=== PATIENT | female | born 1950 | race Caucasian/White ===

== ENCOUNTER 2016-08-14 10:40 | Inpatient (IN) ==
[2016-08-14] MEDS ORDERED: Ondansetron 4 MG/2 ML VIAL IVP ONE (16:09)
[2016-08-14] MEDS ORDERED: 0.9 % Sodium Chloride 1,000 ML IVC ONE (16:09)
[2016-08-14 16:16] LABS: Basophils % 0.3 %; Eosinophils # 0.2 K/mcL (0.0-0.6); Eosinophils % 1.9 %; Hematocrit 31.5 % (35.3-44.9); Immature Granulocytes % 0.4 % (0-4); Lymphocytes # 1.6 K/mcL (0.6-4.6); Lymphocytes % 17.2 %; Mean Corpuscular HGB Conc 31.7 g/dL (31.6-35.5); Mean Corpuscular Hemoglobin 27.3 pg (28.0-33.3); Mean Corpuscular Volume 86.1 fL (83.0-100.0); Mean Platelet Volume 9.1 fL (9.4-12.4); Monocytes # 0.7 K/mcL (0.0-1.3); Monocytes % 7.7 %; Neutrophils # 6.7 K/mcL (1.6-8.9); Platelet Count 284 K/mcL (140-400); Red Blood Count 3.66 M/mcL (3.82-4.97); Red Cell Distribution Width 14.5 % (11.5-14.5); Segmented Neutrophils % 72.5 %
[2016-08-14 16:30] LABS: Calcium 10.3 mg/dL (8.6-10.8); Potassium 4.7 mEq/L (3.5-4.5)
[2016-08-14 16:32] LABS: Albumin 3.3 g/dL (3.5-5.0); Albumin/Globulin Ratio 0.7 (1.1-2.2); Bilirubin,Direct 0.2 mg/dL (0.0-0.5); Bilirubin,Total 0.2 mg/dL (0.2-1.2); Total Protein 8.3 g/dL (6.0-8.3)
--- NOTE | 2016-08-14 16:39 | Emergency Department Note ---
Disposition Clinical Impression: Abnormal CT of the abdomen Nausea & vomiting Qualifiers: Vomiting type: unspecified Vomiting Intractability: non-intractable Qualified Code(s): R11.2 - Nausea with vomiting, unspecified Disposition: Admitted As Inpatient Condition: Good Nausea/Vomiting/Diarrhea HPI - General Chief complaint: ED Nausea/Vomiting/Diarrhea Stated complaint: vomiting, nausea Time Seen by Provider: 08/14/16 15:47 Source: patient Limitations: no limitations Nursing Notes Reviewed: Yes Vital Signs Reviewed: Yes - History of Present Illness HPI Narrative: Patient here for evaluation of nausea and vomiting. Patient has had nausea and vomiting symptoms for proximally 5 months with negative workup. Patient's symptoms recently gotten worse where she received a barium swallow test concerning for severe esophagitis versus possible malignancy. Patient has endoscopy scheduled for . Patient has been unable to tolerate by mouth fluids since yesterday. Patient with coffee-ground emesis and vomited bag. Patient complains of burning in her esophagus with vomiting but denies chest pain at this time. Patient has cramping abdominal pain but is able to localize on the left side. Patient states she has had a negative workup for abdominal pain however I only see right upper quadrant ultrasound on chart review. Patient denies constipation or diarrhea this point. - Related Data Home Medications Medication Instructions Recorded Confirmed Albuterol Sulfate [Proair 1 - 2 puff IH Q6H PRN 08/26/15 08/23/16 Respiclick] Losartan Potassium [Cozaar] 100 mg PO DAILY 08/26/15 08/23/16 Furosemide [Lasix] 20 mg PO QMWF 04/02/16 08/23/16 Atorvastatin [Lipitor] 10 mg PO DAILY 08/14/16 08/23/16 CloNIDine Patch [Catapres-Tts] 0.3 mg TP QWEEK 08/14/16 08/23/16 Ergocalciferol (VITAMIN D2) 50,000 unit PO QWEEK 08/14/16 08/23/16 [Vitamin D2] Promethazine HCl [Phenadoz] 25 mg RC DAILY PRN 08/14/16 08/23/16 Previous Rx's Medication Instructions Recorded Cyanocobalamin (Vitamin B-12) 1,000 mcg PO DAILY #30 tablet 08/17/16 [Vitamin B12] Ferrous Sulfate Oral Soln 300 mg PO BID #250 mls 08/17/16 Folic Acid 1 mg PO DAILY #30 tablet 08/17/16 Metoprolol XL (24 HR) Succ [Toprol 100 mg PO DAILY #60 tab.er.24h 08/17/16 Xl] Ondansetron [Zofran ODT] 8 mg SL ONCE #90 tab.rapdis 08/23/16 OxyCODONE Immed Rel [Roxicodone 5 5 mg PO Q6HR PRN #20 tablet 08/23/16 MG] Polyethylene Glycol 3350 [MiraLAX] 17 gm PO DAILY PRN #10 powd.pack 08/23/16 Allergies Allergy/AdvReac Type Severity Reaction Status Date / Time aspirin AdvReac Nausea Verified 08/26/15 18:15 naproxen AdvReac Nausea Verified 08/26/15 18:15 NSAIDS (Non-Steroidal AdvReac Nausea Verified 08/14/16 19:16 Anti-Inflamma All systems ED: reviewed and negative except as stated. Constitutional: Reports: weakness. Denies: fever, chills Eyes: Denies: eye pain ENT ED: Denies: ear pain Cardiovascular: Denies: chest pain Respiratory: Denies: cough, dyspnea Gastrointestinal: Reports: abdominal pain, nausea, vomiting. 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 Absent: respiratory distress, wheezes - Cardiovascular Cardiovascular exam: Present: regular rate, normal rhythm - Abdominal Exam Abdominal exam: Present: soft, tenderness Abdominal tenderness: Present: LUQ, LLQ, mild - Extremities Exam Extremities exam: Present: normal inspection, full ROM - Back Exam Back exam: Present: normal inspection - Neurological Exam Neurological exam: Present: alert, oriented X3 - Psychiatric Psychiatric exam: Present: normal affect - Skin Skin exam: Present: warm, dry Course - Reevaluation(s) Reevaluation #1: Pt symptoms mildly improved with medications. Pt informed about abnormal CT scan and need for continued workup with concern of possible underlying cancer. - Consultations Consultation #1: discussed with hospitalist Dr. Momin. Pt accepted. Vital Signs Temperature 98.7 F 08/14/16 10:41 Pulse Rate 100 08/14/16 10:41 Respiratory Rate 18 08/14/16 10:41 Blood Pressure 163/88 08/14/16 10:41 O2 Sat by Pulse Oximetry 95 08/14/16 10:41 Temperature 98.6 F 08/17/16 06:38 Pulse Rate 88 08/17/16 06:38 Respiratory Rate 16 08/17/16 06:38 Blood Pressure 105/71 08/17/16 06:38 O2 Sat by Pulse Oximetry 94 L 08/17/16 06:38 Oxygen Delivery Oxygen Delivery Room Air Nausea/Vomiting/Diarrhea - Lab Data Result diagrams: 08/17/16 04:29 08/17/16 04:29 Lab Results 08/14/16 08/14/16 08/14/16 Range/Units 15:45 15:45 15:45 WBC 9.3 (4.3-11.1) K/mcL RBC 3.66 L (3.82-4.97) M/mcL Hgb 10.0 L (11.5-15.4) g/dL Hct 31.5 L (35.3-44.9) % MCV 86.1 (83.0-100.0) fL MCH 27.3 L (28.0-33.3) pg MCHC 31.7 (31.6-35.5) g/dL RDW 14.5 (11.5-14.5) % Plt Count 284 (140-400) K/mcL MPV 9.1 L (9.4-12.4) fL Immature Gran % 0.4 (0-4) % Seg Neutrophils % 72.5 % Lymphocytes % 17.2 % Monocytes % 7.7 % Eosinophils % 1.9 % Basophils % 0.3 % Neutrophils # 6.7 (1.6-8.9) K/mcL Lymphocytes # 1.6 (0.6-4.6) K/mcL Monocytes # 0.7 (0.0-1.3) K/mcL Eosinophils # 0.2 (0.0-0.6) K/mcL Basophils # 0.0 (0.0-0.2) K/mcL Sodium 138 (136-145) mEq/L Potassium 4.7 H (3.5-4.5) mEq/L Chloride 101 (98-109) mEq/L Carbon Dioxide 25 (19-29) mEq/L BUN 31 H (7-20) mg/dL Creatinine 2.05 H (0.57-1.11) mg/dL Est GFR ( Amer) 30 L (> 60) Est GFR (Non-Af Amer) 24 L (> 60) BUN/Creatinine Ratio 15 (6-26) Glucose 109 H (70-99) mg/dL POC Glucose (58-89) Calculated Osmolality 293 (280-300) Calcium 10.3 (8.6-10.8) mg/dL Total Bilirubin 0.2 (0.2-1.2) mg/dL Direct Bilirubin 0.2 (0.0-0.5) mg/dL Indirect Bilirubin 0.0 (0.0-1.2) mg/dL AST 28 (5-34) Units/L ALT 18 (0-55) Units/L Alkaline Phosphatase 89 (38-126) Units/L Serum Total Protein 8.3 (6.0-8.3) g/dL Albumin 3.3 L (3.5-5.0) g/dL Globulin 5.0 H (2.4-3.5) g/dL Albumin/Globulin Ratio 0.7 L (1.1-2.2) Lipase 22 (8-78) Units/L Urine Color (Yellow) Urine Clarity (Clear) Urine pH (5.0-8.0) pH Units Ur Specific Chapman (1.010-1.025) Urine Protein (Neg-Trace) mg/dL Urine Glucose (UA) (Normal) mg/dL Urine Ketones (Negative) mg/dL Urine Blood (Negative) Urine Nitrite (Negative) Urine Bilirubin (Negative) Urine Urobilinogen (Normal) mg/dL Ur Leukocyte Esterase (Negative) Urine Microscopic RBC (0-3) per hpf Urine Microscopic WBC (0-3) per hpf Ur Squamous Epith Cells (None-Few) per lpf Urine Bacteria (None-Few) per hpf Ur Culture Indicated? (NO) Blood Type Antibody Screen 08/14/16 08/14/16 08/14/16 Range/Units 16:28 17:51 23:53 WBC (4.3-11.1) K/mcL RBC (3.82-4.97) M/mcL Hgb (11.5-15.4) g/dL Hct (35.3-44.9) % MCV (83.0-100.0) fL MCH (28.0-33.3) pg MCHC (31.6-35.5) g/dL RDW (11.5-14.5) % Plt Count (140-400) K/mcL MPV (9.4-12.4) fL Immature Gran % (0-4) % Seg Neutrophils % % Lymphocytes % % Monocytes % % Eosinophils % % Basophils % % Neutrophils # (1.6-8.9) K/mcL Lymphocytes # (0.6-4.6) K/mcL Monocytes # (0.0-1.3) K/mcL Eosinophils # (0.0-0.6) K/mcL Basophils # (0.0-0.2) K/mcL Sodium (136-145) mEq/L Potassium (3.5-4.5) mEq/L Chloride (98-109) mEq/L Carbon Dioxide (19-29) mEq/L BUN (7-20) mg/dL Creatinine (0.57-1.11) mg/dL Est GFR ( Amer) (> 60) Est GFR (Non-Af Amer) (> 60) BUN/Creatinine Ratio (6-26) Glucose (70-99) mg/dL POC Glucose 124 H (58-89) Calculated Osmolality (280-300) Calcium (8.6-10.8) mg/dL Total Bilirubin (0.2-1.2) mg/dL Direct Bilirubin (0.0-0.5) mg/dL Indirect Bilirubin (0.0-1.2) mg/dL AST (5-34) Units/L ALT (0-55) Units/L Alkaline Phosphatase (38-126) Units/L Serum Total Protein (6.0-8.3) g/dL Albumin (3.5-5.0) g/dL Globulin (2.4-3.5) g/dL Albumin/Globulin Ratio (1.1-2.2) Lipase (8-78) Units/L Urine Color Dark Yellow (Yellow) Urine Clarity Cloudy A (Clear) Urine pH 5.5 (5.0-8.0) pH Units Ur Specific Chapman 1.025 (1.010-1.025) Urine Protein 30 H (Neg-Trace) mg/dL Urine Glucose (UA) Normal (Normal) mg/dL Urine Ketones Trace H (Negative) mg/dL Urine Blood Negative (Negative) Urine Nitrite Negative (Negative) Urine Bilirubin Small H (Negative) Urine Urobilinogen Normal (Normal) mg/dL Ur Leukocyte Esterase Small H (Negative) Urine Microscopic RBC 0-3 (0-3) per hpf Urine Microscopic WBC 0-3 (0-3) per hpf Ur Squamous Epith Cells Many H (None-Few) per lpf Urine Bacteria Few (None-Few) per hpf Ur Culture Indicated? YES A (NO) Blood Type O POSITIVE Antibody Screen NEGATIVE 08/15/16 08/15/16 08/15/16 Range/Units 05:36 05:36 05:56 WBC 5.8 (4.3-11.1) K/mcL RBC 2.84 L (3.82-4.97) M/mcL Hgb 7.7 L D (11.5-15.4) g/dL Hct 24.6 L (35.3-44.9) % MCV 86.6 (83.0-100.0) fL MCH 27.1 L (28.0-33.3) pg MCHC 31.3 L (31.6-35.5) g/dL RDW 14.4 (11.5-14.5) % Plt Count 193 (140-400) K/mcL MPV 9.0 L (9.4-12.4) fL Immature Gran % (0-4) % Seg Neutrophils % % Lymphocytes % % Monocytes % % Eosinophils % % Basophils % % Neutrophils # (1.6-8.9) K/mcL Lymphocytes # (0.6-4.6) K/mcL Monocytes # (0.0-1.3) K/mcL Eosinophils # (0.0-0.6) K/mcL Basophils # (0.0-0.2) K/mcL Sodium 137 (136-145) mEq/L Potassium 4.1 (3.5-4.5) mEq/L Chloride 104 (98-109) mEq/L Carbon Dioxide 26 (19-29) mEq/L BUN 23 H (7-20) mg/dL Creatinine 1.27 H (0.57-1.11) mg/dL Est GFR ( Amer) 52 L (> 60) Est GFR (Non-Af Amer) 43 L (> 60) BUN/Creatinine Ratio 18 (6-26) Glucose 124 H (70-99) mg/dL POC Glucose 127 H (58-89) Calculated Osmolality 289 (280-300) Calcium 8.8 (8.6-10.8) mg/dL Total Bilirubin (0.2-1.2) mg/dL Direct Bilirubin (0.0-0.5) mg/dL Indirect Bilirubin (0.0-1.2) mg/dL AST (5-34) Units/L ALT (0-55) Units/L Alkaline Phosphatase (38-126) Units/L Serum Total Protein (6.0-8.3) g/dL Albumin (3.5-5.0) g/dL Globulin (2.4-3.5) g/dL Albumin/Globulin Ratio (1.1-2.2) Lipase (8-78) Units/L Urine Color (Yellow) Urine Clarity (Clear) Urine pH (5.0-8.0) pH Units Ur Specific Chapman (1.010-1.025) Urine Protein (Neg-Trace) mg/dL Urine Glucose (UA) (Normal) mg/dL Urine Ketones (Negative) mg/dL Urine Blood (Negative) Urine Nitrite (Negative) Urine Bilirubin (Negative) Urine Urobilinogen (Normal) mg/dL Ur Leukocyte Esterase (Negative) Urine Microscopic RBC (0-3) per hpf Urine Microscopic WBC (0-3) per hpf Ur Squamous Epith Cells (None-Few) per lpf Urine Bacteria (None-Few) per hpf Ur Culture Indicated? (NO) Blood Type Antibody Screen Attestation Statement - Attestation Attestation: Dr. Le note: Patient seen in conjunction with resident Dr. Chance; please see his chart for complete documentation. I spent [id number] time with the patient and I agree with the patient's treatment and disposition. Lab work and CT scan results reviewed; pt admitted in stable condition, w/ acute on chronic worsening of her abdominal symptoms and increasing difficulty tolerating oral fluids
[2016-08-14] MEDS ORDERED: *HR* HYDROmorphone (PF) 1 MG/ML SYRINGE IV ONE (17:30)
[2016-08-14 18:11] LABS: Bilirubin,Urine Small (Negative); Blood,Urine Negative (Negative); Clarity,Urine Cloudy (Clear); Color,Urine Dark Yellow (Yellow); Glucose,Urine (UA) Normal (Normal); Ketones,Urine Trace mg/dL (Negative); Leukocyte Esterase,Urine Small (Negative); Nitrite,Urine Negative (Negative); PH,Urine 5.5 pH Units (5.0-8.0); Protein,Urine 30 mg/dL (Neg-Trace); Specific Gravity,Urine 1.025 (1.010-1.025); Urobilinogen,Urine Normal (Normal)
[2016-08-14 18:19] LABS: RBC,Urine 0-3 per hpf (0-3); Squamous Epithelial Cell,Urine Many per lpf (None-Few); WBC,Urine 0-3 per hpf (0-3)
[2016-08-14 18:20] LABS: Bacteria,Urine Few per hpf (None-Few)
[2016-08-14] MEDS ORDERED: Acetaminophen 325 MG TABLET PO PRN (19:41)
[2016-08-14] MEDS ORDERED: Ondansetron 4 MG/2 ML VIAL IVP PRN (19:41)
[2016-08-14] MEDS ORDERED: Naloxone 0.4 MG/ML INJ IVP PRN (19:41)
[2016-08-14] MEDS ORDERED: Ipratropium/Albuterol Neb 3 ML IH PRN (19:46)
[2016-08-14] MEDS ORDERED: *HR* OxyCODONE/APAP 5/325 TABLET PO PRN (19:47)
--- NOTE | 2016-08-14 19:56 | Internal Med History&Physical ---
Date of Encounter: 08/14/16 Time of Encounter: 19:51 Assessment and Plan (1) Esophageal thickening Current visit: Yes Status: Acute dehydration 2ry to dysphagia, hematemesis (small amount), possible esophageal malignancy with mets called Dr Gray as he is covering for Dr Moura ( patient was going to have an EGD on originally) NPO after mindnight december schedule EGD with biopsy for the morning IVF Dailaudid, Zofran PRN COnsider Oncology consult Protonix IV no heparin, follow CBC (2) Lung nodule Current visit: Yes Status: Acute with liver lesions, will need more imaging (3) Tobacco abuse Current visit: Yes Status: Acute nicotine patch (4) Accelerated hypertension Current visit: Yes Status: Acute continue toprol , nicotine, Hydralazine IV prn (5) COPD (chronic obstructive pulmonary disease) Current visit: Yes Status: Acute inhalers Qualifiers: COPD type: unspecified COPD Qualified Code(s): J44.9 - Chronic obstructive pulmonary disease, unspecified (6) CKD (chronic kidney disease) stage 4, GFR 15-29 ml/min Current visit: Yes Status: Acute acute on chronic renal failure IVF (7) Malnutrition Current visit: Yes Status: Acute protein calorie malnutrition SCD for DVT prophylaxis and Protonix of GI prophylaxis. Admitted for observation, Full code. Time spent : 40 min High risk of dehydration Internal Medicine - H&P: HPI Chief complaint: nausea and vomiting Admitted From: Emergency Dept History of present illness: Ms. Lara is a 65 year old female with a past medical history of COPD not O2 dep , tobacco, HTN, WHO COMES TO THE EMERGENCY ROOM complaining of hematemesis, constant vomiting. She has vomited 5 times today with a small amount of blood and has not been able to keep any. The patient is dehydrated and says she has been vomiting for 2 months on and off. She was scheduled to see Dr. Moura on to have an endoscopy done. her hemoglobin is 10, CT scan of the abdomen showed severe esophageal thickening, with a right lower lobe nodule and hepatic lesions and a AAA. She has dysphagia but is still able to swallow her saliva. Her creatinine is 2.05 ans was 1.85 in the past. K is 4.7, HR 104, received dilaudid , Zofran and IVF in the ED.Has lost 21 lbs in the past 5 months. Denies diarrhea, on CP at the moment . Very anxious after receiving the bad news and not being able to smoke in the hospital. Past Med Surg Social Fam HX - Past Medical History Medical history: COPD (not O2 dep), hyperlipidemia, hypertension, renal disease (CKD4), other (chronic back pain, tobacco, asthma) Psychiatric history: no psych history - Past Surgical History Surgical History: other (tubal ligation) - Social History Smoking Status: Current every day smoker (1 PPD) Smokeless Tobacco Status: No Alcohol use: none Drug use: none - Additional Family History Additional family history: Paternal uncle and grand father with throat cancer Internal Medicine - H&P: Meds Albuterol Sulfate [Proair Respiclick] 1 - 2 puff IH Q6H PRN 08/26/15 [History] Losartan Potassium [Cozaar] 100 mg PO DAILY 08/26/15 [History] Furosemide [Lasix] 20 mg PO QMWF 04/02/16 [History] Atorvastatin [Lipitor] 10 mg PO DAILY 08/14/16 [History] CloNIDine Patch [Catapres-Tts] 0.3 mg TP QWEEK 08/14/16 [History] Ergocalciferol (VITAMIN D2) [Vitamin D2] 50,000 unit PO QWEEK 08/14/16 [History] Metoprolol XL (24 HR) Succ [Toprol XL] 200 mg PO DAILY 08/14/16 [History] NIFEdipine [Procardia] 10 mg PO BID 08/14/16 [History] Omeprazole [PriLOSEC] 40 mg PO BID 08/14/16 [History] OxyCODONE/APAP 5/325 [Percocet 5/325 MG] 1 tab PO Q6HR PRN 08/14/16 [History] Promethazine HCl [Phenadoz] 25 mg RC DAILY PRN 08/14/16 [History] Allergies aspirin Adverse Reaction (Verified 08/26/15 18:15) Nausea naproxen Adverse Reaction (Verified 08/26/15 18:15) Nausea NSAIDS (Non-Steroidal Anti-Inflamma Adverse Reaction (Verified 08/14/16 19:16) Nausea All Systems PM: A 10-system review of systems was performed and is negative for pertinent findings except as documented above in the HPI. Review of systems: NO CP or SOB, no dysuria, other systems out of the 10 reviewed are negative. - Constitutional Vitals: Temp Pulse Resp BP Pulse Ox 98.7 F 105 20 155/82 96 08/14/16 10:41 08/14/16 18:42 08/14/16 19:03 08/14/16 19:03 08/14/16 18:42 General appearance: Present: A&O X 3 - Head Head exam: Present: atraumatic, normocephalic - Eye Eye exam: Present: PERRL, conjuntiva pink, sclera anicteric Pupils: Present: PERRL - Neck Neck exam general surgery: Present: supple, trachea midline. Absent: lymphadenopathy - Respiratory Respiratory exam: Present: CTAB. Absent: accessory muscle use, rales, rhonchi, wheezes - Cardiovascular Cardiovascular exam: Present: RRR, +S1, +S2. Absent: diastolic murmur, gallop, rubs, systolic murmur - GI/Abdominal GI/Abdominal exam: Present: normal bowel sounds, soft, no peritoneal signs. Absent: distended, tenderness - Extremities Exam Extremities exam: Present: warm, radial pulses palpable and symetrical. Absent : calf tenderness, cyanotic, pedal edema - Neurological Exam Neurological exam: Present: CN II-XII intact, oriented X3, no focal deficits. Absent: pronater drift, facial droop, speech deficit - Skin Skin exam: Present: dry, intact Internal Med - H&P Results - Labs CBC & Chem 7: 08/14/16 15:45 08/14/16 15:45
[2016-08-14] MEDS ORDERED: CloNIDine Patch 0.3 MG PATCH (WEEKLY) TP SCH (20:00)
[2016-08-14] MEDS: D5% in 0.45% NACL 1,000 ML IVC SCH (20:24)
[2016-08-14] MEDS: Pantoprazole 40 MG VIAL IVP SCH (20:25)
[2016-08-14] MEDS: Nicotine 21 MG PATCH.TD24 TD SCH (20:28)
[2016-08-14] MEDS: *HR* HYDROmorphone (PF) 1 MG/ML SYRINGE IVP PRN (20:28)
[2016-08-14] MEDS: NIFEdipine 10 MG CAPSULE PO SCH (20:32)
[2016-08-14] MEDS: *HR* LORazepam 2 MG/ML VIAL IVP PRN (20:38)
[2016-08-14] MEDS: Ipratropium/Albuterol Neb 3 ML IH SCH (21:51)
[2016-08-15] MEDS: Ipratropium/Albuterol Neb 3 ML IH SCH ×4 (03:32→20:16)
[2016-08-15 06:03] LABS: Hematocrit 24.6 % (35.3-44.9); Mean Corpuscular HGB Conc 31.3 g/dL (31.6-35.5); Mean Corpuscular Hemoglobin 27.1 pg (28.0-33.3); Mean Corpuscular Volume 86.6 fL (83.0-100.0); Platelet Count 193 K/mcL (140-400); Red Blood Count 2.84 M/mcL (3.82-4.97); Red Cell Distribution Width 14.4 % (11.5-14.5)
[2016-08-15 06:09] LABS: Hemoglobin 7.7 g/dL (11.5-15.4)
[2016-08-15 06:18] LABS: Calcium 8.8 mg/dL (8.6-10.8); Potassium 4.1 mEq/L (3.5-4.5)
[2016-08-15] MEDS: D5% in 0.45% NACL 1,000 ML IVC SCH ×3 (06:40→16:12)
[2016-08-15] MEDS ORDERED: NON-FORMULARY MEDICATION 1 EACH EACH (Losartan Potassium [Cozaar] 100 MG) PO SCH (09:00)
[2016-08-15] MEDS: NIFEdipine 10 MG CAPSULE PO SCH ×2 (09:16→20:56)
[2016-08-15] MEDS: Nicotine 21 MG PATCH.TD24 TD SCH (09:16)
[2016-08-15] MEDS: *HR* HYDROmorphone (PF) 1 MG/ML SYRINGE IVP PRN ×3 (09:17→18:14)
[2016-08-15] MEDS: Pantoprazole 40 MG VIAL IVP SCH ×2 (09:17→20:56)
[2016-08-15] MEDS: Metoprolol XL (24 HR) Succ 50 MG TAB.ER.24H PO SCH ×2 (11:22→16:13)
[2016-08-15 14:05] LABS: Hematocrit 24.6 % (35.3-44.9); Hemoglobin 7.6 g/dL (11.5-15.4)
--- NOTE | 2016-08-15 14:52 | Internal Med Progress Note ---
Date of Encounter: 08/15/16 Time of Encounter: 10:30 - Assessment and plan (1) Esophageal thickening Current Visit: Yes Status: Acute Assessment and plan: With lung nodule and possible metastases to the liver. Plan for upper GI endoscopy later today. Surgery has been consulted for this. (2) Dysphagia Current Visit: Yes Status: Acute Assessment and plan: Patient continues to have dysphagia. Speech therapy consulted. We will keep nothing by mouth for now Qualifiers: Dysphagia type: pharyngoesophageal phase Qualified Code(s): R13.14 - Dysphagia, pharyngoesophageal phase (3) Hematemesis Current Visit: Yes Status: Acute Assessment and plan: Hemoglobin levels are 7.7 today. Will monitor hemoglobin. Patient is also on Protonix IV Qualifiers: Nausea presence: with nausea Qualified Code(s): K92.0 - Hematemesis; R11.0 - Nausea (4) Anemia Current Visit: Yes Status: Acute Assessment and plan: Hemoglobin 7.7. Monitor H&H. Transfuse if hemoglobin less than 7. Qualifiers: Anemia type: other cause Other causes of anemia: acute posthemorrhagic Qualified Code(s): D62 - Acute posthemorrhagic anemia (5) Accelerated hypertension Current Visit: Yes Status: Acute Assessment and plan: Blood pressure much better today. We will use intravenous medications to control her blood pressure she is nothing by mouth and unable to take oral medications. (6) CKD (chronic kidney disease) stage 4, GFR 15-29 ml/min Current Visit: Yes Status: Acute Assessment and plan: Renal function improved today. GFR 43, creatinine 1.27. Monitor renal function. (7) COPD (chronic obstructive pulmonary disease) Current Visit: Yes Status: Acute Assessment and plan: Not in acute exacerbation. On DuoNeb inhalers. Qualifiers: COPD type: unspecified COPD Qualified Code(s): J44.9 - Chronic obstructive pulmonary disease, unspecified (8) Lung nodule Current Visit: Yes Status: Acute Assessment and plan: 2 cm lung nodule present in CT scan. Consulted oncology. (9) Malnutrition Current Visit: Yes Status: Acute Assessment and plan: Due to dysphagia. Consult nutrition to help manage dietary regimen. (10) Nausea & vomiting Current Visit: Yes Status: Acute Assessment and plan: Supportive care. Due to dysphagia. On when necessary antiemetics. Qualifiers: Vomiting type: unspecified Vomiting Intractability: non-intractable Qualified Code(s): R11.2 - Nausea with vomiting, unspecified (11) Tobacco abuse Current Visit: Yes Status: Acute - Subjective Interval history: Patient continues to have difficulty swallowing. Unable to take her pills. She also complains of hematemesis. Denies any chest pain. Does have epigastric abdominal pain. No melena reported. Patient has not had a bowel movement as she has not eaten much over the past 3 weeks. - Constitutional Vitals: Temp Pulse Resp BP Pulse Ox 98.5 F 101 14 143/91 93 L 08/15/16 12:28 08/15/16 12:28 08/15/16 12:28 08/15/16 12:28 08/15/16 12:28 General appearance: Present: cooperative, mild distress, A&O X 3, answers questions appropriately - Respiratory Respiratory exam: Present: CTAB. Absent: accessory muscle use, rales, rhonchi, wheezes - Cardiovascular Cardiovascular exam: Present: RRR, +S1, +S2. Absent: diastolic murmur, gallop, rubs, systolic murmur - GI/Abdominal GI/Abdominal exam: Present: normal bowel sounds, soft, tenderness (Epigastric), no peritoneal signs. Absent: distended - Extremities Exam Extremities exam: Present: warm, radial pulses palpable and symetrical. Absent : calf tenderness, cyanotic, pedal edema - Neurological Exam Neurological exam: Present: CN II-XII intact, oriented X3, no focal deficits. Absent: facial droop, speech deficit - Skin Skin exam: Present: pallor Internal Medicine: Result - Labs CBC & Chem 7: 08/15/16 13:33 08/15/16 05:36 Labs: Short CBC 08/15/16 Range/Units 13:33 Hgb 7.6 L (11.5-15.4) g/dL Hct 24.6 L (35.3-44.9) % - VTE Documentation of Mechanical Device: Intermittent pneumatic compression device Consult Discharge Plan - Plan Referrals: Susan Burris, MANUFACTURING PRODUCTION MANAGER [Primary Care Provider] - - Attending Attestation This document has been at least partially created by [employer] recognition technology by Dr. Lua. Errors in grammar, wording or other phrases may exist. If errors are found after the documentation is signed, they will be addressed individually in the addendum section of this document when appropriate. Medical Decision Making - MDM Narrative Medical decision making narrative: High risk for complications due to severe anemia, GI bleed. Patient's hemoglobin has dropped from 10-7.6. Concern for GI bleed. As such, will change status to admit inpatient. Keep nothing by mouth. Follow up on EGD results. Please refer to the H&P dated 08/14/16 for complete review of systems, past medical surgical, social and family histories as these are unchanged except as above. - Lab Data Result diagrams: 08/15/16 13:33 08/15/16 05:36 Lab Results 08/15/16 Range/Units 13:33 Hgb 7.6 L (11.5-15.4) g/dL Hct 24.6 L (35.3-44.9) %
--- NOTE | 2016-08-15 15:14 | General Surgery Consult Note ---
<Krys Sinha - Last Filed: 08/15/16 15:09> Date of Encounter: 08/15/16 Time of Encounter: 15:09 Assessment and Plan (1) Hematemesis Current Visit: Yes Status: Acute Risks, benefits, alternatives and expected outcomes reviewed with the patient and she is in agreement to proceed with EGD 08/16/[address] Gray PPI twice daily Carafate QID Monitor H&H levels supportive care IV fluids Transfuse as necessary per medicine service Qualifiers: Nausea presence: with nausea Qualified Code(s): K92.0 - Hematemesis; R11.0 - Nausea (2) Dysphagia Current Visit: Yes Status: Acute Risks, benefits, alternatives and expected outcomes reviewed with the patient and she is in agreement to proceed with EGD 08/16/[address] Gray PPI twice daily Carafate QID Monitor H&H levels supportive care IV fluids Clear liquids today NPO after midnight Qualifiers: Dysphagia type: pharyngoesophageal phase Qualified Code(s): R13.14 - Dysphagia, pharyngoesophageal phase (3) Anemia Current Visit: Yes Status: Acute Monitor H&H Transfuse as necessary per medicine service Qualifiers: Anemia type: other cause Other causes of anemia: acute posthemorrhagic Qualified Code(s): D62 - Acute posthemorrhagic anemia (4) COPD (chronic obstructive pulmonary disease) Current Visit: Yes Status: Acute Stable Management per medicine service Qualifiers: COPD type: unspecified COPD Qualified Code(s): J44.9 - Chronic obstructive pulmonary disease, unspecified (5) Tobacco abuse Current Visit: Yes Status: Acute Smoking cessation education History of Present Illness Consult date: 08/15/16 Reason for consult: other (hematemesis) Requesting physician: Richi Palacios History of present illness: Mrs. Lara is a 65 year old female with a past medical history significant for CKD, hypertension, hyperlipidemia, COPD, lumbar stenosis and tobacco abuse. She presented to the ED last evening with a history of progressive dysphagia and hematemesis. She reports difficulty with swallowing liquids and solids which has progressively worsened. She states that she has been unable to eat or drink for the past 6 days. She has had an UGI and has been seen by Dr. Moura as an outpatient. Her UGI is suggestive of erosive esophagitis and concerning for a mass in her distal esophagus. She states that she has had multiple episodes of hematemesis over the past 24 hours. Her vomit is dark in color. She admits to diffuse abdominal discomfort/cramping. Denies any melena or hematochezia. Denies any unexplained weight loss. Denies any shortness of breath or chest pains. Denies any dizziness or syncope. She was scheduled to have an EGD with Dr. Moura in [place] on 08/16/16 and we have been asked to see and evaluate the patient for inpatient endoscopy. Past Med Surg Social Fam HX - Past Medical History Source: patient, old records reviewed Medical history: COPD (not O2 dep), hyperlipidemia, hypertension, renal disease (CKD4), other (chronic back pain, tobacco, asthma) Psychiatric history: no psych history - Past Surgical History Surgical History: other (tubal ligation) - Social History Smoking Status: Current every day smoker (1 PPD) Packs per day: 1PPD Smokeless Tobacco Status: No Alcohol use: none Drug use: none Current living situation: Home - Independent Activity Level: Independent ambulation - Family History Father Living Status: Age at : 76 Hx Family Cardiac Disorders: Yes Mother Living Status: Still Living Hx Family Cardiac Disorders: Yes (Hypertension) Hx Family Endocrine Disorder: Yes (Diabetes Mellitus) Hx Family Neurologic Disorders: Yes (CVA) Sister Living Status: Still Living Hx Family Cancer: Yes Medications and Allergies Albuterol Sulfate [Proair Respiclick] 1 - 2 puff IH Q6H PRN 08/26/15 [History] Losartan Potassium [Cozaar] 100 mg PO DAILY 08/26/15 [History] Furosemide [Lasix] 20 mg PO QMWF 04/02/16 [History] Atorvastatin [Lipitor] 10 mg PO DAILY 08/14/16 [History] CloNIDine Patch [Catapres-Tts] 0.3 mg TP QWEEK 08/14/16 [History] Ergocalciferol (VITAMIN D2) [Vitamin D2] 50,000 unit PO QWEEK 08/14/16 [History] Metoprolol XL (24 HR) Succ [Toprol XL] 200 mg PO DAILY 08/14/16 [History] NIFEdipine [Procardia] 10 mg PO BID 08/14/16 [History] Omeprazole [PriLOSEC] 40 mg PO BID 08/14/16 [History] OxyCODONE/APAP 5/325 [Percocet 5/325 MG] 1 tab PO Q6HR PRN 08/14/16 [History] Promethazine HCl [Phenadoz] 25 mg RC DAILY PRN 08/14/16 [History] Allergies aspirin Adverse Reaction (Verified 08/26/15 18:15) Nausea naproxen Adverse Reaction (Verified 08/26/15 18:15) Nausea NSAIDS (Non-Steroidal Anti-Inflamma Adverse Reaction (Verified 08/14/16 19:16) Nausea Review of Systems All systems PM: reviewed and no additional remarkable complaints except as stated (in the HPI) All systems PM: A 10-system review of systems was performed and is negative for pertinent findings except as documented above in the HPI. General Surgery Exam Initial Vital Signs Temp Pulse Resp BP Pulse Ox 98.7 F 100 18 163/88 95 08/14/16 10:41 08/14/16 10:41 08/14/16 10:41 08/14/16 10:41 08/14/16 10:41 - General physical appearance well developed, well nourished, no distress, no pain - Eyes normal ocular movement - ENT normal mucosa, atraumatic, normocephalic - Neck trachea midline - Respiratory normal respiratory effort, clear to auscultation - Cardiovascular Cardiovascular exam: Present: RRR, 15, 16 - Abdomen Abdomen general surgery: Present: bowel sounds present, soft, non tender - Integumentary Integumentary general surgery: Present: warm and dry, no abnormal pigmentation - Neurologic Present: CN 2-12 grossly intact - Musculoskeletal Present: normal gait, normal posture - Psychiatric Psychiatric general surgery: Present: appropriate, oriented to person, oriented to place, oriented to time, speech is normal, memory intact Exam Initial Vital Signs Temp Pulse Resp BP Pulse Ox 98.7 F 100 18 163/88 95 08/14/16 10:41 08/14/16 10:41 08/14/16 10:41 08/14/16 10:41 08/14/16 10:41 Results - Labs 08/15/16 13:33 08/15/16 05:36 Abnormal lab results RBC 2.84 M/mcL (3.82-4.97) L 08/15/16 05:36 Hgb 7.6 g/dL (11.5-15.4) L 08/15/16 13:33 Hct 24.6 % (35.3-44.9) L 08/15/16 13:33 MCH 27.1 pg (28.0-33.3) L 08/15/16 05:36 MCHC 31.3 g/dL (31.6-35.5) L 08/15/16 05:36 MPV 9.0 fL (9.4-12.4) L 08/15/16 05:36 BUN 23 mg/dL (7-20) H 08/15/16 05:36 Creatinine 1.27 mg/dL (0.57-1.11) H 08/15/16 05:36 Est GFR ( Amer) 52 (> 60) L 08/15/16 05:36 Est GFR (Non-Af Amer) 43 (> 60) L 08/15/16 05:36 Glucose 124 mg/dL (70-99) H 08/15/16 05:36 POC Glucose 127 (58-89) H 08/15/16 05:56 Albumin 3.3 g/dL (3.5-5.0) L 08/14/16 15:45 Globulin 5.0 g/dL (2.4-3.5) H 08/14/16 15:45 Albumin/Globulin Ratio 0.7 (1.1-2.2) L 08/14/16 15:45 Urine Clarity Cloudy (Clear) A 08/14/16 17:51 Urine Protein 30 mg/dL (Neg-Trace) H 08/14/16 17:51 Urine Ketones Trace mg/dL (Negative) H 08/14/16 17:51 Urine Bilirubin Small (Negative) H 08/14/16 17:51 Ur Leukocyte Esterase Small (Negative) H 08/14/16 17:51 Ur Squamous Epith Cells Many per lpf (None-Few) H 08/14/16 17:51 Ur Culture Indicated? YES (NO) A 08/14/16 17:51 All other labs normal. Consult Discharge Plan - Plan Referrals: Susan Burris, GENERATING STATION MECHANIC [Primary Care Provider] - 08/23/16 8:40 am - Attending Attestation I examined this patient and my medical decision-making was reviewed with the VOCATIONAL REHABILITATION TECHNICIAN/PA/Advanced Practice Nurse/Resident Physician. I agree with the documented findings, disposition and treatment plan as described except to the extent set forth below. <Toby Gray - Last Filed: 08/16/16 07:48> Date of Encounter: 08/15/16 Review of Systems All systems PM: A 10-system review of systems was performed and is negative for pertinent findings except as documented above in the HPI. General Surgery Exam Initial Vital Signs Temp Pulse Resp BP Pulse Ox 98.7 F 100 18 163/88 95 08/14/16 10:41 08/14/16 10:41 08/14/16 10:41 08/14/16 10:41 08/14/16 10:41 Exam Initial Vital Signs Temp Pulse Resp BP Pulse Ox 98.7 F 100 18 163/88 95 08/14/16 10:41 08/14/16 10:41 08/14/16 10:41 08/14/16 10:41 08/14/16 10:41 Results - Labs 08/16/16 04:07 08/16/16 04:07 Abnormal lab results RBC 2.86 M/mcL (3.82-4.97) L 08/16/16 04:07 Hgb 7.6 g/dL (11.5-15.4) L 08/16/16 04:07 Hct 24.8 % (35.3-44.9) L 08/16/16 04:07 MCH 26.6 pg (28.0-33.3) L 08/16/16 04:07 MCHC 30.6 g/dL (31.6-35.5) L 08/16/16 04:07 MPV 9.0 fL (9.4-12.4) L 08/16/16 04:07 Est GFR (Non-Af Amer) 50 (> 60) L 08/16/16 04:07 Glucose 118 mg/dL (70-99) H 08/16/16 04:07 POC Glucose 127 (58-89) H 08/15/16 05:56 Albumin 3.3 g/dL (3.5-5.0) L 08/14/16 15:45 Globulin 5.0 g/dL (2.4-3.5) H 08/14/16 15:45 Albumin/Globulin Ratio 0.7 (1.1-2.2) L 08/14/16 15:45 Urine Clarity Cloudy (Clear) A 08/14/16 17:51 Urine Protein 30 mg/dL (Neg-Trace) H 08/14/16 17:51 Urine Ketones Trace mg/dL (Negative) H 08/14/16 17:51 Urine Bilirubin Small (Negative) H 08/14/16 17:51 Ur Leukocyte Esterase Small (Negative) H 08/14/16 17:51 Ur Squamous Epith Cells Many per lpf (None-Few) H 08/14/16 17:51 Ur Culture Indicated? YES (NO) A 08/14/16 17:51 Diabetes panel 08/16/16 Range/Units 04:07 Sodium 136 (136-145) mEq/L Potassium 4.2 (3.5-4.5) mEq/L Chloride 106 (98-109) mEq/L Carbon Dioxide 22 (19-29) mEq/L BUN 11 D (7-20) mg/dL Creatinine 1.11 (0.57-1.11) mg/dL Glucose 118 H (70-99) mg/dL Calcium 9.1 (8.6-10.8) mg/dL Calcium panel 08/16/16 Range/Units 04:07 Calcium 9.1 (8.6-10.8) mg/dL Pituitary panel 08/16/16 Range/Units 04:07 Sodium 136 (136-145) mEq/L Potassium 4.2 (3.5-4.5) mEq/L Chloride 106 (98-109) mEq/L Carbon Dioxide 22 (19-29) mEq/L BUN 11 D (7-20) mg/dL Creatinine 1.11 (0.57-1.11) mg/dL Glucose 118 H (70-99) mg/dL Calcium 9.1 (8.6-10.8) mg/dL Adrenal panel 08/16/16 Range/Units 04:07 Sodium 136 (136-145) mEq/L Potassium 4.2 (3.5-4.5) mEq/L Chloride 106 (98-109) mEq/L Carbon Dioxide 22 (19-29) mEq/L BUN 11 D (7-20) mg/dL Creatinine 1.11 (0.57-1.11) mg/dL Glucose 118 H (70-99) mg/dL Calcium 9.1 (8.6-10.8) mg/dL All other labs normal. - Attending Attestation Toby Gray MD FACS
[2016-08-15] MEDS: Sucralfate 1 GM TABLET PO SCH ×2 (16:12→20:56)
[2016-08-15 19:11] LABS: Hematocrit 26.9 % (35.3-44.9); Hemoglobin 8.3 g/dL (11.5-15.4)
[2016-08-15] MEDS: *HR* LORazepam 2 MG/ML VIAL IVP PRN (20:56)
[2016-08-16] MEDS: D5% in 0.45% NACL 1,000 ML IVC SCH ×3 (02:28→21:23)
[2016-08-16] MEDS: *HR* HYDROmorphone (PF) 1 MG/ML SYRINGE IVP PRN ×4 (03:57→16:37)
[2016-08-16] MEDS: Ipratropium/Albuterol Neb 3 ML IH SCH ×3 (04:15→15:47)
[2016-08-16 05:12] LABS: Hematocrit 24.8 % (35.3-44.9); Hemoglobin 7.6 g/dL (11.5-15.4); Mean Corpuscular HGB Conc 30.6 g/dL (31.6-35.5); Mean Corpuscular Hemoglobin 26.6 pg (28.0-33.3); Mean Corpuscular Volume 86.7 fL (83.0-100.0); Platelet Count 224 K/mcL (140-400); Red Blood Count 2.86 M/mcL (3.82-4.97); Red Cell Distribution Width 14.2 % (11.5-14.5)
[2016-08-16 05:13] LABS: Basophils % 0.5 %; Eosinophils # 0.3 K/mcL (0.0-0.6); Eosinophils % 3.9 %; Immature Granulocytes % 0.5 % (0-4); Lymphocytes # 1.4 K/mcL (0.6-4.6); Lymphocytes % 22.6 %; Monocytes # 0.5 K/mcL (0.0-1.3); Monocytes % 8.5 %; Neutrophils # 4.1 K/mcL (1.6-8.9)
[2016-08-16 05:23] LABS: BUN/Creatinine Ratio 10 (6-26); Calcium 9.1 mg/dL (8.6-10.8); Carbon Dioxide 22 mEq/L (19-29); Chloride 106 mEq/L (98-109); Glucose 118 mg/dL (70-99); Osmolality,Calculated 282 (280-300); Potassium 4.2 mEq/L (3.5-4.5); Sodium 136 mEq/L (136-145); eGFR For African Americans > 60 (> 60); eGFR For Non-African Americans 50 (> 60)
[2016-08-16 05:42] LABS: Blood Urea Nitrogen 11 mg/dL (7-20)
[2016-08-16] MEDS: Sucralfate 1 GM TABLET PO SCH ×4 (07:55→21:27)
[2016-08-16] MEDS: Nicotine 21 MG PATCH.TD24 TD SCH (07:55)
[2016-08-16] MEDS: Pantoprazole 40 MG VIAL IVP SCH ×2 (07:56→21:23)
[2016-08-16] MEDS: NIFEdipine 10 MG CAPSULE PO SCH ×2 (07:56→21:23)
[2016-08-16] MEDS: Metoprolol XL (24 HR) Succ 50 MG TAB.ER.24H PO SCH (07:56)
[2016-08-16] MEDS ORDERED: *HR* Midazolam HCl 5 MG/5 ML VIAL IVP ONE (09:18)
[2016-08-16] MEDS ORDERED: *HR* FentaNYL (PF) 100 MCG/2 ML VIAL ONE (09:18)
[2016-08-16] MEDS ORDERED: Tetracaine/Benzocaine/Butamben 200MG/SPRAY (100SPY/BOT) MM ONE (09:32)
[2016-08-16] MEDS ORDERED: *HR* FentaNYL (PF) 100 MCG/2 ML VIAL IVP PRN (09:32)
[2016-08-16] MEDS ORDERED: Simethicone 40 MG/0.6 ML MLS IR ONE (09:32)
--- NOTE | 2016-08-16 09:34 | Pre-Sedation Evaluation ---
Pre-sedation evaluation - Pre-sedation checklist Date of procedure: 08/16/16 Procedure: egd Recent Vitals: Last Vital Signs Temp 98.9 F 08/16/16 06:50 Pulse 94 08/16/16 06:50 Resp 16 08/16/16 06:50 BP 125/83 08/16/16 06:50 Pulse Ox 96 08/16/16 06:50 H&P (including ROS) documented in medical record: Yes Previous reaction to sedatives/anesthetics: No Dietary Status: NPO after Midnight Airway Assessment: Patient can open mouth completely, TMJ function normal Dentition: dentures removed ASA Classification *see protocol: CLASS III-Severe systemic disease Plan of Care: Pt appropriate candidate for procedure/moderate/conscious sedation , Risks/benefits of procedure/sedation discussed w/ patient/family
[2016-08-16] MEDS: *HR* Midazolam HCl 5 MG/5 ML VIAL IVP PRN ×2 (09:37→09:39)
[2016-08-16] MEDS ORDERED: 0.9 % Sodium Chloride 1,000 ML IVC SCH (09:45)
--- NOTE | 2016-08-16 16:05 | Internal Med Progress Note ---
Date of Encounter: 08/16/16 Time of Encounter: 10:35 - Assessment and plan (1) Esophageal thickening Current Visit: Yes Status: Acute Assessment and plan: Underwent upper GI endoscopy. Patient has an esophageal mass. Biopsy sent for pathology. Consulted oncology for further recommendations and follow-up. (2) Dysphagia Current Visit: Yes Status: Acute Assessment and plan: Esophageal dysphagia. Due to esophageal mass. Speech therapy and swallow evaluation completed. I: Stat as tolerated to soft diet. Qualifiers: Dysphagia type: other dysphagia Qualified Code(s): R13.19 - Other dysphagia (3) Hematemesis Current Visit: Yes Status: Acute Assessment and plan: Improving. Hemoglobin levels remain stable. We will continue to monitor. Patient will be discharged tomorrow if her hemoglobin levels are stable and she is tolerating soft diet. On Protonix and Carafate Qualifiers: Nausea presence: with nausea Qualified Code(s): K92.0 - Hematemesis; R11.0 - Nausea (4) Anemia Current Visit: Yes Status: Acute Assessment and plan: Stable hemoglobin levels. We will continue to monitor. Qualifiers: Anemia type: other cause Other causes of anemia: acute posthemorrhagic Qualified Code(s): D62 - Acute posthemorrhagic anemia (5) Accelerated hypertension Current Visit: Yes Status: Acute Assessment and plan: Improved blood pressure. Continue nifedipine, clonidine and metoprolol. (6) CKD (chronic kidney disease) stage 4, GFR 15-29 ml/min Current Visit: Yes Status: Acute Assessment and plan: Renal function at baseline. (7) COPD (chronic obstructive pulmonary disease) Current Visit: Yes Status: Acute Assessment and plan: Continue when necessary bronchodilator treatments. Patient is currently not in acute exacerbation Qualifiers: COPD type: unspecified COPD Qualified Code(s): J44.9 - Chronic obstructive pulmonary disease, unspecified (8) Lung nodule Current Visit: Yes Status: Acute Assessment and plan: Follow-up with oncology. (9) Malnutrition Current Visit: Yes Status: Acute Assessment and plan: Due to dysphagia. Would advance diet as tolerated (10) Nausea & vomiting Current Visit: Yes Status: Acute Assessment and plan: Improved. Qualifiers: Vomiting type: unspecified Vomiting Intractability: non-intractable Qualified Code(s): R11.2 - Nausea with vomiting, unspecified (11) Tobacco abuse Current Visit: Yes Status: Acute - Subjective Interval history: Patient underwent upper GI endoscopy this morning. Doing well postprocedure. Speech and swallow evaluation in progress. She has not had any further episodes of hematemesis. No melena reported. Tolerating clear liquids well. No abdominal pain. - Constitutional Vitals: Temp Pulse Resp BP Pulse Ox 98.4 F 78 17 141/75 95 08/16/16 11:30 08/16/16 11:30 08/16/16 11:30 08/16/16 11:30 08/16/16 11:30 General appearance: Present: cooperative, mild distress, A&O X 3, answers questions appropriately - Respiratory Respiratory exam: Present: CTAB. Absent: accessory muscle use, rales, rhonchi, wheezes - Cardiovascular Cardiovascular exam: Present: RRR, +S1, +S2. Absent: diastolic murmur, gallop, rubs, systolic murmur - GI/Abdominal GI/Abdominal exam: Present: normal bowel sounds, soft, no peritoneal signs. Absent: distended, tenderness - Extremities Exam Extremities exam: Present: warm, radial pulses palpable and symetrical. Absent : calf tenderness, cyanotic, pedal edema - Neurological Exam Neurological exam: Present: CN II-XII intact, oriented X3, no focal deficits. Absent: pronater drift, facial droop, speech deficit - Skin Skin exam: Present: pallor Internal Medicine: Result - Labs CBC & Chem 7: 08/16/16 04:07 08/16/16 04:07 Labs: Short CBC 08/15/16 08/16/16 Range/Units 18:47 04:07 WBC 6.3 (4.3-11.1) K/mcL Hgb 8.3 L 7.6 L (11.5-15.4) g/dL Hct 26.9 L 24.8 L (35.3-44.9) % Plt Count 224 (140-400) K/mcL Neutrophils # 4.1 (1.6-8.9) K/mcL BMP 08/16/16 04:07 Sodium 136 Potassium 4.2 Chloride 106 Carbon Dioxide 22 BUN 11 D Creatinine 1.11 Glucose 118 H Calcium 9.1 - VTE Documentation of Mechanical Device: Intermittent pneumatic compression device Consult Discharge Plan - Plan Referrals: Susan Burris, RETAIL PHARMACY TECHNICIAN [Primary Care Provider] - 08/23/16 8:40 am - Attending Attestation This document has been at least partially created by [employer] recognition technology by Dr. Lua. Errors in grammar, wording or other phrases may exist. If errors are found after the documentation is signed, they will be addressed individually in the addendum section of this document when appropriate. Medical Decision Making - MDM Narrative Medical decision making narrative: Moderate risk for complications. - Lab Data Lab results reviewed: Yes I reviewed the patient's lab results. Result diagrams: 08/16/16 04:07 08/16/16 04:07 Lab Results 08/15/16 08/15/16 08/16/16 Range/Units 13:33 18:47 04:07 WBC 6.3 (4.3-11.1) K/mcL RBC 2.86 L (3.82-4.97) M/mcL Hgb 7.6 L 8.3 L 7.6 L (11.5-15.4) g/dL Hct 24.6 L 26.9 L 24.8 L (35.3-44.9) % MCV 86.7 (83.0-100.0) fL MCH 26.6 L (28.0-33.3) pg MCHC 30.6 L (31.6-35.5) g/dL RDW 14.2 (11.5-14.5) % Plt Count 224 (140-400) K/mcL MPV 9.0 L (9.4-12.4) fL Immature Gran % 0.5 (0-4) % Seg Neutrophils % 64.0 % Lymphocytes % 22.6 % Monocytes % 8.5 % Eosinophils % 3.9 % Basophils % 0.5 % Neutrophils # 4.1 (1.6-8.9) K/mcL Lymphocytes # 1.4 (0.6-4.6) K/mcL Monocytes # 0.5 (0.0-1.3) K/mcL Eosinophils # 0.3 (0.0-0.6) K/mcL Basophils # 0.0 (0.0-0.2) K/mcL Sodium (136-145) mEq/L Potassium (3.5-4.5) mEq/L Chloride (98-109) mEq/L Carbon Dioxide (19-29) mEq/L BUN (7-20) mg/dL Creatinine (0.57-1.11) mg/dL Est GFR ( Amer) (> 60) Est GFR (Non-Af Amer) (> 60) BUN/Creatinine Ratio (6-26) Glucose (70-99) mg/dL Calculated Osmolality (280-300) Calcium (8.6-10.8) mg/dL 08/16/16 Range/Units 04:07 WBC (4.3-11.1) K/mcL RBC (3.82-4.97) M/mcL Hgb (11.5-15.4) g/dL Hct (35.3-44.9) % MCV (83.0-100.0) fL MCH (28.0-33.3) pg MCHC (31.6-35.5) g/dL RDW (11.5-14.5) % Plt Count (140-400) K/mcL MPV (9.4-12.4) fL Immature Gran % (0-4) % Seg Neutrophils % % Lymphocytes % % Monocytes % % Eosinophils % % Basophils % % Neutrophils # (1.6-8.9) K/mcL Lymphocytes # (0.6-4.6) K/mcL Monocytes # (0.0-1.3) K/mcL Eosinophils # (0.0-0.6) K/mcL Basophils # (0.0-0.2) K/mcL Sodium 136 (136-145) mEq/L Potassium 4.2 (3.5-4.5) mEq/L Chloride 106 (98-109) mEq/L Carbon Dioxide 22 (19-29) mEq/L BUN 11 D (7-20) mg/dL Creatinine 1.11 (0.57-1.11) mg/dL Est GFR ( Amer) > 60 (> 60) Est GFR (Non-Af Amer) 50 L (> 60) BUN/Creatinine Ratio 10 (6-26) Glucose 118 H (70-99) mg/dL Calculated Osmolality 282 (280-300) Calcium 9.1 (8.6-10.8) mg/dL
--- NOTE | 2016-08-16 16:51 | Oncology Inp Consult Note ---
Date of Encounter: 08/16/16 Time of Encounter: 07:00 Assessment and Plan (1) Esophageal thickening Status: Acute Assessment and plan: Esophageal mass thickening noted in imaging status post endoscopy findings removed, we will await pathology. CT scan with contrast to chest abdomen and pelvis to further evaluate liver lesions likely metastatic disease. We will await final pathology to discuss results with patient. She is currently having minimal dysphagia without any significant weight loss, will be a candidate for palliative treatment with chemotherapy/+- radiotherapy , once path confirms malignancy On PPI/carafate-monitor Hgb/Hct. PRBC as needed, will palliate with RT first if bleeding continues. IV iron as out patient Briefly I discussed plan of care wit her. Will review path and MDT conference once results are available - Data of Consult Requesting Physician: Sylvia Lua MD Primary Care Provider: Susan Burris CNP - Consult Narrative History of present illness: Ms. Lara is a 65 year old female was consulted for possible esophageal lesion and liver metastatic disease [id number] female with medical history significant for COPD, tobacco abuse was hospitalized for complaints. Difficulty swallowing and anemia patient had first treatment to her throat and pain with swallowing with some bleeding/ hematemesis. Double contrast esophagogram showed extensive erosive changes in the lower esophagus possible mucosal or submucosal mass. Patient underwent a CT scan of the abdomen 08/14/2016 which showed significant mucosal thickening at the distal esophagus, underlying esophageal carcinoma should be considered and tiny reactive lymph nodes right lower lobe pulmonary nodule multiple hepatic lesions suspicious for metastatic disease. CAT scan was done without contrast. Patient reports no weight loss she denies any melena. Denies any cough with expectoration or shortness of breath. Patient underwent EGD with Dr. Gray, she is on proton pump inhibitors and Carafate. Hemoglobin up to 7.6 and is being monitored. Endoscopy showed a partially obstructing malignant looking mass at the distal esophagus which has been biopsied today. Past Med Surg Social Fam HX - Past Medical History Medical history: COPD (not O2 dep), hyperlipidemia, hypertension, renal disease (CKD4), other (chronic back pain, tobacco, asthma) Psychiatric history: no psych history - Past Surgical History Surgical History: other (tubal ligation) - Social History Smoking Status: Current every day smoker (1 PPD) Packs per day: 1PPD Smokeless Tobacco Status: No Alcohol use: none Drug use: none - Family History Father Living Status: Age at : 76 Hx Family Cardiac Disorders: Yes Mother Living Status: Still Living Hx Family Cardiac Disorders: Yes (Hypertension) Hx Family Endocrine Disorder: Yes (Diabetes Mellitus) Hx Family Neurologic Disorders: Yes (CVA) Sister Living Status: Still Living Hx Family Cancer: Yes Medications and Allergies Albuterol Sulfate [Proair Respiclick] 1 - 2 puff IH Q6H PRN 08/26/15 [History] Losartan Potassium [Cozaar] 100 mg PO DAILY 08/26/15 [History] Furosemide [Lasix] 20 mg PO QMWF 04/02/16 [History] Atorvastatin [Lipitor] 10 mg PO DAILY 08/14/16 [History] CloNIDine Patch [Catapres-Tts] 0.3 mg TP QWEEK 08/14/16 [History] Ergocalciferol (VITAMIN D2) [Vitamin D2] 50,000 unit PO QWEEK 08/14/16 [History] Metoprolol XL (24 HR) Succ [Toprol XL] 200 mg PO DAILY 08/14/16 [History] NIFEdipine [Procardia] 10 mg PO BID 08/14/16 [History] Omeprazole [PriLOSEC] 40 mg PO BID 08/14/16 [History] OxyCODONE/APAP 5/325 [Percocet 5/325 MG] 1 tab PO Q6HR PRN 08/14/16 [History] Promethazine HCl [Phenadoz] 25 mg RC DAILY PRN 08/14/16 [History] Allergies aspirin Adverse Reaction (Verified 08/26/15 18:15) Nausea naproxen Adverse Reaction (Verified 08/26/15 18:15) Nausea NSAIDS (Non-Steroidal Anti-Inflamma Adverse Reaction (Verified 08/14/16 19:16) Nausea Review of systems: as in HPI Oncology - Exam - Constitutional Vitals: Temp Pulse Resp BP Pulse Ox 98.4 F 78 17 141/75 95 08/16/16 11:30 08/16/16 11:30 08/16/16 11:30 08/16/16 11:30 08/16/16 11:30 General appearance: average body habitus - Head Head exam: Present: atraumatic, normal inspection - Eye Eye exam: Present: sclera anicteric - ENT ENT exam: Present: mucous membranes moist, normal external ear exam - Neck Neck exam: Present: full ROM, normal inspection - Respiratory Respiratory exam: Present: CTAB - Cardiovascular Cardiovascular exam: Present: +S1, +S2 - GI/Abdominal GI/Abdominal exam: Present: normal bowel sounds, soft - Extremities Exam Extremities exam: Present: full ROM, normal inspection - Neurological Exam Neurological exam: Present: alert, oriented X3 - Psychiatric Psychiatric exam: Present: normal affect - Skin Skin exam: Present: normal color Oncology - Results - Labs Labs: Short CBC 08/15/16 08/16/16 Range/Units 18:47 04:07 WBC 6.3 (4.3-11.1) K/mcL Hgb 8.3 L 7.6 L (11.5-15.4) g/dL Hct 26.9 L 24.8 L (35.3-44.9) % Plt Count 224 (140-400) K/mcL Neutrophils # 4.1 (1.6-8.9) K/mcL BMP 08/16/16 04:07 Sodium 136 Potassium 4.2 Chloride 106 Carbon Dioxide 22 BUN 11 D Creatinine 1.11 Glucose 118 H Calcium 9.1 Consult Discharge Plan - Plan Referrals: Susan Burris, PERSONNEL COUNSELOR [Primary Care Provider] - 08/23/16 8:40 am
[2016-08-16] MEDS: *HR* Acetylcysteine 20% 600 MG/3 ML ORAL SYRINGE PO SCH (21:22)
[2016-08-16] MEDS: *HR* LORazepam 2 MG/ML VIAL IVP PRN (21:23)
[2016-08-17] MEDS: *HR* HYDROmorphone (PF) 1 MG/ML SYRINGE IVP PRN ×2 (03:59→07:43)
[2016-08-17 05:19] LABS: Basophils % 0.5 %; Eosinophils # 0.2 K/mcL (0.0-0.6); Eosinophils % 3.1 %; Hematocrit 24.4 % (35.3-44.9); Hemoglobin 7.4 g/dL (11.5-15.4); Immature Granulocytes % 0.3 % (0-4); Lymphocytes # 1.5 K/mcL (0.6-4.6); Lymphocytes % 22.8 %; Mean Corpuscular HGB Conc 30.3 g/dL (31.6-35.5); Mean Corpuscular Hemoglobin 26.4 pg (28.0-33.3); Mean Corpuscular Volume 87.1 fL (83.0-100.0); Mean Platelet Volume 9.3 fL (9.4-12.4); Monocytes # 0.5 K/mcL (0.0-1.3); Monocytes % 7.7 %; Neutrophils # 4.2 K/mcL (1.6-8.9); Platelet Count 237 K/mcL (140-400); Red Cell Distribution Width 14.3 % (11.5-14.5); Segmented Neutrophils % 65.6 %
[2016-08-17 05:36] LABS: Calcium 8.6 mg/dL (8.6-10.8); Potassium 4.2 mEq/L (3.5-4.5)
[2016-08-17 06:49] VITALS: BP 105/71
[2016-08-17] MEDS: D5% in 0.45% NACL 1,000 ML IVC SCH (07:00)
[2016-08-17] MEDS: Sucralfate 1 GM TABLET PO SCH ×2 (07:45→11:49)
[2016-08-17] MEDS: Nicotine 21 MG PATCH.TD24 TD SCH (07:46)
[2016-08-17] MEDS: *HR* Acetylcysteine 20% 600 MG/3 ML ORAL SYRINGE PO SCH (07:46)
[2016-08-17] MEDS: Metoprolol XL (24 HR) Succ 50 MG TAB.ER.24H PO SCH (07:47)
[2016-08-17] MEDS: Pantoprazole 40 MG VIAL IVP SCH (07:47)
[2016-08-17] MEDS: NIFEdipine 10 MG CAPSULE PO SCH (07:47)
--- NOTE | 2016-08-17 09:42 | Discharge Summary ---
Date of Encounter: 08/17/16 Time of Encounter: 09:15 - Discharge Diagnosis (1) Mass of esophagus determined by endoscopy Priority: Primary Status: Acute (2) Esophageal thickening Priority: Secondary Status: Acute (3) Dysphagia Priority: Secondary Status: Acute Qualifiers: Dysphagia type: other dysphagia Qualified Code(s): R13.19 - Other dysphagia (4) Hematemesis Priority: Secondary Status: Acute Qualifiers: Nausea presence: with nausea Qualified Code(s): K92.0 - Hematemesis; R11.0 - Nausea (5) Anemia Priority: Secondary Status: Acute Qualifiers: Anemia type: other cause Other causes of anemia: acute posthemorrhagic Qualified Code(s): D62 - Acute posthemorrhagic anemia (6) Accelerated hypertension Priority: Secondary Status: Acute (7) CKD (chronic kidney disease) stage 4, GFR 15-29 ml/min Priority: Secondary Status: Acute (8) COPD (chronic obstructive pulmonary disease) Priority: Secondary Status: Acute Qualifiers: COPD type: unspecified COPD Qualified Code(s): J44.9 - Chronic obstructive pulmonary disease, unspecified (9) Lung nodule Priority: Secondary Status: Acute (10) Malnutrition Priority: Secondary Status: Acute (11) Nausea & vomiting Priority: Secondary Status: Acute Qualifiers: Vomiting type: unspecified Vomiting Intractability: non-intractable Qualified Code(s): R11.2 - Nausea with vomiting, unspecified (12) Tobacco abuse Priority: Secondary Status: Acute - Discharge Medications Prescriptions: OxyCODONE Immed Rel [Roxicodone 5 MG] 5 mg PO Q6HR PRN #20 tablet PRN Reason: pain Cyanocobalamin (Vitamin B-12) [Vitamin B12] 1,000 mcg PO DAILY #30 tablet Ferrous Sulfate Oral Soln 300 mg PO BID #250 mls Folic Acid 1 mg PO DAILY #30 tablet Metoprolol XL (24 HR) Succ [Toprol Xl] 100 mg PO DAILY #60 tab.er.24h Sucralfate [Carafate] 1 gm PO QIDAC #250 ml Home Medications: Albuterol Sulfate [Proair Respiclick] 1 - 2 puff IH Q6H PRN 08/26/15 [History] Losartan Potassium [Cozaar] 100 mg PO DAILY 08/26/15 [History] Furosemide [Lasix] 20 mg PO QMWF 04/02/16 [History] Atorvastatin [Lipitor] 10 mg PO DAILY 08/14/16 [History] CloNIDine Patch [Catapres-Tts] 0.3 mg TP QWEEK 08/14/16 [History] Ergocalciferol (VITAMIN D2) [Vitamin D2] 50,000 unit PO QWEEK 08/14/16 [History] NIFEdipine [Procardia] 10 mg PO BID 08/14/16 [History] Omeprazole [PriLOSEC] 40 mg PO BID 08/14/16 [History] Promethazine HCl [Phenadoz] 25 mg RC DAILY PRN 08/14/16 [History] Cyanocobalamin (Vitamin B-12) [Vitamin B12] 1,000 mcg PO DAILY #30 tablet [Rx] Ferrous Sulfate Oral Soln 300 mg PO BID #250 mls 08/17/16 [Rx] Folic Acid 1 mg PO DAILY #30 tablet 08/17/16 [Rx] Metoprolol XL (24 HR) Succ [Toprol Xl] 100 mg PO DAILY #60 tab.er.24h 08/17/16 [ Rx] OxyCODONE Immed Rel [Roxicodone 5 MG] 5 mg PO Q6HR PRN #20 tablet 08/17/16 [Rx] Sucralfate [Carafate] 1 gm PO QIDAC #250 ml 08/17/16 [Rx] Allergies/Adverse Reactions: Allergies aspirin Adverse Reaction (Verified 08/26/15 18:15) Nausea naproxen Adverse Reaction (Verified 08/26/15 18:15) Nausea NSAIDS (Non-Steroidal Anti-Inflamma Adverse Reaction (Verified 08/14/16 19:16) Nausea Procedures/tests Complete & Pending: Procedures Performed prior 72 hours Category Date Time Status CT chest wo con [CT] Stat Cat Scan 08/17/16 07:24 Completed Date of admission: 08/15/16 08:45 Primary care physician: Susan Burris CNP Consults: 08/15/16 08:59 Consult to Speech Therapy [CONS] Routine Comment: Evaluate, develop and implement POC Reason for Consult: Dysphagia Time Notified: 08:59 Call Completed: No - Patient Status Disposition: Home, Self-Care Condition: Good Functional capacity at discharge: independent ambulation Overall status at discharge: patient is progressing back to baseline - Discharge Instructions Instructions: Chronic Dysphagia (DC), Anemia (GEN) Follow Up With: Susan Burris CNP [Primary Care Provider] - 08/23/16 8:40 am Dev Callejas MD [Partnered Physician] - 08/23/16 2:20 pm (in 1 week) - Diet and Activity Activity: increase activity as tolerated Diet: other (soft diet) Hospital course: Ms. Lara is a 65 year old female patient with a history of chronic kidney disease, COPD who was admitted here after presented with symptoms of dysphagia and hematemesis. Initial CT scan done in the ER revealed some esophageal thickening with a lung nodule and abnormal liver lesions. Patient underwent an upper GI endoscopy yesterday which again showed a esophageal mass that has been biopsied and sent for pathology. Patient was initially kept nothing by mouth and has been transitioned to a soft diet which she is tolerating well. She was evaluated by speech therapy and recommended soft diet as patient has esophageal dysphagia. She has had no further episodes of hematemesis. Her hemoglobin levels have stabilized. At this time, she is stable to be discharged home and will follow up with oncology for further management of her esophageal mass. She will also be placed on iron, vitamin B12 and folic acid levels to support her erythropoiesis. She has been strongly advised to quit smoking. - Time Spent with Patient Total time spent providing and/or coordinating discharge services: Greater than 30 minutes (35 min) - Constitutional Vitals: Temp Pulse Resp BP Pulse Ox 98.6 F 88 16 105/71 94 L 08/17/16 06:38 08/17/16 06:38 08/17/16 06:38 08/17/16 06:38 08/17/16 06:38 General appearance: Present: cooperative, mild distress, A&O X 3, answers questions appropriately - Respiratory Respiratory exam: Present: prolonged expiratory phase. Absent: accessory muscle use, rales, rhonchi, wheezes - Cardiovascular Cardiovascular exam: Present: RRR, +S1, +S2. Absent: diastolic murmur, gallop, rubs, systolic murmur - GI/Abdominal GI/Abdominal exam: Present: normal bowel sounds, soft, no peritoneal signs. Absent: distended, tenderness - Extremities Exam Extremities exam: Present: warm, radial pulses palpable and symetrical. Absent : calf tenderness, cyanotic, pedal edema - Skin Skin exam: Present: pallor - VTE Documentation of Mechanical Device: Intermittent pneumatic compression device - Attending Attestation This document has been at least partially created by [employer] recognition technology by Dr. Lua. Errors in grammar, wording or other phrases may exist. If errors are found after the documentation is signed, they will be addressed individually in the addendum section of this document when appropriate.
== END 2016-08-17 11:39 | disposition home or self-care (01) | DRG 243 ==
LOC: 3ANU 10:40 → EMEROO 10:40 → 3ANU 19:16
PROVIDERS: ADMIT Internal Medicine; ATTEND Internal Medicine

== ENCOUNTER 2016-09-20 15:30 | Inpatient (IN) ==
[2016-09-20] MEDS ORDERED: Ondansetron 4 MG/2 ML VIAL IVP PRN (19:04)
[2016-09-20] MEDS ORDERED: Naloxone 0.4 MG/ML INJ IVP PRN (19:04)
[2016-09-20] MEDS ORDERED: *HR* OxyCODONE Immed Rel 5 MG TABLET PO PRN ×2 (19:07→21:07)
[2016-09-20] MEDS ORDERED: CloNIDine Patch 0.3 MG PATCH (WEEKLY) TP SCH (19:15)
[2016-09-20] MEDS ORDERED: Acetaminophen 325 MG TABLET PO ONE (19:52)
--- NOTE | 2016-09-20 20:04 | Internal Med History&Physical ---
Date of Encounter: 09/20/16 Time of Encounter: 19:54 Assessment and Plan (1) Upper gastrointestinal hemorrhage Current visit: No Status: Acute Patient reports only one episode, denies any current nausea or any recent black , bloody or tarry stools. Hgb 6.3 Transfuse 2 units of Packed RBCs GI consulted, Dr. Winter aware of patient and possible EGD tomorrow. NPO except sips for meds Protonix drip Carafate QID (2) Anemia Current visit: No Status: Acute Hgb 6.3, down from her baseline in the 7s. Transfuse 2 units packed RBCs Check H/H after each unit. Qualifiers: Anemia type: other cause Other causes of anemia: acute posthemorrhagic Qualified Code(s): D62 - Acute posthemorrhagic anemia (3) Esophageal adenocarcinoma Current visit: No Status: Suspected Patient was supposed to get liver biopsy and port placement today, but she was unaware she was not supposed to eat. It was rescheduled for tomorrow morning, but may need postponement again if she needs EGD. (4) DVT prophylaxis Current visit: Yes Status: Acute Ambulate with assistance anti-embolic stockings Pharmacologic prophylaxis contraindicated with active GI bleed. Internal Medicine - H&P: HPI Chief complaint: vomiting blood Admitted From: Intrahospital Transfer Plans for Post Hospital Care: Home History of present illness: Ms. Lara is a 65 year old female with htn, hyperlipidemia, CKD, COPD and recent diagnosis of esophageal cancer who presented to [place] ED today after having one episode of vomiting blood. She reports she was eating a cracker and felt like something was stuck in her throat and she belched and a small amount of blood came up, and then it happened once more a few seconds later. She denies any more incidents since that time. She denies any current nausea, abdominal pain, black, tarry or bloody stools. She denies any lightheadedness, dizziness, chest pain, palpitations, SOB, or PANIAGUA. Her hgb was found to be 6.3 in the [facility] ED. Her recent baseline is in the 7s. On exam, patient is pale, alert and oriented, in no acute distress. She is tachycardic with HR 107. Lungs have mild expiratory wheeze in left base, but otherwise clear. She was hospitalized in early August for complaints of difficulty swallowing and anemia. She had pain with swallowing with some bleeding/hematemesis. Double contrast esophagogram showed extensive erosive changes in the lower esophagus possible mucosal or submucosal mass. CT scan of the abdomen 2016 showed significant mucosal thickening at the distal esophagus, underlying esophageal carcinoma should be considered and tiny reactive lymph nodes right lower lobe pulmonary nodule multiple hepatic lesions suspicious for metastatic disease. EGD with Dr. Gray showed partailly obstructing esophageal tumor in the distal third of esophagus. Biopsy from 07/27--suspicious for adenoca-- atypical glandular cells. She has been following with oncology, and was scheduled for a liver biopsy and a chemo port placement this morning, but she was unaware she should have been NPO and those procedures have been rescheduled for tomorrow morning. They may be posponed until later if she needs EGD for her hematemesis. Past Med Surg Social Fam HX - Past Medical History Medical history: COPD, hyperlipidemia, hypertension, renal disease Psychiatric history: no psych history - Past Surgical History Surgical History: other - Social History Smoking Status: Current every day smoker Packs per day: 1/ Smokeless Tobacco Status: No Alcohol use: none Drug use: none - Family History Father Living Status: Hx Family Cardiac Disorders: Yes (HEART RELATED) Mother Living Status: Still Living Hx Family Cardiac Disorders: Yes (Hypertension) Hx Family Endocrine Disorder: Yes (Diabetes Mellitus) Hx Family Neurologic Disorders: Yes (CVA) Sister Living Status: Still Living Hx Family Cancer: Yes Internal Medicine - H&P: Meds Albuterol Sulfate [Proair Respiclick] 1 - 2 puff IH Q6H PRN 08/26/15 [History] Losartan Potassium [Cozaar] 100 mg PO DAILY 08/26/15 [History] Furosemide [Lasix] 20 mg PO QMWF 04/02/16 [History] Atorvastatin [Lipitor] 10 mg PO DAILY 08/14/16 [History] CloNIDine Patch [Catapres-Tts] 0.3 mg TP QWEEK 08/14/16 [History] Ergocalciferol (VITAMIN D2) [Vitamin D2] 50,000 unit PO QWEEK 08/14/16 [History] Promethazine HCl [Phenadoz] 25 mg RC DAILY PRN 08/14/16 [History] Cyanocobalamin (Vitamin B-12) [Vitamin B12] 1,000 mcg PO DAILY #30 tablet [Rx] Ferrous Sulfate Oral Soln 300 mg PO BID #250 mls 08/17/16 [Rx] Folic Acid 1 mg PO DAILY #30 tablet 08/17/16 [Rx] Metoprolol XL (24 HR) Succ [Toprol Xl] 100 mg PO DAILY #60 tab.er.24h 08/17/16 [ Rx] Ondansetron [Zofran ODT] 8 mg SL ONCE #90 tab.rapdis 08/23/16 [Rx] OxyCODONE Immed Rel [Roxicodone 5 MG] 5 mg PO Q6HR PRN #20 tablet 08/23/16 [Rx] Polyethylene Glycol 3350 [MiraLAX] 17 gm PO DAILY PRN #10 powd.pack 08/23/16 [Rx ] Lidocaine/Prilocaine CREAM [Emla] 5 gm TP ONCE #1 tube 09/14/16 [Rx] Magic Mouthwash [Magic Mouthwash BLM] 10 ml PO QID PRN #240 ml 09/14/16 [Rx] Prochlorperazine Maleate [Compazine] 10 mg PO Q8HR #90 tablet 09/14/16 [Rx] Lactose-Reduced Food [Ensure Plus] 1 bottle PO TID #90 can 09/17/16 [Rx] Allergies aspirin Adverse Reaction (Verified 08/26/15 18:15) Nausea naproxen Adverse Reaction (Verified 08/26/15 18:15) Nausea NSAIDS (Non-Steroidal Anti-Inflamma Adverse Reaction (Verified 08/14/16 19:16) Nausea All Systems PM: A 10-system review of systems was performed and is negative for pertinent findings except as documented above in the HPI. - Constitutional Constitutional: no chills, no fever(s), no night sweats - EENT Eyes: no change in vision, no discharge, no pain, no photophobia Ears: no ear discharge, no ear pain, no tinnitus Nose, mouth and throat: dry mouth, dysphagia, no nasal discharge, no neck pain, no sore throat - Cardiovascular Cardiovascular ROS IM: no chest pain, no diaphoresis, no dyspnea, no lightheadedness, no palpitations, no syncope - Respiratory Respiratory: no cough, no dyspnea, no wheezing, no excessive phlegm production - Gastrointestinal Gastrointestinal: hematemesis, no abdominal pain, no diarrhea, no hematochezia, no melena, no nausea, no vomiting - Genitourinary Genitourinary: no change in urinary stream, no dysuria, no flank pain, no hematuria - Musculoskeletal Musculoskeletal ROS IM: no numbness, no tingling - Integumentary Integumentary IM: no rash, no unusual bruising - Neurological Neurological ROS: no confusion, no convulsions, no focal weakness, no numbness, no tingling, no tremor(s) - Hematologic/Lymphatic Hematologic/Lymphatic: no easy bruising - Constitutional Vitals: Temp Pulse Resp BP Pulse Ox 99.1 F 104 15 138/81 97 09/20/16 19:08 09/20/16 19:08 09/20/16 19:08 09/20/16 19:08 09/20/16 19:08 General appearance: Present: A&O X 3, no acute distress - Head Head exam: Present: atraumatic, normocephalic - Eye Eye exam: Present: PERRL, conjuntiva pink, sclera anicteric Pupils: Present: PERRL - Neck Neck exam general surgery: Present: supple, trachea midline. Absent: lymphadenopathy - Respiratory Respiratory exam: Present: CTAB, wheezes (Left lower lobe). Absent: accessory muscle use, rales, rhonchi - Cardiovascular Cardiovascular exam: Present: RRR, +S1, +S2. Absent: diastolic murmur, gallop, rubs, systolic murmur - GI/Abdominal GI/Abdominal exam: Present: normal bowel sounds, soft, no peritoneal signs. Absent: distended, tenderness - Extremities Exam Extremities exam: Present: warm, radial pulses palpable and symetrical. Absent : calf tenderness, cyanotic, pedal edema - Neurological Exam Neurological exam: Present: CN II-XII intact, oriented X3, no focal deficits. Absent: pronater drift, facial droop, speech deficit - Skin Skin exam: Present: dry, intact Internal Med - H&P Results - Labs Labs: Labs from [facility]: Hgb 6.3 HCT 21.0 WBC 6.3 PLT 274 NA 136 K 3.9 CL 103 Co2 26 BUN 13 Cr 1.42 Glu 125
[2016-09-20 22:32] LABS: Hematocrit 20.4 % (35.3-44.9)
[2016-09-20 22:34] LABS: Hemoglobin 5.9 g/dL (11.5-15.4)
[2016-09-20] MEDS ORDERED: 0.9 % Sodium Chloride 250 ML ONE (23:24)
[2016-09-20] MEDS: Pantoprazole 40 MG in 0.9 % Sodium Chloride Mini Bag 100 ML IVC SCH (23:28)
[2016-09-21] MEDS ORDERED: *HR* OxyCODONE Immed Rel 5 MG TABLET PO PRN ×2 (00:14→13:26)
--- NOTE | 2016-09-21 00:43 | Event Note ---
Date of Encounter: 09/21/16 Time of Encounter: 00:41 Patient seen and examined withdejon. 65-year-old female with history of COPD not come home O2, chronic kidney disease, no prior history of coronary artery disease recently diagnosed with esophageal cancer with concerns of metastasis to the liver presents with upper G.I. bleeding patient had 2 episodes of vomiting all fresh blood. Each time about two tablespoons. She is tachycardia Systolic blood pressure 120s. She is pale. Hemoglobin is 5.9. Her hemoglobin up to March 2016 has been normal and started declining since then and has been in the 7 range. Gastroenterology endoscopy in the morning. she is NPO. Platonic strip. She denies any active chest pain. She is being transfused 2 units of blood. Originally patient was here earlier in the day for biopsy of hepatic lesions that were suspicious of malignancy however because she ate this biopsy has been postponed. She is cold. we would admit this inpatient
[2016-09-21] MEDS: *HR* OxyCODONE Immed Rel 5 MG TABLET PO PRN ×2 (02:54→07:44)
[2016-09-21 03:28] LABS: Basophils % 0.3 %; Eosinophils # 0.4 K/mcL (0.0-0.6); Eosinophils % 5.9 %; Hemoglobin 6.7 g/dL (11.5-15.4); Immature Granulocytes % 0.3 % (0-4); Lymphocytes # 1.7 K/mcL (0.6-4.6); Lymphocytes % 26.1 %; Mean Corpuscular HGB Conc 30.5 g/dL (31.6-35.5); Mean Corpuscular Hemoglobin 25.2 pg (28.0-33.3); Mean Corpuscular Volume 82.7 fL (83.0-100.0); Mean Platelet Volume 8.7 fL (9.4-12.4); Monocytes # 0.4 K/mcL (0.0-1.3); Monocytes % 6.8 %; Neutrophils # 3.9 K/mcL (1.6-8.9); Platelet Count 246 K/mcL (140-400); Red Blood Count 2.66 M/mcL (3.82-4.97); Red Cell Distribution Width 15.2 % (11.5-14.5); Segmented Neutrophils % 60.6 %
[2016-09-21] MEDS ORDERED: 0.9 % Sodium Chloride 250 ML ONE (03:35)
[2016-09-21 03:41] LABS: Calcium 8.8 mg/dL (8.6-10.8)
[2016-09-21] MEDS: Pantoprazole 40 MG in 0.9 % Sodium Chloride Mini Bag 100 ML IVC SCH ×4 (04:00→17:43)
[2016-09-21] MEDS ORDERED: Pantoprazole 40 MG VIAL IVP SCH (06:00)
--- NOTE | 2016-09-21 08:41 | Gastroenterology Consult Note ---
<Kesha Cary - Last Filed: 09/21/16 14:20> Date of Encounter: 09/21/16 Time of Encounter: 11:00 - Assessment and plan (1) Esophageal adenocarcinoma Current Visit: No Status: Chronic Assessment and plan: Follows with oncology. Possible metes to liver. (2) Anemia Current Visit: No Status: Chronic Assessment and plan: Gradually falling over 2015, baseline the last several months in the 7s. Check iron profile. Qualifiers: Anemia type: other cause Other causes of anemia: acute posthemorrhagic Qualified Code(s): D62 - Acute posthemorrhagic anemia (3) Hematemesis Current Visit: No Status: Acute Assessment and plan: EGD to evaluate for MW tear, bleeding from tumor, PUD, AVM. Qualifiers: Nausea presence: with nausea Qualified Code(s): K92.0 - Hematemesis; R11.0 - Nausea - Time Spent With Patient Total time spent is greater than 50% in coordination of care (as documented) at patient's floor/unit and/or counseling patient: less than 15 minutes GI History of Present Illness - Data of Consult Patient: new to practice Consult date: 09/21/16 Requesting Physician: Mikal Das MD - Consult Narrative Reason for consult: UGIB History of present illness: Ms. Lara is a 65 year old female with a PMH of htn, hyperlipidemia, CKD, COPD and recent diagnosis of esophageal cancer who presented to [place] ED yesterday after having one episode of vomiting blood. She was hospitalized recently in August for dysphagia and anemia, painful swallowing and hematemesis. EGD with Dr. Gray showed a partially obstructing esophageal tumor in the distal third of the esophagus. She follows with oncology. She was scheduled for a liver biopsy to explore some suspicious lesions and chemo port placement yesterday. Her hgb at admission was 5.9 and daniela to 6.7 after 2 units of PRBC. Colonoscopy: None noted EGD: 08/2016 Isaac - mass Past Med Surg Social Fam HX - Past Medical History Medical history: COPD, hyperlipidemia, hypertension, renal disease Psychiatric history: no psych history - Past Surgical History Surgical History: other - Social History Smoking Status: Current every day smoker Packs per day: 1/ Smokeless Tobacco Status: No Alcohol use: none Drug use: none - Family History Father Living Status: Hx Family Cardiac Disorders: Yes (HEART RELATED) Mother Living Status: Still Living Hx Family Cardiac Disorders: Yes (Hypertension) Hx Family Endocrine Disorder: Yes (Diabetes Mellitus) Hx Family Neurologic Disorders: Yes (CVA) Sister Living Status: Still Living Hx Family Cancer: Yes - Gastrointestinal NSAID use: None noted Anticoagulation Use: None Gastrointestinal: Present: hematemesis - Constitutional Constitutional: as per HPI - EENT Eyes: as per HPI Ears: Present: as per HPI Nose, mouth and throat: Present: as per HPI - Cardiovascular Cardiovascular ROS: Present: as per HPI - Respiratory Respiratory IM: Present: as per HPI - Neurological ROS Neurological GI: Present: as per HPI - Hematologic/Lymphatic Hematologic/Lymphatic pediatric: Present: as per HPI - Musculoskeletal Musculoskeletal ROS GI: Present: as per HPI - Integumentary Integumentary GI: Present: as per HPI - Psychiatric ROS Psychiatric GI: Present: as per HPI - Endocrine Endocrine IM: Present: as per HPI - Constitutional Vitals: Temp Pulse Resp BP Pulse Ox 98.4 F 87 16 132/68 95 09/21/16 06:25 09/21/16 06:25 09/21/16 06:25 09/21/16 06:25 09/21/16 06:25 General appearance: Present: cooperative, A&O X 3, no acute distress, answers questions appropriately - Head Head exam: Present: atraumatic, normocephalic - Eye Eye exam: Present: normal appearance, sclera anicteric - ENT ENT exam: Present: mucous membranes moist - Neck Neck exam general surgery: Present: normal inspection, trachea midline - Respiratory Respiratory exam: Present: wheezes - Cardiovascular Cardiovascular exam: Present: RRR, +S1, +S2 - GI/Abdominal GI/Abdominal exam: Present: normal bowel sounds, soft, no peritoneal signs - Rectal Rectal exam: Present: deferred - Extremities Exam Extremities exam: Present: warm - Neurological Exam Neurological exam: Present: no focal deficits - Psychiatric Psychiatric exam: Present: normal affect, normal mood - Skin Skin exam: Present: dry, intact, normal color, warm Results - Labs CBC & Chem 7: 09/21/16 09:53 09/21/16 03:20 Labs: Last Result Calcium 8.8 mg/dL (8.6-10.8) 09/21/16 03:20 Entire Visit Hgb 6.7 g/dL (11.5-15.4) L 09/21/16 03:20 Hct 22.0 % (35.3-44.9) L 09/21/16 03:20 Consult Discharge Plan - Plan Referrals: Susan Burris, COMMUNITY LEADER [Primary Care Provider] - <[email or web address] - Last Filed: 09/21/16 16:31> Date of Encounter: 09/21/16 - Time Spent With Patient Total time spent is greater than 50% in coordination of care (as documented) at patient's floor/unit and/or counseling patient: GI History of Present Illness - Data of Consult Requesting Physician: Mikal Das MD - Consult Narrative History of present illness: Ms. Lara is a 65 year old female - Constitutional Vitals: Temp Pulse Resp BP Pulse Ox 98 F 85 14 150/96 97 09/21/16 15:43 09/21/16 15:43 09/21/16 15:43 09/21/16 15:43 09/21/16 15:43 Results - Labs CBC & Chem 7: 09/21/16 09:53 09/21/16 03:20 Labs: Last Result Calcium 8.8 mg/dL (8.6-10.8) 09/21/16 03:20 Iron 68 mcg/dL (50-170) 09/21/16 09:53 % Saturation 28 % (15-50) 09/21/16 09:53 Transferrin 174 mg/dL (180-382) L 09/21/16 09:53 Entire Visit Hgb 8.5 g/dL (11.5-15.4) L D 09/21/16 09:53 Hct 27.2 % (35.3-44.9) L 09/21/16 09:53
[2016-09-21] MEDS ORDERED: Metoprolol XL (24 HR) Succ 50 MG TAB.ER.24H PO SCH ×2 (09:00)
[2016-09-21 10:02] LABS: Hematocrit 27.2 % (35.3-44.9)
[2016-09-21 10:05] LABS: Hemoglobin 8.5 g/dL (11.5-15.4)
--- NOTE | 2016-09-21 10:19 | Internal Med Progress Note ---
<Jose Alvarez - Last Filed: 09/21/16 11:00> Date of Encounter: 09/21/16 Time of Encounter: 10:08 - Assessment and plan (1) GI bleed Current Visit: Yes Status: Acute Assessment and plan: Likely upper GI bleed given history of esophageal Cancer and bright red emesis. Currently she is hemodynamically stable. 2 units PRBC transfused. F/U with Hg. Transfuse if symptomatic or Hg < 7.0. Continue PPI and IV fluids. GI consulted and will have EGD later today. Qualifiers: Qualified Code(s): K92.2 - Gastrointestinal hemorrhage, unspecified (2) Esophageal adenocarcinoma Current Visit: No Status: Chronic Assessment and plan: Discussed with oncology. Will plan to have Port placement and liver biopsy on Saturday when patient is more stable. (3) Anemia Current Visit: No Status: Chronic Assessment and plan: secondary to blood loss/ iron deficiency. follow Hg and transfuse if needed. Qualifiers: Anemia type: other cause Other causes of anemia: acute posthemorrhagic Qualified Code(s): D62 - Acute posthemorrhagic anemia (4) CKD (chronic kidney disease) Current Visit: Yes Status: Acute Assessment and plan: CKD 3a stable avoid nephrotoxins and renally adjust medications as needed. Qualifiers: Chronic kidney disease stage: stage 3 (moderate) Qualified Code(s): N18.3 - Chronic kidney disease, stage 3 (moderate) (5) COPD (chronic obstructive pulmonary disease) Current Visit: Yes Status: Acute Assessment and plan: patient with history of COPD. She is not O2 dependent nor has she every had a hospitalization for COPD. She is only on albuterol at home. No signs of exacerbations on exam. Will add PRN duonebs. Advise smoking cessation. Qualifiers: Qualified Code(s): J44.9 - Chronic obstructive pulmonary disease, unspecified (6) Hypertension Current Visit: Yes Status: Acute Assessment and plan: patient had clonidine held and Toprol reduced. She has been hemodynamically stable and has not had any hypotension since admission. I am concerned that we will cause rebound hypotension with holding the clonidine and reducing her beta maria alejandra. Will add back clonidine patch. If stable will plan to increasetoprol back to home dose tomorrow. Qualifiers: Qualified Code(s): I10 - Essential (primary) hypertension (7) DVT prophylaxis Current Visit: Yes Status: Acute Assessment and plan: EPCDs. - Subjective Interval history: Mrs. Lara is a 65 y.o. female who was recently diagnosed with esophageal CA, possibly with Liver metastasis. She denies having any chemo./radiation thereapies. She was scheduled to have port placement and Liver biopsy yesterday however se was not NPO prior to the procedure and so it was canceled. she had some bright red hemoptysis yesterday afternoon. her Hg was tested and found to be 5.9. She has recieved 2 PRBC. Hg was rising appropriately after first unit of blood. repeat Hg is pending. Today Mrs. Lara denies any abdominal pain or discomfort. she denies any bloody or black tarry stools. She denies recent use of NSAIDS. she denies chest pain, dyspnea, syncope, presyncope or dizziness. She has no further complaints or concerns at this time. - Constitutional Vitals: Temp Pulse Resp BP Pulse Ox 98.4 F 87 16 132/68 95 09/21/16 06:25 09/21/16 06:25 09/21/16 06:25 09/21/16 06:25 09/21/16 07:00 General appearance: Present: A&O X 3, no acute distress - Head Head exam: Present: atraumatic, normocephalic - Eye Eye exam: Present: PERRL, conjuntiva pink, sclera anicteric Pupils: Present: PERRL - Neck Neck exam general surgery: Present: supple, trachea midline. Absent: lymphadenopathy - Cardiovascular Cardiovascular exam: Present: RRR, +S1, +S2. Absent: diastolic murmur, gallop, rubs, systolic murmur - GI/Abdominal GI/Abdominal exam: Present: normal bowel sounds, soft, no peritoneal signs. Absent: distended, tenderness - Extremities Exam Extremities exam: Present: warm, radial pulses palpable and symetrical. Absent : calf tenderness, cyanotic, pedal edema - Skin Skin exam: Present: dry, intact, pallor Internal Medicine: Result - Labs CBC & Chem 7: 09/21/16 09:53 09/21/16 03:20 Labs: Short CBC 09/20/16 09/21/16 09/21/16 Range/Units 22:24 03:20 09:53 WBC 6.4 (4.3-11.1) K/mcL Hgb 5.9 L* 6.7 L 8.5 L D (11.5-15.4) g/dL Hct 20.4 L 22.0 L 27.2 L (35.3-44.9) % Plt Count 246 (140-400) K/mcL Neutrophils # 3.9 (1.6-8.9) K/mcL BMP 09/21/16 03:20 Sodium 137 Potassium 4.0 Chloride 105 Carbon Dioxide 25 BUN 11 Creatinine 1.23 H Glucose 96 Calcium 8.8 Consult Discharge Plan - Plan Referrals: Susan Burris, MACHINING MANAGER [Primary Care Provider] - <Mikal Das P - Last Filed: 09/21/16 15:46> Date of Encounter: 09/21/16 - Constitutional Vitals: Temp Pulse Resp BP Pulse Ox 98.8 F 85 14 151/85 95 09/21/16 12:38 09/21/16 12:38 09/21/16 12:38 09/21/16 12:38 09/21/16 12:38 Internal Medicine: Result - Labs CBC & Chem 7: 09/21/16 09:53 09/21/16 03:20 Labs: Short CBC 09/20/16 09/21/16 09/21/16 Range/Units 22:24 03:20 09:53 WBC 6.4 (4.3-11.1) K/mcL Hgb 5.9 L* 6.7 L 8.5 L D (11.5-15.4) g/dL Hct 20.4 L 22.0 L 27.2 L (35.3-44.9) % Plt Count 246 (140-400) K/mcL Neutrophils # 3.9 (1.6-8.9) K/mcL [facility] 09/21/16 03:20 Sodium 137 Potassium 4.0 Chloride 105 Carbon Dioxide 25 BUN 11 Creatinine 1.23 H Glucose 96 Calcium 8.8 - Attending Attestation I examined this patient and my medical decision-making was reviewed with the CHILD DEVELOPMENT ASSISTANT/PA/Advanced Practice Nurse/Resident Physician. I agree with the documented findings, disposition and treatment plan as described except to the extent set forth below. please treat this as event note as attending signed previous note after midnight.
[2016-09-21] MEDS ORDERED: 0.9 % Sodium Chloride 1,000 ML IVC SCH (10:30)
[2016-09-21] MEDS ORDERED: Ipratropium/Albuterol Neb 3 ML IH PRN (10:51)
--- NOTE | 2016-09-21 10:53 | Anesthesia Evaluation PreOp ---
Date of Encounter: 09/21/16 Time of Encounter: 10:50 - Past History Planned Operation: EGD Cardiac History: HTN, Hyperlipidemia, Other (Anemia...transfused 2 units PRBC) Pulmonary History: Smoker, COPD AUTOMOBILE TECHNICIAN History: Denies Any Significant HX Other Medical History: Denies Any Significant HX, Renal (CKD) Anesthesia History: No Prior Anesthetic Complications Alcohol Use: none Drug use: none Medications and Allergies Albuterol Sulfate [Proair Respiclick] 1 - 2 puff IH Q6H PRN 08/26/15 [History] Losartan Potassium [Cozaar] 100 mg PO DAILY 08/26/15 [History] Furosemide [Lasix] 20 mg PO QMWF 04/02/16 [History] Atorvastatin [Lipitor] 10 mg PO DAILY 08/14/16 [History] CloNIDine Patch [Catapres-Tts] 0.3 mg TP QWEEK 08/14/16 [History] Ergocalciferol (VITAMIN D2) [Vitamin D2] 50,000 unit PO QWEEK 08/14/16 [History] Promethazine HCl [Phenadoz] 25 mg RC DAILY PRN 08/14/16 [History] Cyanocobalamin (Vitamin B-12) [Vitamin B12] 1,000 mcg PO DAILY #30 tablet [Rx] Ferrous Sulfate Oral Soln 300 mg PO BID #250 mls 08/17/16 [Rx] Folic Acid 1 mg PO DAILY #30 tablet 08/17/16 [Rx] Metoprolol XL (24 HR) Succ [Toprol Xl] 100 mg PO DAILY #60 tab.er.24h 08/17/16 [ Rx] Ondansetron [Zofran ODT] 8 mg SL ONCE #90 tab.rapdis 08/23/16 [Rx] OxyCODONE Immed Rel [Roxicodone 5 MG] 5 mg PO Q6HR PRN #20 tablet 08/23/16 [Rx] Polyethylene Glycol 3350 [MiraLAX] 17 gm PO DAILY PRN #10 powd.pack 08/23/16 [Rx ] Lidocaine/Prilocaine CREAM [Emla] 5 gm TP ONCE #1 tube 09/14/16 [Rx] Magic Mouthwash [Magic Mouthwash BLM] 10 ml PO QID PRN #240 ml 09/14/16 [Rx] Prochlorperazine Maleate [Compazine] 10 mg PO Q8HR #90 tablet 09/14/16 [Rx] Lactose-Reduced Food [Ensure Plus] 1 bottle PO TID #90 can 09/17/16 [Rx] Allergies aspirin Adverse Reaction (Verified 08/26/15 18:15) Nausea naproxen Adverse Reaction (Verified 08/26/15 18:15) Nausea NSAIDS (Non-Steroidal Anti-Inflamma Adverse Reaction (Verified 08/14/16 19:16) Nausea - Meds/Allergy Pre-op Review Medications Reviewed: Yes Allergies Reviewed: Yes Beta Blockers on Current Med List: Yes (Metoprolol at 0800) Anesthesia Results - Labs 09/21/16 09:53 09/21/16 03:20 Anesthesia Exam O2 Sat Height 1.6 m Height 1.6 m Weight 73.7 kg Weight 73.7 kg O2 Sat by Pulse Oximetry 96 O2 Sat by Pulse Oximetry 95 O2 Sat by Pulse Oximetry 95 O2 Sat by Pulse Oximetry 95 O2 Sat by Pulse Oximetry 97 O2 Sat by Pulse Oximetry 97 O2 Sat by Pulse Oximetry 97 O2 Sat by Pulse Oximetry 96 O2 Sat by Pulse Oximetry 96 O2 Sat by Pulse Oximetry 97 O2 Sat by Pulse Oximetry 97 O2 Sat by Pulse Oximetry 96 Vital Signs Temp Pulse Resp BP Pulse Ox 98.8 F 100 16 132/89 96 09/20/16 17:50 09/20/16 17:50 09/20/16 17:50 09/20/16 17:50 09/20/16 17:50 Height: 5'3 Weight: 162 lbs NPO (# of Hours): MN - HEENT Pupil (Motor): Pupils equal, EOMI Mallampati: III Denture Type: Upper: Complete Oral Opening: Less than or equal to 3 - AUTOMOBILE TECHNICIAN LOC: Oriented AUTOMOBILE TECHNICIAN Motor: Normal RUE, Normal LUE, Normal RLE, Normal LLE, Normal Face AUTOMOBILE TECHNICIAN Sensory: Normal: RUE, LUE, RLE, LLE, Face - Cardiac Rhythm: Regular Murmur: None JVD: No Carotid Bruit: No - Pulmonary Breath Sounds: bilateral Clear Respiratory Effort: Symmetrical Anesthesia Assess/Plan ASA Score: 3 (HTN Anemia COPD) Modified [place] Scale for Level of Consciousness: Cooperative, oriented, and tranquil Anesthetic Plan: MAC Monitoring Plan: Standard Monitors Recovery Plan: Other (Discussed MAC, agrees to proceed)
[2016-09-21] MEDS ORDERED: 0.9 % Sodium Chloride 500 ML IVC SCH (11:00)
--- NOTE | 2016-09-21 11:48 | Anesthesia Evaluation Post Op ---
Date of Encounter: 09/21/16 Time of Encounter: 11:48 - Vital Signs Vital Signs: vss - Lungs Lungs: Clear Ascult./Percussion - Airway Airway: Non-obstructed - Cardiovascular Baseline Rhythm - Mental Status Mental Status: Asleep with brisk response to light stimulation - Pain Pain Scale used: Melissa (Faces) - Nausea Vomiting Nausea Vomiting: Not Present - Discharge PostOp Status: Transfer Patient to floor
[2016-09-21 11:52] LABS: % Iron Saturation 28 % (15-50); Iron 68 mcg/dL (50-170); Transferrin 174 mg/dL (180-382)
[2016-09-21 15:45] VITALS: BP 150/96
[2016-09-21 16:22] LABS: Hematocrit 26.8 % (35.3-44.9); Hemoglobin 8.6 g/dL (11.5-15.4)
[2016-09-21] MEDS ORDERED: *HR* HYDROmorphone (PF) 1 MG/ML SYRINGE IVP ONE (18:17)
--- NOTE | 2016-09-21 18:19 | Discharge Summary ---
Date of Encounter: 09/21/16 Time of Encounter: 18:16 - Discharge Diagnosis (1) GI bleed Priority: Primary Status: Acute Qualifiers: GI bleed type/associated pathology: unspecified gastrointestinal hemorrhage type Qualified Code(s): K92.2 - Gastrointestinal hemorrhage, unspecified (2) Esophageal adenocarcinoma Priority: Primary Status: Chronic (3) Hypertension Priority: Primary Status: Acute Qualifiers: Hypertension type: essential hypertension Qualified Code(s): I10 - Essential (primary) hypertension (4) CKD (chronic kidney disease) Priority: Secondary Status: Acute Qualifiers: Chronic kidney disease stage: stage 3 (moderate) Qualified Code(s): N18.3 - Chronic kidney disease, stage 3 (moderate) (5) COPD (chronic obstructive pulmonary disease) Priority: Secondary Status: Acute Qualifiers: COPD type: unspecified COPD Qualified Code(s): J44.9 - Chronic obstructive pulmonary disease, unspecified - Discharge Medications Home Medications: Albuterol Sulfate [Proair Respiclick] 1 - 2 puff IH Q6H PRN 08/26/15 [History] Losartan Potassium [Cozaar] 100 mg PO DAILY 08/26/15 [History] Furosemide [Lasix] 20 mg PO QMWF 04/02/16 [History] Atorvastatin [Lipitor] 10 mg PO DAILY 08/14/16 [History] CloNIDine Patch [Catapres-Tts] 0.3 mg TP QWEEK 08/14/16 [History] Ergocalciferol (VITAMIN D2) [Vitamin D2] 50,000 unit PO QWEEK 08/14/16 [History] Promethazine HCl [Phenadoz] 25 mg RC DAILY PRN 08/14/16 [History] Cyanocobalamin (Vitamin B-12) [Vitamin B12] 1,000 mcg PO DAILY #30 tablet [Rx] Ferrous Sulfate Oral Soln 300 mg PO BID #250 mls 08/17/16 [Rx] Folic Acid 1 mg PO DAILY #30 tablet 08/17/16 [Rx] Metoprolol XL (24 HR) Succ [Toprol Xl] 100 mg PO DAILY #60 tab.er.24h 08/17/16 [ Rx] Ondansetron [Zofran ODT] 8 mg SL ONCE #90 tab.rapdis 08/23/16 [Rx] OxyCODONE Immed Rel [Roxicodone 5 MG] 5 mg PO Q6HR PRN #20 tablet 08/23/16 [Rx] Polyethylene Glycol 3350 [MiraLAX] 17 gm PO DAILY PRN #10 powd.pack 08/23/16 [Rx ] Lidocaine/Prilocaine CREAM [Emla] 5 gm TP ONCE #1 tube 09/14/16 [Rx] Magic Mouthwash [Magic Mouthwash BLM] 10 ml PO QID PRN #240 ml 09/14/16 [Rx] Prochlorperazine Maleate [Compazine] 10 mg PO Q8HR #90 tablet 09/14/16 [Rx] Lactose-Reduced Food [Ensure Plus] 1 bottle PO TID #90 can 09/17/16 [Rx] Allergies/Adverse Reactions: Allergies aspirin Adverse Reaction (Verified 08/26/15 18:15) Nausea naproxen Adverse Reaction (Verified 08/26/15 18:15) Nausea NSAIDS (Non-Steroidal Anti-Inflamma Adverse Reaction (Verified 08/14/16 19:16) Nausea Date of admission: 09/20/16 22:15 Primary care physician: Susan Burris CNP Consults: 09/20/16 19:04 Consult to Nutrition [CONS] Routine Comment: Consulting Provider: NUTRITION Reason for Dietary Consult: MST Score 09/20/16 19:28 Consult to Gastroenterology [CONS] Routine Consulting Provider: Gastroenterology Nyla Reason for Consult: Hematemesis, esophageal cancer Call Completed: Yes Discharging clinician: Mikal Das - Patient Status Disposition: Home, Self-Care Condition: Serious Functional capacity at discharge: independent ambulation Overall status at discharge: patient is not back to baseline - Discharge Instructions Follow Up With: Susan Burris CNP [Primary Care Provider] - Dev Callejas MD [Partnered Physician] - - Diet and Activity Activity: increase activity as tolerated Diet: low fat, low cholesterol Interval History: Ms. Lara is a 65 year old female with htn, hyperlipidemia, CKD, COPD and recent diagnosis of esophageal cancer who presented to [facility] today after having one episode of vomiting blood. She reports she was eating a cracker and felt like something was stuck in her throat and she belched and a small amount of blood came up, and then it happened once more a few seconds later. She denies any more incidents since that time. She denies any current nausea, abdominal pain, black, tarry or bloody stools. She denies any lightheadedness, dizziness, chest pain, palpitations, SOB, or PANIAGUA. Her hgb was found to be 6.3 in the [facility]. Her recent baseline is in the 7s. Hospital course: patient was hospitalized. Underwent EGD. noted fungating mass in Oesophagus. patient insists on going home post EGD. She needs port placement and Liver biopsy. patient insists on going home and prefer to follow up as outpatient follow up with Dr Soto. Dr Soto came to see patient. had long discussion with patient and family. plan she can go home. patient does need any medications. she will see Dr Soto on Saturday. patient will follow instructions from Dr Soto. Also explained patient and family if worsened then come back to ER. she insists on going home and follow up with Dr Soto as outpatient. - Time Spent with Patient Total time spent providing and/or coordinating discharge services: - Constitutional Vitals: Temp Pulse Resp BP Pulse Ox 98 F 85 14 150/96 97 09/21/16 15:43 09/21/16 15:43 09/21/16 15:43 09/21/16 15:43 09/21/16 15:43 General appearance: Present: A&O X 3, no acute distress - Head Head exam: Present: atraumatic, normocephalic - Eye Eye exam: Present: PERRL, conjuntiva pink, sclera anicteric Pupils: Present: PERRL - Neck Neck exam general surgery: Present: supple, trachea midline. Absent: lymphadenopathy - Respiratory Respiratory exam: Present: CTAB. Absent: accessory muscle use, rales, rhonchi, wheezes - Cardiovascular Cardiovascular exam: Present: RRR, +S1, +S2. Absent: diastolic murmur, gallop, rubs, systolic murmur - GI/Abdominal GI/Abdominal exam: Present: normal bowel sounds, soft, no peritoneal signs. Absent: distended, tenderness - Extremities Exam Extremities exam: Present: warm, radial pulses palpable and symetrical. Absent : calf tenderness, cyanotic, pedal edema - Neurological Exam Neurological exam: Present: CN II-XII intact, oriented X3, no focal deficits. Absent: pronater drift, facial droop, speech deficit - Skin Skin exam: Present: dry, intact
--- NOTE | 2016-09-21 18:20 | Oncology Inp Consult Note ---
Date of Encounter: 09/21/16 Time of Encounter: 16:00 - Data of Consult Requesting Physician: Mikal Das MD Primary Care Provider: Susan Burris CNP - Consult Narrative Reason for consult: esophageal ca History of present illness: Ms. Lara is a 65 year old female with known hx esophageal cancer hospitalized for severe anemia due to bleeding. She was daignosed recently with possible stage IV esophageal ca when CT imaging showed thickening of esophagus with liver lesions. Endsocopy by Dr Gray showed partially obstructing tumor --bx atypical glandular cells suspicious for adenoca. She sherman scheduled for liver bx and port. Pt is hospitalized due to bleeding from tumor--s/p endoscopy and control of acute bleeding. Hgb improved with PRBC to 8.6 today She has some dysphagia, does not hgave a g tube as she did not want one. Denies pain, dizziness or chest discomfort I/P Patient with new diagnosis of esophageal cancer admitted with bleeding Hgb stable after transfusion. She wishes to go home after procedure. Endoscopy showed esophgeal fungating tumor with bleeding. She will need a port and possibly liver bx for HEr 2 staining But she does not want to stay this wkend. Plan to see her in the clinic Saturday for transfusion if needed, labs and chemotherapy infusion. Will hold inf 5FU for now. We will consider palliative RT. She does not want stent put in now due to side effects. D/.W patient and family. Past Med Surg Social Fam HX - Past Medical History Medical history: COPD, hyperlipidemia, hypertension, renal disease Psychiatric history: no psych history - Past Surgical History Surgical History: other - Social History Smoking Status: Current every day smoker Packs per day: 1/ Smokeless Tobacco Status: No Alcohol use: none Drug use: none - Family History Father Living Status: Hx Family Cardiac Disorders: Yes (HEART RELATED) Mother Living Status: Still Living Hx Family Cardiac Disorders: Yes (Hypertension) Hx Family Endocrine Disorder: Yes (Diabetes Mellitus) Hx Family Neurologic Disorders: Yes (CVA) Sister Living Status: Still Living Hx Family Cancer: Yes Medications and Allergies Albuterol Sulfate [Proair Respiclick] 1 - 2 puff IH Q6H PRN 08/26/15 [History] Losartan Potassium [Cozaar] 100 mg PO DAILY 08/26/15 [History] Furosemide [Lasix] 20 mg PO QMWF 08/22/16 [History] Atorvastatin [Lipitor] 10 mg PO DAILY 08/14/16 [History] CloNIDine Patch [Catapres-Tts] 0.3 mg TP QWEEK 08/14/16 [History] Ergocalciferol (VITAMIN D2) [Vitamin D2] 50,000 unit PO QWEEK 08/14/16 [History] Promethazine HCl [Phenadoz] 25 mg RC DAILY PRN 08/14/16 [History] Cyanocobalamin (Vitamin B-12) [Vitamin B12] 1,000 mcg PO DAILY #30 tablet [Rx] Ferrous Sulfate Oral Soln 300 mg PO BID #250 mls 08/17/16 [Rx] Folic Acid 1 mg PO DAILY #30 tablet 08/17/16 [Rx] Metoprolol XL (24 HR) Succ [Toprol Xl] 100 mg PO DAILY #60 tab.er.24h 08/17/16 [ Rx] Ondansetron [Zofran ODT] 8 mg SL ONCE #90 tab.rapdis 08/23/16 [Rx] OxyCODONE Immed Rel [Roxicodone 5 MG] 5 mg PO Q6HR PRN #20 tablet 08/23/16 [Rx] Polyethylene Glycol 3350 [MiraLAX] 17 gm PO DAILY PRN #10 powd.pack 08/23/16 [Rx ] Lidocaine/Prilocaine CREAM [Emla] 5 gm TP ONCE #1 tube 09/14/16 [Rx] Magic Mouthwash [Magic Mouthwash BLM] 10 ml PO QID PRN #240 ml 09/14/16 [Rx] Prochlorperazine Maleate [Compazine] 10 mg PO Q8HR #90 tablet 09/14/16 [Rx] Lactose-Reduced Food [Ensure Plus] 1 bottle PO TID #90 can 09/17/16 [Rx] Allergies aspirin Adverse Reaction (Verified 08/26/15 18:15) Nausea naproxen Adverse Reaction (Verified 08/26/15 18:15) Nausea NSAIDS (Non-Steroidal Anti-Inflamma Adverse Reaction (Verified 08/14/16 19:16) Nausea Review of systems: as in HPI Oncology - Exam - Constitutional Vitals: Temp Pulse Resp BP Pulse Ox 98 F 85 14 150/96 97 09/21/16 15:43 09/21/16 15:43 09/21/16 15:43 09/21/16 15:43 09/21/16 15:43 General appearance: average body habitus - Head Head exam: Present: atraumatic, normal inspection - Eye Eye exam: Present: sclera anicteric - ENT ENT exam: Present: mucous membranes moist - GI/Abdominal GI/Abdominal exam: Present: normal bowel sounds, soft - Neurological Exam Neurological exam: Present: alert, oriented X3 Oncology - Results - Labs Labs: Short CBC 09/20/16 09/21/16 09/21/16 Range/Units 22:24 03:20 09:53 WBC 6.4 (4.3-11.1) K/mcL Hgb 5.9 L* 6.7 L 8.5 L D (11.5-15.4) g/dL Hct 20.4 L 22.0 L 27.2 L (35.3-44.9) % Plt Count 246 (140-400) K/mcL Neutrophils # 3.9 (1.6-8.9) K/mcL 09/21/16 Range/Units 16:08 WBC (4.3-11.1) K/mcL Hgb 8.6 L (11.5-15.4) g/dL Hct 26.8 L (35.3-44.9) % Plt Count (140-400) K/mcL Neutrophils # (1.6-8.9) K/mcL BMP 09/21/16 03:20 Sodium 137 Potassium 4.0 Chloride 105 Carbon Dioxide 25 BUN 11 Creatinine 1.23 H Glucose 96 Calcium 8.8 Consult Discharge Plan - Plan Referrals: Susan Burris, [employer] [Primary Care Provider] -
[2016-09-21] MEDS ORDERED: Lidocaine -MPF 2% 5 ML VIAL INFILT ONE ×2 (18:59)
[2016-09-21] MEDS ORDERED: *HR* Propofol 200 MG/20 ML VIAL IVP ONE ×2 (18:59)
[2016-09-22] MEDS ORDERED: CloNIDine Patch 0.3 MG PATCH (WEEKLY) TD SCH (08:00)
[2016-09-22] MEDS ORDERED: Nicotine 14 MG PATCH.TD24 TD SCH (09:00)
== END 2016-09-21 19:00 | disposition home or self-care (01) | DRG 253 ==
LOC: 2NENU
PROVIDERS: ADMIT Family Medicine; ATTEND Internal Medicine

== ENCOUNTER 2016-10-08 13:00 | Observation (INO) ==
[2016-10-08] MEDS ORDERED: *HR* HYDROmorphone (PF) 1 MG/ML SYRINGE IV ONE (14:48)
--- NOTE | 2016-10-08 14:48 | Emergency Department Note ---
Disposition Clinical Impression: Anemia Qualifiers: Anemia type: unspecified type Qualified Code(s): D64.9 - Anemia, unspecified Disposition: Admitted As Inpatient Condition: Fair Forms: ED Satisfaction Letter Time of Disposition: 14:59 Recheck wound or abnormal lab - General Chief Complaint: ED Recheck/Abnormal Lab/Rx Stated Complaint: "need blood stat" Time Seen by Provider: 10/08/16 14:30 Source: patient, family Mode of arrival: private vehicle Limitations: no limitations Nursing Notes Reviewed: Yes Vital Signs Reviewed: Yes - History of Present Illness HPI Narrative: The patient is a esophageal cancer patient at the cancer center. She has been having trouble with recurrent anemia. She was symptomatic with shortness of breath and weakness so blood work was done today and showed hematomata 5.6. Patient was sent over from the cancer center physician to be admitted for blood transfusion and management of medical conditions. The patient is actually scheduled for a liver biopsy and port placement tomorrow at 7 AM. These obviously cannot be done until the hemoglobin is corrected. Pt Subjective Complaint: abnormal lab(s) (Critically low hemoglobin of 5.4) Context: called for abnormal lab result Associated symptoms: shortness of breath, malaise - Related Data Home Medications Medication Instructions Recorded Confirmed Albuterol Sulfate [Proair 1 - 2 puff IH Q6H PRN 08/26/15 09/28/16 Respiclick] Losartan Potassium [Cozaar] 100 mg PO 1-2XD 08/26/15 09/28/16 Furosemide [Lasix] 20 mg PO QMWF 04/02/16 09/28/16 Atorvastatin [Lipitor] 10 mg PO DAILY 08/14/16 09/28/16 CloNIDine Patch [Catapres-Tts] 0.3 mg TP QWEEK 08/14/16 09/28/16 Ergocalciferol (VITAMIN D2) 50,000 unit PO QWEEK 08/14/16 09/28/16 [Vitamin D2] Promethazine HCl [Phenadoz] 25 mg RC DAILY PRN 08/14/16 09/24/16 Omeprazole/Sodium Bicarbonate 40 mg PO DAILY 09/28/16 09/28/16 [Omeprazole-Bicarb 40-1,100 Cap] OxyCODONE Immed Rel [Roxicodone 5 10 mg PO Q6HR PRN 09/28/16 09/28/16 MG] Previous Rx's Medication Instructions Recorded Cyanocobalamin (Vitamin B-12) 1,000 mcg PO DAILY #30 tablet 08/17/16 [Vitamin B12] Ferrous Sulfate Oral Soln 300 mg PO BID #250 mls 08/17/16 Folic Acid 1 mg PO DAILY #30 tablet 08/17/16 Metoprolol XL (24 HR) Succ [Toprol 100 mg PO DAILY #60 tab.er.24h 08/17/16 Xl] Ondansetron [Zofran ODT] 8 mg SL ONCE #90 tab.rapdis 08/23/16 Polyethylene Glycol 3350 [MiraLAX] 17 gm PO DAILY PRN #10 powd.pack 08/23/16 Lidocaine/Prilocaine CREAM [Emla] 5 gm TP ONCE #1 tube 09/14/16 Magic Mouthwash [Magic Mouthwash 10 ml PO QID PRN #240 ml 09/14/16 BLM] Prochlorperazine Maleate 10 mg PO Q8HR #90 tablet 09/14/16 [Compazine] Lactose-Reduced Food [Ensure Plus] 1 bottle PO TID #90 can 09/17/16 Allergies Allergy/AdvReac Type Severity Reaction Status Date / Time aspirin AdvReac Nausea Verified 09/26/16 23:38 naproxen AdvReac Nausea Verified 09/26/16 23:38 NSAIDS (Non-Steroidal AdvReac Nausea Verified 09/26/16 23:38 Anti-Inflamma All systems ED: reviewed and negative except as stated. Constitutional: Denies: fever, chills ENT ED: Denies: ear pain, throat pain Cardiovascular: Denies: chest pain, palpitations Respiratory: Reports: dyspnea Gastrointestinal: Reports: abdominal pain (Chronic). Denies: hematemesis, melena, hematochezia Integumentary: Denies: rash Past Medical History - Past Medical History Attestation: Yes The following information was validated with the patient. 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 Absent : tenderness - Respiratory Respiratory exam: Present: normal lung sounds bilaterally. Absent: respiratory distress - Cardiovascular Cardiovascular exam: Present: regular rate, normal rhythm, normal heart sounds - Abdominal Exam Abdominal exam: Present: soft, Non-Tender - Extremities Exam Extremities exam: Present: normal inspection, full ROM - Neurological Exam Neurological exam: Present: alert, oriented X3 - Psychiatric Psychiatric exam: Present: normal affect, normal mood - Skin Skin exam: Present: warm, dry. Absent: rash Course Course Narrative: Patient presents with symptomatic, critical anemia. There is no indication of blood loss at this point. Vital signs are good. I went ahead and ordered for 2 units of blood to start transfusion. Patient will need to be admitted while transfusion takes place. She has a liver biopsy and port placement scheduled for tomorrow at 7 AM. We will go ahead and admit her to observation since it is going to take till after midnight to get all of her blood transfused. - Consultations Consultation #1: Dr. Montanez, hospitalist - I discussed the case with the hospitalist and he has accepted the patient for admission to the floor. Time: 14:57 Consultation #2: Dr. Soto, oncology - prior to calling the hospitalist for admission I spoke with the patient's oncologist. We discussed transfusion and the reasons for admission. Time: 14:58 Vital Signs Temperature 97.7 F 10/08/16 13:05 Pulse Rate 95 10/08/16 13:05 Respiratory Rate 18 10/08/16 13:05 Blood Pressure 122/67 10/08/16 13:05 O2 Sat by Pulse Oximetry 100 10/08/16 13:05 Temperature 97.7 F 10/08/16 13:05 Pulse Rate 95 10/08/16 13:05 Respiratory Rate 18 10/08/16 13:05 Blood Pressure 122/67 10/08/16 13:05 O2 Sat by Pulse Oximetry 100 10/08/16 13:05 Oxygen Delivery Oxygen Delivery Room Air Recheck wound or abnormal lab - Medical Records Medical records reviewed: Yes I reviewed the patient's medical records.
[2016-10-08] MEDS ORDERED: 0.9 % Sodium Chloride Mini Bag 100 ML ONE (17:04)
[2016-10-08] MEDS ORDERED: *HR* OxyCODONE Immed Rel 5 MG TABLET PO PRN (18:25)
[2016-10-08] MEDS ORDERED: Acetaminophen 325 MG TABLET PO PRN (18:27)
[2016-10-08] MEDS ORDERED: Ondansetron 4 MG/2 ML VIAL IVP PRN (18:27)
[2016-10-08] MEDS ORDERED: Naloxone 0.4 MG/ML INJ IVP PRN (18:27)
[2016-10-08] MEDS ORDERED: *HR* Morphine 2 MG/ML SYRINGE IVP PRN (18:32)
[2016-10-08 19:12] LABS: Calcium 8.8 mg/dL (8.6-10.8); Potassium 4.9 mEq/L (3.5-4.5)
[2016-10-08] MEDS: Pantoprazole 40 MG VIAL IVP SCH (19:34)
[2016-10-08] MEDS: *HR* Morphine 2 MG/ML SYRINGE IVP PRN ×2 (19:34→21:49)
--- NOTE | 2016-10-08 20:10 | Internal Med History&Physical ---
Date of Encounter: 10/08/16 Time of Encounter: 17:00 Assessment and Plan (1) Anemia Current visit: Yes Status: Acute Will transfuse 2 units PRBC. Check hemoglobin and hematocrit in the morning. Check hemolysis labs. 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 Patient has a port placement and a liver biopsy scheduled for tomorrow. We will plan to proceed with these procedures. We will check coags. (3) CKD (chronic kidney disease) stage 4, GFR 15-29 ml/min Current visit: No Status: Acute Avoid nephrotoxins. (4) COPD (chronic obstructive pulmonary disease) Current visit: No Status: Acute No evidence of exacerbation. Inhaled albuterol as needed. Qualifiers: COPD type: unspecified COPD Qualified Code(s): J44.9 - Chronic obstructive pulmonary disease, unspecified (5) DVT prophylaxis Current visit: No Status: Acute No pharmacological prophylaxis due to recent GI bleed. We will use SCDs. (6) Tobacco abuse Current visit: No Status: Acute She says she quit smoking 3 months ago. I advised her to continue to refrain from smoking. Internal Medicine - H&P: HPI Chief complaint: anemia Admitted From: Emergency Dept Plans for Post Hospital Care: Home History of present illness: Ms. Lara is a 65 year old female with past medical history significant for esophageal cancer who presented to the hospital from her oncologist's office for anemia. She reports feeling generally more weak for the last 5 days. Denies associated chest pain and fever. Denies any cravings or alleviating factors. Denies any blood in the stool hematemesis melena and nosebleed. Reports some mild dyspnea on exertion. Reports bilateral eczema, generalized weakness as above, shortness of breath and dyspnea on exertion. Reports dysphagia related to her esophageal cancer. A 10 point review of systems was otherwise negative Family history pertinent for patient's father suffered of coronary artery disease at age 56. Social history: Former heavy use of tobacco smoker, quit 3 months ago. Denies alcohol and drug use. Past Med Surg Social Fam HX - Past Medical History Medical history: cancer, COPD, hyperlipidemia, hypertension, renal disease, other Psychiatric history: no psych history - Past Surgical History Surgical History: other - Social History Smoking Status: Former smoker Smokeless Tobacco Status: No Alcohol use: none Drug use: none - Family History Father Living Status: Hx Family Cardiac Disorders: Yes (HEART RELATED) Mother Living Status: Still Living Hx Family Cardiac Disorders: Yes (Hypertension) Hx Family Endocrine Disorder: Yes (Diabetes Mellitus) Hx Family Neurologic Disorders: Yes (CVA) Sister Living Status: Still Living Hx Family Cancer: Yes Internal Medicine - H&P: Meds Albuterol Sulfate [Proair Respiclick] 1 - 2 puff IH Q6H PRN 08/26/15 [History] Losartan Potassium [Cozaar] 100 mg PO DAILY 08/26/15 [History] Furosemide [Lasix] 20 mg PO QMWF 04/02/16 [History] Atorvastatin [Lipitor] 10 mg PO DAILY 08/14/16 [History] CloNIDine Patch [Catapres-Tts] 0.3 mg TP QWEEK 08/14/16 [History] Ergocalciferol (VITAMIN D2) [Vitamin D2] 50,000 unit PO QWEEK 08/14/16 [History] Promethazine HCl [Phenadoz] 25 mg RC DAILY PRN 08/14/16 [History] Cyanocobalamin (Vitamin B-12) [Vitamin B12] 1,000 mcg PO DAILY #30 tablet [Rx] Ferrous Sulfate Oral Soln 300 mg PO BID #250 mls 08/17/16 [Rx] Folic Acid 1 mg PO DAILY #30 tablet 08/17/16 [Rx] Metoprolol XL (24 HR) Succ [Toprol Xl] 100 mg PO DAILY #60 tab.er.24h 08/17/16 [ Rx] Ondansetron [Zofran ODT] 8 mg SL ONCE #90 tab.rapdis 08/23/16 [Rx] Polyethylene Glycol 3350 [MiraLAX] 17 gm PO DAILY PRN #10 powd.pack 08/23/16 [Rx ] Lidocaine/Prilocaine CREAM [Emla] 5 gm TP ONCE #1 tube 09/14/16 [Rx] Magic Mouthwash [Magic Mouthwash BLM] 10 ml PO QID PRN #240 ml 09/14/16 [Rx] Prochlorperazine Maleate [Compazine] 10 mg PO Q8HR #90 tablet 09/14/16 [Rx] Lactose-Reduced Food [Ensure Plus] 1 bottle PO TID #90 can 09/17/16 [Rx] Omeprazole/Sodium Bicarbonate [Omeprazole-Bicarb 40-1,100 Cap] 40 mg PO DAILY [History] OxyCODONE Immed Rel [Roxicodone 5 MG] 10 mg PO Q6HR PRN 09/28/16 [History] Allergies aspirin Adverse Reaction (Verified 09/26/16 23:38) Nausea naproxen Adverse Reaction (Verified 09/26/16 23:38) Nausea NSAIDS (Non-Steroidal Anti-Inflamma Adverse Reaction (Verified 09/26/16 23:38) Nausea All Systems PM: A 10-system review of systems was performed and is negative for pertinent findings except as documented above in the HPI. - Constitutional Vitals: Temp Pulse Resp BP Pulse Ox 98.6 F 88 18 100/67 96 10/08/16 17:22 10/08/16 17:22 10/08/16 17:22 10/08/16 17:22 10/08/16 17:22 General appearance: Present: A&O X 3 - Eye Eye exam: Present: PERRL, sclera anicteric Pupils: Present: PERRL Additional comments: pale - Respiratory Respiratory exam: Present: CTAB. Absent: accessory muscle use, rales, rhonchi, wheezes - Cardiovascular Cardiovascular exam: Present: RRR, +S1, +S2. Absent: diastolic murmur, gallop, rubs, systolic murmur - GI/Abdominal GI/Abdominal exam: Present: normal bowel sounds, soft, no peritoneal signs. Absent: distended, tenderness - Extremities Exam Extremities exam: Present: warm, radial pulses palpable and symetrical. Absent : calf tenderness, cyanotic, pedal edema - Skin Skin exam: Present: dry, intact Internal Med - H&P Results - Labs CBC & Chem 7: 10/08/16 18:51 Labs: BMP 10/08/16 18:51 Sodium 131 L Potassium 4.9 H Chloride 100 Carbon Dioxide 23 BUN 35 H Creatinine 1.51 H Glucose 102 H Calcium 8.8
[2016-10-08] MEDS ORDERED: 0.9 % Sodium Chloride 250 ML ONE (21:25)
[2016-10-09] MEDS: *HR* Morphine 2 MG/ML SYRINGE IVP PRN ×3 (01:55→13:12)
[2016-10-09 05:25] LABS: Basophils % 0.6 %; Eosinophils # 0.3 K/mcL (0.0-0.6); Eosinophils % 5.5 %; Hematocrit 23.8 % (35.3-44.9); Hemoglobin 7.6 g/dL (11.5-15.4); Immature Granulocytes % 0.2 % (0-4); Lymphocytes # 1.2 K/mcL (0.6-4.6); Lymphocytes % 22.5 %; Mean Corpuscular HGB Conc 31.9 g/dL (31.6-35.5); Mean Corpuscular Hemoglobin 25.9 pg (28.0-33.3); Mean Platelet Volume 9.3 fL (9.4-12.4); Monocytes # 0.5 K/mcL (0.0-1.3); Monocytes % 9.8 %; Neutrophils # 3.3 K/mcL (1.6-8.9); Platelet Count 208 K/mcL (140-400); Red Blood Count 2.94 M/mcL (3.82-4.97); Segmented Neutrophils % 61.4 %
[2016-10-09 05:37] LABS: Calcium 8.9 mg/dL (8.6-10.8); Potassium 4.7 mEq/L (3.5-4.5)
[2016-10-09] MEDS ORDERED: Metoprolol XL (24 HR) Succ 50 MG TAB.ER.24H PO SCH (09:00)
[2016-10-09] MEDS: Pantoprazole 40 MG VIAL IVP SCH (09:08)
[2016-10-09] MEDS ORDERED: Heparin 1,000 UNITS/500 mL NS 500 ML ONE (09:36)
[2016-10-09] MEDS ORDERED: ceFAZolin 1,000 MG in D5% in Water (Mini-Bag+) 100 ML IVPB ONE (10:06)
--- NOTE | 2016-10-09 10:06 | Pre-Sedation Evaluation ---
Pre-sedation evaluation - Pre-sedation checklist Procedure: egd Recent Vitals: Last Vital Signs Temp 98.8 F 10/09/16 07:20 Pulse 81 10/09/16 07:20 Resp 16 10/09/16 07:20 BP 114/71 10/09/16 07:20 Pulse Ox 96 10/09/16 07:20 H&P (including ROS) documented in medical record: Yes Previous reaction to sedatives/anesthetics: No Dietary Status: NPO after Midnight Airway Assessment: Patient can open mouth completely, TMJ function normal, Micrognathia (under-bite, receding chin) absent, Neck with adequate range of motion Dentition: No loose teeth or bridges, dentures removed Possible difficult airway: No ASA Classification *see protocol: CLASS II-Mild systemic disease Plan of Care: Pt appropriate candidate for procedure/moderate/conscious sedation , Risks/benefits of procedure/sedation discussed w/ patient/family
[2016-10-09] MEDS ORDERED: 0.9 % Sodium Chloride 500 ML ONE (10:19)
[2016-10-09] MEDS: *HR* FentaNYL (PF) 100 MCG/2 ML VIAL IV PRN ×2 (10:27→10:34)
[2016-10-09] MEDS: *HR* Midazolam HCl 2 MG/2 ML VIAL IV PRN ×2 (10:28→10:34)
--- NOTE | 2016-10-09 14:53 | Discharge Summary ---
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 (2) Esophageal adenocarcinoma Priority: Secondary Status: Chronic (3) CKD (chronic kidney disease) Priority: Secondary Status: Acute Qualifiers: Chronic kidney disease stage: stage 3 (moderate) Qualified Code(s): N18.3 - Chronic kidney disease, stage 3 (moderate) (4) COPD (chronic obstructive pulmonary disease) Priority: Secondary Status: Acute Qualifiers: COPD type: unspecified COPD Qualified Code(s): J44.9 - Chronic obstructive pulmonary disease, unspecified - Discharge Medications Home Medications: Albuterol Sulfate [Proair Respiclick] 1 - 2 puff IH Q6H PRN 08/26/15 [History] Losartan Potassium [Cozaar] 100 mg PO DAILY 08/26/15 [History] Furosemide [Lasix] 20 mg PO QMWF 04/02/16 [History] Atorvastatin [Lipitor] 10 mg PO DAILY 08/14/16 [History] CloNIDine Patch [Catapres-Tts] 0.3 mg TP QWEEK 08/14/16 [History] Ergocalciferol (VITAMIN D2) [Vitamin D2] 50,000 unit PO QWEEK 08/14/16 [History] Promethazine HCl [Phenadoz] 25 mg RC DAILY PRN 08/14/16 [History] Cyanocobalamin (Vitamin B-12) [Vitamin B12] 1,000 mcg PO DAILY #30 tablet [Rx] Ferrous Sulfate Oral Soln 300 mg PO BID #250 mls 08/17/16 [Rx] Folic Acid 1 mg PO DAILY #30 tablet 08/17/16 [Rx] Metoprolol XL (24 HR) Succ [Toprol Xl] 100 mg PO DAILY #60 tab.er.24h 08/17/16 [ Rx] Ondansetron [Zofran ODT] 8 mg SL ONCE #90 tab.rapdis 08/23/16 [Rx] Polyethylene Glycol 3350 [MiraLAX] 17 gm PO DAILY PRN #10 powd.pack 08/23/16 [Rx ] Lidocaine/Prilocaine CREAM [Emla] 5 gm TP ONCE #1 tube 09/14/16 [Rx] Magic Mouthwash [Magic Mouthwash BLM] 10 ml PO QID PRN #240 ml 09/14/16 [Rx] Prochlorperazine Maleate [Compazine] 10 mg PO Q8HR #90 tablet 09/14/16 [Rx] Lactose-Reduced Food [Ensure Plus] 1 bottle PO TID #90 can 09/17/16 [Rx] Omeprazole/Sodium Bicarbonate [Omeprazole-Bicarb 40-1,100 Cap] 40 mg PO DAILY [History] OxyCODONE Immed Rel [Roxicodone 5 MG] 10 mg PO Q6HR PRN 09/28/16 [History] Allergies/Adverse Reactions: Allergies aspirin Adverse Reaction (Verified 09/26/16 23:38) Nausea naproxen Adverse Reaction (Verified 09/26/16 23:38) Nausea NSAIDS (Non-Steroidal Anti-Inflamma Adverse Reaction (Verified 09/26/16 23:38) Nausea Procedures/tests Complete & Pending: Procedures Performed prior 72 hours Category Date Time Status CT biopsy liver [CT] Routine Cat Scan 10/09/16 Completed IR cvc insert with port [IR] Routine IR 10/09/16 Completed IR us guide needle place [IR] Routine IR 10/09/16 Completed Date of admission: 10/08/16 15:05 Primary care physician: Susan Burris CNP Consults: 10/08/16 16:10 Consult to Touch Up Edger [CONS] Routine Reason for SW Consult: assistance with POA paperwork 10/08/16 16:21 Consult to Touch Up Edger [CONS] Routine Reason for SW Consult: assistance with POA paperwork 10/08/16 18:30 Consult to Physician [CONS] Routine Consulting Provider: Dev Callejas Reason for Consult: esophageal CA Call Completed: Yes 10/09/16 09:21 Consult to Interventional Radiology [CONS] Routine Consulting Provider: Radiology Interventional Cols Reason for Consult: please evaluate for port placement and liver biopsy. thank you Call Completed: No Discharging clinician: Daija Phelps Anticipated date of discharge: 10/09/16 - Patient Status Disposition: Home, Self-Care Condition: Fair Functional capacity at discharge: independent ambulation Overall status at discharge: patient is back to baseline - Discharge Instructions Follow Up With: Susan Burris, ONLINE MARKETING ANALYST [Primary Care Provider] - - Diet and Activity Activity: resume usual activities as tolerated Diet: advance to your usual diet Interval History: Ms. Lara is a 65 year old female with past medical history significant for esophageal cancer who presented to the hospital from her oncologist's office for anemia. She reports feeling generally more weak for the last 5 days. Denies associated chest pain and fever. Denies any cravings or alleviating factors. Denies any blood in the stool hematemesis melena and nosebleed. Reports some mild dyspnea on exertion. Reports bilateral eczema, generalized weakness as above, shortness of breath and dyspnea on exertion. Reports dysphagia related to her esophageal cancer. CBC done at ED showed hemoglobin 5.6. She was transfused with 2 units of PRBC, repeat hemoglobin was 7.6. She underwent IR guided port placement and liver biopsy today which was initially scheduled for outpatient procedure. She is being discharged in stable condition today and will follow up with oncology as an outpatient tomorrow for the continuation of chemotherapy. Hospital course: Ms. Lara is a 65 year old female Time spent discussing smoking cessation with patient: more than 10 minutes - Time Spent with Patient Total time spent providing and/or coordinating discharge services: Greater than 30 minutes - Constitutional Vitals: Temp Pulse Resp BP Pulse Ox 97.8 F 96 16 116/74 97 10/09/16 12:00 10/09/16 12:00 10/09/16 12:00 10/09/16 12:00 10/09/16 12:00 General appearance: Present: A&O X 3 Exam: neck- supple - Respiratory Respiratory exam: Present: CTAB. Absent: accessory muscle use, rales, rhonchi, wheezes - Cardiovascular Cardiovascular exam: Present: RRR, +S1, +S2. Absent: diastolic murmur, gallop, rubs, systolic murmur - GI/Abdominal GI/Abdominal exam: Present: normal bowel sounds, soft, no peritoneal signs. Absent: distended, tenderness - Extremities Exam Extremities exam: Present: warm, radial pulses palpable and symetrical. Absent : calf tenderness, cyanotic, pedal edema - Skin Skin exam: Present: dry, intact
[2016-10-09 16:38] LABS: Basophils % 0.4 %; Eosinophils # 0.2 K/mcL (0.0-0.6); Eosinophils % 3.2 %; Hematocrit 25.3 % (35.3-44.9); Immature Granulocytes % 0.4 % (0-4); Lymphocytes # 0.8 K/mcL (0.6-4.6); Lymphocytes % 15.6 %; Mean Corpuscular HGB Conc 31.6 g/dL (31.6-35.5); Mean Corpuscular Hemoglobin 25.5 pg (28.0-33.3); Mean Corpuscular Volume 80.6 fL (83.0-100.0); Monocytes # 0.5 K/mcL (0.0-1.3); Monocytes % 9.5 %; Neutrophils # 3.7 K/mcL (1.6-8.9); Platelet Count 234 K/mcL (140-400); Red Blood Count 3.14 M/mcL (3.82-4.97); Red Cell Distribution Width 15.9 % (11.5-14.5); Segmented Neutrophils % 70.9 %
--- NOTE | 2016-10-09 17:16 | Oncology Inp Progress Note ---
Date of Encounter: 10/10/16 Time of Encounter: 16:00 Oncology: Subj Interval history: Patient with esophageal cancer and possible mets to liver hospitalized with severe anemia, s/p PRBC - Constitutional Vitals: Vital Signs Temp Pulse Resp BP Pulse Ox 10/09/16 12:00 97.8 F 96 16 116/74 97 10/09/16 11:29 101 16 97/58 100 10/09/16 11:25 104 16 100/63 100 10/09/16 11:21 106 14 102/65 100 10/09/16 11:17 106 20 100/56 100 10/09/16 10:48 109 16 108/68 100 10/09/16 10:41 98 19 104/66 100 10/09/16 10:37 102 19 107/70 100 10/09/16 10:30 86 15 148/81 100 10/09/16 10:16 16 88 139/81 10/09/16 09:30 98.8 F 101 16 97/58 100 10/09/16 07:20 98.8 F 81 16 114/71 96 10/09/16 04:21 99.2 F 81 16 100/67 94 L 10/09/16 00:50 98.4 F 88 20 120/76 95 10/09/16 00:19 98.9 F 89 14 121/74 95 10/08/16 21:57 98.4 F 91 16 102/68 94 L 10/08/16 21:42 98.9 F 94 16 108/73 96 10/08/16 20:23 98.9 F 101 16 101/66 96 10/08/16 17:22 98.6 F 88 18 100/67 96 Intake and Output 10/09/16 10/09/16 10/09/16 07:59 15:59 23:59 Intake Total 386 / 386 Output Total 450 / 450 350 / 350 Balance -64 / -64 -350 / -350 Intake: Oral 0 / 0 Blood Product 386 / 386 Rbcs Leuko Poor As-1 386 / 386 Unit [id number] Output: Urine 450 / 450 350 / 350 Other: Meal NPO Percent of Meal Consumed 0% Weight 71.724 kg Blood Glucose* 110 Patient Weight 10/09/16 23:59 Weight 71.724 kg Oncology: Obj Data - Labs CBC & Chem 7: 10/09/16 16:15 10/09/16 04:59 Labs: Laboratory Results - last 24 hr 10/08/16 10/08/16 10/09/16 18:51 18:51 04:59 WBC 5.3 RBC 2.94 L Hgb 7.6 L D Hct 23.8 L MCV 81.0 L MCH 25.9 L MCHC 31.9 RDW 16.0 H Plt Count 208 MPV 9.3 L Immature Gran % 0.2 Seg Neutrophils % 61.4 Lymphocytes % 22.5 Monocytes % 9.8 Eosinophils % 5.5 Basophils % 0.6 Neutrophils # 3.3 Lymphocytes # 1.2 Monocytes # 0.5 Eosinophils # 0.3 Basophils # 0.0 Sodium 131 L Potassium 4.9 H Chloride 100 Carbon Dioxide 23 BUN 35 H Creatinine 1.51 H Est GFR ( Amer) 42 L Est GFR (Non-Af Amer) 35 L BUN/Creatinine Ratio 23 Glucose 102 H POC Glucose Calculated Osmolality 280 Calcium 8.8 Magnesium 1.7 10/09/16 10/09/16 10/09/16 04:59 05:04 16:15 WBC 5.3 RBC 3.14 L Hgb 8.0 L Hct 25.3 L MCV 80.6 L MCH 25.5 L MCHC 31.6 RDW 15.9 H Plt Count 234 MPV 9.0 L Immature Gran % 0.4 Seg Neutrophils % 70.9 Lymphocytes % 15.6 Monocytes % 9.5 Eosinophils % 3.2 Basophils % 0.4 Neutrophils # 3.7 Lymphocytes # 0.8 Monocytes # 0.5 Eosinophils # 0.2 Basophils # 0.0 Sodium 134 L Potassium 4.7 H Chloride 103 Carbon Dioxide 22 BUN 26 H Creatinine 1.50 H Est GFR ( Amer) 43 L Est GFR (Non-Af Amer) 35 L BUN/Creatinine Ratio 17 Glucose 103 H POC Glucose 110 H Calculated Osmolality 283 Calcium 8.9 Magnesium - Impressions Impressions Guidance Needle Placement Ultrasound 10/09/16 00:00 IMPRESSION: Successful ultrasound and fluoroscopy guided Port-A-Cath placement D/ / Donell Dyer MD / Donell Dyer MD Interpreting Provider: Donell Dyer MD Insertion Tunneled Catheter 10/09/16 00:00 IMPRESSION: Successful ultrasound and fluoroscopy guided Port-A-Cath placement D/ / Donell Dyer MD / Donell Dyer MD Interpreting Provider: Donell Dyer MD Liver Biopsy CT 10/09/16 00:00 IMPRESSION: Successful CT guided core biopsy liver. D/ / Donell Dyer MD / Donell Dyer MD Interpreting Provider: Donell Dyer MD Consult Discharge Plan - Plan Instructions: Anemia (GEN) Referrals: Susan Burris CNP [Primary Care Provider] - 10/15/16 1:40 pm
[2016-10-10] MEDS ORDERED: CloNIDine Patch 0.3 MG PATCH (WEEKLY) TP SCH (09:00)
[2016-10-10 10:51] VITALS: BP 113/84
== END 2016-10-09 17:19 | disposition home or self-care (01) ==
LOC: EMEROO 13:00 → 3ANU 13:00
PROVIDERS: ADMIT Internal Medicine; ATTEND Internal Medicine Endocrinology, Diabetes & Metabolism
PROC: IRLIVER (2016-10-09 11:15)

== ENCOUNTER 2016-10-22 15:06 | Inpatient (IN) ==
[2016-10-22] MEDS ORDERED: Naloxone 0.4 MG/ML INJ IVP PRN (21:14)
[2016-10-22] MEDS ORDERED: Ondansetron 4 MG/2 ML VIAL IVP PRN (21:14)
[2016-10-22] MEDS ORDERED: 0.9 % Sodium Chloride 1,000 ML IVC SCH (21:15)
[2016-10-22] MEDS ORDERED: CloNIDine Patch 0.3 MG PATCH (WEEKLY) TP SCH (21:15)
[2016-10-22] MEDS ORDERED: *HR* HYDROmorphone 2 MG/ML SYRINGE IVP ONE (21:21)
[2016-10-22] MEDS ORDERED: Sennosides/Docusate Sodium TABLET PO PRN (21:21)
[2016-10-22 21:50] LABS: Hematocrit 24.2 % (35.3-44.9)
[2016-10-22 21:51] LABS: Hemoglobin 7.8 g/dL (11.5-15.4)
[2016-10-22 21:53] LABS: INR 1.2; Prothrombin Time 13.4 Seconds (9.4-12.1)
--- NOTE | 2016-10-22 23:14 | Internal Med History&Physical ---
Date of Encounter: 10/22/16 Time of Encounter: 20:15 Assessment and Plan (1) Anemia Current visit: No Status: Acute Patient anemia likely multifactorial. Known bleeding from esophageal cancer, previously catheterized by Dr. Winter in September. With history of esophageal cancer on chemotherapy, recently diagnosed liver metastases, anemia of chronic disease as well as bone marrow suppression could be contributory. Patient hemoglobin went from 8.0->7.8 after 1 unit PRBC transfusion. We will give additional unit PRBCs due to continuation of patient's symptoms Patient was scheduled for PEG tube placement with Dr. Gray on 10/23/16. We will speak with Dr. Gray. 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 Reports only being able to drink to ensure shakes a day. Scheduled for G-tube placement on 10/23/[address] Gray. We will consult Dr. Gray Consult nutrition Nothing by mouth after midnight Qualifiers: Dysphagia type: other dysphagia Qualified Code(s): R13.19 - Other dysphagia (4) Esophageal cancer Current visit: No Status: Acute Esophageal cancer currently undergoing chemotherapy, recently diagnosis liver metastases. Causing difficulty with swallowing as above, scheduled for G-tube placement on 10/23/[address] Gray. Patient oncologist is Dr. Callejas. Consider oncology consultation Plan as above Qualifiers: Malignant neoplasm of esophagus location: unspecified location Qualified Code(s): C15.9 - Malignant neoplasm of esophagus, unspecified (5) CKD (chronic kidney disease) Current visit: No Status: Chronic Patient with history of chronic kidney disease stage III with normal GFR around 40. Currently at 46. Her kidney doctor is Dr. Arroyo. Qualifiers: Chronic kidney disease stage: stage 3 (moderate) Qualified Code(s): N18.3 - Chronic kidney disease, stage 3 (moderate) (6) DVT prophylaxis Current visit: No Status: Acute We will hold chemical prophylaxis due to concern of patient's GI bleed and anemia. We will start pneumatic compression devices (7) COPD (chronic obstructive pulmonary disease) Current visit: No Status: Acute History of COPD, on albuterol when necessary at home Continue albuterol when necessary Qualifiers: COPD type: unspecified COPD Qualified Code(s): J44.9 - Chronic obstructive pulmonary disease, unspecified Internal Medicine - H&P: HPI Chief complaint: Anemia, weakness Admitted From: Emergency Dept Plans for Post Hospital Care: Home History of present illness: Ms. Lara is a 65 year old female with prior medical history of COPD, hyperlipidemia, hypertension, CK stage III, esophageal cancer currently on chemotherapy, and newly diagnosed liver metastases presented to the emergency room earlier today due to onset of dizziness, lightheadedness, orthostatic lightheadedness, and hemoptysis. She reports that she has had several these episodes in the past stemming from anemia brought about from esophageal cancer, chemotherapy, and GI bleed (from her esophageal cancer). She states that she is required multiple transfusions of PRBCs in the recent past, every couple weeks, due to her ongoing bleeding. She states that the bleeding from her esophagus has been cauterized previously, in September, by Dr. Winter, but she has continued to have ongoing bleeding. She states that part of her ongoing weakness is due to her inability to eat or drink much without pain. She currently states that she consumes to ensure shakes a day, but this is all that she is able to get down. She is scheduled for a G-tube placement with Dr. Gray tomorrow. She denies having any falls, reports pain with swallowing, reports pain in her back is been going on for 2-3 months, denies constipation, denies nausea, denies fever/chills. She does report having dark/black stools as well as sweating at night. Dr. Callejas is her oncologist Dr. Adrienne Clifton is jannet punch box tender Past Med Surg Social Fam HX - Past Medical History Medical history: cancer, COPD, hyperlipidemia, hypertension, renal disease, other Psychiatric history: no psych history - Past Surgical History Surgical History: other - Social History Smoking Status: Former smoker Smokeless Tobacco Status: No Alcohol use: none Drug use: none - Family History Father Living Status: Hx Family Cardiac Disorders: Yes (HEART RELATED) Mother Living Status: Still Living Hx Family Cardiac Disorders: Yes (Hypertension) Hx Family Endocrine Disorder: Yes (Diabetes Mellitus) Hx Family Neurologic Disorders: Yes (CVA) Sister Living Status: Still Living Hx Family Cardiac Disorders: No Hx Family Cancer: Yes Hx Family GI Disorders: No Hx Family Genitourinary Disorders: No Hx Family Endocrine Disorder: No Hx Family Musculoskeletal Disorders: No Hx Family Neuromuscular Disorders: No Hx Family Neurologic Disorders: No Hx Family HEENT Disorders: No Hx Family Autoimmune Disorders: No Hx Family Reproductive Disorders: No Hx Family Psychosocial Disorders: No Hx Family Medical Disorders: No Internal Medicine - H&P: Meds Albuterol Sulfate [Proair Respiclick] 1 - 2 puff IH Q6H PRN 08/26/15 [History] Losartan Potassium [Cozaar] 100 mg PO DAILY 08/26/15 [History] CloNIDine Patch [Catapres-Tts] 0.3 mg TP QWEEK 08/14/16 [History] Metoprolol XL (24 HR) Succ [Toprol Xl] 100 mg PO DAILY #60 tab.er.24h 08/17/16 [ Rx] OxyCODONE Immed Rel [Roxicodone 5 MG] 10 mg PO Q4H PRN 09/28/16 [History] Allergies aspirin Adverse Reaction (Verified 10/22/16 06:14) Nausea naproxen Adverse Reaction (Verified 10/22/16 06:14) Nausea NSAIDS (Non-Steroidal Anti-Inflamma Adverse Reaction (Verified 10/22/16 06:14) Nausea - Constitutional Constitutional: as per HPI, anorexia, night sweats, weakness, no chills, no fever(s), no lethargy - EENT Eyes: no change in vision, no loss of vision, no pain, no photophobia Nose, mouth and throat: as per HPI, dysphagia, sore throat, other (Hemoptysis ( esophageal cancer origin)), no mouth pain, no neck pain, no sinus pain - Cardiovascular Cardiovascular ROS IM: no chest pain, no dyspnea, no edema, no orthopnea, no palpitations - Respiratory Respiratory: hemoptysis, no cough, no pain on inspiration - Gastrointestinal Gastrointestinal: as per HPI, dysphagia, hematemesis, melena, no abdominal pain , no constipation, no diarrhea, no hematochezia, no vomiting - Musculoskeletal Musculoskeletal ROS IM: back pain - Neurological Neurological ROS: as per HPI, dizziness, weakness, no disequilibrium, no frequent falls, no numbness, no vertigo - Constitutional Vitals: Temp Pulse Resp BP Pulse Ox 98.3 F 102 17 149/82 97 10/22/16 22:39 10/22/16 22:39 10/22/16 22:39 10/22/16 22:39 10/22/16 22:39 General: Cooperative, pleasant, no acute distress, alert and oriented 3, answers questions appropriately Head: Normocephalic, atraumatic Eye: Conjunctiva pale, sclera anicteric, EOMI, PERRL Neck: Supple, trachea midline, mucosa moist, no erythema or exudates identified and oropharynx Respiratory: No accessory muscle usage, clear to auscultation bilaterally, no wheezes/rhonchi/rales appreciated Cardiovascular: Tachycardia, regular rhythm, S1 and S2 present, no murmurs/rubs/ gallops/clicks appreciated GI/abdominal: Nondistended, nontender, soft, normal bowel sounds, no peritoneal signs Extremities: No calf tenderness, noncyanotic, no pedal edema appreciated, warm, lower extremity pulses palpable and symmetrical Neurological: Alert and oriented 3, no facial droop, no focal deficits Skin: Dry, intact, normal color Internal Med - H&P Results - Labs CBC & Chem 7: 10/22/16 21:43 Labs: Short CBC 10/22/16 Range/Units 21:43 Hgb 7.8 L (11.5-15.4) g/dL Hct 24.2 L (35.3-44.9) %
[2016-10-22] MEDS ORDERED: Calcium Gluconate 1,000 MG in D5% in Water 100 ML IVPB ONE (23:58)
[2016-10-23] MEDS: 0.9 % Sodium Chloride 1,000 ML IVC SCH ×3 (00:26→22:34)
--- NOTE | 2016-10-23 00:30 | Event Note ---
Date of Encounter: 10/23/16 Time of Encounter: 00:27 Patient seen and examined with medical receptionist assistant. Patient with unfortunate history of stage for esophageal cancer. Patient unable to tolerate food. Patient continues to lose weight. Patient is vomiting dark brown blood. She will be started on Platonic strip. She wants transfused one unit of pack RBCs at [place] [facility] repeat hemoglobin 7.8. Will give one more unit of blood transfusion. Patient tachycardic on arrival heart rate 130s. Will give 1 L bolus of normal saline as well as pain control and blood transfusion. If her heart rate does not improve will consider ruling out pulmonary embolism however if your heart rate improves will not pursue further workup. Because the patient is vomiting coffee ground I will keep the patient for now on Platonic strip. Patient was supposed to have a feeding tube placed by Dr. Gray in the morning. We will keep NPO after midnight for that. Patient is full code
[2016-10-23] MEDS: Pantoprazole 40 MG in 0.9 % Sodium Chloride Mini Bag 100 ML IVC SCH ×5 (01:11→22:17)
[2016-10-23] MEDS ORDERED: 0.9 % Sodium Chloride 250 ML ONE ×2 (02:05→21:34)
[2016-10-23] MEDS: *HR* HYDROmorphone (PF) 1 MG/ML SYRINGE IVP PRN ×6 (02:23→19:38)
[2016-10-23] MEDS ORDERED: Pantoprazole 40 MG VIAL IVP SCH (06:00)
[2016-10-23] MEDS ORDERED: Simethicone 40 MG/0.6 ML MLS IR ONE (07:34)
[2016-10-23] MEDS ORDERED: *HR* Midazolam HCl 5 MG/5 ML VIAL IVP ONE (07:34)
[2016-10-23] MEDS ORDERED: *HR* FentaNYL (PF) 100 MCG/2 ML VIAL IVP PRN (07:34)
[2016-10-23] MEDS ORDERED: Tetracaine/Benzocaine/Butamben 200MG/SPRAY (100SPY/BOT) MM ONE (07:34)
[2016-10-23] MEDS ORDERED: *HR* FentaNYL (PF) 100 MCG/2 ML VIAL ONE (07:34)
--- NOTE | 2016-10-23 07:34 | Pre-Sedation Evaluation ---
Pre-sedation evaluation - Pre-sedation checklist Date of procedure: 10/23/16 Procedure: PEG Recent Vitals: Last Vital Signs Temp 98.1 F 10/23/16 05:18 Pulse 105 10/23/16 05:18 Resp 16 10/23/16 05:18 BP 123/77 10/23/16 05:18 Pulse Ox 96 10/23/16 05:18 H&P (including ROS) documented in medical record: Yes Previous reaction to sedatives/anesthetics: No Dietary Status: NPO after Midnight Dentition: No loose teeth or bridges, dentures removed Possible difficult airway: No ASA Classification *see protocol: CLASS III-Severe systemic disease
[2016-10-23] MEDS: *HR* Midazolam HCl 5 MG/5 ML VIAL IVP PRN ×3 (07:52→07:55)
[2016-10-23] MEDS ORDERED: CeFAZolin Pre 2,000 MG/100 ML 2,000 MG/100 ML BAG IVPB ONE (08:00)
[2016-10-23] MEDS: Metoprolol XL (24 HR) Succ 50 MG TAB.ER.24H PO SCH (10:05)
[2016-10-23 11:51] LABS: Basophils % 0.3 %; Eosinophils # 0.2 K/mcL (0.0-0.6); Eosinophils % 3.4 %; Hematocrit 23.1 % (35.3-44.9); Hemoglobin 7.5 g/dL (11.5-15.4); Immature Granulocytes % 0.4 % (0-4); Lymphocytes # 0.9 K/mcL (0.6-4.6); Lymphocytes % 13.2 %; Mean Corpuscular HGB Conc 32.5 g/dL (31.6-35.5); Mean Corpuscular Hemoglobin 26.3 pg (28.0-33.3); Mean Corpuscular Volume 81.1 fL (83.0-100.0); Mean Platelet Volume 9.5 fL (9.4-12.4); Monocytes # 0.3 K/mcL (0.0-1.3); Monocytes % 4.7 %; Neutrophils # 5.3 K/mcL (1.6-8.9); Platelet Count 177 K/mcL (140-400); Red Blood Count 2.85 M/mcL (3.82-4.97); Red Cell Distribution Width 15.9 % (11.5-14.5)
[2016-10-23] MEDS: *HR* OxyCODONE Immed Rel 5 MG TABLET PO PRN (12:50)
--- NOTE | 2016-10-23 18:25 | Internal Med Progress Note ---
Date of Encounter: 10/23/16 Time of Encounter: 18:15 - Assessment and plan (1) Anemia Current Visit: No Status: Acute Assessment and plan: Pt had PEG placed by Dr. Gray today. Upper GI endoscopy revealed large, fungating mass with bleeding and stigmata of recent bleeding was found to be toally obstructing the esophagus. PEG tube was placed. She has known history of GI bleed and anemia of chronic disease as well as bone marrow suppression. Pt received 1 unit of blood yesterday a.m. Hgb 7.5 this a.m. Ordered 2nd unit of blood to be started now ad recheck H and H 1 hour after. 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 Qualifiers: GI bleed type/associated pathology: unspecified gastrointestinal hemorrhage type Qualified Code(s): K92.2 - Gastrointestinal hemorrhage, unspecified (3) Dysphagia Current Visit: No Status: Acute Assessment and plan: Pt was found to have esophageal cancer, Scope today revealed mass that was obstructing esophaus, PEG tube inserted. Pt has only been able to drink liquids every day. Qualifiers: Dysphagia type: esophageal phase Qualified Code(s): R13.14 - Dysphagia, pharyngoesophageal phase (4) Esophageal cancer Current Visit: No Status: Acute Assessment and plan: Pt is undergoing with chemotherapy, recent diagnosis of liver mets, pt had PEG placed today. Qualifiers: Malignant neoplasm of esophagus location: unspecified location Qualified Code(s): C15.9 - Malignant neoplasm of esophagus, unspecified (5) COPD (chronic obstructive pulmonary disease) Current Visit: No Status: Acute Assessment and plan: History of COPD. Well controlled at this time. Albuterol inhaler was continued from home. Will Monitor pts, labs, and vital signs. Qualifiers: COPD type: unspecified COPD Qualified Code(s): J44.9 - Chronic obstructive pulmonary disease, unspecified (6) CKD (chronic kidney disease) Current Visit: No Status: Chronic Assessment and plan: Creat 1.18 GFR 46. Will continue to monitor labs No nephrotoxins No NSAIDs Qualifiers: Chronic kidney disease stage: stage 3 (moderate) Qualified Code(s): N18.3 - Chronic kidney disease, stage 3 (moderate) (7) DVT prophylaxis Current Visit: No Status: Acute Assessment and plan: No anticoagulation due to bleeding and anemia. Pt will have PCD's. - Subjective Interval history: Pt sitting up in bed , multiple family members in room. Pt requesting help with bowel movement. She states, "its right there, but I can't get it." Pt moving about well and states that her abd is sore. Site without bleeding or drainage. Pt requesting pain medication, nurse aware. - Constitutional Vitals: Temp Pulse Resp BP Pulse Ox 98.4 F 103 15 135/83 97 10/23/16 14:59 10/23/16 14:59 10/23/16 14:59 10/23/16 14:59 10/23/16 14:59 General appearance: Present: cooperative, A&O X 3, pleasant, answers questions appropriately - Head Head exam: Present: atraumatic, normal inspection - Eye Eye exam: Present: normal appearance, conjuntiva pink - ENT ENT exam: Present: mucous membranes moist, normal exam - Neck Neck exam general surgery: Present: normal inspection. Absent: lymphadenopathy , tenderness - Respiratory Respiratory exam: Present: CTAB. Absent: accessory muscle use, chest wall tenderness, decreased breath sounds, rales, respiratory distress, rhonchi, stridor, wheezes, tachypnea - Cardiovascular Cardiovascular exam: Present: RRR, +S1, +S2 - GI/Abdominal GI/Abdominal exam: Present: normal bowel sounds, soft, tenderness - Extremities Exam Extremities exam: Present: normal inspection, warm, radial pulses palpable and symetrical. Absent: pedal edema, tenderness Additional comments: +2 pedal pulses dany - Neurological Exam Neurological exam: Present: alert, oriented X3. Absent: facial droop, speech deficit Internal Medicine: Result - Labs CBC & Chem 7: 10/23/16 11:19 Labs: Short CBC 10/22/16 10/23/16 Range/Units 21:43 11:19 WBC 6.8 (4.3-11.1) K/mcL Hgb 7.8 L 7.5 L (11.5-15.4) g/dL Hct 24.2 L 23.1 L (35.3-44.9) % Plt Count 177 (140-400) K/mcL Neutrophils # 5.3 (1.6-8.9) K/mcL - ABG Interpretation ABG results: PT/INR, D-dimer PT 13.4 Seconds (9.4-12.1) H 10/22/16 21:43 Consult Discharge Plan - Plan Referrals: Susan Burris, NEDA [Primary Care Provider] - 10/25/16 3:00 pm
[2016-10-23 18:49] LABS: Hematocrit 23.6 % (35.3-44.9); Hemoglobin 7.5 g/dL (11.5-15.4)
[2016-10-23] MEDS: Acetaminophen 325 MG TABLET PO PRN (19:40)
[2016-10-24] MEDS: *HR* HYDROmorphone (PF) 1 MG/ML SYRINGE IVP PRN ×6 (00:12→23:26)
[2016-10-24] MEDS: Pantoprazole 40 MG in 0.9 % Sodium Chloride Mini Bag 100 ML IVC SCH ×4 (03:50→20:02)
[2016-10-24 05:18] LABS: Basophils % 0.4 %; Eosinophils # 0.3 K/mcL (0.0-0.6); Eosinophils % 5.7 %; Hematocrit 26.3 % (35.3-44.9); Hemoglobin 8.4 g/dL (11.5-15.4); Immature Granulocytes % 0.4 % (0-4); Lymphocytes # 0.9 K/mcL (0.6-4.6); Mean Corpuscular HGB Conc 31.9 g/dL (31.6-35.5); Mean Corpuscular Hemoglobin 26.9 pg (28.0-33.3); Mean Corpuscular Volume 84.3 fL (83.0-100.0); Mean Platelet Volume 9.2 fL (9.4-12.4); Monocytes # 0.4 K/mcL (0.0-1.3); Monocytes % 6.9 %; Platelet Count 165 K/mcL (140-400); Red Blood Count 3.12 M/mcL (3.82-4.97); Red Cell Distribution Width 15.9 % (11.5-14.5); Segmented Neutrophils % 70.6 %
[2016-10-24 05:26] LABS: BUN/Creatinine Ratio 17 (6-26); Blood Urea Nitrogen 15 mg/dL (7-20); Calcium 7.9 mg/dL (8.6-10.8); Carbon Dioxide 22 mEq/L (19-29); Chloride 106 mEq/L (98-109); Glucose 94 mg/dL (70-99); Osmolality,Calculated 281 (280-300); Sodium 135 mEq/L (136-145); eGFR For African Americans > 60 (> 60); eGFR For Non-African Americans > 60 (> 60)
[2016-10-24] MEDS: *HR* OxyCODONE Immed Rel 5 MG TABLET PO PRN ×3 (10:28→20:09)
[2016-10-24] MEDS: Metoprolol XL (24 HR) Succ 50 MG TAB.ER.24H PO SCH (13:00)
--- NOTE | 2016-10-24 14:45 | General Surgery Progress Note ---
Date of Encounter: 10/24/16 Time of Encounter: 14:43 - Assessment and Plan (1) Esophageal cancer Current Visit: No Status: Acute POD #1 from peg tube placement with Dr. Gray May place abdominal binder to secure tube per patient request May start tube feedings today Facility Coordinator consulted May follow-up with surgery as outpatient as needed with any peg tube problems Surgery will sign off at this time. Please call with any further questions/ concerns. Qualifiers: Malignant neoplasm of esophagus location: unspecified location Qualified Code(s): C15.9 - Malignant neoplasm of esophagus, unspecified Subjective Patient reports: no new complaints, afebrile Objective Vital Signs - Last 8 Hours Temp Pulse Resp BP Pulse Ox 10/24/16 10:49 97.9 F 90 15 102/65 96 10/24/16 07:01 98.1 F 81 16 107/71 95 Intake and Output 10/23/16 10/24/16 10/24/16 23:59 07:59 15:59 Intake Total 1100 / 1100 575 / 575 320 / 320 Output Total 400 / 400 325 / 325 Balance 1100 / 1100 175 / 175 -5 / -5 Intake: IV Fluids 1100 / 1100 100 / 100 200 / 200 0.9 % Sodium Chloride 1, 1000 / 1000 000 ML @ 60 mls/hr IVC . [id number] MICKEY Rx#: [id number] Protonix 40 MG In 0.9 % 100 / 100 100 / 100 200 / 200 Sodium Chloride (Mini-Bag +) 100 ML @ 20 mls/hr IVC .Q5H MICKEY Rx#: [id number] Oral 150 / 150 120 / 120 Blood Product 0 / 0 325 / 325 Rbcs Leuko Poor As-1 0 / 0 325 / 325 Unit [id number] Output: Urine 400 / 400 325 / 325 Other: Stool Size Large Stool Consistency formed Stool Color Brown # Voids 1 # Bowel Movement Diapers 1 Weight 70.76 kg Patient Weight 10/24/16 23:59 Weight 70.76 kg - General physical appearance well developed, no distress - Eyes normal ocular movement - ENT normal mucosa, atraumatic, normocephalic - Neck Neck exam: trachea midline - Respiratory normal respiratory effort - Abdomen Abdomen: Present: bowel sounds present, soft, tender (around peg tube site; expected), wound (Peg tube secure without surrounding erythema or induration) - Neurologic CN 2-12 grossly intact - Psychiatric oriented to time, oriented to person, oriented to place, speech is normal, memory intact - Labs 10/25/16 05:05 10/25/16 05:05 Diabetes panel 10/24/16 Range/Units 04:26 Sodium 135 L (136-145) mEq/L Potassium 4.0 D (3.5-4.5) mEq/L Chloride 106 (98-109) mEq/L Carbon Dioxide 22 (19-29) mEq/L BUN 15 D (7-20) mg/dL Creatinine 0.86 (0.57-1.11) mg/dL Glucose 94 (70-99) mg/dL Calcium 7.9 L D (8.6-10.8) mg/dL Calcium panel 10/24/16 Range/Units 04:26 Calcium 7.9 L D (8.6-10.8) mg/dL Pituitary panel 10/24/16 Range/Units 04:26 Sodium 135 L (136-145) mEq/L Potassium 4.0 D (3.5-4.5) mEq/L Chloride 106 (98-109) mEq/L Carbon Dioxide 22 (19-29) mEq/L BUN 15 D (7-20) mg/dL Creatinine 0.86 (0.57-1.11) mg/dL Glucose 94 (70-99) mg/dL Calcium 7.9 L D (8.6-10.8) mg/dL Adrenal panel 10/24/16 Range/Units 04:26 Sodium 135 L (136-145) mEq/L Potassium 4.0 D (3.5-4.5) mEq/L Chloride 106 (98-109) mEq/L Carbon Dioxide 22 (19-29) mEq/L BUN 15 D (7-20) mg/dL Creatinine 0.86 (0.57-1.11) mg/dL Glucose 94 (70-99) mg/dL Calcium 7.9 L D (8.6-10.8) mg/dL Consult Discharge Plan - Plan Referrals: Susan Burris, HORTICULTURE PROFESSOR [Primary Care Provider] - - Attending Attestation I examined this patient and my medical decision-making was reviewed with the SUB ACUTE CARE NURSE/PA/Advanced Practice Nurse/Resident Physician. I agree with the documented findings, disposition and treatment plan as described except to the extent set forth below. The patient was seen and evaluated, PEG in excellent condition. No pain. OK for feedings and PEG use Toby Gray MD FACS
[2016-10-24] MEDS: 0.9 % Sodium Chloride 1,000 ML IVC SCH (15:19)
--- NOTE | 2016-10-24 18:28 | Internal Med Progress Note ---
Date of Encounter: 10/24/16 Time of Encounter: 10:00 - Assessment and plan (1) Esophageal cancer Current Visit: No Status: Acute Assessment and plan: Pt is going to start Jevity tonight per PEG, riding teacher was consulted and did see pt. Surgery has signed off at this time. Pt was requesting to still drink lear iEnsure. Qualifiers: Malignant neoplasm of esophagus location: unspecified location Qualified Code(s): C15.9 - Malignant neoplasm of esophagus, unspecified (2) Dysphagia Current Visit: No Status: Acute Assessment and plan: Pt will start tube feeding per PEG today. Will assess ability to drink fluids after swallow eval tomorrow. PT has been only able to drink fluids for several weeks anyway, she states that she likes the clear Ensure. Qualifiers: Dysphagia type: esophageal phase Qualified Code(s): R13.14 - Dysphagia, pharyngoesophageal phase (3) GI bleed Current Visit: No Status: Acute Assessment and plan: Plan as above. Qualifiers: GI bleed type/associated pathology: unspecified gastrointestinal hemorrhage type Qualified Code(s): K92.2 - Gastrointestinal hemorrhage, unspecified (4) Anemia Current Visit: No Status: Acute Assessment and plan: PEG tube was placed. She has known history of GI bleed and anemia of chronic disease as well as bone marrow suppression. Pt received 1 unit of blood yesterday a.m. Hgb 7.5 and last p.m. Hgb 8.4 today. Will continue to monitor Monitor labs in a.m. 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 Well controlled at this time. Albuterol inhaler was continued from home. Lungs are clear ant and post Continue to monitor labs Monitor VS Qualifiers: COPD type: unspecified COPD Qualified Code(s): J44.9 - Chronic obstructive pulmonary disease, unspecified (6) CKD (chronic kidney disease) Current Visit: No Status: Chronic Assessment and plan: BUN and creatinine are WNL today. Will continue to monitor labs and pt Avoid neprotoxins Avoid NSAIDs Qualifiers: Chronic kidney disease stage: stage 3 (moderate) Qualified Code(s): N18.3 - Chronic kidney disease, stage 3 (moderate) (7) DVT prophylaxis Current Visit: No Status: Acute Assessment and plan: No anticoagulation due to bleeding and anemia. Pt will have PCD's. - Subjective Interval history: Pt resting quietly. States that she doesn't feel well today. She states that she feels tired and is sore. She denies pain. Pt moves about in bed well and becomes tearful when she relates that today is her anniversary. - Constitutional Vitals: Temp Pulse Resp BP Pulse Ox 97.8 F 84 15 113/70 95 10/24/16 15:04 10/24/16 15:04 10/24/16 15:04 10/24/16 15:04 10/24/16 15:04 General appearance: Present: cooperative, A&O X 3, pleasant, no acute distress, answers questions appropriately - Head Head exam: Present: atraumatic, normal inspection - Eye Eye exam: Present: normal appearance, conjuntiva pink. Absent: nystagmus - ENT ENT exam: Present: mucous membranes moist, normal exam - Neck Neck exam general surgery: Present: normal inspection. Absent: lymphadenopathy , tenderness - Respiratory Respiratory exam: Present: CTAB. Absent: chest wall tenderness, decreased breath sounds, rales, rhonchi, wheezes - Cardiovascular Cardiovascular exam: Present: RRR, +S1, +S2. Absent: diastolic murmur, systolic murmur - GI/Abdominal GI/Abdominal exam: Present: diminished bowel sounds. Absent: hepatomegaly, tenderness Additional comments: Pt has new PEG tube, no drng or bleeding around site. Pt denies pain, but states that area is sore. Surrounding area without redness or edema. - Extremities Exam Extremities exam: Present: full ROM, normal capillary refill, normal inspection , warm, radial pulses palpable and symetrical. Absent: pedal edema, tenderness - Neurological Exam Neurological exam: Present: alert, oriented X3, strengths equal and symetr throughout. Absent: no focal deficits, facial droop, speech deficit Internal Medicine: Result - Labs CBC & Chem 7: 10/24/16 04:26 10/24/16 04:26 Labs: Short CBC 10/23/16 10/24/16 Range/Units 18:32 04:26 WBC 5.6 (4.3-11.1) K/mcL Hgb 7.5 L 8.4 L (11.5-15.4) g/dL Hct 23.6 L 26.3 L (35.3-44.9) % Plt Count 165 (140-400) K/mcL Neutrophils # 4.0 (1.6-8.9) K/mcL BMP 10/24/16 04:26 Sodium 135 L Potassium 4.0 D Chloride 106 Carbon Dioxide 22 BUN 15 D Creatinine 0.86 Glucose 94 Calcium 7.9 L D - ABG Interpretation ABG results: PT/INR, D-dimer PT 13.4 Seconds (9.4-12.1) H 10/22/16 21:43 Consult Discharge Plan - Plan Referrals: Susan Burris, NEDA [Primary Care Provider] - 10/25/16 3:00 pm
[2016-10-25] MEDS: Pantoprazole 40 MG in 0.9 % Sodium Chloride Mini Bag 100 ML IVC SCH ×4 (01:15→22:19)
[2016-10-25] MEDS: *HR* OxyCODONE Immed Rel 5 MG TABLET PO PRN ×4 (01:15→19:56)
[2016-10-25] MEDS: *HR* HYDROmorphone (PF) 1 MG/ML SYRINGE IVP PRN ×5 (03:30→22:04)
[2016-10-25 05:57] LABS: Basophils % 0.2 %; Eosinophils # 0.2 K/mcL (0.0-0.6); Eosinophils % 4.2 %; Hematocrit 27.3 % (35.3-44.9); Hemoglobin 8.4 g/dL (11.5-15.4); Immature Granulocytes % 0.4 % (0-4); Lymphocytes # 0.7 K/mcL (0.6-4.6); Lymphocytes % 14.2 %; Mean Corpuscular HGB Conc 30.8 g/dL (31.6-35.5); Mean Corpuscular Hemoglobin 27.4 pg (28.0-33.3); Mean Corpuscular Volume 88.9 fL (83.0-100.0); Mean Platelet Volume 9.6 fL (9.4-12.4); Monocytes # 0.3 K/mcL (0.0-1.3); Monocytes % 6.7 %; Neutrophils # 3.6 K/mcL (1.6-8.9); Platelet Count 179 K/mcL (140-400); Red Blood Count 3.07 M/mcL (3.82-4.97); Red Cell Distribution Width 16.5 % (11.5-14.5); Segmented Neutrophils % 74.3 %
[2016-10-25 06:02] LABS: BUN/Creatinine Ratio 12 (6-26); Blood Urea Nitrogen 10 mg/dL (7-20); Calcium 7.8 mg/dL (8.6-10.8); Carbon Dioxide 20 mEq/L (19-29); Chloride 106 mEq/L (98-109); Glucose 104 mg/dL (70-99); Magnesium 1.4 mg/dL (1.6-2.6); Osmolality,Calculated 275 (280-300); Phosphorous 3.1 mg/dL (2.3-4.7); Potassium 3.6 mEq/L (3.5-4.5); Sodium 133 mEq/L (136-145); eGFR For African Americans > 60 (> 60); eGFR For Non-African Americans > 60 (> 60)
[2016-10-25] MEDS: 0.9 % Sodium Chloride 1,000 ML IVC SCH (08:56)
--- NOTE | 2016-10-25 15:48 | Internal Med Progress Note ---
Date of Encounter: 10/25/16 Time of Encounter: 15:00 - Assessment and plan (1) Esophageal cancer Current Visit: No Status: Acute Assessment and plan: Pt started Jevity 50 last night, did not tolerate well due to nausea. Pt had swallow eval today and will tolerate nectar thick liquids. Dietary will be attempting to restart Jevity again tonight. Pt reports pain that is well- controlled with current pain medication, states pain is from "this thing". Qualifiers: Malignant neoplasm of esophagus location: unspecified location Qualified Code(s): C15.9 - Malignant neoplasm of esophagus, unspecified (2) Dysphagia Current Visit: No Status: Acute Assessment and plan: Pt had swallow eval today and will tolerate nectar thick liquids. Pt was drinking during exam and magdaleno well without choking. Will continue until need for further assessment. Qualifiers: Dysphagia type: esophageal phase Qualified Code(s): R13.14 - Dysphagia, pharyngoesophageal phase (3) GI bleed Current Visit: No Status: Acute Assessment and plan: H and H have remained WNL today. Will continue to monitor pt and labs. Qualifiers: GI bleed type/associated pathology: unspecified gastrointestinal hemorrhage type Qualified Code(s): K92.2 - Gastrointestinal hemorrhage, unspecified (4) Anemia Current Visit: No Status: Acute Assessment and plan: Plan as above. 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 Will start incentive spirometry today. Monitor labs Monitor VS Continue home medications Duonebs prn wheezing Qualifiers: COPD type: unspecified COPD Qualified Code(s): J44.9 - Chronic obstructive pulmonary disease, unspecified (6) CKD (chronic kidney disease) Current Visit: No Status: Chronic Assessment and plan: Creatinine again WNL today, as are BUN and GFR. Will continue gentle hydration Monitor labs Avoid nephrotoxins Avoid NSAIDs Qualifiers: Chronic kidney disease stage: stage 3 (moderate) Qualified Code(s): N18.3 - Chronic kidney disease, stage 3 (moderate) (7) DVT prophylaxis Current Visit: No Status: Acute Assessment and plan: PCD (8) Severe protein-calorie malnutrition Current Visit: Yes Status: Acute Assessment and plan: Pt has been unable to eat food due to obstruction and bleeding. pt has been drinking fluids well. PEG inserted 2 days ago for tube feeds. Pt is being followed by oncology dietary personnel. She is currently still trying to get to goal rate of 100ml with Jevity, however last night did not tolerate well due to bloating and nausea. Will continue to follow. Pt is able to drink nectar thick liquids. - Subjective Interval history: Pt states that she is not feeling well today. STates that she feels tired and is having pain in her upper chest "from this thing." Pain is well-controlled with pain medications, however, and she denies need for more. Pt states that she did not do well with the tube feeding last night and had nausea. She is requesting creamer for her coffee and states that she wants to start drinking. - Constitutional Vitals: Temp Pulse Resp BP Pulse Ox 98.3 F 88 15 133/77 96 10/25/16 15:38 10/25/16 15:38 10/25/16 15:38 10/25/16 15:38 10/25/16 15:38 General appearance: Present: cooperative, A&O X 3, pleasant, no acute distress, answers questions appropriately - Head Head exam: Present: normal inspection - Eye Eye exam: Present: normal appearance, conjuntiva pink. Absent: nystagmus - ENT ENT exam: Present: mucous membranes moist, normal exam - Neck Neck exam general surgery: Present: normal inspection. Absent: lymphadenopathy , tenderness - Respiratory Respiratory exam: Present: CTAB. Absent: chest wall tenderness, decreased breath sounds, respiratory distress, rhonchi, stridor, wheezes - Cardiovascular Cardiovascular exam: Present: RRR, +S1, +S2 - GI/Abdominal GI/Abdominal exam: Present: normal bowel sounds. Absent: guarding, hepatomegaly , tenderness - Neurological Exam Neurological exam: Present: alert, oriented X3, no focal deficits Internal Medicine: Result - Labs CBC & Chem 7: 10/25/16 05:05 10/25/16 05:05 Labs: Short CBC 10/25/16 Range/Units 05:05 WBC 4.8 (4.3-11.1) K/mcL Hgb 8.4 L (11.5-15.4) g/dL Hct 27.3 L (35.3-44.9) % Plt Count 179 (140-400) K/mcL Neutrophils # 3.6 (1.6-8.9) K/mcL BMP 10/25/16 05:05 Sodium 133 L Potassium 3.6 Chloride 106 Carbon Dioxide 20 BUN 10 Creatinine 0.83 Glucose 104 H Calcium 7.8 L - ABG Interpretation ABG results: PT/INR, D-dimer PT 13.4 Seconds (9.4-12.1) H 10/22/16 21:43 Consult Discharge Plan - Plan Referrals: Susan Burris, [employer] [Primary Care Provider] -
[2016-10-25] MEDS ORDERED: 0.9 % Sodium Chloride 1,000 ML IVC SCH (16:00)
[2016-10-25] MEDS: Ipratropium/Albuterol Neb 3 ML IH SCH ×3 (16:18→23:38)
[2016-10-26] MEDS: *HR* OxyCODONE Immed Rel 5 MG TABLET PO PRN ×4 (00:11→19:45)
[2016-10-26] MEDS: *HR* HYDROmorphone (PF) 1 MG/ML SYRINGE IVP PRN ×4 (02:12→23:18)
[2016-10-26] MEDS: Ipratropium/Albuterol Neb 3 ML IH SCH ×5 (03:43→20:09)
[2016-10-26] MEDS: Pantoprazole 40 MG in 0.9 % Sodium Chloride Mini Bag 100 ML IVC SCH ×4 (04:23→20:40)
[2016-10-26 05:47] LABS: Basophils % 0.5 %; Eosinophils # 0.2 K/mcL (0.0-0.6); Eosinophils % 4.8 %; Hematocrit 26.6 % (35.3-44.9); Hemoglobin 8.4 g/dL (11.5-15.4); Immature Granulocytes % 0.2 % (0-4); Lymphocytes # 0.9 K/mcL (0.6-4.6); Lymphocytes % 20.7 %; Mean Corpuscular HGB Conc 31.6 g/dL (31.6-35.5); Mean Corpuscular Hemoglobin 26.4 pg (28.0-33.3); Mean Corpuscular Volume 83.6 fL (83.0-100.0); Mean Platelet Volume 9.1 fL (9.4-12.4); Monocytes # 0.3 K/mcL (0.0-1.3); Monocytes % 6.9 %; Neutrophils # 2.8 K/mcL (1.6-8.9); Platelet Count 193 K/mcL (140-400); Red Blood Count 3.18 M/mcL (3.82-4.97); Red Cell Distribution Width 16.2 % (11.5-14.5); Segmented Neutrophils % 66.9 %
[2016-10-26 05:59] LABS: BUN/Creatinine Ratio 9 (6-26); Blood Urea Nitrogen 8 mg/dL (7-20); Calcium 7.8 mg/dL (8.6-10.8); Carbon Dioxide 20 mEq/L (19-29); Chloride 106 mEq/L (98-109); Glucose 151 mg/dL (70-99); Osmolality,Calculated 281 (280-300); Potassium 3.8 mEq/L (3.5-4.5); Sodium 135 mEq/L (136-145); eGFR For African Americans > 60 (> 60); eGFR For Non-African Americans > 60 (> 60)
[2016-10-26] MEDS: Magnesium Oxide 400 MG TABLET PO SCH ×2 (09:07→21:59)
--- NOTE | 2016-10-26 14:31 | Palliative - Consult Note ---
Date of Encounter: 10/26/16 Time of Encounter: 14:30 - Assessment and Plan (1) Pain Current Visit: Yes Status: Acute Assessment and plan: Currently mostly r/t soreness of PEG site. Has utilized Hydromorphone x3 last 24 hours as well as Oxycodone 10mg x5. Continue and monitor. (2) Debility Current Visit: Yes Status: Acute Assessment and plan: After discussion, she is willing to try and work with therapy. Her daughter at bedside also encouraged and helped with this discussion. It appears PT signed off r/t pt refusal, but she now is asking me to "call them back". Will order another eval. (3) Dysphagia Current Visit: No Status: Acute Assessment and plan: Patient is still taking nectar thick liquids at present. Did not tolerate tube feeds yesterday and pt states she was "coughing up feeding" PPI has been started and tube feeding will be started continuously at lower rate to see if she tolerates. Monitor Qualifiers: Dysphagia type: esophageal phase Qualified Code(s): R13.14 - Dysphagia, pharyngoesophageal phase (4) Malnutrition Current Visit: No Status: Acute Assessment and plan: Oral feedings as tolerated as well as tube feeds for supplemental nutrition. Monitor (5) Depression Current Visit: Yes Status: Acute Assessment and plan: Patient as well as family describe decrease interest in leaving the home, wanting to do any outside activities, and talking about nothing but cancer since she has received diagnosis. I think she would benefit from antidepressant , however, she wants to discuss with first. I will f/u in am regarding this. Qualifiers: Depression Type: unspecified Qualified Code(s): F32.9 - Major depressive disorder, single episode, unspecified (6) Constipation Current Visit: Yes Status: Acute Assessment and plan: Patient currently on Senokot BID. States Miralax usually works well for her - will begin daily and hold for loose stools. Qualifiers: Constipation type: unspecified constipation type Qualified Code(s): K59.00 - Constipation, unspecified (7) Esophageal cancer Current Visit: Yes Status: Acute Qualifiers: Malignant neoplasm of esophagus location: lower third Qualified Code(s): C15.5 - Malignant neoplasm of lower third of esophagus Palliative-CN HPI - Data of Consult Consult date: 03/17/17 Requesting Physician: Daija Phelps Primary Care Provider: Susan Burris CNP - Consult Narrative History of present illness: Ms. Lara is a 65 year old female with a recent diagnosis of esophageal cancer with liver metastatic disease. She has started chemotherapy already and is awaiting radiation. She was admitted for GI bleed - She has been bleeding from tumor site, and is awaiting radiation to assist with this. She has received transfusions during this admission. PEG was placed per Dr. Gray and speech continues to work with patient. She did not tolerate night cycle tube feedings and this is being changed to lower rate continuous feeding. At my visit, she is resting with eyes closed. Room dark with door shut. States she didn't sleep last night. Daughter and granddaughters present. States PEG with soreness but medication effective. States she was "coughing up" tube feeding yesterday. C/O weakness - we discussed that she has refused therapy and she is now willing to try and work with them. CC: Daija Phelps Past Med Surg Social Fam HX - Past Medical History Medical history: cancer, COPD, hyperlipidemia, hypertension, renal disease, other Psychiatric history: no psych history - Past Surgical History Surgical History: other - Social History Smoking Status: Former smoker Smokeless Tobacco Status: No Alcohol use: none Drug use: none - Family History Father Living Status: Hx Family Cardiac Disorders: Yes (HEART RELATED) Mother Living Status: Still Living Hx Family Cardiac Disorders: Yes (Hypertension) Hx Family Endocrine Disorder: Yes (Diabetes Mellitus) Hx Family Neurologic Disorders: Yes (CVA) Sister Living Status: Still Living Hx Family Cardiac Disorders: No Hx Family Cancer: Yes Hx Family GI Disorders: No Hx Family Genitourinary Disorders: No Hx Family Endocrine Disorder: No Hx Family Musculoskeletal Disorders: No Hx Family Neuromuscular Disorders: No Hx Family Neurologic Disorders: No Hx Family HEENT Disorders: No Hx Family Autoimmune Disorders: No Hx Family Reproductive Disorders: No Hx Family Psychosocial Disorders: No Hx Family Medical Disorders: No Medications and Allergies Albuterol Sulfate [Proair Respiclick] 1 - 2 puff IH Q6H PRN 08/26/15 [History] Losartan Potassium [Cozaar] 100 mg PO DAILY 08/26/15 [History] CloNIDine Patch [Catapres-Tts] 0.3 mg TP QWEEK 08/14/16 [History] Metoprolol XL (24 HR) Succ [Toprol Xl] 100 mg PO DAILY #60 tab.er.24h 08/17/16 [ Rx] OxyCODONE Immed Rel [Roxicodone 5 MG] 10 mg PO Q4H PRN 09/28/16 [History] Allergies aspirin Adverse Reaction (Verified 10/22/16 06:14) Nausea naproxen Adverse Reaction (Verified 10/22/16 06:14) Nausea NSAIDS (Non-Steroidal Anti-Inflamma Adverse Reaction (Verified 10/22/16 06:14) Nausea Review of systems: C/O difficulty swallowing, Abd pain at PEG site, generalized weakness, depression Palliative Care-Exam - Constitutional Vitals: Temp Pulse Resp BP Pulse Ox 98.7 F 85 16 131/81 93 L 10/26/16 10:59 10/26/16 10:59 10/26/16 10:59 10/26/16 10:59 10/26/16 10:59 General appearance: Present: no acute distress - Head Head Exam: Present: normal inspection, normocephalic - Eye Eye exam: Present: normal appearance, PERRL - ENT ENT exam: Present: mucous membranes moist - Respiratory Respiratory exam: Present: decreased breath sounds, CTAB - Cardiovascular Cardiovascular exam: Present: +S1, +S2 - GI/Abdominal Exam GI/Abdominal exam: Present: diminished bowel sounds, soft additional comments: Peg intact and clamped at present - Extremities Exam Extremities exam: Present: normal capillary refill, normal inspection - Neurological Exam Neurological exam: Present: alert, oriented X3, strengths equal and symetr throughout - Psychiatric Psychiatric exam: Present: flat affect - Skin Skin exam: Present: dry, pallor, warm Internal Medicine - CN: Reslt - Labs CBC & Chem 7: 10/26/16 04:52 10/26/16 04:52 Labs: Short CBC 10/26/16 Range/Units 04:52 WBC 4.2 L (4.3-11.1) K/mcL Hgb 8.4 L (11.5-15.4) g/dL Hct 26.6 L (35.3-44.9) % Plt Count 193 (140-400) K/mcL Neutrophils # 2.8 (1.6-8.9) K/mcL BMP 10/26/16 04:52 Sodium 135 L Potassium 3.8 Chloride 106 Carbon Dioxide 20 BUN 8 Creatinine 0.87 Glucose 151 H Calcium 7.8 L - ABG Interpretation ABG results: PT/INR, D-dimer PT 13.4 Seconds (9.4-12.1) H 10/22/16 21:43 Consult Discharge Plan - Plan Referrals: Susan Burris CNP [Primary Care Provider] - Palliative Quality Palliative Quality: Screen for Code Status: NA (Will continue to address), Screen for Goals of Care: NA, Screen for Pain: Yes, If Pain Regimen Started, Initiate Bowel Regimen: Yes, Screen for Nausea/Vomitting: Yes Code Status: 10/22/16 21:14 Resuscitation Status: Active [RES] Routine Comment: Resuscitation Status: Full Code
[2016-10-26] MEDS: 0.9 % Sodium Chloride 1,000 ML IVC SCH (14:34)
--- NOTE | 2016-10-26 19:59 | Internal Med Progress Note ---
Date of Encounter: 10/26/16 Time of Encounter: 13:00 - Assessment and plan (1) Esophageal cancer Current Visit: No Status: Acute Assessment and plan: The tics did speak with Dr. Victoria this morning who said that they would consult with patient today. Patient is also being followed by oncology dietitian. PEG tube site without drainage or redness or pain. Patient is not tolerating tube feeds well. She is requesting liquids as well she is on nectar thickened liquids again today and has advanced to full liquid. Patient had swallowing evaluation yesterday when it was determined that she could tolerate nectar thickened liquids. Continue to monitor patient and PEG tube Continue to monitor nutrition status Qualifiers: Malignant neoplasm of esophagus location: unspecified location Qualified Code(s): C15.9 - Malignant neoplasm of esophagus, unspecified (2) Dysphagia Current Visit: No Status: Acute Assessment and plan: Patient states that she is feeling an acid burning pain, I did contact to her medication regimen to see if it gives her some relief. She is already taking Protonix. She seems to be tolerating nectar thick liquids today very well. Plan as above Qualifiers: Dysphagia type: esophageal phase Qualified Code(s): R13.14 - Dysphagia, pharyngoesophageal phase (3) GI bleed Current Visit: No Status: Resolved Assessment and plan: Resolved. Hemoglobin has remained the same since transfusion on Saturday night. We will continue to monitor patient, vitals, and labs. Qualifiers: GI bleed type/associated pathology: unspecified gastrointestinal hemorrhage type Qualified Code(s): K92.2 - Gastrointestinal hemorrhage, unspecified (4) Anemia Current Visit: No Status: Acute Assessment and plan: Resolved. 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 She denies a cough chest congestion or wheezing area Monitor labs Monitor VS Continue home medications Duonebs prn wheezing Qualifiers: COPD type: unspecified COPD Qualified Code(s): J44.9 - Chronic obstructive pulmonary disease, unspecified (6) CKD (chronic kidney disease) Current Visit: No Status: Chronic Assessment and plan: Creatinine again WNL today. Will continue gentle hydration Monitor labs Avoid nephrotoxins Avoid NSAIDs Qualifiers: Chronic kidney disease stage: stage 3 (moderate) Qualified Code(s): N18.3 - Chronic kidney disease, stage 3 (moderate) (7) DVT prophylaxis Current Visit: No Status: Acute Assessment and plan: PCD. Patient cannot be on anticoagulation due to risk of GI bleed. (8) Severe protein-calorie malnutrition Current Visit: Yes Status: Acute Assessment and plan: Patient has been unable to tolerate tube feedings ,they have attempted multiple different times and rates. Patient is being followed closely dietary nutrition and by oncology nutrition. We will continue to monitor labs. - Subjective Interval history: Again today patient states that she is not feeling well room is darkened , blinds closed ,door closed. Patient states at night she gets a burning feeling in her chest when the tube feeding is going on and states that she is sitting up in the bed. She states that she has not had a bowel movement in 2 days denies abdominal pain. Patient states that she is continuing to have pain but it is well-controlled with current pain medications. - Constitutional Vitals: Temp Pulse Resp BP Pulse Ox 98.4 F 87 16 148/83 94 L 10/26/16 19:23 10/26/16 19:23 10/26/16 19:23 10/26/16 19:23 10/26/16 19:23 General appearance: Present: cooperative, A&O X 3, pleasant, no acute distress, answers questions appropriately - Head Head exam: Present: atraumatic, normal inspection - Eye Eye exam: Present: normal appearance, conjuntiva pink - ENT ENT exam: Present: mucous membranes dry, normal exam - Neck Neck exam general surgery: Present: normal inspection. Absent: lymphadenopathy , tenderness - Respiratory Respiratory exam: Present: decreased breath sounds, CTAB. Absent: respiratory distress, rhonchi, wheezes - Cardiovascular Cardiovascular exam: Present: RRR, +S1, +S2 - GI/Abdominal GI/Abdominal exam: Present: normal bowel sounds, soft. Absent: distended, guarding, tenderness - Extremities Exam Extremities exam: Present: normal capillary refill, normal inspection, warm. Absent: pedal edema, tenderness - Neurological Exam Neurological exam: Present: alert, oriented X3, no focal deficits - Psychiatric Psychiatric exam: Present: depressed, flat affect Internal Medicine: Result - Labs CBC & Chem 7: 10/26/16 04:52 10/26/16 04:52 Labs: Short CBC 10/26/16 Range/Units 04:52 WBC 4.2 L (4.3-11.1) K/mcL Hgb 8.4 L (11.5-15.4) g/dL Hct 26.6 L (35.3-44.9) % Plt Count 193 (140-400) K/mcL Neutrophils # 2.8 (1.6-8.9) K/mcL BMP 10/26/16 04:52 Sodium 135 L Potassium 3.8 Chloride 106 Carbon Dioxide 20 BUN 8 Creatinine 0.87 Glucose 151 H Calcium 7.8 L - ABG Interpretation ABG results: PT/INR, D-dimer PT 13.4 Seconds (9.4-12.1) H 10/22/16 21:43 - VTE Documentation of Mechanical Device: Intermittent pneumatic compression device Consult Discharge Plan - Plan Referrals: Susan Burris, [employer]SULTANT [Primary Care Provider] -
[2016-10-27] MEDS: Ipratropium/Albuterol Neb 3 ML IH SCH ×7 (00:02→23:09)
[2016-10-27] MEDS: *HR* OxyCODONE Immed Rel 5 MG TABLET PO PRN ×7 (02:01→22:01)
[2016-10-27] MEDS: Pantoprazole 40 MG in 0.9 % Sodium Chloride Mini Bag 100 ML IVC SCH ×4 (04:32→20:19)
[2016-10-27] MEDS: 0.9 % Sodium Chloride 1,000 ML IVC SCH ×2 (04:33→17:52)
[2016-10-27 05:04] LABS: Basophils % 0.2 %; Eosinophils # 0.3 K/mcL (0.0-0.6); Eosinophils % 6.5 %; Hematocrit 26.4 % (35.3-44.9); Hemoglobin 8.5 g/dL (11.5-15.4); Immature Granulocytes % 0.2 % (0-4); Lymphocytes # 0.7 K/mcL (0.6-4.6); Lymphocytes % 18.4 %; Mean Corpuscular HGB Conc 32.2 g/dL (31.6-35.5); Mean Corpuscular Hemoglobin 27.1 pg (28.0-33.3); Mean Corpuscular Volume 84.1 fL (83.0-100.0); Mean Platelet Volume 9.4 fL (9.4-12.4); Monocytes # 0.4 K/mcL (0.0-1.3); Monocytes % 9.5 %; Neutrophils # 2.6 K/mcL (1.6-8.9); Platelet Count 196 K/mcL (140-400); Red Blood Count 3.14 M/mcL (3.82-4.97); Red Cell Distribution Width 16.3 % (11.5-14.5); Segmented Neutrophils % 65.2 %
[2016-10-27 05:24] LABS: BUN/Creatinine Ratio 9 (6-26); Blood Urea Nitrogen 7 mg/dL (7-20); Calcium 7.9 mg/dL (8.6-10.8); Carbon Dioxide 24 mEq/L (19-29); Chloride 105 mEq/L (98-109); Glucose 91 mg/dL (70-99); Osmolality,Calculated 278 (280-300); Potassium 3.8 mEq/L (3.5-4.5); Sodium 135 mEq/L (136-145); eGFR For African Americans > 60 (> 60); eGFR For Non-African Americans > 60 (> 60)
[2016-10-27] MEDS: *HR* HYDROmorphone (PF) 1 MG/ML SYRINGE IVP PRN ×3 (06:41→15:52)
[2016-10-27] MEDS: Magnesium Oxide 400 MG TABLET PO SCH ×2 (07:34→20:17)
--- NOTE | 2016-10-27 10:22 | Palliative Progress Note ---
Date of Encounter: 10/27/16 Time of Encounter: 09:00 - Assessment and plan (1) Pain Current Visit: Yes Status: Acute Assessment and plan: Continue with Oxycodone and IV Dilaudid, after testing complete, would recommend D/C IV Dilaudid and utilizing Oxycodone for pain. (2) Debility Current Visit: Yes Status: Acute Assessment and plan: Did participate with PT/OT yesterday and they recommended home health with PT. (3) Dysphagia Current Visit: No Status: Acute Assessment and plan: Continues with tube feedings, although pt states she is still not tolerating well. Qualifiers: Dysphagia type: esophageal phase Qualified Code(s): R13.14 - Dysphagia, pharyngoesophageal phase (4) Malnutrition Current Visit: No Status: Acute (5) Depression Current Visit: Yes Status: Acute Assessment and plan: Discussed with pt this am and she is willing to start antidepressant. Will begin Sertraline daily. Qualifiers: Depression Type: unspecified Qualified Code(s): F32.9 - Major depressive disorder, single episode, unspecified (6) Constipation Current Visit: Yes Status: Acute Assessment and plan: Depending on CT results, she may require enemas. Could also try Lactulose. She may also benefit from adding Reglan for motility. Qualifiers: Constipation type: unspecified constipation type Qualified Code(s): K59.00 - Constipation, unspecified (7) Goals of care, counseling/discussion Current Visit: Yes Status: Acute Assessment and plan: Patient desires to continue aggressive care for cancer, she is very discouraged that she has only been able to have 2 chemo treatments r/t other issues. Discussed she needs to remain as active as possible and continue to work with therapy. She is agreeable to begin treatment for depression. Will continue to follow. (8) Esophageal cancer Current Visit: Yes Status: Acute Qualifiers: Malignant neoplasm of esophagus location: lower third Qualified Code(s): C15.5 - Malignant neoplasm of lower third of esophagus - Time Spent With Patient Total time spent is greater than 50% in coordination of care (as documented) at patient's floor/unit and/or counseling patient: 25 - 35 minutes - Subjective Interval history: Patient sleeping on my arrival. Awakens easily. continue to states she "hasn' t been able to get any sleep.". C/o discomfort at PEG site, also states she continues with reflux and tube feeding bothering her. No BM with Senna and Miralax. CT abd has been scheduled for today. She continues to appear depressed. - Constitutional Vitals: Abnormal lab results WBC 4.0 K/mcL (4.3-11.1) L 10/27/16 04:14 RBC 3.14 M/mcL (3.82-4.97) L 10/27/16 04:14 Hgb 8.5 g/dL (11.5-15.4) L 10/27/16 04:14 Hct 26.4 % (35.3-44.9) L 10/27/16 04:14 MCH 27.1 pg (28.0-33.3) L 10/27/16 04:14 RDW 16.3 % (11.5-14.5) H 10/27/16 04:14 PT 13.4 Seconds (9.4-12.1) H 10/22/16 21:43 Sodium 135 mEq/L (136-145) L 10/27/16 04:14 Calculated Osmolality 278 (280-300) L 10/27/16 04:14 Calcium 7.9 mg/dL (8.6-10.8) L 10/27/16 04:14 Magnesium 1.4 mg/dL (1.6-2.6) L 10/25/16 05:05 General appearance: Present: no acute distress - Respiratory Respiratory exam: Present: decreased breath sounds, CTAB - Cardiovascular Cardiovascular exam: Present: +S1, +S2 - GI/Abdominal GI/Abdominal exam: Present: hypoactive bowel sounds, soft Additional comments: PEG intact with sm dressing D/I - Extremities Exam Extremities exam: Present: normal capillary refill, normal inspection - Neurological Exam Neurological exam: Present: oriented X3, strengths equal and symetr throughout - Psychiatric Psychiatric exam: Present: flat affect - Skin Skin exam: Present: dry, pallor, warm Palliative Quality Palliative Quality: Screen for Code Status: NA (Will continue to address), Screen for Goals of Care: NA, Screen for Pain: Yes, If Pain Regimen Started, Initiate Bowel Regimen: Yes, Screen for Nausea/Vomitting: Yes Code Status: 10/22/16 21:14 Resuscitation Status: Active [RES] Routine Comment: Resuscitation Status: Full Code - Labs CBC & Chem 7: 10/27/16 04:14 10/27/16 04:14 Labs: Laboratory Results - last 24 hr 10/27/16 10/27/16 04:14 04:14 WBC 4.0 L RBC 3.14 L Hgb 8.5 L Hct 26.4 L MCV 84.1 MCH 27.1 L MCHC 32.2 RDW 16.3 H Plt Count 196 MPV 9.4 Immature Gran % 0.2 Seg Neutrophils % 65.2 Lymphocytes % 18.4 Monocytes % 9.5 Eosinophils % 6.5 Basophils % 0.2 Neutrophils # 2.6 Lymphocytes # 0.7 Monocytes # 0.4 Eosinophils # 0.3 Basophils # 0.0 Sodium 135 L Potassium 3.8 Chloride 105 Carbon Dioxide 24 BUN 7 Creatinine 0.78 Est GFR ( Amer) > 60 Est GFR (Non-Af Amer) > 60 BUN/Creatinine Ratio 9 Glucose 91 Calculated Osmolality 278 L Calcium 7.9 L - ABG Interpretation ABG results: PT/INR, D-dimer PT 13.4 Seconds (9.4-12.1) H 10/22/16 21:43 Consult Discharge Plan - Plan Referrals: Susan Burris, [employer] MANAGER [Primary Care Provider] -
--- NOTE | 2016-10-27 15:50 | Internal Med Progress Note ---
Date of Encounter: 10/27/16 Time of Encounter: 12:20 - Assessment and plan (1) Esophageal cancer Current Visit: No Status: Acute Assessment and plan: PEG tube site was without redness or drainage patient states it is tender however. She seems to be tolerating her Jevity feedings today much better. I did include Zantac in her medication regimen. She is still drinking nectar thick by mouth liquids. I do not believe that oncology saw patient yesterday and have called again to see if whomever is on-call will come see patient today. Continue tube feeding Consult oncology Continue advancing Jevity tube feedings as tolerated Maintain current medications Qualifiers: Malignant neoplasm of esophagus location: unspecified location Qualified Code(s): C15.9 - Malignant neoplasm of esophagus, unspecified (2) Dysphagia Current Visit: No Status: Acute Assessment and plan: Plan as above Qualifiers: Dysphagia type: esophageal phase Qualified Code(s): R13.14 - Dysphagia, pharyngoesophageal phase (3) Anemia Current Visit: No Status: Acute Assessment and plan: Hgb is holding steady again today at 8.5. Will continue to monitor pt and labs. 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 Well-controlled with current regimen. Will continue and monitor labs and vitals Qualifiers: COPD type: unspecified COPD Qualified Code(s): J44.9 - Chronic obstructive pulmonary disease, unspecified (5) CKD (chronic kidney disease) Current Visit: No Status: Chronic Assessment and plan: Chronic. Stable. Will continue to monitor labs and pt condition. Qualifiers: Chronic kidney disease stage: stage 3 (moderate) Qualified Code(s): N18.3 - Chronic kidney disease, stage 3 (moderate) (6) DVT prophylaxis Current Visit: No Status: Acute Assessment and plan: PCD. Patient cannot be on anticoagulation due to risk of GI bleed. (7) Severe protein-calorie malnutrition Current Visit: Yes Status: Acute Assessment and plan: Patient has been able to tolerate tube feedings at 50mlh. Patient is being followed closely dietary nutrition and by oncology nutrition. We will continue to monitor labs. Pt has been complaining of coughing and feeling liquid in her throat that awakens her when she is trying to sleep. Pt states that it doesn't always happen when she is getting the tube feeding. Pt agrees that it may be PND and we have decided to try Claritin 10mg po daily and Flonase daily to see if that helps. - Time Spent With Patient less than 15 minutes - Subjective Interval history: Patient appears to be much improved today. Patient had a large bowel movement this morning and says that she feels much better. She states that burning feeling in her throat is actually better and feels that it actually may be postnasal drip. We agreed to try some Claritin and Flonase today to see if that helps. She seems to be doing better with her tube feedings and is tolerating 50 mL today and denies burning and pain in her stomach or esophagus. - Constitutional Vitals: Temp Pulse Resp BP Pulse Ox 98.4 F 80 16 154/82 95 10/27/16 12:08 10/27/16 12:08 10/27/16 12:08 10/27/16 12:08 10/27/16 12:08 General appearance: Present: cooperative, A&O X 3, pleasant, no acute distress, answers questions appropriately - Head Head exam: Present: normal inspection - Eye Eye exam: Present: normal appearance, conjuntiva pink - ENT ENT exam: Present: mucous membranes moist, normal exam - Neck Neck exam general surgery: Present: normal inspection. Absent: lymphadenopathy , tenderness - Respiratory Respiratory exam: Present: CTAB. Absent: chest wall tenderness, rales, rhonchi , stridor, wheezes, tachypnea - Cardiovascular Cardiovascular exam: Present: RRR, +S1, +S2. Absent: diastolic murmur, systolic murmur - GI/Abdominal GI/Abdominal exam: Present: normal bowel sounds. Absent: hepatomegaly, tenderness - Extremities Exam Extremities exam: Present: normal capillary refill, normal inspection, warm, radial pulses palpable and symetrical. Absent: pedal edema, tenderness - Neurological Exam Neurological exam: Present: alert, oriented X3, no focal deficits, strengths equal and symetr throughout Internal Medicine: Result - Labs CBC & Chem 7: 10/27/16 04:14 10/27/16 04:14 Labs: Short CBC 10/27/16 Range/Units 04:14 WBC 4.0 L (4.3-11.1) K/mcL Hgb 8.5 L (11.5-15.4) g/dL Hct 26.4 L (35.3-44.9) % Plt Count 196 (140-400) K/mcL Neutrophils # 2.6 (1.6-8.9) K/mcL BMP 10/27/16 04:14 Sodium 135 L Potassium 3.8 Chloride 105 Carbon Dioxide 24 BUN 7 Creatinine 0.78 Glucose 91 Calcium 7.9 L - ABG Interpretation ABG results: PT/INR, D-dimer PT 13.4 Seconds (9.4-12.1) H 10/22/16 21:43 - VTE Documentation of Mechanical Device: Intermittent pneumatic compression device Consult Discharge Plan - Plan Referrals: Susan Burris, ADJUNCT HISTORY INSTRUCTOR [Primary Care Provider] -
[2016-10-27] MEDS: Fluticasone Propionate Nasal 50 MCG/SPRAY BOTTLE NS SCH (19:02)
[2016-10-27] MEDS: Acetaminophen 325 MG TABLET PO PRN (22:01)
[2016-10-28] MEDS: Pantoprazole 40 MG in 0.9 % Sodium Chloride Mini Bag 100 ML IVC SCH ×5 (02:00→06:37)
[2016-10-28] MEDS: *HR* OxyCODONE Immed Rel 5 MG TABLET PO PRN ×4 (02:06→13:53)
[2016-10-28] MEDS: Ipratropium/Albuterol Neb 3 ML IH SCH ×4 (03:44→16:25)
[2016-10-28 04:25] LABS: Basophils % 0.3 %; Eosinophils # 0.2 K/mcL (0.0-0.6); Eosinophils % 5.4 %; Hematocrit 26.8 % (35.3-44.9); Hemoglobin 8.3 g/dL (11.5-15.4); Immature Granulocytes % 0.3 % (0-4); Lymphocytes # 0.7 K/mcL (0.6-4.6); Lymphocytes % 17.6 %; Mean Corpuscular Hemoglobin 26.3 pg (28.0-33.3); Mean Corpuscular Volume 84.8 fL (83.0-100.0); Mean Platelet Volume 9.1 fL (9.4-12.4); Monocytes # 0.4 K/mcL (0.0-1.3); Neutrophils # 2.5 K/mcL (1.6-8.9); Platelet Count 208 K/mcL (140-400); Red Blood Count 3.16 M/mcL (3.82-4.97); Red Cell Distribution Width 15.9 % (11.5-14.5); Segmented Neutrophils % 66.4 %
[2016-10-28 04:52] LABS: BUN/Creatinine Ratio 9 (6-26); Blood Urea Nitrogen 7 mg/dL (7-20); Calcium 7.6 mg/dL (8.6-10.8); Carbon Dioxide 26 mEq/L (19-29); Chloride 105 mEq/L (98-109); Glucose 126 mg/dL (70-99); Osmolality,Calculated 284 (280-300); Potassium 3.7 mEq/L (3.5-4.5); Sodium 137 mEq/L (136-145); eGFR For African Americans > 60 (> 60); eGFR For Non-African Americans > 60 (> 60)
[2016-10-28] MEDS: 0.9 % Sodium Chloride 1,000 ML IVC SCH (06:37)
[2016-10-28] MEDS ORDERED: Loratadine 10 MG TABLET PO SCH (09:00)
[2016-10-28] MEDS: Magnesium Oxide 400 MG TABLET PO SCH (10:25)
[2016-10-28] MEDS: Fluticasone Propionate Nasal 50 MCG/SPRAY BOTTLE NS SCH (10:28)
--- NOTE | 2016-10-28 10:29 | Palliative Progress Note ---
Date of Encounter: 10/28/16 Time of Encounter: 10:25 - Assessment and plan (1) Pain Current Visit: Yes Status: Acute Assessment and plan: Continues with Oxycodone, IV Dilaudid has been d/c'd. Monitor (2) Debility Current Visit: Yes Status: Acute Assessment and plan: Continue PT/OT. Home health for PT as well (3) Dysphagia Current Visit: No Status: Acute Qualifiers: Dysphagia type: esophageal phase Qualified Code(s): R13.14 - Dysphagia, pharyngoesophageal phase (4) Malnutrition Current Visit: No Status: Acute Assessment and plan: Tolerating tube feeding better. Continues small amount po intake (5) Depression Current Visit: Yes Status: Acute Assessment and plan: Began Sertraline yesterday. Qualifiers: Depression Type: unspecified Qualified Code(s): F32.9 - Major depressive disorder, single episode, unspecified (6) Constipation Current Visit: Yes Status: Acute Assessment and plan: + BM's . Continue Senakot and Miralax Qualifiers: Constipation type: unspecified constipation type Qualified Code(s): K59.00 - Constipation, unspecified (7) Goals of care, counseling/discussion Current Visit: Yes Status: Acute Assessment and plan: Have attempted goals of care discussion with pt and she refuses to discuss. States "There is a good chance I will get better and be cured". I had reviewed Dr. Edmondson discussion with her during radiation oncology visit, and attempted to revisit the fact that she has extensive disease and that chemotherapy and radiation may slow progression, but ultimately not expected to "cure" cancer. I gently discussed code status and asked her to consider her wishes and discuss with her family. I provided scenario of if in ICU and on ventilator, some decision her family may need to make and they stress this will cause them if she never discusses things she would or wouldn't want done. Patient acknowledged information, but does not desire to discuss further. [facility] will need contacted in am to ensure setup for continual feedings. Will d/w palliative social worker school in am. (8) Esophageal cancer Current Visit: Yes Status: Acute Qualifiers: Malignant neoplasm of esophagus location: lower third Qualified Code(s): C15.5 - Malignant neoplasm of lower third of esophagus - Time Spent With Patient Total time spent is greater than 50% in coordination of care (as documented) at patient's floor/unit and/or counseling patient: 25 - 35 minutes - Subjective Interval history: Patient awake and alert, irritated that no one is answering her call light. States she is tolerating tube feedings better. + BMs now and CT was cancelled. She has been up to bedside commode by herself. - Constitutional Vitals: Abnormal lab results WBC 3.7 K/mcL (4.3-11.1) L 10/28/16 03:40 RBC 3.16 M/mcL (3.82-4.97) L 10/28/16 03:40 Hgb 8.3 g/dL (11.5-15.4) L 10/28/16 03:40 Hct 26.8 % (35.3-44.9) L 10/28/16 03:40 MCH 26.3 pg (28.0-33.3) L 10/28/16 03:40 MCHC 31.0 g/dL (31.6-35.5) L 10/28/16 03:40 RDW 15.9 % (11.5-14.5) H 10/28/16 03:40 MPV 9.1 fL (9.4-12.4) L 10/28/16 03:40 PT 13.4 Seconds (9.4-12.1) H 10/22/16 21:43 Glucose 126 mg/dL (70-99) H 10/28/16 03:40 Calcium 7.6 mg/dL (8.6-10.8) L 10/28/16 03:40 Magnesium 1.4 mg/dL (1.6-2.6) L 10/25/16 05:05 General appearance: Present: no acute distress - Respiratory Respiratory exam: Present: decreased breath sounds, CTAB - Cardiovascular Cardiovascular exam: Present: +S1, +S2 - GI/Abdominal GI/Abdominal exam: Present: normal bowel sounds, soft Additional comments: PEG with feedings infusing - Additional comments: Urine clear yellow - Extremities Exam Extremities exam: Present: normal capillary refill, normal inspection - Neurological Exam Neurological exam: Present: alert, oriented X3, strengths equal and symetr throughout Additional comments: generalized weakness - Skin Skin exam: Present: dry, pallor, warm Palliative Quality Palliative Quality: Screen for Code Status: NA (Will continue to address), Screen for Goals of Care: NA, Screen for Pain: Yes, If Pain Regimen Started, Initiate Bowel Regimen: Yes, Screen for Nausea/Vomitting: Yes Code Status: 10/22/16 21:14 Resuscitation Status: Active [RES] Routine Comment: Resuscitation Status: Full Code - Labs CBC & Chem 7: 10/28/16 03:40 10/28/16 03:40 Labs: Laboratory Results - last 24 hr 10/28/16 10/28/16 03:40 03:40 WBC 3.7 L RBC 3.16 L Hgb 8.3 L Hct 26.8 L MCV 84.8 MCH 26.3 L MCHC 31.0 L RDW 15.9 H Plt Count 208 MPV 9.1 L Immature Gran % 0.3 Seg Neutrophils % 66.4 Lymphocytes % 17.6 Monocytes % 10.0 Eosinophils % 5.4 Basophils % 0.3 Neutrophils # 2.5 Lymphocytes # 0.7 Monocytes # 0.4 Eosinophils # 0.2 Basophils # 0.0 Sodium 137 Potassium 3.7 Chloride 105 Carbon Dioxide 26 BUN 7 Creatinine 0.81 Est GFR ( Amer) > 60 Est GFR (Non-Af Amer) > 60 BUN/Creatinine Ratio 9 Glucose 126 H Calculated Osmolality 284 Calcium 7.6 L - ABG Interpretation ABG results: PT/INR, D-dimer PT 13.4 Seconds (9.4-12.1) H 10/22/16 21:43 Consult Discharge Plan - Plan Referrals: Susan Burris, MUD GRINDER [Primary Care Provider] -
--- NOTE | 2016-10-28 10:50 | Oncology Inp Consult Note ---
Date of Encounter: 10/28/16 Time of Encounter: 10:49 - Data of Consult Patient: known to practice within the last 3 years Consult date: 10/28/16 Requesting Physician: De Chaudhari MD Primary Care Provider: Susan Burris CNP - Consult Narrative Reason for consult: Metastatic esophageal cancer History of present illness: Ms. Lara is a 65 year old female patient of the cancer center who has established oncologic care for metastatic esophageal cancer. She is followed by my partner Dr. Callejas and was last seen in the office 10/12/16. I have summarized patient's heme/onc background below based on Dr. Callejas 's most recent office report: Patient had pain with swallowing with some bleeding/hematemesis. Double contrast esophagogram showed extensive erosive changes in the lower esophagus possible mucosal or submucosal mass. Patient underwent a CT scan of the abdomen 08/14/2016 which showed significant mucosal thickening at the distal esophagus, underlying esophageal carcinoma should be considered and tiny reactive lymph nodes right lower lobe pulmonary nodule multiple hepatic lesions suspicious for metastatic disease. CAT scan was done without contrast. Patient reported no weight loss she denied any melena. No cough with expectoration or shortness of breath. Patient underwent EGD with Dr. Gray, that showed partailly obstructing esophageal tumor in the distal third of esophagus. Hemoglobin up to 7.6 and was being monitored. BX 07/27--suspicious for adenoca--atypical glandular cells PET imaging showed multiple metastatic lesions in the liver. Patient was scheduled for a liver biopsy, to check for HER-2/viola staining as well as port placement. She was hospitalized in the meantime with acute anemia. She started chemotherapy with bolus 5-FU without a MediPort, FOLFOX in September 2016. Patient is currently hospitalized for progressive dysphagia and worsening, symptomatic anemia after presenting with weakness. Since her admission, she has had a PEG tube placed by Dr. Gray and is receiving enteral feeding through a PEG tube which is functioning well. She is currently on having any esophageal symptoms and is quite comfortable. She has also received 2 units of packed red cells since admission with demonstrated improvement in her hemoglobin. Oncology is consulted re: her underlying metastatic esophageal cancer with liver involvement. Her last dose of chemotherapy was on 10/12/16 and she had been receiving combination of bolus 5-FU plus carboplatin regimen. Plan is to continue her treatment with continuous infusion 5-FU administered at home and accommodation with oxaliplatin administered every 2 weeks and she had an [id number] placed recently to facilitate treatment. Patient seen and examined at bedside. Chart reviewed for details of ongoing care by hospital team which is much appreciated. She is also being followed by palliative care team for symptom management and has been in discussion regarding advanced care planning. In spite of her extensive disease burden and ongoing issues, patient is not fairly good general performance status. She is completely asymptomatic at time of evaluation but admits some underlying anxiety regarding her cancer diagnosis and treatment direction. She is eager to resume her treatment as currently planned by Dr. Callejas without further delay. Ms. Golden with the hospital team was kind enough to discuss patient's case with me and it appears that there is a plan for discharge in the morning based on progressive improvement in her overall condition. Rest of past medical, surgical, family, social history detailed below and verified with patient today. Review of systems: 12 point review of systems performed with patient and positive findings noted in history of present illness. All other systems are negative: Physical exam: Vital Signs Temp 97.8 F 10/28/16 15:07 Pulse 79 10/28/16 15:07 Resp 16 10/28/16 15:07 BP 165/90 10/28/16 15:07 Pulse Ox 96 10/28/16 15:07 GENERAL: Alert and oriented, comfortable appearing. Mental Status: Affect appropriate for circumstances HEENT: Sclerae anicteric. No mucositis or thrush. No other oral or pharyngeal lesions or erythema. Skin: No rashes or petechiae. No evidence of skin malignancy Lymph nodes: No cervical, supraclavicular, axillary, or inguinal adenopathy. Lungs: Clear to auscultation bilaterally. Clear to percussion bilaterally. Cardiovascular: Regular rate and rhythm. No gallops, murmurs, or rubs. Abdomen: Soft, nontender; No organomegaly or masses palpable. Extremities: No edema. No calf swelling or tenderness. No joint deformity. Neurologic: Alert, normal gait; no focal weakness or sensory abnormalities. Results: Laboratory Last Values WBC 3.7 K/mcL (4.3-11.1) L 10/28/16 03:40 RBC 3.16 M/mcL (3.82-4.97) L 10/28/16 03:40 Hgb 8.3 g/dL (11.5-15.4) L 10/28/16 03:40 Hct 26.8 % (35.3-44.9) L 10/28/16 03:40 MCV 84.8 fL (83.0-100.0) 10/28/16 03:40 MCH 26.3 pg (28.0-33.3) L 10/28/16 03:40 MCHC 31.0 g/dL (31.6-35.5) L 10/28/16 03:40 RDW 15.9 % (11.5-14.5) H 10/28/16 03:40 Plt Count 208 K/mcL (140-400) 10/28/16 03:40 MPV 9.1 fL (9.4-12.4) L 10/28/16 03:40 Immature Gran % 0.3 % (0-4) 10/28/16 03:40 Seg Neutrophils % 66.4 % 10/28/16 03:40 Lymphocytes % 17.6 % 10/28/16 03:40 Monocytes % 10.0 % 10/28/16 03:40 Eosinophils % 5.4 % 10/28/16 03:40 Basophils % 0.3 % 10/28/16 03:40 Neutrophils # 2.5 K/mcL (1.6-8.9) 10/28/16 03:40 Lymphocytes # 0.7 K/mcL (0.6-4.6) 10/28/16 03:40 Monocytes # 0.4 K/mcL (0.0-1.3) 10/28/16 03:40 Eosinophils # 0.2 K/mcL (0.0-0.6) 10/28/16 03:40 Basophils # 0.0 K/mcL (0.0-0.2) 10/28/16 03:40 PT 13.4 Seconds (9.4-12.1) H 10/22/16 21:43 INR 1.2 10/22/16 21:43 Sodium 137 mEq/L (136-145) 10/28/16 03:40 Potassium 3.7 mEq/L (3.5-4.5) 10/28/16 03:40 Chloride 105 mEq/L (98-109) 10/28/16 03:40 Carbon Dioxide 26 mEq/L (19-29) 10/28/16 03:40 BUN 7 mg/dL (7-20) 10/28/16 03:40 Creatinine 0.81 mg/dL (0.57-1.11) 10/28/16 03:40 Est GFR ( Amer) > 60 (> 60) 10/28/16 03:40 Est GFR (Non-Af Amer) > 60 (> 60) 10/28/16 03:40 BUN/Creatinine Ratio 9 (6-26) 10/28/16 03:40 Glucose 126 mg/dL (70-99) H 10/28/16 03:40 Calculated Osmolality 284 (280-300) 10/28/16 03:40 Calcium 7.6 mg/dL (8.6-10.8) L 10/28/16 03:40 Phosphorus 3.1 mg/dL (2.3-4.7) 10/25/16 05:05 Magnesium 1.4 mg/dL (1.6-2.6) L 10/25/16 05:05 Blood Type O POSITIVE 10/23/16 03:15 Antibody Screen NEGATIVE 10/23/16 03:15 Crossmatch See Detail 10/23/16 03:15 Radiographic studies: Impression/recommendations: Metastatic esophageal cancer:With liver involvement. She is currently receiving combination chemotherapy per Dr. Callejas. We reviewed the natural history and management of advanced esophageal cancer today including treatment intent which is palliative. We also discussed alternatives to antineoplastic therapy including supportive only measures suggests palliative care/hospice. She wants to continue palliative systemic therapy as she is doing which I think is reasonable given her relatively well-preserved physical performance status. Upon discharge, she will return to her established oncologic care with Dr. Callejas to continue her treatment as planned. Malignant obstruction of the esophagus: Status post PEG tube placement. She is much more comfortable with tube feeding in place. Appreciate help from hospital team with coordinating home care and is including nutritional supplies. Cancer associated pain: She is completely pain free at time of my evaluation. Appreciate input from palliative care to. Failure to thrive due to above: Due to above. She is doing much better at this time. She has good support system at home including her and 3 daughters who involved in her care and medical decision-making. Anemia: Anemia is likely multifactorial with contribution from underlying malignancy, possible bleeding from obstructing esophageal tumor. We recommend to complete anemia workup on a nonurgent basis to exclude possible contribution from additional hematinic deficiencies such as B12, folate, iron deficiency, thyroid dysfunction, hemolysis etc. This can be completed as an outpatient if patient is medically optimal for discharge otherwise. We'll follow the patient along side you during this hospitalization but please do not hesitate to call regarding interval hematologic questions as they arise. Thank you for your excellent ongoing care for allowing us to see her while in- house. This report was created using voice recognition software and may contain errors. It was signed but not edited to expedite communication. Past Med Surg Social Fam HX - Past Medical History Medical history: cancer, COPD, hyperlipidemia, hypertension, renal disease, other Psychiatric history: no psych history - Past Surgical History Surgical History: other - Social History Smoking Status: Former smoker Smokeless Tobacco Status: No Alcohol use: none Drug use: none - Family History Father Living Status: Hx Family Cardiac Disorders: Yes (HEART RELATED) Mother Living Status: Still Living Hx Family Cardiac Disorders: Yes (Hypertension) Hx Family Endocrine Disorder: Yes (Diabetes Mellitus) Hx Family Neurologic Disorders: Yes (CVA) Sister Living Status: Still Living Hx Family Cardiac Disorders: No Hx Family Cancer: Yes Hx Family GI Disorders: No Hx Family Genitourinary Disorders: No Hx Family Endocrine Disorder: No Hx Family Musculoskeletal Disorders: No Hx Family Neuromuscular Disorders: No Hx Family Neurologic Disorders: No Hx Family HEENT Disorders: No Hx Family Autoimmune Disorders: No Hx Family Reproductive Disorders: No Hx Family Psychosocial Disorders: No Hx Family Medical Disorders: No Medications and Allergies Albuterol Sulfate [Proair Respiclick] 1 - 2 puff IH Q6H PRN 08/26/15 [History] Losartan Potassium [Cozaar] 100 mg PO DAILY 08/26/15 [History] CloNIDine Patch [Catapres-Tts] 0.3 mg TP QWEEK 08/14/16 [History] Metoprolol XL (24 HR) Succ [Toprol Xl] 100 mg PO DAILY #60 tab.er.24h 08/17/16 [ Rx] OxyCODONE Immed Rel [Roxicodone 5 MG] 10 mg PO Q4H PRN 09/28/16 [History] Lactose-Reduced Food [Ensure Plus] 1 bottle PO TID #90 can 10/28/16 [Rx] Lactose-Reduced Food/Fiber [Jevity 1.5 Andrés Liquid] 1 can PO TID #24 can [Rx] Sennosides [Senna] 8.8 mg GTUBE BID #30 udc 10/28/16 [Rx] Sertraline [Zoloft] 25 mg PO DAILY #30 tablet 10/28/16 [Rx] Allergies aspirin Adverse Reaction (Verified 10/22/16 06:14) Nausea naproxen Adverse Reaction (Verified 10/22/16 06:14) Nausea NSAIDS (Non-Steroidal Anti-Inflamma Adverse Reaction (Verified 10/22/16 06:14) Nausea Oncology - Exam - Constitutional Vitals: Temp Pulse Resp BP Pulse Ox 98.5 F 86 22 153/87 94 L 10/28/16 07:18 10/28/16 07:18 10/28/16 07:18 10/28/16 07:18 10/28/16 07:18 Oncology - Results - Labs Labs: Short CBC 10/28/16 Range/Units 03:40 WBC 3.7 L (4.3-11.1) K/mcL Hgb 8.3 L (11.5-15.4) g/dL Hct 26.8 L (35.3-44.9) % Plt Count 208 (140-400) K/mcL Neutrophils # 2.5 (1.6-8.9) K/mcL BMP 10/28/16 03:40 Sodium 137 Potassium 3.7 Chloride 105 Carbon Dioxide 26 BUN 7 Creatinine 0.81 Glucose 126 H Calcium 7.6 L Consult Discharge Plan - Plan Instructions: Depression (DC), Chronic Dysphagia (DC) Referrals: Susan Burris, ANALYSIS TESTER [Primary Care Provider] - Prescriptions: Lactose-Reduced Food [Ensure Plus] 1 bottle PO TID #90 can Lactose-Reduced Food/Fiber [Jevity 1.5 Andrés Liquid] 1 can PO TID #24 can Sennosides [Senna] 8.8 mg GTUBE BID #30 udc Sertraline [Zoloft] 25 mg PO DAILY #30 tablet
--- NOTE | 2016-10-28 13:45 | Physician Discharge Referral ---
Home Health/Hosp Referral Info Transfer to: Home Health Attending Provider: De Chaudhari Provider in Charge Post Discharge: PCP - Diagnosis (1) Esophageal adenocarcinoma Priority: Primary Status: Chronic (2) Lumbar radicular pain Priority: Primary Status: Chronic (3) Tobacco abuse Priority: Secondary Status: Chronic (4) COPD (chronic obstructive pulmonary disease) Priority: Secondary Status: Chronic (5) CKD (chronic kidney disease) stage 4, GFR 15-29 ml/min Priority: Secondary Status: Chronic (6) Hypertension Priority: Secondary Status: Chronic (7) Severe protein-calorie malnutrition Priority: Secondary Status: Chronic (8) G tube feedings Priority: Primary Status: Acute - Respiratory Orders Smoking Cessation: Smoking cessation has been advised. For more information, call the [place] Tobacco Quit Line at 7-891-IMKA-NOW. - Diet/Nutrition Diet/Nutrition: List: Tub feeds, one can per G tube 3-5 times daily as tolerated Free water flushes, 200cc/hour Ensure-plus 1 can tid - Activity Activity Orders: Up ad isabella - Services Needed Following services are medically necessary services: Nursing, Home Health Aide, Physical Therapy, Occupational Therapy, Home Infusion - Transfer Medications Prescriptions: Lactose-Reduced Food [Ensure Plus] 1 bottle PO TID #90 can Lactose-Reduced Food/Fiber [Jevity 1.5 Andrés Liquid] 1 can PO TID #24 can Sennosides [Senna] 8.8 mg GTUBE BID #30 udc Sertraline [Zoloft] 25 mg PO DAILY #30 tablet Home Medications: Albuterol Sulfate [Proair Respiclick] 1 - 2 puff IH Q6H PRN 08/26/15 [History] Losartan Potassium [Cozaar] 100 mg PO DAILY 08/26/15 [History] CloNIDine Patch [Catapres-Tts] 0.3 mg TP QWEEK 08/14/16 [History] Metoprolol XL (24 HR) Succ [Toprol Xl] 100 mg PO DAILY #60 tab.er.24h 08/17/16 [ Rx] OxyCODONE Immed Rel [Roxicodone 5 MG] 10 mg PO Q4H PRN 09/28/16 [History] Lactose-Reduced Food [Ensure Plus] 1 bottle PO TID #90 can 10/28/16 [Rx] Lactose-Reduced Food/Fiber [Jevity 1.5 Andrés Liquid] 1 can PO TID #24 can [Rx] Sennosides [Senna] 8.8 mg GTUBE BID #30 udc 10/28/16 [Rx] Sertraline [Zoloft] 25 mg PO DAILY #30 tablet 10/28/16 [Rx] Allergies/Adverse Reactions: Allergies aspirin Adverse Reaction (Verified 10/22/16 06:14) Nausea naproxen Adverse Reaction (Verified 10/22/16 06:14) Nausea NSAIDS (Non-Steroidal Anti-Inflamma Adverse Reaction (Verified 10/22/16 06:14) Nausea Certification: Further, I certify that my clinical findings support that this patient is homebound (i.e. absences from home require considerable and taxing effort and are for medical reasons or orthodoxy services or infrequently or short duration when for other reasons) because: Homebound Reason: Patient requires assistance of a person or device to safely leave home, Severity of cardiac or pulmonary status limits activity tolerance Attestation: My signature below is to certify that this patient is under my care and that I, or nurse practitioner, or a physician's treasury assistant working with me, has a face-to -face encounter with this patient.
--- NOTE | 2016-10-28 13:50 | Discharge Summary ---
Date of Encounter: 10/28/16 Time of Encounter: 13:00 - Discharge Diagnosis (1) Esophageal adenocarcinoma Priority: Primary Status: Chronic (2) Lumbar radicular pain Priority: Secondary Status: Chronic (3) Tobacco abuse Priority: Secondary Status: Chronic (4) COPD (chronic obstructive pulmonary disease) Priority: Secondary Status: Chronic Qualifiers: COPD type: unspecified COPD Qualified Code(s): J44.9 - Chronic obstructive pulmonary disease, unspecified (5) CKD (chronic kidney disease) stage 4, GFR 15-29 ml/min Priority: Secondary Status: Chronic (6) Hypertension Priority: Secondary Status: Chronic Qualifiers: Hypertension type: essential hypertension Qualified Code(s): I10 - Essential (primary) hypertension (7) Severe protein-calorie malnutrition Priority: Secondary Status: Chronic (8) G tube feedings Priority: Primary Status: Acute - Discharge Medications Prescriptions: Lactose-Reduced Food [Ensure Plus] 1 bottle PO TID #90 can Lactose-Reduced Food/Fiber [Jevity 1.5 Andrés Liquid] 1 can PO TID #24 can Sennosides [Senna] 8.8 mg GTUBE BID #30 udc Sertraline [Zoloft] 25 mg PO DAILY #30 tablet Home Medications: Albuterol Sulfate [Proair Respiclick] 1 - 2 puff IH Q6H PRN 08/26/15 [History] Losartan Potassium [Cozaar] 100 mg PO DAILY 08/26/15 [History] CloNIDine Patch [Catapres-Tts] 0.3 mg TP QWEEK 08/14/16 [History] Metoprolol XL (24 HR) Succ [Toprol Xl] 100 mg PO DAILY #60 tab.er.24h 08/17/16 [ Rx] OxyCODONE Immed Rel [Roxicodone 5 MG] 10 mg PO Q4H PRN 09/28/16 [History] Lactose-Reduced Food [Ensure Plus] 1 bottle PO TID #90 can 10/28/16 [Rx] Lactose-Reduced Food/Fiber [Jevity 1.5 Andrés Liquid] 1 can PO TID #24 can [Rx] Sennosides [Senna] 8.8 mg GTUBE BID #30 udc 10/28/16 [Rx] Sertraline [Zoloft] 25 mg PO DAILY #30 tablet 10/28/16 [Rx] Allergies/Adverse Reactions: Allergies aspirin Adverse Reaction (Verified 10/22/16 06:14) Nausea naproxen Adverse Reaction (Verified 10/22/16 06:14) Nausea NSAIDS (Non-Steroidal Anti-Inflamma Adverse Reaction (Verified 10/22/16 06:14) Nausea Date of admission: 10/23/16 05:53 Primary care physician: Susan Burris CNP Consults: 10/22/16 21:19 Consult to Physician [CONS] Routine Consulting Provider: Toby Gray Reason for Consult: Patient scheduled for G-tube for tomorrow, but here for anemia and dehydration Call Completed: No 10/22/16 21:21 Consult to Nutrition [CONS] Routine Comment: Tube Feed start Consulting Provider: NUTRITION Reason for Dietary Consult: Supplemental Nutrition 10/24/16 11:25 Consult to Occupational Therapy [CONS] Routine Comment: Evaluate, develop and implement POC, pt rachle mo Consult to Physical Therapy [CONS] Routine Comment: Evaluate, develop and implement POC, pt rachel mo 10/26/16 10:00 Consult to Oncology [CONS] Routine Consulting Provider: On[facility] Reason for Consult: esophageal cancer, chemo Time Notified: 10:01 Call Completed: Yes Consult to Palliative Care [CONS] Routine Comment: adv directive, depression, symptom control Consulting Provider: Palliative Care Nyla 10/26/16 16:13 Consult to Occupational Therapy [CONS] Routine Comment: Evaluate, develop and implement POC Discharging clinician: De Chaudhari Anticipated date of discharge: 10/28/16 - Patient Status Disposition: Home Health Service Condition: Fair Functional capacity at discharge: independent ambulation Overall status at discharge: patient is progressing back to baseline - Discharge Instructions Follow Up With: Susan Burris CNP [Primary Care Provider] - - Diet and Activity Activity: resume usual activities as tolerated Diet: other (Tube feeds) Interval History: See below Hospital course: Initial encounter Ms. 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 patient was managed with transfusion of 2 units RBCs with good response, she had PEG placed by Dr. Gray 10/23/16, Upper GI endoscopy revealed large, fungating mass with bleeding and stigmata of recent bleeding was found to be totally obstructing the esophagus. PEG tube was placed. She has known history of GI bleed and anemia of chronic disease as well as bone marrow suppression. She has been depressed throughout her hospital stay and was started on Zoloft She denies suicidal ideation She has been started on tube feeds and is tolerating it She was seen at bedside this morning and reported not willing to stay in the hospital. It seemed she was upset about finding out that she had liver metastasis , she was seen at the bedside with Oncologist Dr. morgan She denies new complains Per her RN Krys Michel, she has spoken to Home health services, Palliative care RN, SW craft demonstrator, and all have been set for patient to be discharged home. Rn also reports she has taught patient what she needs to know regarding her tube jason Appropriate prescriptions made for supplies and medications Patient will follow up with Oncology as out-patient Resumed other home meds - Time Spent with Patient Total time spent providing and/or coordinating discharge services: Greater than 30 minutes (60 minutes spent on chart review, medication and supplies prescription, organization of discharge with SW,HH and patient encounter) - Constitutional Vitals: Temp Pulse Resp BP Pulse Ox 98.4 F 86 16 131/71 96 10/28/16 12:16 10/28/16 12:16 10/28/16 12:16 10/28/16 12:16 10/28/16 12:16 General appearance: Present: cooperative, A&O X 3, pleasant, no acute distress, answers questions appropriately - Head Head exam: Present: atraumatic, normocephalic - Eye Eye exam: Present: PERRL, conjuntiva pink, sclera anicteric Pupils: Present: PERRL - Neck Neck exam general surgery: Present: supple, trachea midline. Absent: lymphadenopathy - Respiratory Respiratory exam: Present: CTAB. Absent: accessory muscle use, rales, rhonchi, wheezes - Cardiovascular Cardiovascular exam: Present: RRR, +S1, +S2. Absent: diastolic murmur, gallop, rubs, systolic murmur - GI/Abdominal Additional comments: PEG tube site clean and dry, no surrounding erythema or excoriation Abdomen is soft and not tender No palpably enlarged organs Bowel sounds are present in all quadrants - Extremities Exam Extremities exam: Present: warm, radial pulses palpable and symetrical. Absent : calf tenderness, cyanotic, pedal edema - Neurological Exam Neurological exam: Present: alert, CN II-XII intact, oriented X3, no focal deficits. Absent: pronater drift, facial droop, speech deficit - Skin Skin exam: Present: dry, intact - VTE Documentation of Mechanical Device: Intermittent pneumatic compression device
[2016-10-28 15:08] VITALS: BP 165/90
== END 2016-10-28 16:10 | disposition home health service (06) | DRG 240 ==
LOC: 3BNU → SUATTDRO 10-23 05:53
PROVIDERS: ADMIT Internal Medicine; ATTEND Internal Medicine

== ENCOUNTER 2016-11-03 23:05 | Inpatient (IN) ==
[2016-11-04] MEDS ORDERED: Naloxone 0.4 MG/ML INJ IVP PRN (03:19)
[2016-11-04] MEDS: *HR* Morphine 2 MG/ML SYRINGE IVP PRN ×6 (04:02→20:05)
[2016-11-04] MEDS ORDERED: 0.9 % Sodium Chloride 500 ML ONE (06:11)
--- NOTE | 2016-11-04 09:09 | Oncology Inp Consult Note ---
Date of Encounter: 11/04/16 Time of Encounter: 07:00 Assessment and Plan (1) Esophageal adenocarcinoma Status: Chronic Assessment and plan: Currently on active treatment with FOLFOX with extensive liver metastatic disease from esophageal carcinoma, recurrent bleeding episodes managed symptomatically with transfusion support. Will consider endoscopy procedure, intervention, tumor embolization should she continue to bleed and unable to maintain her hemoglobin hematocrit. S/P 2 units PRBC today, rpt Hgb/Hct to be followed G tube for nutritional supporyt. Currently NPO Denies pain in the abdomen. Plan of care discussed in detail with her. - Data of Consult Requesting Physician: Oliver Pierre Primary Care Provider: PCP NO - Consult Narrative Reason for consult: esophageal cancer, severe anemia History of present illness: 65-year-old female with medical history significant for COPD, tobacco abuse with esophageal canhcer stage IV with liver mets, who underwent a CT scan of the abdomen 08/14/2016 which showed significant mucosal thickening at the distal esophagus, underlying esophageal carcinoma should be considered and tiny reactive lymph nodes right lower lobe pulmonary nodule multiple hepatic lesions suspicious for metastatic disease. Patient underwent EGD with Dr. Gray, that showed partailly obstructing esophageal tumor in the distal third of esophagus. BX 07/27--suspicious for adenoca--atypical glandular cells PET imaging showed multiple metastatic lesions in the liver. Patient was scheduled for a liver biopsy, to check for HER-2/viola staining as well as port placement. Bx liver showed metastatic carcinoma. She started chemotherapy with bolus 5-FU without a MediPort, FOLFOX in September 2016. Multiple hospitalizations for GI bleeding, anemia requiring transfusion and endoscopy procedures. She had diffuse stent placement, she refused radiation therapy palliatively to control bleeding. She underwent second cycle of chemotherapy 10/12/2016. She is also managed with iron infusions in the past. Patient reports$a Sarah status post 2 units of transfusions over the weekend. She was noted to be anemic yesterday with hemoglobin around 4 g and was referred here for inpatient stay workup and transfusion. She denies any abdominal discomfort or pain. She has had malanotic stools from bleeding from tumor. Feels very tired, needs help getting out of the bed to commode. Past Med Surg Social Fam HX - Past Medical History Medical history: cancer, COPD, GI bleed, hyperlipidemia, hypertension, renal disease, other Psychiatric history: no psych history - Past Surgical History Surgical History: other - Social History Smoking Status: Former smoker Smokeless Tobacco Status: No Alcohol use: none Drug use: none - Family History Father Living Status: Hx Family Cardiac Disorders: Yes (HEART RELATED) Mother Living Status: Still Living Hx Family Cardiac Disorders: Yes (Hypertension) Hx Family Endocrine Disorder: Yes (Diabetes Mellitus) Hx Family Neurologic Disorders: Yes (CVA) Sister Living Status: Still Living Hx Family Cardiac Disorders: No Hx Family Cancer: Yes Hx Family GI Disorders: No Hx Family Endocrine Disorder: No Hx Family Neuromuscular Disorders: No Hx Family Neurologic Disorders: No Hx Family HEENT Disorders: No Hx Family Autoimmune Disorders: No Medications and Allergies Albuterol Sulfate [Proair Respiclick] 1 - 2 puff IH Q6H PRN 08/26/15 [History] Losartan Potassium [Cozaar] 100 mg PO DAILY 08/26/15 [History] CloNIDine Patch [Catapres-Tts] 0.3 mg TP QWEEK 08/14/16 [History] Metoprolol XL (24 HR) Succ [Toprol Xl] 100 mg PO DAILY #60 tab.er.24h 08/17/16 [ Rx] OxyCODONE Immed Rel [Roxicodone 5 MG] 10 mg PO Q4H PRN 09/28/16 [History] Lactose-Reduced Food/Fiber [Jevity 1.5 Andrés Liquid] 1 can PO TID #24 can [Rx] Sennosides [Senna] 8.8 mg GTUBE BID #30 udc 10/28/16 [Rx] Allergies aspirin Adverse Reaction (Verified 11/03/16 21:07) Nausea naproxen Adverse Reaction (Verified 11/03/16 21:07) Nausea NSAIDS (Non-Steroidal Anti-Inflamma Adverse Reaction (Verified 11/03/16 21:07) Nausea Review of systems: as in HPI Oncology - Exam - Constitutional Vitals: Temp Pulse Resp BP Pulse Ox 98.7 F 115 22 108/71 98 11/04/16 08:31 11/04/16 08:15 11/04/16 08:15 11/04/16 08:15 11/04/16 08:15 General appearance: average body habitus, thin - Head Head exam: Present: atraumatic - Eye Additional comments: pallor - ENT ENT exam: Present: mucous membranes moist - Neck Neck exam: Present: full ROM - Respiratory Respiratory exam: Present: CTAB - Cardiovascular Cardiovascular exam: Present: +S1, +S2 Additional comments: tachycardia - GI/Abdominal GI/Abdominal exam: Present: soft Additional comments: non tender, g tube+ - Neurological Exam Neurological exam: Present: alert, CN II-XII intact, oriented X3 - Psychiatric Psychiatric exam: Present: normal mood Oncology - Results - Labs Labs: reviewed from [facility] 4 Consult Discharge Plan - Plan Referrals: NO,PCP [Primary Care Provider] -
--- NOTE | 2016-11-04 09:26 | Internal Med History&Physical ---
Date of Encounter: 11/04/16 Time of Encounter: 01:00 Assessment and Plan (1) Anemia due to acute blood loss Current visit: Yes Status: Acute Patient was noted to have hemoglobin of 4.1 with hematocrit of 13.2%. Likely upper GI source - esophageal cancer versus Stomach/duodenum. PRBC transfusion and monitor hemoglobin and hematocrit. Empiric treatment with pantoprazole. Surgical consultation for possible endoscopy. Patient is nothing by mouth at this time. (2) GI bleeding Current visit: Yes Status: Chronic Likely - esophageal cancer versus Stomach/duodenum. Empiric treatment with pantoprazole. Surgical consultation for possible endoscopy. Patient is nothing by mouth at this time. Oncology/hematology consult Qualifiers: GI bleed type/associated pathology: unspecified gastrointestinal hemorrhage type Qualified Code(s): K92.2 - Gastrointestinal hemorrhage, unspecified (3) Esophageal cancer Current visit: Yes Status: Chronic On active treatment / chemotherapy with the oncologist. Oncology consultation Qualifiers: Malignant neoplasm of esophagus location: lower third Qualified Code(s): C15.5 - Malignant neoplasm of lower third of esophagus (4) COPD (chronic obstructive pulmonary disease) Current visit: Yes Status: Chronic Continue Bronchodilators Qualifiers: COPD type: unspecified COPD Qualified Code(s): J44.9 - Chronic obstructive pulmonary disease, unspecified (5) Hypertension Current visit: Yes Status: Chronic Hold antihypertensive medications Qualifiers: Hypertension type: essential hypertension Qualified Code(s): I10 - Essential (primary) hypertension (6) DVT prophylaxis Current visit: Yes Status: Acute SCDs Internal Medicine - H&P: HPI Chief complaint: Dizziness Admitted From: Emergency Dept Plans for Post Hospital Care: Home History of present illness: Ms. Lara is a 65 year old female with past medical h/o COPD, hyperlipidemia, hypertension, CK stage III, esophageal cancer with liver mets - currently on chemotherapy; s/p PEG tube placement. She presented to the emergency room at [facility] 2 days ago with dizziness and was noted to have hemoglobin of about 6 - transfused 2 units of PRBC and was discharged. She presented with dizziness , lightheadedness to [facility] ER and was noted to have Hemoglobin of 4.1 she was given 1 unit of PRBC transfusion and transferred to the hospitalist care at [facility] for further management. She reports dizziness and lightheadedness, but denies syncope of loss of consciousness. She reports episodes of hematemesis and melena - last episode of melena was about 3 days ago. She reports pain in the abdomen, and was taking Percocet at home. She denies chest pain, shortness of breath, cough, expectoration, fever, chills, dysuria hematuria Past Med Surg Social Fam HX - Past Medical History Medical history: cancer, COPD, GI bleed, hyperlipidemia, hypertension, renal disease, other Psychiatric history: no psych history - Past Surgical History Surgical History: other - Social History Smoking Status: Former smoker Smokeless Tobacco Status: No Alcohol use: none Drug use: none - Family History Father Living Status: Hx Family Cardiac Disorders: Yes (HEART RELATED) Mother Living Status: Still Living Hx Family Cardiac Disorders: Yes (Hypertension) Hx Family Endocrine Disorder: Yes (Diabetes Mellitus) Hx Family Neurologic Disorders: Yes (CVA) Sister Living Status: Still Living Hx Family Cardiac Disorders: No Hx Family Cancer: Yes Hx Family GI Disorders: No Hx Family Endocrine Disorder: No Hx Family Neuromuscular Disorders: No Hx Family Neurologic Disorders: No Hx Family HEENT Disorders: No Hx Family Autoimmune Disorders: No Internal Medicine - H&P: Meds Albuterol Sulfate [Proair Respiclick] 1 - 2 puff IH Q6H PRN 08/26/15 [History] Losartan Potassium [Cozaar] 100 mg PO DAILY 08/26/15 [History] CloNIDine Patch [Catapres-Tts] 0.3 mg TP QWEEK 08/14/16 [History] Metoprolol XL (24 HR) Succ [Toprol Xl] 100 mg PO DAILY #60 tab.er.24h 08/17/16 [ Rx] OxyCODONE Immed Rel [Roxicodone 5 MG] 10 mg PO Q4H PRN 09/28/16 [History] Lactose-Reduced Food/Fiber [Jevity 1.5 Andrés Liquid] 1 can PO TID #24 can [Rx] Sennosides [Senna] 8.8 mg GTUBE BID #30 udc 10/28/16 [Rx] Allergies aspirin Adverse Reaction (Verified 11/03/16 21:07) Nausea naproxen Adverse Reaction (Verified 11/03/16 21:07) Nausea NSAIDS (Non-Steroidal Anti-Inflamma Adverse Reaction (Verified 03/25/17 21:07) Nausea All Systems PM: A 10-system review of systems was performed and is negative for pertinent findings except as documented above in the HPI. - Constitutional Vitals: Temp Pulse Resp BP Pulse Ox 98.7 F 115 22 108/71 98 11/04/16 08:31 11/04/16 08:15 11/04/16 08:15 11/04/16 08:15 11/04/16 08:15 Exam: General: Not in acute distress at the time of my evaluation HEENT: Oral mucosa is moist. conjunctival palor present. No scleral icterus Neck: No obvious neck swellings Lungs: Clear to auscultation Cardiac: Regular rate and rhythm. No significant murmurs Abdomen: Distended; hepatomegaly present. PEG tube in place. Genitourinary: No greer catheter Neurological: Alert and oriented. No gross localizing deficits Psych: Not aggressive or agitated Extremities: no significant leg edema Skin: No generalized rash Internal Med - H&P Results - Labs Labs: Reviewed labs from the [facility] ER - Hgb: 4.1; HCT: 13.3%; Plt: 271; sodium 134, potassium 4.4 BUN 62, creatinine 1.05
[2016-11-04] MEDS: Pantoprazole 40 MG VIAL IVP SCH ×2 (10:00→19:43)
--- NOTE | 2016-11-04 10:13 | Pulmonology Consult Note ---
<Sara Orr M - Last Filed: 11/04/16 13:53> Medications and Allergies Albuterol Sulfate [Proair Respiclick] 1 - 2 puff IH Q6H PRN 08/26/15 [History] Losartan Potassium [Cozaar] 100 mg PO DAILY 08/26/15 [History] CloNIDine Patch [Catapres-Tts] 0.3 mg TP QWEEK 08/14/16 [History] OxyCODONE Immed Rel [Roxicodone 5 MG] 10 mg PO Q4H PRN 09/28/16 [History] Lactose-Reduced Food/Fiber [Jevity 1.5 Andrés Liquid] 1 can PO TID #24 can [Rx] Ergocalciferol (VITAMIN D2) [Vitamin D2] 50,000 unit PO QWEEK 11/04/16 [History] Metoprolol Tartrate [Lopressor] 50 mg PO BID 11/04/16 [History] Prochlorperazine Maleate [Compazine] 10 mg PO Q8HR PRN 11/04/16 [History] Sennosides [Senna] 8.6 mg PO BID 11/04/16 [History] Allergies Amoxicillin [From Augmentin] Adverse Reaction (Verified 11/04/16 10:04) Diarrhea aspirin Adverse Reaction (Verified 11/03/16 21:07) Nausea clavulanic acid [From Augmentin] Adverse Reaction (Verified 11/04/16 10:04) Diarrhea naproxen Adverse Reaction (Verified 11/03/16 21:07) Nausea NSAIDS (Non-Steroidal Anti-Inflamma Adverse Reaction (Verified 11/03/16 21:07) Nausea sulfamethoxazole [From Bactrim] Adverse Reaction (Verified 11/04/16 10:04) Hypertension trimethoprim [From Bactrim] Adverse Reaction (Verified 11/04/16 10:04) Hypertension All Systems: A 10-system review of systems was performed and is negative for pertinent findings except as documented above in the HPI. Physical Examination Vital Signs: Vital Signs, Last 4 Hours Temp Pulse Resp BP Pulse Ox 11/04/16 12:00 110 16 110/60 98 11/04/16 11:45 98.8 F 11/04/16 11:33 107 11/04/16 11:00 107 16 113/68 98 11/04/16 10:47 98.8 F 107 16 113/68 98 11/04/16 10:46 99.0 F 110 18 113/77 97 11/04/16 10:00 110 18 126/70 98 11/04/16 09:00 114 16 120/71 97 Results - Clinical Findings Intake & Output: Intake & Output 11/03/16 11/04/16 11/04/16 23:59 07:59 15:59 Intake Total 300 / 300 300 / 300 Output Total 250 / 250 200 / 200 Balance 50 / 50 100 / 100 Weight 74.5 kg Consult Discharge Plan - Plan Referrals: NO,PCP [Primary Care Provider] - - Attending Attestation I examined this patient and my medical decision-making was reviewed with the BASE PLY HAND/PA/Advanced Practice Nurse/Resident Physician. I agree with the documented findings, disposition and treatment plan as described except to the extent set forth below. Patient seen and examined. Labs, radiology, chart personally reviewed. Agree with resident's history and physical, assessment, plan with following comments: GREENSKEEPER: Patient follows commands, Pulmonary: Acceptable oxygenation and ventilation Cardiovascular: stable GI: Discuss with Dr. Boyd and I agree with plan of care. Bleeding is most likely from her underlying malignancy and she will probably will need IR intervention is suspicion is confirmed with her tumor is the source of the bleeding. Patient is receiving blood transfusion and we will keep her nothing by mouth until the endoscopy be done. Monitor patient in intensive care unit. Overall prognosis is poor. Heme: DVT prophylaxis per routine. Mechanical DVT prophylaxis ID: No evidence of infection Renal; urine out put and renal funtion reviewed Endorcine: blood glucose is monitored Lines: all lines checked and no evidence of infections Skin: skin care to prevent pressure ulcers per nursing routine care EGD done by Dr. Boyd and called IR with bleeding from the tumor for evaluation to embolize the tumor. After endoscopy was completed, Dr. Boyd and myself talked to IR programmer numerical control. I feel patient with severe anemia and acute blood loss and hemorrhagic anemia. I feel she needs to have more aggressive blood transfusion based on the EGD findings. Will transfuse more PRBC and FFP. Prognosis is very poor and if IR will not be able to do any intervention, then patient needs to be transferred to another facility such as [facility]. IR requested CTA chest and abdomen, which is ordered and family to be updated. I spent 35 min of Critical Care time with this patient. It involved decision making of high complexity to assess, manipulate, and support vital organ system failure and/or to prevent further life threatening deterioration of the patient' s condition. The time involved in the performance of separately reportable procedures was not counted toward critical care time. <Jc Martinez - Last Filed: 11/04/16 15:02> Date of Encounter: 11/04/16 Time of Encounter: 10:13 Assessment and Plan (1) Anemia due to acute blood loss Current Visit: Yes Status: Acute 64-year-old female with recently diagnosed stage IV esophageal cancer in August presents to [facility] with a hemoglobin of 4. Patient reports hematemesis and melena. Patient was transfused 1 unit of packed red blood cells and transferred to the ICU. Patient has received 2PRBC. Six total ordered. Q4 H/H 4 FFP ordered. Will recieve 2 now and 2 after four more PBRC are infused Replace calcium as per electrolyte protocol. Continue Protonix Surgery consulted for upper endoscopy. She underwent endoscopy and had 2 clips placed to stop active bleeding. IR was consulted as well. They requested CTA of chest and abdomen to assess status of bleeding before any intervention can take place. Imaging pending. (2) Adenocarcinoma of esophagus, stage 4 Current Visit: Yes Status: Acute Diagonsed with Stage four esophageal cancer: undergoing chemotherapy. hx of tobacco use. PET scan showed liver metastasis. She refused radiation therapy to control bleeding. Follwed by Dr. Charles araiza. (3) COPD (chronic obstructive pulmonary disease) Current Visit: Yes Status: Chronic Denies productive cough, dyspnea We will continue bronchodilators Qualifiers: COPD type: unspecified COPD Qualified Code(s): J44.9 - Chronic obstructive pulmonary disease, unspecified (4) DVT prophylaxis Current Visit: Yes Status: Acute EPCD. Withhold medical prophylaxis due to bleeding. History of Present Illness Consult date: 11/04/16 Requesting physician: Mathew Monzon Reason for consult: obstructive sleep apnea, other (UGI bleed, hypovolemia) Chief complaint: GI bleed History of present illness: 64-year-old female with a history of COPD, hyperlipidemia, hypertension, esophageal cancer with liver metastasis- on chemotherapy, s/p PEG tube placement presented to [facility] 2 days ago with dizziness and was noted to have hemoglobin of 6. She was transfused 2 units of packed red blood cells and discharged. Patient again presented [facility] early this morning was noted to have hemoglobin of 4.1. She was given 1 unit of packed red cells and transferred to [facility]. Patient states she had difficulty swallowing in August and underwent a EGD which showed a esophageal mass in the distal one third of esophagus. She underwent a CT scan of the abdomen which showed liver metastasis. PET scan showed multiple metastatic lesions in the liver. Patient started chemotherapy in September. Patient admits to hematemesis and melanotic stools. She admits to weakness, lethargy. Past Med Surg Social Fam HX - Past Medical History Medical history: cancer, COPD, GI bleed, hyperlipidemia, hypertension, renal disease, other Psychiatric history: no psych history - Past Surgical History Surgical History: other - Social History Smoking Status: Former smoker Smokeless Tobacco Status: No Alcohol use: none Drug use: none - Family History Father Living Status: Hx Family Cardiac Disorders: Yes (HEART RELATED) Mother Living Status: Still Living Hx Family Cardiac Disorders: Yes (Hypertension) Hx Family Endocrine Disorder: Yes (Diabetes Mellitus) Hx Family Neurologic Disorders: Yes (CVA) Sister Living Status: Still Living Hx Family Cardiac Disorders: No Hx Family Cancer: Yes Hx Family GI Disorders: No Hx Family Endocrine Disorder: No Hx Family Neuromuscular Disorders: No Hx Family Neurologic Disorders: No Hx Family HEENT Disorders: No Hx Family Autoimmune Disorders: No All Systems: A 10-system review of systems was performed and is negative for pertinent findings except as documented above in the HPI. - Constitutional Constitutional: fatigue, lethargy, weakness - EENT Nose, mouth and throat: no dry mouth, no sore throat - Cardiovascular Cardiovascular: no chest pain, no diaphoresis - Respiratory Respiratory: no cough, no dyspnea - Gastrointestinal Gastrointestinal: hematemesis, melena, no vomiting - Musculoskeletal Musculoskeletal: weakness, back pain - Neurological Neurological: no confusion, no tingling Physical Examination Vital Signs: Vital Signs, Last 4 Hours Temp Pulse Resp BP Pulse Ox 11/04/16 09:00 114 16 120/71 97 11/04/16 08:31 98.7 F 11/04/16 08:15 101.4 F H 115 22 108/71 98 11/04/16 08:09 114 11/04/16 08:00 98.6 F 114 20 104/69 97 11/04/16 07:30 98.6 F 11/04/16 07:00 116 16 99/55 99 General appearance: no acute distress Eyes: nonicteric ENT: oropharynx moist Neck: supple Effort: normal Inspection: normal Auscultation: bilateral: clear Percussion: bilateral: not dull Tactile fremitus: bilateral: normal Cardiovascular: regular rate and rhythm Gastrointestinal: normoactive bowel sounds, non-distended Integumentary: normal Extremities: no cyanosis, no edema, no clubbing Musculoskeletal: no deformities, ROM normal normal mental status, non-focal exam mood appropriate, affect normal Results - Clinical Findings Intake & Output: Intake & Output 11/03/16 11/04/16 11/04/16 23:59 07:59 15:59 Intake Total 300 / 300 0 / 0 Output Total 250 / 250 200 / 200 Balance 50 / 50 -200 / -200 Weight 74.5 kg
--- NOTE | 2016-11-04 11:08 | General Surgery Consult Note ---
<Pravin Juarez - Last Filed: 11/04/16 10:57> Date of Encounter: 11/04/16 Time of Encounter: 10:57 Assessment and Plan (1) Anemia due to acute blood loss Current Visit: Yes Status: Acute Pt. with history of esophagus carcinoma. She has required 15 blood transfusions since August 2016 Hgb of 4.1 this am (2) COPD (chronic obstructive pulmonary disease) Current Visit: Yes Status: Chronic Qualifiers: COPD type: unspecified COPD Qualified Code(s): J44.9 - Chronic obstructive pulmonary disease, unspecified (3) Esophageal cancer Current Visit: Yes Status: Chronic Qualifiers: Malignant neoplasm of esophagus location: lower third Qualified Code(s): C15.5 - Malignant neoplasm of lower third of esophagus (4) GI bleed Current Visit: No Status: Resolved Qualifiers: GI bleed type/associated pathology: unspecified gastrointestinal hemorrhage type Qualified Code(s): K92.2 - Gastrointestinal hemorrhage, unspecified History of Present Illness Consult date: 11/04/16 Reason for consult: endoscopy Requesting physician: Janna Edmond History of present illness: Ms. Lara is a 65 yo F who presented to [facility] with complaints of fatigue and generalized weakness. She has a history significant for esophageal cancer stage IV with liver metastasis and COPD. She presented initially to [facility] on 11/02/16 with dizziness and found to have a Hgb of 6.0 and was transfused 1 unit PRBC with appropriate response to 7.4. She was discharged and the following day she returned to [facility] with fatigue and her Hgb was found to be 4.1. A FOB was done and was positive. She has previously required blood transfusions ( 15 since August 2016) for acute blood loss from her esophageal mass. Past Med Surg Social Fam HX - Past Medical History Medical history: cancer, COPD, GI bleed, hyperlipidemia, hypertension, renal disease, other Psychiatric history: no psych history - Past Surgical History Surgical History: other - Social History Smoking Status: Former smoker Smokeless Tobacco Status: No Alcohol use: none Drug use: none - Family History Father Living Status: Hx Family Cardiac Disorders: Yes (HEART RELATED) Mother Living Status: Still Living Hx Family Cardiac Disorders: Yes (Hypertension) Hx Family Endocrine Disorder: Yes (Diabetes Mellitus) Hx Family Neurologic Disorders: Yes (CVA) Sister Living Status: Still Living Hx Family Cardiac Disorders: No Hx Family Cancer: Yes Hx Family GI Disorders: No Hx Family Endocrine Disorder: No Hx Family Neuromuscular Disorders: No Hx Family Neurologic Disorders: No Hx Family HEENT Disorders: No Hx Family Autoimmune Disorders: No Medications and Allergies Albuterol Sulfate [Proair Respiclick] 1 - 2 puff IH Q6H PRN 08/26/15 [History] Losartan Potassium [Cozaar] 100 mg PO DAILY 08/26/15 [History] CloNIDine Patch [Catapres-Tts] 0.3 mg TP QWEEK 08/14/16 [History] OxyCODONE Immed Rel [Roxicodone 5 MG] 10 mg PO Q4H PRN 09/28/16 [History] Lactose-Reduced Food/Fiber [Jevity 1.5 Andrés Liquid] 1 can PO TID #24 can [Rx] Ergocalciferol (VITAMIN D2) [Vitamin D2] 50,000 unit PO QWEEK 11/04/16 [History] Metoprolol Tartrate [Lopressor] 50 mg PO BID 11/04/16 [History] Prochlorperazine Maleate [Compazine] 10 mg PO Q8HR PRN 11/04/16 [History] Sennosides [Senna] 8.6 mg PO BID 11/04/16 [History] Allergies Amoxicillin [From Augmentin] Adverse Reaction (Verified 11/04/16 10:04) Diarrhea aspirin Adverse Reaction (Verified 11/03/16 21:07) Nausea clavulanic acid [From Augmentin] Adverse Reaction (Verified 11/04/16 10:04) Diarrhea naproxen Adverse Reaction (Verified 11/03/16 21:07) Nausea NSAIDS (Non-Steroidal Anti-Inflamma Adverse Reaction (Verified 11/03/16 21:07) Nausea sulfamethoxazole [From Bactrim] Adverse Reaction (Verified 11/04/16 10:04) Hypertension trimethoprim [From Bactrim] Adverse Reaction (Verified 11/04/16 10:04) Hypertension Review of Systems All systems PM: A 10-system review of systems was performed and is negative for pertinent findings except as documented above in the HPI. - Constitutional fatigue, malaise - Cardiovascular no chest pain, no dyspnea, no edema - Respiratory cough, no hemoptysis - Gastrointestinal melena, no abdominal pain, no hematochezia, no nausea, no vomiting General Surgery Exam Initial Vital Signs Temp Pulse Resp BP Pulse Ox 99.1 F 119 18 114/67 97 11/04/16 00:49 11/04/16 00:49 11/04/16 00:49 11/04/16 00:49 11/04/16 00:49 - General physical appearance moderate distress, chronically ill, other (pale) - Neck trachea midline - Respiratory normal expansion, clear to auscultation - Cardiovascular Cardiovascular exam: Present: tachycardia, regular rhythm - Abdomen Abdomen general surgery: Present: bowel sounds present, soft, non tender - Neurologic Present: CN 2-12 grossly intact - Psychiatric Psychiatric general surgery: Present: A&Ox3 Exam Initial Vital Signs Temp Pulse Resp BP Pulse Ox 99.1 F 119 18 114/67 97 11/04/16 00:49 11/04/16 00:49 11/04/16 00:49 11/04/16 00:49 11/04/16 00:49 Results - Labs All other labs normal. Consult Discharge Plan - Plan Referrals: NO,PCP [Primary Care Provider] - <Goran Boyd - Last Filed: 11/04/16 12:54> Review of Systems All systems PM: A 10-system review of systems was performed and is negative for pertinent findings except as documented above in the HPI. General Surgery Exam Initial Vital Signs Temp Pulse Resp BP Pulse Ox 99.1 F 119 18 114/67 97 11/04/16 00:49 11/04/16 00:49 11/04/16 00:49 11/04/16 00:49 11/04/16 00:49 Exam Initial Vital Signs Temp Pulse Resp BP Pulse Ox 99.1 F 119 18 114/67 97 11/04/16 00:49 11/04/16 00:49 11/04/16 00:49 11/04/16 00:49 11/04/16 00:49 Results - Labs All other labs normal. - Attending Attestation I examined this patient and my medical decision-making was reviewed with the INSPECTOR FUEL HOSE/PA/Advanced Practice Nurse/Resident Physician. I agree with the documented findings, disposition and treatment plan as described except to the extent set forth below. I reviewed the physical exam, history and assessment with the manager international present. Noted history of esophageal cancer. Noted melana and Hgb of 4.1. Patient admits to pain around the PEG sit. No hematemesis. Patient does have some LUQ pain on palpation at the level of the PEG. I reviewed the patient's prior EGD results demonstrating a large distal esophageal fungating mass that was oozing and is likely the source of the patient's GI bleed. I do think it would be appropriate to proceed with an EGD, however I did inform Critical Care that if the mass appears today like it did in Sep of this year, then she will need an IR consultation for possible embolization to help control the bleeding.
[2016-11-04] MEDS ORDERED: *HR* Midazolam HCl 5 MG/5 ML VIAL IVP ONE (12:52)
[2016-11-04] MEDS ORDERED: *HR* FentaNYL (PF) 100 MCG/2 ML VIAL ONE (12:57)
--- NOTE | 2016-11-04 13:08 | Pre-Sedation Evaluation ---
Pre-sedation evaluation - Pre-sedation checklist Procedure: PEG Recent Vitals: Last Vital Signs Temp 98.8 F 11/04/16 11:45 Pulse 110 11/04/16 12:00 Resp 16 11/04/16 12:00 BP 110/60 11/04/16 12:00 Pulse Ox 98 11/04/16 12:00 H&P (including ROS) documented in medical record: Yes Previous reaction to sedatives/anesthetics: No Dietary Status: NPO after Midnight Airway Assessment: Patient can open mouth completely, TMJ function normal Dentition: No loose teeth or bridges, dentures removed ASA Classification *see protocol: CLASS III-Severe systemic disease Plan of Care: Pt appropriate candidate for procedure/moderate/conscious sedation
[2016-11-04] MEDS ORDERED: Simethicone 40 MG/0.6 ML MLS IR ONE (13:11)
[2016-11-04] MEDS ORDERED: Calcium Gluconate 1,000 MG in D5% in Water 100 ML IVPB ONE (13:54)
[2016-11-04] MEDS ORDERED: Magnesium Sulfate 2 GM in D5% in Water 100 ML IVPB PRN (14:00)
[2016-11-04] MEDS ORDERED: Calcium Gluconate 1,000 MG in D5% in Water 100 ML IVPB PRN (14:00)
[2016-11-04] MEDS ORDERED: 0.9 % Sodium Chloride 250 ML ONE ×2 (14:30→21:48)
[2016-11-04 16:53] LABS: Hematocrit 24.5 % (35.3-44.9); Hemoglobin 8.1 g/dL (11.5-15.4)
--- NOTE | 2016-11-04 16:53 | Event Note ---
<Jc Martinez - Last Filed: 11/04/16 16:47> Date of Encounter: 11/04/16 Time of Encounter: 16:47 Patient underwent endoscopy by Dr. Boyd today. 2 clips were placed for possible sites of bleeding. Patient has been receiving packed red blood cells and FFP's. She is undergoing every 4 H&H. INR was called for evaluation of embolization of the tumor. They requested a CTAP done to evaluate sites of bleeding. CTA showed a large esophageal mass measuring 5.76.68 cm which is increased in size from prior exam. There is extensive hepatic and pulmonary metastasis. IR reviewed the imaging and stated that there is no evidence of active bleeding on imaging and it would be difficult to find source of bleeding as the esophagus has multiple penetrating arteries from the aorta. Dr. Boyd was called after this for any further recommendations. He stated that there are no surgical intervention to stop the bleeding. At this point family was notified about this situation. They stated that they still want the patient to be full code and wanted to ask Dr. Wilkinson, the oncologist about radiation therapy and its possibility of stopping the bleeding. They agreed for palliative consult as well. <Sara Orr - Last Filed: 11/04/16 18:31> I have personally talked to the daughter, because I was not able to reach her and told her about poor prognosis and if she continue to bleed, need to think about what direction to go and when to think about comfort care. Patient remain full code at this time even though prognosis is very poor.
[2016-11-04 17:04] LABS: Magnesium 1.6 mg/dL (1.6-2.6); Phosphorous 3.9 mg/dL (2.3-4.7)
[2016-11-04 17:05] LABS: Ionized Calcium 1.21 mmol/L (1.15-1.35)
[2016-11-04 18:11] LABS: Alanine Aminotransferase 19 Units/L (0-55); Albumin/Globulin Ratio 0.6 (1.1-2.2); Alkaline Phosphatase 65 Units/L (38-126); Aspartate Amino Transferase 31 Units/L (5-34); BUN/Creatinine Ratio 43 (6-26); Bilirubin,Total 0.6 mg/dL (0.2-1.2); Blood Urea Nitrogen 38 mg/dL (7-20); Calcium 8.6 mg/dL (8.6-10.8); Carbon Dioxide 24 mEq/L (19-29); Chloride 104 mEq/L (98-109); Globulin 3.3 g/dL (2.4-3.5); Glucose 103 mg/dL (70-99); Osmolality,Calculated 291 (280-300); Potassium 4.9 mEq/L (3.5-4.5); Sodium 136 mEq/L (136-145); Total Protein 5.3 g/dL (6.0-8.3); eGFR For African Americans > 60 (> 60); eGFR For Non-African Americans > 60 (> 60)
[2016-11-04 18:12] LABS: Mean Corpuscular HGB Conc 33.1 g/dL (31.6-35.5); Mean Corpuscular Hemoglobin 28.9 pg (28.0-33.3); Mean Corpuscular Volume 87.3 fL (83.0-100.0); Mean Platelet Volume 9.5 fL (9.4-12.4); Neutrophils # 0.2 K/mcL (1.6-8.9); Platelet Count 174 K/mcL (140-400); Red Blood Count 2.84 M/mcL (3.82-4.97); Red Cell Distribution Width 14.3 % (11.5-14.5)
[2016-11-04 18:13] LABS: Eosinophils % 0.2 %; Lymphocytes % 0.8 %; Monocytes % 0.4 %; Segmented Neutrophils % 4.1 %
[2016-11-04] MEDS ORDERED: *HR* HYDROmorphone (PF) 1 MG/ML SYRINGE IVP ONE (21:11)
[2016-11-04 21:15] LABS: Bilirubin,Urine Negative (Negative); Blood,Urine Large (Negative); Clarity,Urine Clear (Clear); Color,Urine Yellow (Yellow); Glucose,Urine (UA) Normal (Normal); Ketones,Urine Negative (Negative); Leukocyte Esterase,Urine Small (Negative); Nitrite,Urine Negative (Negative); Protein,Urine Trace mg/dL (Neg-Trace); Specific Gravity,Urine > 1.030 (1.010-1.025); Urobilinogen,Urine Normal (Normal)
[2016-11-04] MEDS ORDERED: *HR* HYDROmorphone (PF) 1 MG/ML SYRINGE ONE (21:15)
[2016-11-04 21:17] LABS: Hyaline Casts,Urine None Seen per lpf (None-Few); Squamous Epithelial Cell,Urine Many per lpf (None-Few)
[2016-11-04 21:36] LABS: Bacteria,Urine Few per hpf (None-Few); RBC,Urine 0-3 per hpf (0-3)
[2016-11-04] MEDS ORDERED: Furosemide 20 MG/2 ML VIAL IVP ONE ×5 (21:44→23:23)
[2016-11-04] MEDS: Ipratropium/Albuterol Neb 3 ML IH PRN (21:50)
[2016-11-04 22:23] LABS: Hematocrit 42.4 % (35.3-44.9); Hemoglobin 14.2 g/dL (11.5-15.4)
[2016-11-04] MEDS ORDERED: *HR* LORazepam 2 MG/ML VIAL IVP ONE (22:24)
[2016-11-04] MEDS ORDERED: *HR* LORazepam 2 MG/ML VIAL ONE (22:26)
[2016-11-04 22:32] LABS: ABG Base Excess -2.7 mEq/L (-2.0 to 3.0); ABG HCO3 22.6 mEQ/L (21-27); ABG Oxygen Saturation 98 % (95-98); ABG PCO2 40 mmHg (35-45); ABG PH 7.36 pH Units (7.32-7.45); ABG PO2 115 mmHg (85-104); ABG TCO2 23.8 mEq/L (20-26)
[2016-11-04 22:33] LABS: Blood Gas FiO2 28 %
--- NOTE | 2016-11-04 22:33 | Event Note ---
Date of Encounter: 11/04/16 Time of Encounter: 22:00 On-call Hospitalist note: I was paged to see the pt, with new onset shortness of breath, Heart rate in the 130s and BP: 188/108. I have immediately evauated the pt. She feels short of breath. No chest pain. she has back pain, which is chronic. O/E: she has labored breathing, with bilateral basal crackles and wheeze. Tachypneic and tachycardic. Sats: 95% on 2LPM. Stat EKG showed sinus tachycardia. Stat CXR personally reviewed by me shows blurring due to resp motion. I suspect vascular congestion. A/P: Acute pulmonary edema possibly due to multiple blood transfusions. Lasix 40 mg IV; duonebs; ABG. Pt improved with treatment. Reviewed the UA- shows leucocyte esterase - suspect UTI - start ceftriaxone.
[2016-11-04 22:35] LABS: BUN/Creatinine Ratio 33 (6-26); Blood Urea Nitrogen 32 mg/dL (7-20); Calcium 8.8 mg/dL (8.6-10.8); Carbon Dioxide 21 mEq/L (19-29); Chloride 103 mEq/L (98-109); Glucose 129 mg/dL (70-99); Osmolality,Calculated 291 (280-300); Sodium 136 mEq/L (136-145); eGFR For African Americans > 60 (> 60); eGFR For Non-African Americans 58 (> 60)
[2016-11-04 22:38] LABS: Potassium 5.1 mEq/L (3.5-4.5)
[2016-11-05 01:40] LABS: Hematocrit 36.5 % (35.3-44.9); Hemoglobin 12.3 g/dL (11.5-15.4)
[2016-11-05 05:09] LABS: Hematocrit 34.8 % (35.3-44.9); Hemoglobin 11.7 g/dL (11.5-15.4)
[2016-11-05 05:19] LABS: INR 1.1; Prothrombin Time 12.2 Seconds (9.4-12.1)
[2016-11-05 05:22] LABS: BUN/Creatinine Ratio 29 (6-26); Blood Urea Nitrogen 30 mg/dL (7-20); Calcium 9.1 mg/dL (8.6-10.8); Carbon Dioxide 26 mEq/L (19-29); Chloride 102 mEq/L (98-109); Glucose 111 mg/dL (70-99); Magnesium 1.9 mg/dL (1.6-2.6); Osmolality,Calculated 295 (280-300); Phosphorous 4.8 mg/dL (2.3-4.7); Potassium 4.5 mEq/L (3.5-4.5); Sodium 139 mEq/L (136-145); eGFR For African Americans > 60 (> 60); eGFR For Non-African Americans 53 (> 60)
[2016-11-05] MEDS: *HR* Morphine 2 MG/ML SYRINGE IVP PRN ×2 (05:45→08:36)
[2016-11-05] MEDS: Pantoprazole 40 MG VIAL IVP SCH ×2 (06:38→18:11)
--- NOTE | 2016-11-05 07:06 | Electrocardiograph Report ---
[place] [id number] Test Date: 2016-11-04 Pat Name: Robert Lara Department: 109 Room: [facility] Gender: F Medical Support Assistant: : 1950 Requested By: Janna Edmond Order Number: [id number] Reading MD: Luis Fernando James MD Measurements Intervals [place] Rate: 139 P: 56 OK: 135 QRS: 41 QRSD: 94 T: 30 QT: 283 QTc: 364 Interpretive Statements SINUS TACHYCARDIA Electronically Signed On 11-05-2016 7:05:20 EDT by Luis Fernando James MD
--- NOTE | 2016-11-05 07:30 | Pulmonology Progress Note ---
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 Patient states this is been going on since July. She is under the treatment of Dr. rowell. She had chemotherapy in September and as well as on October 12. She has refused radiation. She has had multiple blood transfusions since her diagnosis in July. Most recently here she has received 6 units of packed red blood cells as well as [address] Boyd did an endoscopy yesterday and placed 2 clips on the mass in her esophagus. This mass is measuring 5.7 x 6.6 x 8 cm on CTA. IR was consulted for possible embolization of the bleeding. They stated there were several penetrating arteries to this area would be difficult to embolize any of them. Family and patient are so requesting patient to be a full code. However they are agreeable to a palliative consult. Plan: Trend H&H. Transfuse as necessary. EPCDs for DVT prophylaxis Protonix for GI prophylaxis Oncology on board. Surgery on board Family discussion today of Pt prognosis and plan forward. Holding diet until discussion (2) Anemia due to acute blood loss Current Visit: Yes Status: Acute Pt transfused 6 units PRBS here at [place] on this visit. She has also received 4 units of plasma. Pt has history of stage 4 adenocarcinoma of the esophagus. Pt is undergoing chemotherapy and has been refusing radiation thus far. Surgery on board and placed 2 clips on the tumor during an EGD. IR consulted and no embolization able to be preformed. Plan: As above (3) DVT prophylaxis Current Visit: Yes Status: Acute Pt actively bleeding, so Heparin contraindicated Plan: EPCD Subjective Interval history: 65-year-old female patient admitted to the hospital for history of adenocarcinoma of the esophagus stage IV bleeding associated with this. Her hemoglobin was initially noted to be 4.1. She was transferred here from [place]. Yesterday she received 6 units of packed red blood cells. Appears as if she received 2 units of packed red blood cells are [place] prior to discharge from there. She is also received 4 units of plasma. She is under the care of Dr. Rowell for oncology. She has no complaints this morning. She states that she is not vomiting blood at this time. She has been nothing by mouth since yesterday. Overnight she did have a episode of shortness of breath and was given 40 mg of Lasix and a DuoNeb. She subsequently had relief of her shortness of breath with this. Her hemoglobin this morning was 11.7. We will continue to trend this. Chest CTA showed a large mid/distal esophageal mass with a measurement of 5.7 x 6.6 x 8.0 cm. Hepatic metastasis that were extensive. She also has progressive pulmonary metastatic disease. We will have a discussion today with patient and family about prognosis. Objective PUL Vital signs: Last Vital Signs Temp 97.2 F L 11/05/16 03:38 Pulse 106 11/05/16 06:00 Resp 22 11/05/16 06:00 BP 129/78 11/05/16 06:00 Pulse Ox 98 11/05/16 06:00 General appearance: no acute distress, alert Eyes: nonicteric ENT: oropharynx moist Neck: supple, no lymphadenopathy Effort: normal Auscultation: bilateral: clear Cardiovascular: regular rate and rhythm Gastrointestinal: normoactive bowel sounds, soft, non-tender, non-distended, other (PEG tube) Integumentary: normal Extremities: no cyanosis Musculoskeletal: no deformities Gait: normal gait, normal posture normal mental status, non-focal exam, pupils equal and round mood appropriate, affect normal Results - Laboratory Findings CBC and BMP: 11/05/16 10:15 11/05/16 05:02 ABG ABG pH 7.36 pH Units (7.32-7.45) 11/04/16 22:23 ABG pCO2 40 mmHg (35-45) 11/04/16 22:23 ABG pO2 115 mmHg (85-104) H 11/04/16 22:23 ABG O2 Saturation 98 % (95-98) 11/04/16 22:23 PT/INR, D-dimer PT 12.2 Seconds (9.4-12.1) H 11/05/16 05:02 Abnormal lab findings: Abnormal lab results RBC 2.84 M/mcL (3.82-4.97) L 11/04/16 16:40 Hct 34.8 % (35.3-44.9) L 11/05/16 05:02 Neutrophils # 0.2 K/mcL (1.6-8.9) L 11/04/16 16:40 Lymphocytes # 0.0 K/mcL (0.6-4.6) L 11/04/16 16:40 PT 12.2 Seconds (9.4-12.1) H 11/05/16 05:02 ABG pO2 115 mmHg (85-104) H 11/04/16 22:23 ABG Base Excess -2.7 mEq/L (-2.0 to 3.0) L 11/04/16 22:23 BUN 30 mg/dL (7-20) H 11/05/16 05:02 Est GFR (Non-Af Amer) 53 (> 60) L 11/05/16 05:02 BUN/Creatinine Ratio 29 (6-26) H 11/05/16 05:02 Glucose 111 mg/dL (70-99) H 11/05/16 05:02 POC Glucose 112 (58-89) H 11/04/16 21:42 Phosphorus 4.8 mg/dL (2.3-4.7) H 11/05/16 05:02 Serum Total Protein 5.3 g/dL (6.0-8.3) L 11/04/16 16:40 Albumin 2.0 g/dL (3.5-5.0) L D 11/04/16 16:40 Albumin/Globulin Ratio 0.6 (1.1-2.2) L 11/04/16 16:40 Ur Specific [place] > 1.030 (1.010-1.025) H 11/04/16 21:05 Urine Blood Large (Negative) H 11/04/16 21:05 Ur Leukocyte Esterase Small (Negative) H 11/04/16 21:05 Urine Microscopic WBC 5-15 per hpf (0-3) H 11/04/16 21:05 Ur Squamous Epith Cells Many per lpf (None-Few) H 11/04/16 21:05 Ur Culture Indicated? YES (NO) A 11/04/16 21:05 - Diagnostic Findings Additional studies: Abdomen CTA 11/04/16 13:50 IMPRESSION: 1. Large mid/distal esophageal mass which measures approximately 5.7 x 6.6 x 8.0 cm, which has increased in size from prior exam. There is no definite evidence of active arterial extravasation within the mass. 2. Extensive hepatic metastatic disease, which has markedly progressed from prior exam on 09/06/2016. 3. Progressive pulmonary metastatic disease. Index lesions include a 9 x 6 mm right lower lobe nodule, which previously measured 3 mm, as well as a slight increase in size of a 2.3 x 1.6 cm mass at the base of the right middle lobe. Masslike pleural thickening medially at the left lung base measuring 2.3 x 1.5 cm as well as smaller left-sided nodules are also new from prior exam, with a small left pleural effusion. 4. Mildly enlarged mediastinal and gastrohepatic lymph nodes, [id number] increased in size from prior exam. 5. Moderate stenosis at the origin of the left subclavian artery. 6. Borderline dilation of the abdominal aorta to 3.0 cm. Critical results were called by Dr. Dwayne Infante MD to Jc Martinez on 11/04/2016 at 16:01. D/ / 11/04/2016 16:14:56 Dwayne Infante MD / crys Interpreting Provider: Dwayne Infante MD Chest CTA 11/04/16 13:50 IMPRESSION: 1. Large mid/distal esophageal mass which measures approximately 5.7 x 6.6 x 8.0 cm, which has increased in size from prior exam. There is no definite evidence of active arterial extravasation within the mass. 2. Extensive hepatic metastatic disease, which has markedly progressed from prior exam on 09/06/2016. 3. Progressive pulmonary metastatic disease. Index lesions include a 9 x 6 mm right lower lobe nodule, which previously measured 3 mm, as well as a slight increase in size of a 2.3 x 1.6 cm mass at the base of the right middle lobe. Masslike pleural thickening medially at the left lung base measuring 2.3 x 1.5 cm as well as smaller left-sided nodules are also new from prior exam, with a small left pleural effusion. 4. Mildly enlarged mediastinal and gastrohepatic lymph nodes, [id number] increased in size from prior exam. 5. Moderate stenosis at the origin of the left subclavian artery. 6. Borderline dilation of the abdominal aorta to 3.0 cm. Critical results were called by Dr. Dwayne Infante MD to Jc Martinez on 11/04/2016 at 16:01. D/ / 11/04/2016 16:14:56 Dwayne Infante MD / crys Interpreting Provider: Dwayne Infante MD Chest X-Ray 11/04/16 21:40 IMPRESSION: No acute process. D/ / Henry Victoria MD / Henry Victoria MD Interpreting Provider: Henry Victoria MD - Clinical Findings Intake & Output: Intake & Output 11/04/16 11/04/16 11/05/16 15:59 23:59 07:59 Intake Total 1320 / 1320 1420 / 1420 587 / 587 Output Total 700 / 700 1200 / 1200 1530 / 1530 Balance 620 / 620 220 / 220 -943 / -943 Weight 75 kg - VTE Documentation of Mechanical Device: Intermittent pneumatic compression device Consult Discharge Plan - Plan Referrals: NO,PCP [Non-Partnered Physician] - <Ashok Tolbert - Last Filed: 11/05/16 13:43> Objective PUL Vital signs: Last Vital Signs Temp 99.3 F 11/05/16 08:18 Pulse 108 11/05/16 08:24 Resp 24 11/05/16 08:24 BP 127/81 11/05/16 08:24 Pulse Ox 98 11/05/16 08:24 Results - Laboratory Findings CBC and BMP: 11/05/16 10:15 11/05/16 05:02 ABG ABG pH 7.36 pH Units (7.32-7.45) 11/04/16 22:23 ABG pCO2 40 mmHg (35-45) 11/04/16 22:23 ABG pO2 115 mmHg (85-104) H 11/04/16 22:23 ABG O2 Saturation 98 % (95-98) 11/04/16 22:23 PT/INR, D-dimer PT 12.2 Seconds (9.4-12.1) H 11/05/16 05:02 Abnormal lab findings: Abnormal lab results RBC 2.84 M/mcL (3.82-4.97) L 11/04/16 16:40 Hct 34.8 % (35.3-44.9) L 11/05/16 05:02 Neutrophils # 0.2 K/mcL (1.6-8.9) L 11/04/16 16:40 Lymphocytes # 0.0 K/mcL (0.6-4.6) L 11/04/16 16:40 PT 12.2 Seconds (9.4-12.1) H 11/05/16 05:02 ABG pO2 115 mmHg (85-104) H 11/04/16 22:23 ABG Base Excess -2.7 mEq/L (-2.0 to 3.0) L 11/04/16 22:23 BUN 30 mg/dL (7-20) H 11/05/16 05:02 Est GFR (Non-Af Amer) 53 (> 60) L 11/05/16 05:02 BUN/Creatinine Ratio 29 (6-26) H 11/05/16 05:02 Glucose 111 mg/dL (70-99) H 11/05/16 05:02 POC Glucose 112 (58-89) H 11/04/16 21:42 Phosphorus 4.8 mg/dL (2.3-4.7) H 11/05/16 05:02 Serum Total Protein 5.3 g/dL (6.0-8.3) L 11/04/16 16:40 Albumin 2.0 g/dL (3.5-5.0) L D 11/04/16 16:40 Albumin/Globulin Ratio 0.6 (1.1-2.2) L 11/04/16 16:40 Ur Specific [place] > 1.030 (1.010-1.025) H 11/04/16 21:05 Urine Blood Large (Negative) H 11/04/16 21:05 Ur Leukocyte Esterase Small (Negative) H 11/04/16 21:05 Urine Microscopic WBC 5-15 per hpf (0-3) H 11/04/16 21:05 Ur Squamous Epith Cells Many per lpf (None-Few) H 11/04/16 21:05 Ur Culture Indicated? YES (NO) A 11/04/16 21:05 - Clinical Findings Intake & Output: Intake & Output 11/04/16 11/05/1617 23:59 07:59 15:59 Intake Total 1420 / 1420 587 / 587 Output Total 1200 / 1200 1530 / 1530 300 / 300 Balance 220 / 220 -943 / -943 -300 / -300 Weight 75 kg - Attending Attestation I examined this patient and my medical decision-making was reviewed with the PRESCHOOL ASSISTANT PRINCIPAL/PA/Advanced Practice Nurse/Resident Physician. I agree with the documented findings, disposition and treatment plan as described except to the extent set forth below. Patient seen and examined at bedside Labs, radiology, chart personally reviewed. All lines examined without evidence of infection. Neuropsych: awake and alert follows all commands. Pain control with narcotics Pulm: worsening hypoxia overnight. diuresis initiated with improvement. CXR with mild pulmonary congestion. 2L NC with 98% sat ok to wean to keep sats around 92%. Cards: Stable MAP. monintored on Tele. FEN-GI: Esophageal cancer with bleeding. Renal: no PRESLEY. cont monitor UOP. ID: ?[email or web address] started on empiric ABx will hold now. low clinical suspicion or UTI. Heme/Onc: Esophageal CA with hemorrhage. holiding chemo dvt prophylaxis for bleeding risk. H/H stable overnight. Endo: glucose monitored Integ/MSK: skin care per ICU protocol CODE: Full Palliative on board. prognosis poor. I discussed the case with her primary oncologist and subsequently with the family and patient at bedside. Overall prognosis poor all interventions at this time palliative standpoint here there is no interventional palliative procedure is likely to stop tumor bleeding family was inquiring if possible transfer to a referral center would be beneficial he said from what has been described to me here does not seem to be the case but that I would be willing to discuss possible second opinion in [facility] family was going to provide me with a number of a referral physician whom they knew. I did explain to the patient that she had advanced metastatic cancer and that CPR and no circumstances is unlikely to give any benefit but cause severe suffering. she wants to cont to think about this.
[2016-11-05 10:21] LABS: Hematocrit 34.4 % (35.3-44.9); Hemoglobin 11.5 g/dL (11.5-15.4)
[2016-11-05] MEDS ORDERED: *HR* HYDROmorphone (PF) 1 MG/ML SYRINGE IVP PRN (11:01)
[2016-11-05] MEDS ORDERED: *HR* LORazepam 2 MG/ML VIAL IVP ONE (11:18)
[2016-11-05] MEDS: Ipratropium/Albuterol Neb 3 ML IH PRN ×2 (11:19→19:40)
--- NOTE | 2016-11-05 11:56 | Palliative - Consult Note ---
Date of Encounter: 11/05/16 Time of Encounter: 11:50 - Assessment and Plan (1) Abdominal pain Current Visit: Yes Status: Acute Assessment and plan: She was transitioned this am from Morphine to Hydromorphone. Hydromorphone worked well for her pain last admission. She is currently comfortable and resting. Qualifiers: Abdominal location: unspecified location Qualified Code(s): R10.9 - Unspecified abdominal pain (2) Counseling regarding advanced care planning and goals of care Current Visit: Yes Status: Acute Assessment and plan: Patient at bedside. Patient tearful, states she knows "its not good". At this point, she wants better pain control and states the Hydromorphone has helped more than Morphine. She remains full code at this time, and awaiting f/ u from oncologist. To note - last weekend when I saw pt, should would not engage in goals of care discussion, and nursing called me after I visited and stated patient was upset with me discussing prognosis, and her end of life wishes. She stated to me then that "chemo was going to take care of the cancer" . Patient and family seem to having very difficult time with her diagnosis and prognosis. If nothing else can be offered here for her bleeding, she may desire transfer for second opinion. I provided emotional support, pt did not want to make any other decisions at this time. Will continue to follow. (3) Esophageal adenocarcinoma Current Visit: No Status: Chronic (4) GI bleed Current Visit: No Status: Resolved Qualifiers: GI bleed type/associated pathology: unspecified gastrointestinal hemorrhage type Qualified Code(s): K92.2 - Gastrointestinal hemorrhage, unspecified Palliative-CN HPI - Data of Consult Consult date: 11/05/16 Requesting Physician: Oliver Pierre Primary Care Provider: Susan Burris CNP - Consult Narrative History of present illness: Ms. Lara is a 65 year old female known to the palliative care team from a previous visit who has history of metastatic esophageal cancer. She was discharged approx 8-9 days ago after GI bleed and PEG insertion. reports bloody stool, diaphoresis, and increasing weakness when up to bathroom at home. She was transfused at [place] sent home, and continued to bleed. She was transferred here from [place] and is currently in ICU for close monitoring. She had EGD over weekend per Dr. Boyd. Hgb stable this am. is at bedside. She is anxious and tearful. C/O abd pain, and just received pain medication. Denies nausea and is actually desiring something to drink orally. States tube feeds were going well at home and they have been pleased with home health care. C/o generalized weakness and shortness of breath. CC: Oliver Pierre Past Med Surg Social Fam HX - Past Medical History Medical history: cancer, COPD, GI bleed, hyperlipidemia, hypertension, renal disease, other Psychiatric history: no psych history - Past Surgical History Surgical History: other - Social History Smoking Status: Former smoker Smokeless Tobacco Status: No Alcohol use: none Drug use: none - Family History Father Living Status: Hx Family Cardiac Disorders: Yes (HEART RELATED) Mother Living Status: Still Living Hx Family Cardiac Disorders: Yes (Hypertension) Hx Family Endocrine Disorder: Yes (Diabetes Mellitus) Hx Family Neurologic Disorders: Yes (CVA) Sister Living Status: Still Living Hx Family Cardiac Disorders: No Hx Family Cancer: Yes Hx Family GI Disorders: No Hx Family Endocrine Disorder: No Hx Family Neuromuscular Disorders: No Hx Family Neurologic Disorders: No Hx Family HEENT Disorders: No Hx Family Autoimmune Disorders: No Medications and Allergies Albuterol Sulfate [Proair Respiclick] 1 - 2 puff IH Q6H PRN 08/26/15 [History] Losartan Potassium [Cozaar] 100 mg PO DAILY 08/26/15 [History] CloNIDine Patch [Catapres-Tts] 0.3 mg TP QWEEK 08/14/16 [History] OxyCODONE Immed Rel [Roxicodone 5 MG] 10 mg PO Q4H PRN 09/28/16 [History] Lactose-Reduced Food/Fiber [Jevity 1.5 Andrés Liquid] 1 can PO TID #24 can [Rx] Ergocalciferol (VITAMIN D2) [Vitamin D2] 50,000 unit PO QWEEK 11/04/16 [History] Metoprolol Tartrate [Lopressor] 50 mg PO BID 11/04/16 [History] Prochlorperazine Maleate [Compazine] 10 mg PO Q8HR PRN 11/04/16 [History] Sennosides [Senna] 8.6 mg PO BID 11/04/16 [History] Allergies Amoxicillin [From Augmentin] Adverse Reaction (Verified 11/04/16 10:04) Diarrhea aspirin Adverse Reaction (Verified 11/03/16 21:07) Nausea clavulanic acid [From Augmentin] Adverse Reaction (Verified 11/04/16 10:04) Diarrhea naproxen Adverse Reaction (Verified 11/03/16 21:07) Nausea NSAIDS (Non-Steroidal Anti-Inflamma Adverse Reaction (Verified 11/03/16 21:07) Nausea sulfamethoxazole [From Bactrim] Adverse Reaction (Verified 11/04/16 10:04) Hypertension trimethoprim [From Bactrim] Adverse Reaction (Verified 11/04/16 10:04) Hypertension All systems: reviewed and no additional remarkable complaints except as stated ( dark tarry stools, generalized weakness, abd pain, shortness of breath, anxiety) Palliative Care-Exam - Constitutional Vitals: Temp Pulse Resp BP Pulse Ox 99.3 F 107 16 133/82 100 11/05/16 08:18 11/05/16 11:21 11/05/16 11:21 11/05/16 11:21 11/05/16 11:21 General appearance: Present: mild distress - Respiratory Respiratory exam: Present: decreased breath sounds, CTAB Additional comments: few expiratory wheezes - Cardiovascular Cardiovascular exam: Present: +S1, +S2 - GI/Abdominal Exam GI/Abdominal exam: Present: diminished bowel sounds, soft, tenderness additional comments: PEG intact - Extremities Exam Additional comments: 2+ bilateral edema lower extremities - Neurological Exam Neurological exam: Present: alert, oriented X3, strengths equal and symetr throughout - Psychiatric Psychiatric exam: Present: anxious - Skin Skin exam: Present: dry, pallor, warm Internal Medicine - CN: Reslt - Labs CBC & Chem 7: 11/05/16 10:15 11/05/16 05:02 Labs: Short CBC 11/04/16 11/04/16 11/05/16 Range/Units 16:40 22:15 01:35 WBC 5.6 (4.3-11.1) K/mcL Hgb 8.1 L D 14.2 D 12.3 D (11.5-15.4) g/dL Hct 24.5 L 42.4 36.5 (35.3-44.9) % Plt Count 174 (140-400) K/mcL Neutrophils # 0.2 L (1.6-8.9) K/mcL 11/05/16 11/05/16 Range/Units 05:02 10:15 WBC (4.3-11.1) K/mcL Hgb 11.7 11.5 (11.5-15.4) g/dL Hct 34.8 L 34.4 L (35.3-44.9) % Plt Count (140-400) K/mcL Neutrophils # (1.6-8.9) K/mcL BMP 11/04/16 11/04/16 11/05/16 16:40 22:15 05:02 Sodium 136 136 139 Potassium 4.9 H 5.1 H 4.5 Chloride 104 103 102 Carbon Dioxide 24 21 26 BUN 38 H D 32 H 30 H Creatinine 0.88 0.97 1.05 Glucose 103 H 129 H 111 H Calcium 8.6 8.8 9.1 Liver Function 11/04/16 Range/Units 16:40 Total Bilirubin 0.6 (0.2-1.2) mg/dL AST 31 (5-34) Units/L ALT 19 (0-55) Units/L Alkaline Phosphatase 65 (38-126) Units/L Albumin 2.0 L D (3.5-5.0) g/dL Urine 11/04/16 Range/Units 21:05 Urine Color Yellow (Yellow) Urine Clarity Clear (Clear) Urine pH 7.0 (5.0-8.0) pH Units Ur Specific [place] > 1.030 H (1.010-1.025) Urine Protein Trace (Neg-Trace) mg/dL Urine Glucose (UA) Normal (Normal) mg/dL - ABG Interpretation ABG results: ABG ABG pH 7.36 pH Units (7.32-7.45) 11/04/16 22:23 ABG pCO2 40 mmHg (35-45) 11/04/16 22:23 ABG pO2 115 mmHg (85-104) H 11/04/16 22:23 ABG O2 Saturation 98 % (95-98) 11/04/16 22:23 PT/INR, D-dimer PT 12.2 Seconds (9.4-12.1) H 11/05/16 05:02 - Impressions Impressions Abdomen CTA 11/04/16 13:50 IMPRESSION: 1. Large mid/distal esophageal mass which measures approximately 5.7 x 6.6 x 8.0 cm, which has increased in size from prior exam. There is no definite evidence of active arterial extravasation within the mass. 2. Extensive hepatic metastatic disease, which has markedly progressed from prior exam on 09/06/2016. 3. Progressive pulmonary metastatic disease. Index lesions include a 9 x 6 mm right lower lobe nodule, which previously measured 3 mm, as well as a slight increase in size of a 2.3 x 1.6 cm mass at the base of the right middle lobe. Masslike pleural thickening medially at the left lung base measuring 2.3 x 1.5 cm as well as smaller left-sided nodules are also new from prior exam, with a small left pleural effusion. 4. Mildly enlarged mediastinal and gastrohepatic lymph nodes, [id number] increased in size from prior exam. 5. Moderate stenosis at the origin of the left subclavian artery. 6. Borderline dilation of the abdominal aorta to 3.0 cm. Critical results were called by Dr. Dwayne Infante MD to Jc Martinez on 11/04/2016 at 16:01. D/ / 11/04/2016 16:14:56 Dwayne Infante MD / crys Interpreting Provider: Dwayne Infante MD Chest CTA 11/04/16 13:50 IMPRESSION: 1. Large mid/distal esophageal mass which measures approximately 5.7 x 6.6 x 8.0 cm, which has increased in size from prior exam. There is no definite evidence of active arterial extravasation within the mass. 2. Extensive hepatic metastatic disease, which has markedly progressed from prior exam on 09/06/2016. 3. Progressive pulmonary metastatic disease. Index lesions include a 9 x 6 mm right lower lobe nodule, which previously measured 3 mm, as well as a slight increase in size of a 2.3 x 1.6 cm mass at the base of the right middle lobe. Masslike pleural thickening medially at the left lung base measuring 2.3 x 1.5 cm as well as smaller left-sided nodules are also new from prior exam, with a small left pleural effusion. 4. Mildly enlarged mediastinal and gastrohepatic lymph nodes, phkw-[id number] increased in size from prior exam. 5. Moderate stenosis at the origin of the left subclavian artery. 6. Borderline dilation of the abdominal aorta to 3.0 cm. Critical results were called by Dr. Dwayne Infante MD to Jc Martinez on 11/04/2016 at 16:01. D/ / 11/04/2016 16:14:56 Dwayne Infante MD / bcarter Interpreting Provider: Dwayne Infante MD Chest X-Ray 11/04/16 21:40 IMPRESSION: No acute process. D/ / Henry Victoria MD / Henry Victoria MD Interpreting Provider: Henry Victoria MD Consult Discharge Plan - Plan Referrals: NO,PCP [Non-Partnered Physician] - Palliative Quality Palliative Quality: Screen for Code Status: Yes, Screen for Goals of Care: Yes, Screen for Pain: Yes, If Pain Regimen Started, Initiate Bowel Regimen: NA ( loose tarry ), Screen for Nausea/Vomitting: Yes Code Status: 11/04/16 03:19 Resuscitation Status: Active [RES] Routine Comment: Resuscitation Status: Full Code
[2016-11-05 16:07] LABS: Hematocrit 34.8 % (35.3-44.9); Hemoglobin 11.6 g/dL (11.5-15.4)
[2016-11-05] MEDS ORDERED: Calcium Gluconate 1,000 MG in D5% in Water 100 ML IVPB PRN (16:38)
[2016-11-05] MEDS ORDERED: Magnesium Sulfate 2 GM in D5% in Water 100 ML IVPB PRN (16:38)
[2016-11-05] MEDS ORDERED: Naloxone 0.4 MG/ML INJ IVP PRN (16:38)
[2016-11-05] MEDS: *HR* HYDROmorphone (PF) 1 MG/ML SYRINGE IVP PRN (18:11)
[2016-11-06] MEDS: *HR* HYDROmorphone (PF) 1 MG/ML SYRINGE IVP PRN ×7 (00:12→23:35)
[2016-11-06 05:08] LABS: Hematocrit 34.9 % (35.3-44.9); Hemoglobin 11.4 g/dL (11.5-15.4)
[2016-11-06 05:19] LABS: BUN/Creatinine Ratio 20 (6-26); Carbon Dioxide 27 mEq/L (19-29); Chloride 104 mEq/L (98-109); Glucose 105 mg/dL (70-99); Magnesium 1.6 mg/dL (1.6-2.6); Osmolality,Calculated 292 (280-300); Phosphorous 4.2 mg/dL (2.3-4.7); Potassium 3.9 mEq/L (3.5-4.5); Sodium 140 mEq/L (136-145); eGFR For African Americans > 60 (> 60); eGFR For Non-African Americans > 60 (> 60)
[2016-11-06 05:27] LABS: Blood Urea Nitrogen 17 mg/dL (7-20)
[2016-11-06] MEDS: Pantoprazole 40 MG VIAL IVP SCH ×2 (05:58→16:39)
--- NOTE | 2016-11-06 09:15 | Pulmonology Progress Note ---
<Ashok Tolbert W - Last Filed: 11/06/16 10:27> Objective PUL Vital signs: Last Vital Signs Temp 98.1 F 11/06/16 07:39 Pulse 91 11/06/16 08:32 Resp 22 11/06/16 08:00 BP 151/92 11/06/16 08:00 Pulse Ox 96 11/06/16 08:00 Results - Laboratory Findings CBC and BMP: 11/06/16 04:45 11/06/16 04:45 ABG ABG pH 7.36 pH Units (7.32-7.45) 11/04/16 22:23 ABG pCO2 40 mmHg (35-45) 11/04/16 22:23 ABG pO2 115 mmHg (85-104) H 11/04/16 22:23 ABG O2 Saturation 98 % (95-98) 11/04/16 22:23 PT/INR, D-dimer PT 12.2 Seconds (9.4-12.1) H 11/05/16 05:02 Abnormal lab findings: Abnormal lab results RBC 2.84 M/mcL (3.82-4.97) L 11/04/16 16:40 Hgb 11.4 g/dL (11.5-15.4) L 11/06/16 04:45 Hct 34.9 % (35.3-44.9) L 11/06/16 04:45 Neutrophils # 0.2 K/mcL (1.6-8.9) L 11/04/16 16:40 Lymphocytes # 0.0 K/mcL (0.6-4.6) L 11/04/16 16:40 PT 12.2 Seconds (9.4-12.1) H 11/05/16 05:02 ABG pO2 115 mmHg (85-104) H 11/04/16 22:23 ABG Base Excess -2.7 mEq/L (-2.0 to 3.0) L 11/04/16 22:23 Glucose 105 mg/dL (70-99) H 11/06/16 04:45 POC Glucose 112 (58-89) H 11/04/16 21:42 Serum Total Protein 5.3 g/dL (6.0-8.3) L 11/04/16 16:40 Albumin 2.0 g/dL (3.5-5.0) L D 11/04/16 16:40 Albumin/Globulin Ratio 0.6 (1.1-2.2) L 11/04/16 16:40 Ur Specific [place] > 1.030 (1.010-1.025) H 11/04/16 21:05 Urine Blood Large (Negative) H 11/04/16 21:05 Ur Leukocyte Esterase Small (Negative) H 11/04/16 21:05 Urine Microscopic WBC 5-15 per hpf (0-3) H 11/04/16 21:05 Ur Squamous Epith Cells Many per lpf (None-Few) H 11/04/16 21:05 Ur Culture Indicated? YES (NO) A 11/04/16 21:05 - Microbiology Findings Microbiology Findings: Microbiology, Last 48 Hours 11/04/16 16:40 Blood Culture - Preliminary Peripheral Venipuncture No growth. 11/04/16 21:05 Urine Culture - Final Urine,Clean Catch Culture is grossly mixed, unable to properly interpret. Please repeat if indicated. - Clinical Findings Intake & Output: Intake & Output 11/05/16 11/06/16 11/06/16 23:59 07:59 15:59 Output Total 325 / 325 300 / 300 Balance -325 / -325 -300 / -300 Consult Discharge Plan - Plan Referrals: NO,PCP [Non-Partnered Physician] - - Attending Attestation I examined this patient and my medical decision-making was reviewed with the SEWING ROOM SUPERVISOR/PA/Advanced Practice Nurse/Resident Physician. I agree with the documented findings, disposition and treatment plan as described except to the extent set forth below. Patient seen and examined at bedside Labs, radiology, chart personally reviewed. All lines examined without evidence of infection. Neuropsych: awake and alert follows all commands. Pain control with narcotics Pulm: 98% sat on room air Cards: Stable MAP. monintored on Tele. FEN-GI: Esophageal cancer with bleeding. Cont tube feeds. Occasional clear liquids by mouth. Renal: no PRESLEY. cont monitor UOP. ID: stable Heme/Onc: Esophageal CA with hemorrhage. holiding chemo dvt prophylaxis for bleeding risk. H/H stable overnight. Endo: glucose monitored Integ/MSK: skin care per ICU protocol CODE: Full Transfer to [facility] or possibly home if no beds. Palliative on board. prognosis poor. I did speak to Dr Nikki Turcios at [facility] at families request. No further surgical intervention planned at this time. <Jc Martinez - Last Filed: 11/06/16 11:12> Date of Encounter: 11/06/16 Time of Encounter: 09:13 Assessment and Plan (1) Anemia due to acute blood loss Current Visit: Yes Status: Acute 65 y/o female with hx of esophageal cancer stage IV diagnosed in August. Since then she has had multiple episodes of UGI bleed with hemetemesis and melena and multiple transfusions. Patient is followed by Dr. Soto. Patient presented to [facility] with hgb of 4. She was transfered to [facility] ICU. Has reciev total of 7 units of PBRC and 4 units FFP. CTA shows metastasis to liver, lung and diffuse lymphadenopathy. For the past 2 days patient's hemoglobin has been stable. She continues to have melanotic stools. Her vital signs are stable. She can be discharged home today with home health and labs to monitor hemoglobin and hematocrit. (2) Adenocarcinoma of esophagus, stage 4 Current Visit: Yes Status: Acute She CTA shows a mass in the distal esophagus measuring 5.76.68 cm. Patient is followed by Dr. Wilkinson outpatient for oncology. Patient has acute upper GI bleed secondary to her stage IV esophageal cancer. Family said that there was a doctor that stated that there are surgical interventions to treat patient however that was reached and Dr. Henao had conversation saying he cannot offer anything. Patient will be discharged today with outpatient appointment with Dr. Munoz and follow-up labs. (3) DVT prophylaxis Current Visit: Yes Status: Acute EPCDs Heparin contraindicated due to bleed. Subjective Principal diagnosis: UGI bleed Interval history: No cute event overnight. H/H stable. Objective PUL Vital signs: Last Vital Signs Temp 98.1 F 11/06/16 07:39 Pulse 91 11/06/16 08:32 Resp 22 11/06/16 08:00 BP 151/92 11/06/16 08:00 Pulse Ox 96 11/06/16 08:00 General appearance: no acute distress Eyes: nonicteric ENT: oropharynx moist Neck: supple Effort: normal Auscultation: bilateral: clear Percussion: bilateral: not dull Tactile fremitus: bilateral: normal Cardiovascular: regular rate and rhythm Gastrointestinal: normoactive bowel sounds, soft, non-distended, other (PEG tube intact no signs of infection ) Integumentary: normal Extremities: no cyanosis, no edema, no clubbing Musculoskeletal: no deformities, ROM normal normal mental status, non-focal exam mood appropriate, affect normal Results - Laboratory Findings CBC and BMP: 11/06/16 04:45 11/06/16 04:45 ABG ABG pH 7.36 pH Units (7.32-7.45) 11/04/16 22:23 ABG pCO2 40 mmHg (35-45) 11/04/16 22:23 ABG pO2 115 mmHg (85-104) H 11/04/16 22:23 ABG O2 Saturation 98 % (95-98) 11/04/16 22:23 PT/INR, D-dimer PT 12.2 Seconds (9.4-12.1) H 11/05/16 05:02 Abnormal lab findings: Abnormal lab results RBC 2.84 M/mcL (3.82-4.97) L 11/04/16 16:40 Hgb 11.4 g/dL (11.5-15.4) L 11/06/16 04:45 Hct 34.9 % (35.3-44.9) L 11/06/16 04:45 Neutrophils # 0.2 K/mcL (1.6-8.9) L 11/04/16 16:40 Lymphocytes # 0.0 K/mcL (0.6-4.6) L 11/04/16 16:40 PT 12.2 Seconds (9.4-12.1) H 11/05/16 05:02 ABG pO2 115 mmHg (85-104) H 11/04/16 22:23 ABG Base Excess -2.7 mEq/L (-2.0 to 3.0) L 11/04/16 22:23 Glucose 105 mg/dL (70-99) H 11/06/16 04:45 POC Glucose 112 (58-89) H 11/04/16 21:42 Serum Total Protein 5.3 g/dL (6.0-8.3) L 11/04/16 16:40 Albumin 2.0 g/dL (3.5-5.0) L D 11/04/16 16:40 Albumin/Globulin Ratio 0.6 (1.1-2.2) L 11/04/16 16:40 Ur Specific [place] > 1.030 (1.010-1.025) H 11/04/16 21:05 Urine Blood Large (Negative) H 11/04/16 21:05 Ur Leukocyte Esterase Small (Negative) H 11/04/16 21:05 Urine Microscopic WBC 5-15 per hpf (0-3) H 11/04/16 21:05 Ur Squamous Epith Cells Many per lpf (None-Few) H 11/04/16 21:05 Ur Culture Indicated? YES (NO) A 11/04/16 21:05 - Microbiology Findings Microbiology Findings: Microbiology, Last 48 Hours 11/04/16 16:40 Blood Culture - Preliminary Peripheral Venipuncture No growth. 11/04/16 21:05 Urine Culture - Final Urine,Clean Catch Culture is grossly mixed, unable to properly interpret. Please repeat if indicated. - Clinical Findings Intake & Output: Intake & Output 11/05/16 11/06/16 11/06/16 23:59 07:59 15:59 Output Total 325 / 325 300 / 300 Balance -325 / -325 -300 / -300 - VTE Documentation of Mechanical Device: Intermittent pneumatic compression device
--- NOTE | 2016-11-06 11:18 | Discharge Summary ---
Date of Encounter: 11/06/16 Time of Encounter: 11:12 - Discharge Diagnosis (1) Anemia due to acute blood loss Priority: Primary Status: Acute (2) Adenocarcinoma of esophagus, stage 4 Priority: Secondary Status: Acute (3) DVT prophylaxis Priority: Secondary Status: Acute - Discharge Medications Prescriptions: OxyCODONE Immed Rel [Roxicodone 5 MG] 10 mg PO Q4H PRN #42 tablet PRN Reason: pain Home Medications: Albuterol Sulfate [Proair Respiclick] 1 - 2 puff IH Q6H PRN 08/26/15 [History] Losartan Potassium [Cozaar] 100 mg PO DAILY 08/26/15 [History] CloNIDine Patch [Catapres-Tts] 0.3 mg TP QWEEK 08/14/16 [History] Lactose-Reduced Food/Fiber [Jevity 1.5 Andrés Liquid] 1 can PO TID #24 can [Rx] Ergocalciferol (VITAMIN D2) [Vitamin D2] 50,000 unit PO QWEEK 11/04/16 [History] Metoprolol Tartrate [Lopressor] 50 mg PO BID 11/04/16 [History] Prochlorperazine Maleate [Compazine] 10 mg PO Q8HR PRN 11/04/16 [History] Sennosides [Senna] 8.6 mg PO BID 11/04/16 [History] OxyCODONE Immed Rel [Roxicodone 5 MG] 10 mg PO Q4H PRN #42 tablet 11/06/16 [Rx] Allergies/Adverse Reactions: Allergies Amoxicillin [From Augmentin] Adverse Reaction (Verified 11/04/16 10:04) Diarrhea aspirin Adverse Reaction (Verified 11/03/16 21:07) Nausea clavulanic acid [From Augmentin] Adverse Reaction (Verified 11/04/16 10:04) Diarrhea naproxen Adverse Reaction (Verified 11/03/16 21:07) Nausea NSAIDS (Non-Steroidal Anti-Inflamma Adverse Reaction (Verified 11/03/16 21:07) Nausea sulfamethoxazole [From Bactrim] Adverse Reaction (Verified 11/04/16 10:04) Hypertension trimethoprim [From Bactrim] Adverse Reaction (Verified 11/04/16 10:04) Hypertension Labs on day of discharge: Labs from last 24 hours 11/06/16 11/06/1611/05/17 04:45 04:45 15:25 Hgb 11.4 L 11.6 Hct 34.9 L 34.8 L Sodium 140 Potassium 3.9 Chloride 104 Carbon Dioxide 27 BUN 17 D Creatinine 0.84 Est GFR ( Amer) > 60 Est GFR (Non-Af Amer) > 60 BUN/Creatinine Ratio 20 Glucose 105 H Calculated Osmolality 292 Calcium 9.0 Phosphorus 4.2 Magnesium 1.6 Preliminary micro results at discharge 11/04/16 16:40 Blood Culture - Preliminary Peripheral Venipuncture No growth. - Impressions ITS Impressions Chest X-Ray 11/04/16 09:52 IMPRESSION: No evidence for acute cardiopulmonary process. D/ / 11/04/2016 10:13:55 Clive Alanis MD / manoj Interpreting Provider: Clive Alanis MD Abdomen CTA 11/04/16 13:50 IMPRESSION: 1. Large mid/distal esophageal mass which measures approximately 5.7 x 6.6 x 8.0 cm, which has increased in size from prior exam. There is no definite evidence of active arterial extravasation within the mass. 2. Extensive hepatic metastatic disease, which has markedly progressed from prior exam on 09/06/2016. 3. Progressive pulmonary metastatic disease. Index lesions include a 9 x 6 mm right lower lobe nodule, which previously measured 3 mm, as well as a slight increase in size of a 2.3 x 1.6 cm mass at the base of the right middle lobe. Masslike pleural thickening medially at the left lung base measuring 2.3 x 1.5 cm as well as smaller left-sided nodules are also new from prior exam, with a small left pleural effusion. 4. Mildly enlarged mediastinal and gastrohepatic lymph nodes, [id number] increased in size from prior exam. 5. Moderate stenosis at the origin of the left subclavian artery. 6. Borderline dilation of the abdominal aorta to 3.0 cm. Critical results were called by Dr. Dwayne Infante MD to Jc Martinez on 11/04/2016 at 16:01. D/ / 11/04/2016 16:14:56 Dwayne Infante MD / crys Interpreting Provider: Dwayne Infante MD Chest CTA 11/04/16 13:50 IMPRESSION: 1. Large mid/distal esophageal mass which measures approximately 5.7 x 6.6 x 8.0 cm, which has increased in size from prior exam. There is no definite evidence of active arterial extravasation within the mass. 2. Extensive hepatic metastatic disease, which has markedly progressed from prior exam on 09/06/2016. 3. Progressive pulmonary metastatic disease. Index lesions include a 9 x 6 mm right lower lobe nodule, which previously measured 3 mm, as well as a slight increase in size of a 2.3 x 1.6 cm mass at the base of the right middle lobe. Masslike pleural thickening medially at the left lung base measuring 2.3 x 1.5 cm as well as smaller left-sided nodules are also new from prior exam, with a small left pleural effusion. 4. Mildly enlarged mediastinal and gastrohepatic lymph nodes, [id number] increased in size from prior exam. 5. Moderate stenosis at the origin of the left subclavian artery. 6. Borderline dilation of the abdominal aorta to 3.0 cm. Critical results were called by Dr. Dwayne Infante MD to Jc Martinez on 11/04/2016 at 16:01. D/ / 11/04/2016 16:14:56 Dwayne Infante MD / crys Interpreting Provider: Dwayne Infante MD Chest X-Ray 11/04/16 21:40 IMPRESSION: No acute process. D/ / Henry Victoria MD / Henry Victoria MD Interpreting Provider: Henry Victoria MD Date of admission: 11/04/16 01:27 Primary care physician: Susan Burris CNP Consults: 11/04/16 01:24 Consult to Blood Coordinator [CONS] Routine Reason for SW Consult: Pt already has home care, additional support for that. Pt also states she needs a walker at home. 11/04/16 08:37 Consult to Pulmonology [CONS] Stat Consulting Provider: Pulm Crit Care & [facility] [place] Reason for Consult: Upper GI bleed, hypovolemia Time Notified: 08:38 Call Completed: Yes 11/04/16 09:48 Consult to Surgery [CONS] Routine Consulting Provider: Surgery [facility] Reason for Consult: Upper GI bleed - discussed with Dr Boyd Time Notified: 09:40 Call Completed: Yes 11/05/16 07:32 Consult to Palliative Care [CONS] Routine Comment: Consulting Provider: Palliative Care [place] 11/06/16 09:15 Consult to Occupational Therapy [CONS] Routine Comment: Evaluate, develop and implement POC Consult to Physical Therapy [CONS] Routine Comment: Evaluate, develop and implement POC Discharging clinician: Jc Martinez Anticipated date of discharge: 11/06/16 - Patient Status Disposition: Home Health Service Condition: Fair Functional capacity at discharge: independent ambulation Overall status at discharge: patient is progressing back to baseline - Discharge Instructions Follow Up With: SEAN,PCP [Non-Partnered Physician] - Dev Callejas MD [Partnered Physician] - - Diet and Activity Activity: as per physical therapy Diet: other (tube feeds jevity) - Hospital Course Hospital course: Ms. Lara is a 65 year old Female patient with extensive history of stage IV adenocarcinoma with metastasis to her lungs and liver presenting with esophageal bleeding. Patient states this is been going on since July. She is under the treatment of Dr. rowell. She had chemotherapy in September and as well as on October 12. She has refused radiation. She has had multiple blood transfusions since her diagnosis in July. Most recently here she has received 7 units of packed red blood cells as well as [address] Boyd did an endoscopy yesterday and placed 2 clips on the mass in her esophagus. This mass is measuring 5.7 x 6.6 x 8 cm on CTA. IR was consulted for possible embolization of the bleeding. They stated there were several penetrating arteries to this area would be difficult to embolize any of them. Family and patient are so requesting patient to be a full code. Family stated that there was a doctor at [facility] who had offered surgical intervention as a treatment. has talked to the doctor and stated that there is no intervention he can offer at this time. Patient and family understand the gravity of patient's disease. Plan: d/c with home health CBC on and saturday Follow up with Family physician Follow up with Dr. Rowell Restart home meds take with apple sauce. Restart tube feedings : Jevity 1.5 TID bolus and night cycle jevity 1.5 @ 40mls / hr x 12 hours via PEG - Time Spent with Patient Total time spent providing and/or coordinating discharge services: Physical Examination Vital Signs: Vital Signs, Last 4 Hours Temp Pulse Resp BP Pulse Ox 11/06/16 08:32 91 11/06/16 08:00 94 22 151/92 96 11/06/16 07:39 98.1 F General appearance: no acute distress Eyes: nonicteric ENT: oropharynx moist Neck: supple Effort: normal Inspection: normal Auscultation: bilateral: clear Percussion: bilateral: not dull Tactile fremitus: bilateral: normal Cardiovascular: regular rate and rhythm Gastrointestinal: normoactive bowel sounds, non-distended, other (peg tube ) Integumentary: normal Extremities: no cyanosis, no edema, no clubbing Musculoskeletal: no deformities, ROM normal normal mental status, non-focal exam mood appropriate, affect normal - VTE Documentation of Mechanical Device: Intermittent pneumatic compression device
--- NOTE | 2016-11-06 11:21 | Physician Discharge Referral ---
<Jc Martinez - Last Filed: 11/06/16 11:56> Home Health/Hosp Referral Info Transfer to: Home Health Attending Provider: Dr. dowling Provider in Charge Post Discharge: PCP - Diagnosis (1) Anemia due to acute blood loss Priority: Primary Status: Acute (2) Adenocarcinoma of esophagus, stage 4 Priority: Secondary Status: Acute (3) DVT prophylaxis Priority: Secondary Status: Acute - Respiratory Orders Smoking Cessation: Smoking cessation has been advised. For more information, call the [place] [employer] Quit Line at 9-524-IPQN-NOW. - Diet/Nutrition Diet/Nutrition: List: Restart tube feedings : Jevity 1.5 TID bolus and night cycle jevity 1.5 @ 40mls / hr x 12 hours via PEG - Activity Activity: List: as per physical theraphy - Services Needed Following services are medically necessary services: Nursing, Physical Therapy, Occupational Therapy Home Care Orders: CBC on 11/08 and 11/11 - Transfer Medications Prescriptions: OxyCODONE Immed Rel [Roxicodone 5 MG] 10 mg PO Q4H PRN #42 tablet PRN Reason: pain Home Medications: Albuterol Sulfate [Proair Respiclick] 1 - 2 puff IH Q6H PRN 08/26/15 [History] Losartan Potassium [Cozaar] 100 mg PO DAILY 08/26/15 [History] CloNIDine Patch [Catapres-Tts] 0.3 mg TP QWEEK 08/14/16 [History] Lactose-Reduced Food/Fiber [Jevity 1.5 Andrés Liquid] 1 can PO TID #24 can [Rx] Ergocalciferol (VITAMIN D2) [Vitamin D2] 50,000 unit PO QWEEK 11/04/16 [History] Metoprolol Tartrate [Lopressor] 50 mg PO BID 11/04/16 [History] Prochlorperazine Maleate [Compazine] 10 mg PO Q8HR PRN 11/04/16 [History] Sennosides [Senna] 8.6 mg PO BID 11/04/16 [History] OxyCODONE Immed Rel [Roxicodone 5 MG] 10 mg PO Q4H PRN #42 tablet 11/06/16 [Rx] Allergies/Adverse Reactions: Allergies Amoxicillin [From Augmentin] Adverse Reaction (Verified 11/04/16 10:04) Diarrhea aspirin Adverse Reaction (Verified 11/03/16 21:07) Nausea clavulanic acid [From Augmentin] Adverse Reaction (Verified 11/04/16 10:04) Diarrhea naproxen Adverse Reaction (Verified 11/03/16 21:07) Nausea NSAIDS (Non-Steroidal Anti-Inflamma Adverse Reaction (Verified 11/03/16 21:07) Nausea sulfamethoxazole [From Bactrim] Adverse Reaction (Verified 11/04/16 10:04) Hypertension trimethoprim [From Bactrim] Adverse Reaction (Verified 11/04/16 10:04) Hypertension Certification: Further, I certify that my clinical findings support that this patient is homebound (i.e. absences from home require considerable and taxing effort and are for medical reasons or bahai services or infrequently or short duration when for other reasons) because: Homebound Reason: Patient requires assistance of a person or device to safely leave home, Leaving home requires considerable and taxing effort due to condition Attestation: My signature below is to certify that this patient is under my care and that I, or nurse practitioner, or a physician's recruitment and outreach assistant working with me, has a face-to -face encounter with this patient. <Ashok Tolbert W - Last Filed: 11/06/16 13:53> - Respiratory Orders Smoking Cessation: Smoking cessation has been advised. For more information, call the [place] [employer] Quit Line at 7-862-TPGP-NOW. Certification: Further, I certify that my clinical findings support that this patient is homebound (i.e. absences from home require considerable and taxing effort and are for medical reasons or bahai services or infrequently or short duration when for other reasons) because: Attestation: My signature below is to certify that this patient is under my care and that I, or nurse practitioner, or a physician's recruitment and outreach assistant working with me, has a face-to -face encounter with this patient. Patient will need hospital bed (that can recline) for home going because of need for enteral feedings via PEG and aspiration risk -Appreciate social worker consultation
--- NOTE | 2016-11-06 11:33 | Palliative Progress Note ---
Date of Encounter: 11/06/16 Time of Encounter: 11:30 - Assessment and plan (1) Abdominal pain Current Visit: Yes Status: Acute Assessment and plan: Patient will be transitioning back to Oxycodone. States the 10 mg Oxycodone at home was controlling her pain fairly well. Continue and monitor Qualifiers: Abdominal location: unspecified location Qualified Code(s): R10.9 - Unspecified abdominal pain (2) Counseling regarding advanced care planning and goals of care Current Visit: Yes Status: Acute Assessment and plan: Patient may be discharged from ICU. She desires to continue aggressive care at this point. She does not desire to discuss any further goals of care at this time. D/W general manager in training Samara re: renewal of [facility] health and home PT/OT as pt refuses rehabilitation. She understands she is at high risk for re- bleeding. (3) Esophageal adenocarcinoma Current Visit: No Status: Chronic - Time Spent With Patient Total time spent is greater than 50% in coordination of care (as documented) at patient's floor/unit and/or counseling patient: - Subjective Interval history: Patient is awake and alert. No family present. She c/o abd pain, states medication effective. - Constitutional Vitals: Abnormal lab results RBC 2.84 M/mcL (3.82-4.97) L 11/04/16 16:40 Hgb 11.4 g/dL (11.5-15.4) L 11/06/16 04:45 Hct 34.9 % (35.3-44.9) L 11/06/16 04:45 Neutrophils # 0.2 K/mcL (1.6-8.9) L 11/04/16 16:40 Lymphocytes # 0.0 K/mcL (0.6-4.6) L 11/04/16 16:40 PT 12.2 Seconds (9.4-12.1) H 11/05/16 05:02 ABG pO2 115 mmHg (85-104) H 11/04/16 22:23 ABG Base Excess -2.7 mEq/L (-2.0 to 3.0) L 11/04/16 22:23 Glucose 105 mg/dL (70-99) H 11/06/16 04:45 POC Glucose 112 (58-89) H 11/04/16 21:42 Serum Total Protein 5.3 g/dL (6.0-8.3) L 11/04/16 16:40 Albumin 2.0 g/dL (3.5-5.0) L D 11/04/16 16:40 Albumin/Globulin Ratio 0.6 (1.1-2.2) L 11/04/16 16:40 Ur Specific [place] > 1.030 (1.010-1.025) H 11/04/16 21:05 Urine Blood Large (Negative) H 11/04/16 21:05 Ur Leukocyte Esterase Small (Negative) H 11/04/16 21:05 Urine Microscopic WBC 5-15 per hpf (0-3) H 11/04/16 21:05 Ur Squamous Epith Cells Many per lpf (None-Few) H 11/04/16 21:05 Ur Culture Indicated? YES (NO) A 11/04/16 21:05 General appearance: Present: no acute distress - Respiratory Respiratory exam: Present: decreased breath sounds, CTAB - Cardiovascular Cardiovascular exam: Present: +S1, +S2 - GI/Abdominal GI/Abdominal exam: Present: normal bowel sounds, soft Additional comments: PEG intact - Extremities Exam Additional comments: 1-2+ edema bilateral lower extremity - Neurological Exam Neurological exam: Present: alert, oriented X3, strengths equal and symetr throughout - Skin Skin exam: Present: dry, pallor, warm Palliative Quality Palliative Quality: Screen for Code Status: Yes, Screen for Goals of Care: Yes, Screen for Pain: Yes, If Pain Regimen Started, Initiate Bowel Regimen: NA ( loose tarry ), Screen for Nausea/Vomitting: Yes Code Status: 11/04/16 03:19 Resuscitation Status: Active [RES] Routine Comment: Resuscitation Status: Full Code - Labs CBC & Chem 7: 11/06/16 04:45 11/06/16 04:45 Labs: Laboratory Results - last 24 hr 11/05/16 11/06/16 11/06/16 15:25 04:45 04:45 Hgb 11.6 11.4 L Hct 34.8 L 34.9 L Sodium 140 Potassium 3.9 Chloride 104 Carbon Dioxide 27 BUN 17 D Creatinine 0.84 Est GFR ( Amer) > 60 Est GFR (Non-Af Amer) > 60 BUN/Creatinine Ratio 20 Glucose 105 H Calculated Osmolality 292 Calcium 9.0 Phosphorus 4.2 Magnesium 1.6 - ABG Interpretation ABG results: ABG ABG pH 7.36 pH Units (7.32-7.45) 11/04/16 22:23 ABG pCO2 40 mmHg (35-45) 11/04/16 22:23 ABG pO2 115 mmHg (85-104) H 11/04/16 22:23 ABG O2 Saturation 98 % (95-98) 11/04/16 22:23 PT/INR, D-dimer PT 12.2 Seconds (9.4-12.1) H 11/05/16 05:02 Consult Discharge Plan - Plan Referrals: Dev Callejas MD [Partnered Physician] - NO,PCP [Non-Partnered Physician] - Prescriptions: OxyCODONE Immed Rel [Roxicodone 5 MG] 10 mg PO Q4H PRN #42 tablet PRN Reason: pain
--- NOTE | 2016-11-06 15:54 | Oncology Inp Progress Note ---
Date of Encounter: 11/06/16 Time of Encounter: 12:00 (1) Esophageal adenocarcinoma Current Visit: No Status: Chronic Assessment and plan: Discussed plan of care again with her in detail. She is having repeated episodes of bleeding and hospitalization for severe anemia. Status post 2 cycles of chemotherapy. After discussion we will hold off on chemotherapy during her IN infusion, check her CBC type and transfuse as needed twice a week or so in oncology clinic. Appointment to be scheduled as an outpatient in our clinic. Currently hemoglobin is steady at around 11 g or so. Metastatic esophageal ca with poor prognosis. Palliative care has been consulted seen patient and she has not agreeable to hospice yet. Oncology: Subj Interval history: Abd pain epigastrium. Able to drink liquids On tube feeds - Constitutional Vitals: Vital Signs Temp Pulse Resp BP Pulse Ox 11/06/16 13:37 94 L 11/06/16 12:30 100 20 150/92 90 L 11/06/16 12:16 98.1 F 11/06/16 08:32 91 11/06/16 08:00 94 22 151/92 96 11/06/16 07:39 98.1 F 11/06/16 04:44 98.2 F 11/06/16 04:00 94 20 142/94 95 11/06/16 00:00 98.7 F 104 21 136/81 95 11/05/16 20:12 97.8 F 11/05/16 20:00 105 18 135/85 95 11/05/16 19:48 99 11/05/16 19:40 20 95 11/05/16 18:10 99 23 146/88 96 11/05/16 17:06 98.6 F 11/05/16 17:00 100 24 135/85 96 11/05/16 16:00 102 Intake and Output 11/05/16 11/06/16 11/06/16 23:59 07:59 15:59 Intake Total 134 / 134 Output Total 325 / 325 300 / 300 Balance -325 / -325 -300 / -300 134 / 134 Intake: IV Fluids 104 / 104 Magnesium Sulfate 2 GM In 104 / 104 Dextrose 5% 100 ML @ 50 mls/hr IVPB Q6H PRN Rx#: [id number] Free Water Intake Amount 30 / 30 Output: Catheter 325 / 325 300 / 300 General appearance: average body habitus - Head Head exam: Present: atraumatic - Eye Eye exam: Present: sclera anicteric - Neck Neck exam: Present: full ROM - Respiratory Respiratory exam: Present: CTAB - Cardiovascular Cardiovascular exam: Present: +S1, +S2 - GI/Abdominal GI/Abdominal exam: Present: normal bowel sounds, soft - Neurological Exam Neurological exam: Present: alert, oriented X3 Oncology: Obj Data - Labs CBC & Chem 7: 11/06/16 04:45 11/06/16 04:45 Labs: Laboratory Results - last 24 hr 11/05/16 11/06/16 11/06/16 15:25 04:45 04:45 Hgb 11.6 11.4 L Hct 34.8 L 34.9 L Sodium 140 Potassium 3.9 Chloride 104 Carbon Dioxide 27 BUN 17 D Creatinine 0.84 Est GFR ( Amer) > 60 Est GFR (Non-Af Amer) > 60 BUN/Creatinine Ratio 20 Glucose 105 H Calculated Osmolality 292 Calcium 9.0 Phosphorus 4.2 Magnesium 1.6 - ABG Interpretation ABG results: ABG ABG pH 7.36 pH Units (7.32-7.45) 11/04/16 22:23 ABG pCO2 40 mmHg (35-45) 11/04/16 22:23 ABG pO2 115 mmHg (85-104) H 11/04/16 22:23 ABG O2 Saturation 98 % (95-98) 11/04/16 22:23 PT/INR, D-dimer PT 12.2 Seconds (9.4-12.1) H 11/05/16 05:02 Consult Discharge Plan - Plan Referrals: Dev Callejas MD [Partnered Physician] - NO,PCP [Non-Partnered Physician] - Prescriptions: OxyCODONE Immed Rel [Roxicodone 5 MG] 10 mg PO Q4H PRN #42 tablet PRN Reason: pain
[2016-11-06] MEDS: Ipratropium/Albuterol Neb 3 ML IH PRN (22:50)
[2016-11-07] MEDS: *HR* HYDROmorphone (PF) 1 MG/ML SYRINGE IVP PRN (03:31)
[2016-11-07 03:37] LABS: Hematocrit 35.6 % (35.3-44.9); Hemoglobin 11.7 g/dL (11.5-15.4); Mean Corpuscular HGB Conc 32.9 g/dL (31.6-35.5); Mean Corpuscular Hemoglobin 29.1 pg (28.0-33.3); Mean Corpuscular Volume 88.6 fL (83.0-100.0); Mean Platelet Volume 8.9 fL (9.4-12.4); Platelet Count 180 K/mcL (140-400); Red Blood Count 4.02 M/mcL (3.82-4.97); Red Cell Distribution Width 14.8 % (11.5-14.5)
[2016-11-07] MEDS: Pantoprazole 40 MG VIAL IVP SCH (05:10)
[2016-11-07] MEDS ORDERED: *HR* OxyCODONE Immed Rel 5 MG TABLET PO PRN (06:44)
[2016-11-07] MEDS ORDERED: *HR* HYDROmorphone (PF) 1 MG/ML SYRINGE IVP ONE (07:46)
--- NOTE | 2016-11-07 08:02 | Pulmonology Progress Note ---
<Ashok Tolbert W - Last Filed: 11/07/16 10:24> Objective PUL Vital signs: Last Vital Signs Temp 98.4 F 11/07/16 07:50 Pulse 91 11/07/16 08:02 Resp 16 11/07/16 08:00 BP 138/89 11/07/16 08:00 Pulse Ox 95 11/07/16 08:00 Results - Laboratory Findings CBC and BMP: 11/07/16 03:27 11/06/16 04:45 ABG ABG pH 7.36 pH Units (7.32-7.45) 11/04/16 22:23 ABG pCO2 40 mmHg (35-45) 11/04/16 22:23 ABG pO2 115 mmHg (85-104) H 11/04/16 22:23 ABG O2 Saturation 98 % (95-98) 11/04/16 22:23 PT/INR, D-dimer PT 12.2 Seconds (9.4-12.1) H 11/05/16 05:02 Abnormal lab findings: Abnormal lab results RDW 14.8 % (11.5-14.5) H 11/07/16 03:27 MPV 8.9 fL (9.4-12.4) L 11/07/16 03:27 Neutrophils # 0.2 K/mcL (1.6-8.9) L 11/04/16 16:40 Lymphocytes # 0.0 K/mcL (0.6-4.6) L 11/04/16 16:40 PT 12.2 Seconds (9.4-12.1) H 11/05/16 05:02 ABG pO2 115 mmHg (85-104) H 11/04/16 22:23 ABG Base Excess -2.7 mEq/L (-2.0 to 3.0) L 11/04/16 22:23 Glucose 105 mg/dL (70-99) H 11/06/16 04:45 POC Glucose 112 (58-89) H 11/04/16 21:42 Serum Total Protein 5.3 g/dL (6.0-8.3) L 11/04/16 16:40 Albumin 2.0 g/dL (3.5-5.0) L D 11/04/16 16:40 Albumin/Globulin Ratio 0.6 (1.1-2.2) L 11/04/16 16:40 Ur Specific [place] > 1.030 (1.010-1.025) H 11/04/16 21:05 Urine Blood Large (Negative) H 11/04/16 21:05 Ur Leukocyte Esterase Small (Negative) H 11/04/16 21:05 Urine Microscopic WBC 5-15 per hpf (0-3) H 11/04/16 21:05 Ur Squamous Epith Cells Many per lpf (None-Few) H 11/04/16 21:05 Ur Culture Indicated? YES (NO) A 11/04/16 21:05 - Microbiology Findings Microbiology Findings: Microbiology, Last 48 Hours 11/04/16 16:40 Blood Culture - Preliminary Peripheral Venipuncture No growth. 11/04/16 21:05 Urine Culture - Final Urine,Clean Catch Culture is grossly mixed, unable to properly interpret. Please repeat if indicated. - Clinical Findings Intake & Output: Intake & Output 11/06/16 11/07/16 11/07/16 23:59 07:59 15:59 Intake Total 380 / 380 0 / 0 Output Total 325 / 325 Balance 55 / 55 0 / 0 Weight 75.523 kg Consult Discharge Plan - Plan Referrals: Dev Callejas MD [Partnered Physician] - NO,PCP [Non-Partnered Physician] - Prescriptions: OxyCODONE Immed Rel [Roxicodone 5 MG] 10 mg PO Q4H PRN #42 tablet PRN Reason: pain - Attending Attestation I examined this patient and my medical decision-making was reviewed with the [employer] ARCHITECT/PA/Advanced Practice Nurse/Resident Physician. I agree with the documented findings, disposition and treatment plan as described except to the extent set forth below. Stayed in hospital overnight because of HTN Anxiety and BP better controlled today Appreciate Palliative Care Recs Discharge anticipated later today with f/u with Oncology <Rody Butcher - Last Filed: 11/07/16 10:51> Date of Encounter: 11/07/16 Time of Encounter: 08:23 Assessment and Plan (1) Adenocarcinoma of esophagus, stage 4 Current Visit: Yes Status: Acute Female patient with extensive history of stage IV adenocarcinoma with metastasis to her lungs and liver presenting with esophageal bleeding. Patient states this is been going on since July. She is under the treatment of Dr. rowell. She had chemotherapy in September and as well as on October 12. She has refused radiation. She has had multiple blood transfusions since her diagnosis in July. Most recently here she has received 6 units of packed red blood cells as well as [address] Boyd did an endoscopy yesterday and placed 2 clips on the mass in her esophagus. This mass is measuring 5.7 x 6.6 x 8 cm on CTA. IR was consulted for possible embolization of the bleeding. They stated there were several penetrating arteries to this area would be difficult to embolize any of them. Family and patient are so requesting patient to be a full code. However they are agreeable to a palliative care. Patient's hemoglobin has been stable for the past 3 days. Patient was set for discharge yesterday however became hypertensive and requested to stay in hospital for pain management for 1 more day. Pt is normotensive today. She will be discharged today. Patient does need home O2 as well as a home hospital bed that is adjustable. Plan: Discharge patient home (2) Anemia due to acute blood loss Current Visit: Yes Status: Acute Pt transfused 6 units PRBS here at [place] on this visit. She has also received 4 units of plasma. Pt has history of stage 4 adenocarcinoma of the esophagus. Pt is undergoing chemotherapy and has been refusing radiation thus far. Surgery on board and placed 2 clips on the tumor during an EGD. IR consulted and no embolization able to be preformed. Patient's hemoglobin has been stable for the past 3 days. We will discharge patient home. Plan: As above (3) DVT prophylaxis Current Visit: Yes Status: Acute Plan: EPCD Subjective Principal diagnosis: UGI bleed Interval history: 65-year-old female patient admitted to the hospital for history of adenocarcinoma of the esophagus stage IV bleeding associated with this. Her hemoglobin was initially noted to be 4.1. She was transferred here from [place]. Yesterday she received 6 units of packed red blood cells. Appears as if she received 2 units of packed red blood cells are [place] prior to discharge from there. She is also received 4 units of plasma. She is under the care of Dr. Rowell for oncology. She has no complaints this morning. She states that she is not vomiting blood at this time. She has been nothing by mouth since yesterday. Overnight she did have a episode of shortness of breath and was given 40 mg of Lasix and a DuoNeb. She subsequently had relief of her shortness of breath with this. Her hemoglobin this morning was 11.7. We will continue to trend this. Chest CTA showed a large mid/distal esophageal mass with a measurement of 5.7 x 6.6 x 8.0 cm. Hepatic metastasis that were extensive. She also has progressive pulmonary metastatic disease. Patient is agreeable to palliative care and discharge home. Her hemoglobin has been stable for the past 3 days. Her pain is managed here. She is normotensive today. We will get palliative to discuss pain management for home. She does take Percocet 10mg every day for pain currently. They advised the Pt to increase her dose to 15 mg. She informed them that she has enough malcolm medication at home to do this. Pt will need home oxygen as well as an adjustable hospital bed. Objective PUL Vital signs: Last Vital Signs Temp 98.4 F 11/07/16 07:50 Pulse 91 11/07/16 03:00 Resp 17 11/07/16 03:00 BP 117/71 11/07/16 03:00 Pulse Ox 95 11/07/16 03:00 General appearance: no acute distress, alert Eyes: nonicteric ENT: oropharynx moist Neck: supple, no lymphadenopathy Effort: normal Cardiovascular: regular rate and rhythm Gastrointestinal: normoactive bowel sounds, soft, non-tender, non-distended, other (PEG tube) Integumentary: normal Extremities: no cyanosis, no edema, pink and warm, pulses normal Musculoskeletal: no deformities Gait: normal posture normal mental status, non-focal exam, pupils equal and round mood appropriate, affect normal Results - Laboratory Findings CBC and BMP: 11/07/16 03:27 11/06/16 04:45 ABG ABG pH 7.36 pH Units (7.32-7.45) 11/04/16 22:23 ABG pCO2 40 mmHg (35-45) 11/04/16 22:23 ABG pO2 115 mmHg (85-104) H 11/04/16 22:23 ABG O2 Saturation 98 % (95-98) 11/04/16 22:23 PT/INR, D-dimer PT 12.2 Seconds (9.4-12.1) H 11/05/16 05:02 Abnormal lab findings: Abnormal lab results RDW 14.8 % (11.5-14.5) H 11/07/16 03:27 MPV 8.9 fL (9.4-12.4) L 11/07/16 03:27 Neutrophils # 0.2 K/mcL (1.6-8.9) L 11/04/16 16:40 Lymphocytes # 0.0 K/mcL (0.6-4.6) L 11/04/16 16:40 PT 12.2 Seconds (9.4-12.1) H 11/05/16 05:02 ABG pO2 115 mmHg (85-104) H 11/04/16 22:23 ABG Base Excess -2.7 mEq/L (-2.0 to 3.0) L 11/04/16 22:23 Glucose 105 mg/dL (70-99) H 11/06/16 04:45 POC Glucose 112 (58-89) H 11/04/16 21:42 Serum Total Protein 5.3 g/dL (6.0-8.3) L 11/04/16 16:40 Albumin 2.0 g/dL (3.5-5.0) L D 11/04/16 16:40 Albumin/Globulin Ratio 0.6 (1.1-2.2) L 11/04/16 16:40 Ur Specific [place] > 1.030 (1.010-1.025) H 11/04/16 21:05 Urine Blood Large (Negative) H 11/04/16 21:05 Ur Leukocyte Esterase Small (Negative) H 11/04/16 21:05 Urine Microscopic WBC 5-15 per hpf (0-3) H 11/04/16 21:05 Ur Squamous Epith Cells Many per lpf (None-Few) H 11/04/16 21:05 Ur Culture Indicated? YES (NO) A 11/04/16 21:05 - Microbiology Findings Microbiology Findings: Microbiology, Last 48 Hours 11/04/16 16:40 Blood Culture - Preliminary Peripheral Venipuncture No growth. 11/04/16 21:05 Urine Culture - Final Urine,Clean Catch Culture is grossly mixed, unable to properly interpret. Please repeat if indicated. - Clinical Findings Intake & Output: Intake & Output 11/06/16 11/06/16 11/07/16 15:59 23:59 07:59 Intake Total 134 / 134 380 / 380 0 / 0 Output Total 325 / 325 Balance 134 / 134 55 / 55 0 / 0 Weight 75.523 kg - VTE Documentation of Mechanical Device: Intermittent pneumatic compression device
--- NOTE | 2016-11-07 08:03 | Pulmonology Progress Note ---
Date of Encounter: 11/07/16 Time of Encounter: 08:03 Assessment and Plan (1) Adenocarcinoma of esophagus, stage 4 Current Visit: Yes Status: Acute Female patient with extensive history of stage IV adenocarcinoma with metastasis to her lungs and liver presenting with esophageal bleeding. Patient states this is been going on since July. She is under the treatment of Dr. soto. She had chemotherapy in September and as well as on October 12. She has refused radiation. She has had multiple blood transfusions since her diagnosis in July. Most recently here she has received 6 units of packed red blood cells as well as [address] Boyd did an endoscopy yesterday and placed 2 clips on the mass in her esophagus. This mass is measuring 5.7 x 6.6 x 8 cm on CTA. IR was consulted for possible embolization of the bleeding. They stated there were several penetrating arteries to this area would be difficult to embolize any of them. Family and patient are so requesting patient to be a full code. However they are agreeable to a palliative consult. Plan: Trend H&H. Transfuse as necessary. EPCDs for DVT prophylaxis Protonix for GI prophylaxis Oncology on board. Surgery on board Family discussion today of Pt prognosis and plan forward. Holding diet until discussion (2) Anemia due to acute blood loss Current Visit: Yes Status: Acute Pt transfused 6 units PRBS here at [place] on this visit. She has also received 4 units of plasma. Pt has history of stage 4 adenocarcinoma of the esophagus. Pt is undergoing chemotherapy and has been refusing radiation thus far. Surgery on board and placed 2 clips on the tumor during an EGD. IR consulted and no embolization able to be preformed. Plan: As above (3) DVT prophylaxis Current Visit: Yes Status: Acute Pt actively bleeding, so Heparin contraindicated Plan: EPCD Subjective Principal diagnosis: UGI bleed Interval history: 65-year-old female patient admitted to the hospital for history of adenocarcinoma of the esophagus stage IV bleeding associated with this. Her hemoglobin was initially noted to be 4.1. She was transferred here from [place]. Yesterday she received 6 units of packed red blood cells. Appears as if she received 2 units of packed red blood cells are [place] prior to discharge from there. She is also received 4 units of plasma. She is under the care of Dr. Soto for oncology. She has no complaints this morning. She states that she is not vomiting blood at this time. She has been nothing by mouth since yesterday. Overnight she did have a episode of shortness of breath and was given 40 mg of Lasix and a DuoNeb. She subsequently had relief of her shortness of breath with this. Her hemoglobin this morning was 11.7. We will continue to trend this. Chest CTA showed a large mid/distal esophageal mass with a measurement of 5.7 x 6.6 x 8.0 cm. Hepatic metastasis that were extensive. She also has progressive pulmonary metastatic disease. We will have a discussion today with patient and family about prognosis. Objective PUL Vital signs: Last Vital Signs Temp 98.4 F 11/07/16 07:50 Pulse 91 11/07/16 08:02 Resp 17 11/07/16 03:00 BP 117/71 11/07/16 03:00 Pulse Ox 95 11/07/16 03:00 Results - Laboratory Findings CBC and BMP: 11/07/16 03:27 11/06/16 04:45 ABG ABG pH 7.36 pH Units (7.32-7.45) 11/04/16 22:23 ABG pCO2 40 mmHg (35-45) 11/04/16 22:23 ABG pO2 115 mmHg (85-104) H 11/04/16 22:23 ABG O2 Saturation 98 % (95-98) 11/04/16 22:23 PT/INR, D-dimer PT 12.2 Seconds (9.4-12.1) H 11/05/16 05:02 Abnormal lab findings: Abnormal lab results RDW 14.8 % (11.5-14.5) H 11/07/16 03:27 MPV 8.9 fL (9.4-12.4) L 11/07/16 03:27 Neutrophils # 0.2 K/mcL (1.6-8.9) L 11/04/16 16:40 Lymphocytes # 0.0 K/mcL (0.6-4.6) L 11/04/16 16:40 PT 12.2 Seconds (9.4-12.1) H 11/05/16 05:02 ABG pO2 115 mmHg (85-104) H 11/04/16 22:23 ABG Base Excess -2.7 mEq/L (-2.0 to 3.0) L 11/04/16 22:23 Glucose 105 mg/dL (70-99) H 11/06/16 04:45 POC Glucose 112 (58-89) H 11/04/16 21:42 Serum Total Protein 5.3 g/dL (6.0-8.3) L 11/04/16 16:40 Albumin 2.0 g/dL (3.5-5.0) L D 11/04/16 16:40 Albumin/Globulin Ratio 0.6 (1.1-2.2) L 11/04/16 16:40 Ur Specific [place] > 1.030 (1.010-1.025) H 11/04/16 21:05 Urine Blood Large (Negative) H 11/04/16 21:05 Ur Leukocyte Esterase Small (Negative) H 11/04/16 21:05 Urine Microscopic WBC 5-15 per hpf (0-3) H 11/04/16 21:05 Ur Squamous Epith Cells Many per lpf (None-Few) H 11/04/16 21:05 Ur Culture Indicated? YES (NO) A 11/04/16 21:05 - Microbiology Findings Microbiology Findings: Microbiology, Last 48 Hours 11/04/16 16:40 Blood Culture - Preliminary Peripheral Venipuncture No growth. 11/04/16 21:05 Urine Culture - Final Urine,Clean Catch Culture is grossly mixed, unable to properly interpret. Please repeat if indicated. - Clinical Findings Intake & Output: Intake & Output 11/06/16 11/07/16 11/07/16 23:59 07:59 15:59 Intake Total 380 / 380 0 / 0 Output Total 325 / 325 Balance 55 / 55 0 / 0 Weight 75.523 kg - VTE Documentation of Mechanical Device: Intermittent pneumatic compression device Consult Discharge Plan - Plan Referrals: Dev Callejas MD [Partnered Physician] - NO,PCP [Non-Partnered Physician] - Prescriptions: OxyCODONE Immed Rel [Roxicodone 5 MG] 10 mg PO Q4H PRN #42 tablet PRN Reason: pain
[2016-11-07] MEDS ORDERED: *HR* OxyCODONE Immed Rel 15 MG TABLET PO PRN (09:30)
--- NOTE | 2016-11-07 09:51 | Event Note ---
Date of Encounter: 11/07/16 Time of Encounter: 09:30 Patient did not desire discharge yesterday. This am, insisted on more IV Hydromorphone. Yesterday, she stated the Oxycodone 10mg was managing her pain at home, today she states it is "not quite enough". Will increase Oxycodone to 15mg every 4 hours. She states she has enough at home and does not need a prescription. She ultimately will need long acting pain control, but I am not comfortable prescribing this day of discharge. Eventually, she will probably need conversion to fentanyl patch, as unsure how long she will be able to tolerate po meds, and cannot crush for administration through PEG. She will be following up at the [facility], and I discussed with her to let them know if the 15 mg was not controlling her pain. She verbalized understanding.
[2016-11-07 10:20] VITALS: BP 120/84
== END 2016-11-07 12:26 | disposition home health service (06) | DRG 240 ==
LOC: ICNU 11-04 01:27
PROVIDERS: ADMIT Internal Medicine; ATTEND Internal Medicine

== ENCOUNTER 2016-11-07 21:34 | Inpatient (IN) ==
[2016-11-08] MEDS ORDERED: Albuterol 2.5 MG/3 ML NEBULIZER ONE (00:55)
[2016-11-08] MEDS: Albuterol 2.5 MG/3 ML NEBULIZER IH PRN ×2 (01:00→15:13)
[2016-11-08] MEDS ORDERED: *HR* OxyCODONE Immed Rel 5 MG TABLET PO PRN (01:23)
[2016-11-08] MEDS ORDERED: Naloxone 0.4 MG/ML INJ IVP PRN (01:23)
--- NOTE | 2016-11-08 01:54 | Internal Med History&Physical ---
<Martha Barnes - Last Filed: 11/08/16 03:02> Date of Encounter: 11/08/16 Time of Encounter: 03:02 Assessment and Plan (1) Atypical chest pain Current visit: Yes Status: Acute unclear etiology: possible NSTEMI , heart strain due to ca lung involvement, PE , acute worsening of CHF ,esophegeal cancer, chronic pain ,COPD,lung mass EKG: NSR trop .66 pastora score:3 will continue to trend troponins CXR:b/l pleural effusions vs atelectasis and likely pulmonary vascular congestion CCTA: 11/04 with esophageal mass, distant lung involvement, hepatic metastasis,L subclavian stenosis, AAA at 3.0 check d-dimer, consider repeat CT angiogram, pt high risk for PE due to metastatic malignancy, recent and repeated hospital admissions, and decreased mobility continue to monitor BP clonidine patch, home BP meds (2) Acute exacerbation of CHF (congestive heart failure) Current visit: Yes Status: Acute CXR with b/l pleural effusion, atelectasis, pulmonary vascular congestion mild worsening of baseline dyspnea currently on 2L O2 NC with 96%saturations consider lasix if worsening respiratory status/pleural effusions Qualifiers: Congestive heart failure type: unspecified congestive heart failure type Qualified Code(s): I50.9 - Heart failure, unspecified (3) CKD (chronic kidney disease) Current visit: No Status: Chronic BUN 13 Cr .77 K 4.1 continue to monitor Qualifiers: Chronic kidney disease stage: stage 3 (moderate) Qualified Code(s): N18.3 - Chronic kidney disease, stage 3 (moderate) (4) COPD (chronic obstructive pulmonary disease) Current visit: No Status: Acute bronchodilator therapy O2 NC prn for Sat>90 Qualifiers: COPD type: unspecified COPD Qualified Code(s): J44.9 - Chronic obstructive pulmonary disease, unspecified (5) Hypertension Current visit: No Status: Chronic clonidine patch Qualifiers: Hypertension type: essential hypertension Qualified Code(s): I10 - Essential (primary) hypertension (6) Pain Current visit: No Status: Acute poorly controlled on high dose oxycodone diluadid and oxycodon prn (7) Generalized weakness Current visit: No Status: Acute (8) Anemia Current visit: No Status: Acute recent GI bleed current Hb 12.0/Hct 36.8 will monitor (9) Anemia due to acute blood loss Current visit: No Status: Acute (10) DVT prophylaxis Current visit: No Status: Acute SCDs pharmacologic contraindicated due to recent/recurrent GI bleeding (11) Adenocarcinoma of esophagus, stage 4 Current visit: No Status: Acute (12) Counseling regarding advanced care planning and goals of care Current visit: No Status: Acute pt stating pain is not controlled as outpt with oxycodone and states is not being controlled with 1mg dilaudid likely need consult with palliative regarding better chronic/cancer pain and goals of care (13) Elevated troponin Current visit: No Status: Acute trop. .62>.82 continue to follow anticoagulant contraindicated due to recent GI bleed, asa allergy (14) Malaise and fatigue Current visit: No Status: Acute Internal Medicine - H&P: HPI Chief complaint: pain Admitted From: Home Plans for Post Hospital Care: Home History of present illness: Ms. Lara is a 65 year old female c/o pain in chest and back. PMHx stage 4 esophageal ca, HTN, COPD, recurrent GI bleed, anemia. Pt presents c/o sternal chest pain and throacolumbar back pain. Pt states pain is constant 10/10, started about 1-2 weeks ago, is made better with "Dilaudid she received at [facility] and at last admission" is not changed woth activity or rest. Pt states she has also "been sweaty" intermittently with generalized weakness and fatigue for several weeks. She also c/o worsening of her baseline COPD dyspnea on exertion, wheeze and dry cough and has recently started wearing oxygen,which seems to help. states some nausea, no V/D/C. She denies lightheadedness, LOC, syncope, change in vision, hemoptysis, blood in stools or urine abdominal pain, numbness/tingling. Past Med Surg Social Fam HX - Past Medical History Medical history: arthritis, cancer, CHF, COPD, hyperlipidemia, hypertension, renal disease Psychiatric history: no psych history - Past Surgical History Surgical History: other - Social History Smoking Status: Former smoker (quit jul 2016) Packs per day: 1ppd x45 yrs Smokeless Tobacco Status: No Alcohol use: none Drug use: none - Family History Father Living Status: Hx Family Cardiac Disorders: Yes (HEART RELATED) Mother Living Status: Still Living Hx Family Cardiac Disorders: Yes (Hypertension) Hx Family Endocrine Disorder: Yes (Diabetes Mellitus) Hx Family Neurologic Disorders: Yes (CVA) Sister Living Status: Still Living Hx Family Cardiac Disorders: No Hx Family Cancer: Yes Hx Family GI Disorders: No Hx Family Endocrine Disorder: No Hx Family Neuromuscular Disorders: No Hx Family Neurologic Disorders: No Hx Family HEENT Disorders: No Hx Family Autoimmune Disorders: No Internal Medicine - H&P: Meds Albuterol Sulfate [Proair Respiclick] 1 - 2 puff IH Q6H PRN 08/26/15 [History] Losartan Potassium [Cozaar] 100 mg PO DAILY 08/26/15 [History] CloNIDine Patch [Catapres-Tts] 0.3 mg TP QWEEK 08/14/16 [History] Lactose-Reduced Food/Fiber [Jevity 1.5 Andrés Liquid] 1 can PO TID #24 can [Rx] Ergocalciferol (VITAMIN D2) [Vitamin D2] 50,000 unit PO QWEEK 11/04/16 [History] Metoprolol Tartrate [Lopressor] 50 mg PO BID 11/04/16 [History] Prochlorperazine Maleate [Compazine] 10 mg PO Q8HR PRN 11/04/16 [History] Sennosides [Senna] 8.6 mg PO BID 11/04/16 [History] OxyCODONE Immed Rel [Roxicodone 5 MG] 10 mg PO Q4H PRN #42 tablet 11/06/16 [Rx] Allergies Amoxicillin [From Augmentin] Adverse Reaction (Verified 11/07/16 19:34) Diarrhea aspirin Adverse Reaction (Verified 11/07/16 19:34) Nausea clavulanic acid [From Augmentin] Adverse Reaction (Verified 11/07/16 19:34) Diarrhea naproxen Adverse Reaction (Verified 11/07/16 19:34) Nausea NSAIDS (Non-Steroidal Anti-Inflamma Adverse Reaction (Verified 11/07/16 19:34) Nausea sulfamethoxazole [From Bactrim] Adverse Reaction (Verified 11/07/16 19:34) Hypertension trimethoprim [From Bactrim] Adverse Reaction (Verified 11/07/16 19:34) Hypertension All Systems PM: A 10-system review of systems was performed and is negative for pertinent findings except as documented above in the HPI. - Constitutional Constitutional: excessive sweating, fatigue, malaise, weakness, no fever(s), no falls - EENT Eyes: no change in vision, no discharge, no pain, no photophobia - Cardiovascular Cardiovascular ROS IM: chest pain, diaphoresis, no irregular heart rhythm, no lightheadedness, no palpitations, no syncope - Respiratory Respiratory: cough, dyspnea, dyspnea on exertion, wheezing, no hemoptysis - Gastrointestinal Gastrointestinal: no abdominal pain, no diarrhea, no hematemesis, no hematochezia, no melena, no nausea, no vomiting - Genitourinary Genitourinary: no change in urinary stream, no dysuria, no flank pain, no hematuria - Musculoskeletal Musculoskeletal ROS IM: back pain, muscle weakness, no numbness, no tingling - Integumentary Integumentary IM: no rash, no unusual bruising - Neurological Neurological ROS: no confusion, no convulsions, no focal weakness, no numbness, no tingling, no tremor(s) - Constitutional Vitals: Temp Pulse Resp BP Pulse Ox 98.6 F 82 18 168/97 96 11/07/16 23:55 11/07/16 23:55 11/07/16 23:55 11/07/16 23:55 11/07/16 23:55 General appearance: Present: A&O X 3, no acute distress, answers questions appropriately - Head Head exam: Present: atraumatic, normocephalic - Eye Eye exam: Present: PERRL, conjuntiva pink, sclera anicteric Pupils: Present: PERRL - Neck Neck exam general surgery: Present: supple, trachea midline. Absent: lymphadenopathy - Respiratory Respiratory exam: Present: decreased breath sounds, rhonchi, wheezes. Absent: accessory muscle use, chest wall tenderness, respiratory distress - Expanded Respiratory Exam Location: decreased breath sounds: Right, Left, Lower, rhonchi: Left, Right, Upper (mild anterior and posterior), wheezes: Left, Right, Upper, Lower (mild, anterior and posterior) - Cardiovascular Cardiovascular exam: Present: RRR, +S1, +S2. Absent: diastolic murmur, gallop, rubs, systolic murmur - GI/Abdominal GI/Abdominal exam: Present: normal bowel sounds, soft, no peritoneal signs. Absent: distended, tenderness - Extremities Exam Extremities exam: Present: warm, radial pulses palpable and symetrical. Absent : calf tenderness, cyanotic, pedal edema - Incison Incision: Present: clean and dry, intact Comments: PEG tube C/D/I - Neurological Exam Neurological exam: Present: CN II-XII intact, oriented X3, no focal deficits. Absent: pronater drift, facial droop, speech deficit - Psychiatric Psychiatric exam: Present: depressed Internal Med - H&P Results - Labs CBC & Chem 7: 11/08/16 00:53 11/08/16 00:53 <Oliver Pierre - Last Filed: 11/08/16 04:04> Date of Encounter: 11/08/16 Internal Medicine - H&P: HPI History of present illness: Ms. Lara is a 65 year old female All Systems PM: A 10-system review of systems was performed and is negative for pertinent findings except as documented above in the HPI. - Constitutional Vitals: Temp Pulse Resp BP Pulse Ox 98.6 F 82 20 168/97 98 11/07/16 23:55 11/07/16 23:55 11/08/16 01:00 11/07/16 23:55 11/08/16 01:00 Internal Med - H&P Results - Labs CBC & Chem 7: 11/08/16 00:53 11/08/16 00:53 Labs: Short CBC 11/08/16 Range/Units 00:53 WBC 5.7 (4.3-11.1) K/mcL Hgb 12.4 (11.5-15.4) g/dL Hct 37.4 (35.3-44.9) % Plt Count 228 (140-400) K/mcL BMP 11/08/16 00:53 Sodium 133 L Potassium 3.7 Chloride 97 L Carbon Dioxide 29 BUN 13 Creatinine 0.73 Glucose 94 Calcium 8.9 Cardiac Enzymes 11/08/16 Range/Units 00:53 Troponin I 0.82 H* (0-0.03) ng/mL - Attending Attestation I examined this patient and my medical decision-making was reviewed with the LOADER OPERATOR/PA/Advanced Practice Nurse/Resident Physician. I agree with the documented findings, disposition and treatment plan as described except to the extent set forth below. Follow trend of trops, positive blood in stools, no heparin drip, allergic to pnc. Doubt ACS. Palliative care consult. Pain control.
[2016-11-08 02:00] LABS: Hematocrit 37.4 % (35.3-44.9); Hemoglobin 12.4 g/dL (11.5-15.4); Immature Platelets 2.7 % (1.1-6.1); Mean Corpuscular HGB Conc 33.2 g/dL (31.6-35.5); Mean Corpuscular Hemoglobin 29.3 pg (28.0-33.3); Mean Corpuscular Volume 88.4 fL (83.0-100.0); Mean Platelet Volume 9.4 fL (9.4-12.4); Red Blood Count 4.23 M/mcL (3.82-4.97); Red Cell Distribution Width 14.2 % (11.5-14.5)
[2016-11-08] MEDS ORDERED: *HR* HYDROmorphone (PF) 1 MG/ML SYRINGE IVP ONE (02:05)
[2016-11-08 02:12] LABS: BUN/Creatinine Ratio 18 (6-26); Blood Urea Nitrogen 13 mg/dL (7-20); Calcium 8.9 mg/dL (8.6-10.8); Carbon Dioxide 29 mEq/L (19-29); Chloride 97 mEq/L (98-109); Glucose 94 mg/dL (70-99); Magnesium 1.9 mg/dL (1.6-2.6); Osmolality,Calculated 276 (280-300); Potassium 3.7 mEq/L (3.5-4.5); Sodium 133 mEq/L (136-145); eGFR For African Americans > 60 (> 60); eGFR For Non-African Americans > 60 (> 60)
[2016-11-08] MEDS ORDERED: CloNIDine Patch 0.3 MG PATCH (WEEKLY) TP SCH (02:45)
[2016-11-08] MEDS ORDERED: Nitroglycerin 0.4 MG TAB.SUBL SL PRN (03:18)
[2016-11-08] MEDS: *HR* HYDROmorphone (PF) 1 MG/ML SYRINGE IVP SCH ×2 (04:06→09:13)
[2016-11-08] MEDS ORDERED: *HR* FentaNYL PATCH 25 MCG PATCH TD SCH (09:15)
[2016-11-08] MEDS: *HR* Promethazine 25 MG/ML VIAL IVP PRN (09:31)
[2016-11-08] MEDS ORDERED: 0.9 % Sodium Chloride 1,000 ML ONE (11:45)
--- NOTE | 2016-11-08 11:53 | Event Note ---
<Raquel Packer - Last Filed: 11/08/16 12:18> Date of Encounter: 11/08/16 Time of Encounter: 11:45 Subjective: 65 year old female with past medical history of esophageal cancer stage 4, recent gi bleed with clipping done endoscopically, HTN, COPD and anemia who presented to the emergency room last night with chest pressure and back pain. She has been seen by palliative care who have changed her pain regimen to a fentanyl patch with roxycodine q 4 hr prn and dilaudid q 4 hr prn for breakthrough pain. This morning nursing noted some blood in PEG tube. Alethea states she currently does not have any pain but has had pain in her chest described as pressure. She is adamant that she wants to talk to the surgeon and manufacturing millwright. She has no other acute complaints at this time. Objective: 98.5F HR 84 RR 16 BP 137/81 SpO2 98% on 3L Gen: laying in bed, sleepy but arousable HEENT: normocephalic, atraumatic, nasal canula in place Chest: Port in place upper right chest Heart: RRR, S1, S2, no murmur/rub/gallop Lungs: clear to auscultation bilaterally, no wheezes/rales/rhonchi Abdomen: soft, non distended, non tender, normoactive bowel sounds, PEG tube in pace with blood in tube visible Extremities: no clubbing, cyanosis or edema; good capillary refill Assessment/Plan: 1. recurrent GI bleed - evidence of blood in PEG tube today - spoke with Dr. Boyd who recently saw patient and did not feel that further intervention would be helpful - felt that patient was at increased risk of bleed from esophageal cancer and will be at risk for recurrent bleeds 2. NSTEMI - patient with normal EKG - troponins 0.66-0.82-0.86 - cardiology consulted, recommended medical management <Richi Palacios - Last Filed: 11/08/16 13:59> Date of Encounter: 11/08/16 Acute blood loss anemia likely secondary to upper GI bleed due to friable esophageal cancer. BP stable. The patient and the patient's family were explained of the poor prognosis of her condition as a bloodthinner would be contraindicated to treat her NSTEMI as her Peg tube is showing signs of bleeding. The patient's mentioned that he "would call a laywer as he thinks the culprit from the bleeding is the nitroglycerine patch that was placed at [facility]". He was explained that it would be unlikely that such patch would cause a GI bleed. A cardiology consult was called but was cancelled as the patient is being transferred at the moment. [facility] was called but unfortunately there were no beds available, the next option was to call [facility] and a bed is available at that facility and the patient will be transferred ther. Protonix IV and IVF were started. The patient remains a full code, options were explained including comfort/ palliative care alone.
[2016-11-08] MEDS: 0.9 % Sodium Chloride 1,000 ML IVC SCH ×2 (12:00→18:29)
[2016-11-08] MEDS: Pantoprazole 40 MG VIAL IV SCH ×2 (12:21→20:14)
--- NOTE | 2016-11-08 12:32 | Discharge Summary ---
<Raquel Packer - Last Filed: 11/08/16 12:27> Date of Encounter: 11/08/16 Time of Encounter: 12:27 - Discharge Diagnosis (1) GI bleed Status: Resolved Comments: Patient with recurrent GI bleed as evidenced by blood in PEG tube Likely source is esophageal adenocarcinoma Patient recently admitted, was in ICU for GI bleed, was found to be profoundly anemic with Hgb 6.0 dropping to 4.1, requiring multiple units of PRBC and endoscopy by Dr. Boyd who clipped a few vessels Hemoglobin stable at 12.[address] Boyd who feels that bleeding currently is from underlying esophageal mass, does not feel that he would be able to offer her additional surgical options at this time Qualifiers: GI bleed type/associated pathology: unspecified gastrointestinal hemorrhage type Qualified Code(s): K92.2 - Gastrointestinal hemorrhage, unspecified (2) Elevated troponin Status: Acute Comments: EKG normal Concern for NSTEMI Patient not a candidate for anticoagulation due to recent GI bleed Spoke with Dr. Lisa of cardiology who arees with medical management of patient as she would not be a candidate for any anticoagulation due to recent GI bleed (3) Adenocarcinoma of esophagus, stage 4 Status: Acute Comments: Patient with known history of stage 4 adenocarcinoma of esophagus Has received 2 chemotherapy infusions, has refused radiation Evaluated by Dr. Callejas at recent hospitalization who felt that patient had poor prognosis and did not have much else to offer her Patient and family wish a second opinion (4) COPD (chronic obstructive pulmonary disease) Status: Acute Comments: Stable Qualifiers: COPD type: unspecified COPD Qualified Code(s): J44.9 - Chronic obstructive pulmonary disease, unspecified (5) Hypertension Status: Chronic Comments: Stable Continue home medications Qualifiers: Hypertension type: essential hypertension Qualified Code(s): I10 - Essential (primary) hypertension (6) Chronic anemia Status: Acute Comments: Hemoglobin stable at 12.4 - Discharge Medications Home Medications: Albuterol Sulfate [Proair Respiclick] 1 - 2 puff IH Q6H PRN 08/26/15 [History] Losartan Potassium [Cozaar] 100 mg PO DAILY 08/26/15 [History] CloNIDine Patch [Catapres-Tts] 0.3 mg TP QWEEK 08/14/16 [History] Lactose-Reduced Food/Fiber [Jevity 1.5 Andrés Liquid] 1 can PO TID #24 can [Rx] Ergocalciferol (VITAMIN D2) [Vitamin D2] 50,000 unit PO QWEEK 11/04/16 [History] Metoprolol Tartrate [Lopressor] 50 mg PO BID 11/04/16 [History] Prochlorperazine Maleate [Compazine] 10 mg PO Q8HR PRN 11/04/16 [History] Sennosides [Senna] 8.6 mg PO BID 11/04/16 [History] OxyCODONE Immed Rel [Roxicodone 5 MG] 10 mg PO Q4H PRN #42 tablet 11/06/16 [Rx] Albuterol Sulfate [Albuterol Inhaler] 2 puff IH Q4H PRN 11/08/16 [History] Polyethylene Glycol 3350 [MiraLAX Powder Bulk 17.9 Oz] 1 scoop PO BID PRN [History] Allergies/Adverse Reactions: Allergies Amoxicillin [From Augmentin] Adverse Reaction (Verified 11/08/16 07:36) Diarrhea aspirin Adverse Reaction (Verified 11/08/16 07:36) Nausea clavulanic acid [From Augmentin] Adverse Reaction (Verified 11/08/16 07:36) Diarrhea naproxen Adverse Reaction (Verified 11/08/16 07:36) Nausea NSAIDS (Non-Steroidal Anti-Inflamma Adverse Reaction (Verified 11/08/16 07:36) Nausea sulfamethoxazole [From Bactrim] Adverse Reaction (Verified 11/08/16 07:36) Hypertension trimethoprim [From Bactrim] Adverse Reaction (Verified 11/08/16 07:36) Hypertension Procedures/tests Complete & Pending: Procedures Performed prior 72 hours Category Date Time Status EV echocardiogram Routine Y 11/08/16 02:37 Ordered Date of admission: 11/08/16 05:22 Primary care physician: Susan Burris CNP Consults: 11/08/16 00:07 Consult to Nutrition [CONS] Routine Comment: Consulting Provider: NUTRITION Reason for Dietary Consult: Other 11/08/16 01:41 Consult to Palliative Care [CONS] Routine Comment: Consulting Provider: Palliative Care Nyla 11/08/16 11:37 Consult to Gastroenterology [CONS] Stat Consulting Provider: Gastroenterology Nyla Reason for Consult: UGIB Time Notified: 11:38 Call Completed: Yes - Patient Status Disposition: Transfer Critical Access Hosp Condition: Fair Functional capacity at discharge: bed bound Overall status at discharge: patient is not back to baseline - Discharge Instructions Follow Up With: Susan Burris CNP [Primary Care Provider] - Interval History: 65 year old with past medical history of stage 4 adenocarcinoma of esophagus s/ p 2 chemotherapy treatments, recurrent gi bleed with recent gi bleed requiring endoscopy with clipping, anemia, HTN, COPD who presented to the emergency room with chest pain and back pain. Initial troponin elevated at 0.66 and continued to increase to 0.84 and 0.88. EKG was normal. Due to recent GI bleed, patient was not considered a candidate for anticoagulation with heparin drip as this would be an absolute contraindication. Initial hemoglobin stable at 12.4. She was found to have blood in her PEG tube. Dr. Boyd who most recently saw patient in endoscopy was contacted and he did not feel that he had any more he could offer patient endoscopically. Dr. Boyd felt that the patient was likley going to bleed form mass and he would not be able to stop all of bleeding endoscopically. Also spoke with Dr. Lisa of cardiology who agreed with medical management as due to recent GI bleed patient would not be a candidate for intervention due to recent GI bleed and absolute contraindications of use of anticoagulants or antiplatelet agents. Patient and family requested transfer to another facility for second opinion. Hospital course: Ms. Lara is a 65 year old female - Time Spent with Patient Total time spent providing and/or coordinating discharge services: - Constitutional Vitals: Temp Pulse Resp BP Pulse Ox 98.5 F 84 16 137/81 98 11/08/16 11:49 11/08/16 11:49 11/08/16 11:49 11/08/16 11:49 11/08/16 11:49 General appearance: Present: A&O X 3, no acute distress, answers questions appropriately - Head Head exam: Present: atraumatic, normocephalic - Eye Eye exam: Present: normal appearance. Absent: conjunctival injection - ENT ENT exam: Present: mucous membranes moist, normal external ear exam - Neck Neck exam general surgery: Present: supple, trachea midline - Respiratory Respiratory exam: Present: CTAB. Absent: rales, rhonchi, stridor, wheezes - Cardiovascular Cardiovascular exam: Present: RRR, +S1, +S2. Absent: clicks, diastolic murmur, gallop, rubs, systolic murmur - GI/Abdominal GI/Abdominal exam: Present: normal bowel sounds, soft. Absent: distended, guarding, rebound, tenderness - Extremities Exam Extremities exam: Present: normal capillary refill. Absent: pedal edema <Richi Palacios H - Last Filed: 11/08/16 14:00> Date of Encounter: 11/08/16 Procedures/tests Complete & Pending: Procedures Performed prior 72 hours Category Date Time Status EV echocardiogram Routine Y 11/08/16 02:37 Ordered Date of admission: 11/08/16 05:22 Primary care physician: Susan Burris CNP Consults: 11/08/16 00:07 Consult to Nutrition [CONS] Routine Comment: Consulting Provider: NUTRITION Reason for Dietary Consult: Other 11/08/16 01:41 Consult to Palliative Care [CONS] Routine Comment: Consulting Provider: Palliative Care Nyla 11/08/16 11:37 Consult to Gastroenterology [CONS] Stat Consulting Provider: Gastroenterology Nyla Reason for Consult: UGIB Time Notified: 11:38 Call Completed: Yes Hospital course: Ms. Lara is a 65 year old female - Time Spent with Patient Total time spent providing and/or coordinating discharge services: - Constitutional Vitals: Temp Pulse Resp BP Pulse Ox 98.5 F 84 16 137/81 98 11/08/16 11:49 11/08/16 11:49 11/08/16 11:49 11/08/16 11:49 11/08/16 11:49 - Attending Attestation Acute blood loss anemia likely secondary to upper GI bleed due to friable esophageal cancer. BP stable. The patient and the patient's family were explained of the poor prognosis of her condition as a bloodthinner would be contraindicated to treat her NSTEMI as her Peg tube is showing signs of bleeding. The patient's mentioned that he "would call a laywer as he thinks the culprit from the bleeding is the nitroglycerine patch that was placed at [facility]". He was explained that it would be unlikely that such patch would cause a GI bleed. A cardiology consult was called but was cancelled as the patient is being transferred at the moment. [facility] was called but unfortunately there were no beds available, the next option was to call [facility] and a bed is available at that facility and the patient will be transferred therre. Protonix IV and IVF were started. The patient remains a full code, options were explained including comfort/ palliative care alone. Time spent on this transfer: 45 min I examined this patient and my medical decision-making was reviewed with the TRACTOR TECHNICIAN/PA/Advanced Practice Nurse/Resident Physician. I agree with the documented findings, disposition and treatment plan as described except to the extent set forth below.
--- NOTE | 2016-11-08 12:56 | Palliative - Consult Note ---
Date of Encounter: 11/08/16 Time of Encounter: 09:00 - Assessment and Plan (1) Cancer associated pain Current Visit: Yes Status: Acute Assessment and plan: Patient continues to insist on IV Hydromorphone for pain. Stated her Oxycodone was not helping enough. Discussed adding long acting opioid for improved pain management along with breakthrough pain medication. Patient stated she can no longer swallow pills and all medications need to go through tube, so Oxycontin/ MS Contin would not be appropriate. Discussed Fentanyl patch which pt states she had used years ago, and they were "worthless". However, after discussion she is willing to trial and see if this makes her more comfortable. Discussed that it may take some time for patch to work, and we may need to increase her doses over time. Will begin with Fentanyl 25mcg, and increase her Oxycodone to 15mg every 3 hours for pain level 4-6, and continue IV Dilaudid PRN for sever pain (7-10). Will monitor (2) Counseling regarding advanced care planning and goals of care Current Visit: Yes Status: Acute Assessment and plan: Patient and family have continued to desire aggressive level of care, and has desired to continue to be full code. There have been multiple discussion with radiation oncologist, oncologist, and palliative care, and they continue to want everything done. She had [facility] following at home, and was in the process of getting hospital bed set up. (3) Esophageal adenocarcinoma Current Visit: No Status: Chronic (4) GI bleed Current Visit: No Status: Resolved Qualifiers: GI bleed type/associated pathology: unspecified gastrointestinal hemorrhage type Qualified Code(s): K92.2 - Gastrointestinal hemorrhage, unspecified Palliative-CN HPI - Data of Consult Consult date: 11/08/16 Requesting Physician: Richi Palacios Primary Care Provider: Susan Burris CNP - Consult Narrative History of present illness: Ms. Lara is a 65 year old female well known to palliative care team who has history of metastatic adenocarcinoma of esophagus, who presented last night to emergency dept with c/o high blood pressure and chest pain. She was just discharged yesterday home after admission for GI bleed. During that admission, she had EGD performed by surgery and couple of clips were placed. IR was consulted for embolization, but they did not feel they could benefit her. She did receive several units PRBC and FFP and hemoglobin was stable, so she was discharged home from the ICU. Her Oxycodone was increased to 15mg prior to discharge. Patient states her blood pressure was high and her Oxycodone was not working for her pain, so she came back to hospital. Upon my visit, she appears calm and in no distress. Flat affect. Repeatedly asks me to get the nurse for her Dilaudid. Stated she has not had any tube feedings since leaving the hospital yesterday. C/O abd pain. Denies shortness of breath at this time. CC: Richi Palacios Past Med Surg Social Fam HX - Past Medical History Medical history: arthritis, cancer, CHF, COPD, hyperlipidemia, hypertension, renal disease Psychiatric history: no psych history - Past Surgical History Surgical History: other - Social History Smoking Status: Former smoker (quit jul 2016) Packs per day: 1ppd x45 yrs Smokeless Tobacco Status: No Alcohol use: none Drug use: none - Family History Father Living Status: Hx Family Cardiac Disorders: Yes (HEART RELATED) Mother Living Status: Still Living Hx Family Cardiac Disorders: Yes (Hypertension) Hx Family Endocrine Disorder: Yes (Diabetes Mellitus) Hx Family Neurologic Disorders: Yes (CVA) Sister Living Status: Still Living Hx Family Cardiac Disorders: No Hx Family Cancer: Yes Hx Family GI Disorders: No Hx Family Endocrine Disorder: No Hx Family Neuromuscular Disorders: No Hx Family Neurologic Disorders: No Hx Family HEENT Disorders: No Hx Family Autoimmune Disorders: No Medications and Allergies Albuterol Sulfate [Proair Respiclick] 1 - 2 puff IH Q6H PRN 08/26/15 [History] Losartan Potassium [Cozaar] 100 mg PO DAILY 08/26/15 [History] CloNIDine Patch [Catapres-Tts] 0.3 mg TP QWEEK 08/14/16 [History] Lactose-Reduced Food/Fiber [Jevity 1.5 Andrés Liquid] 1 can PO TID #24 can [Rx] Ergocalciferol (VITAMIN D2) [Vitamin D2] 50,000 unit PO QWEEK 11/04/16 [History] Metoprolol Tartrate [Lopressor] 50 mg PO BID 11/04/16 [History] Prochlorperazine Maleate [Compazine] 10 mg PO Q8HR PRN 11/04/16 [History] Sennosides [Senna] 8.6 mg PO BID 11/04/16 [History] OxyCODONE Immed Rel [Roxicodone 5 MG] 10 mg PO Q4H PRN #42 tablet 11/06/16 [Rx] Albuterol Sulfate [Albuterol Inhaler] 2 puff IH Q4H PRN 11/08/16 [History] Polyethylene Glycol 3350 [MiraLAX Powder Bulk 17.9 Oz] 1 scoop PO BID PRN [History] Allergies Amoxicillin [From Augmentin] Adverse Reaction (Verified 11/08/16 07:36) Diarrhea aspirin Adverse Reaction (Verified 11/08/16 07:36) Nausea clavulanic acid [From Augmentin] Adverse Reaction (Verified 11/08/16 07:36) Diarrhea naproxen Adverse Reaction (Verified 11/08/16 07:36) Nausea NSAIDS (Non-Steroidal Anti-Inflamma Adverse Reaction (Verified 11/08/16 07:36) Nausea sulfamethoxazole [From Bactrim] Adverse Reaction (Verified 11/08/16 07:36) Hypertension trimethoprim [From Bactrim] Adverse Reaction (Verified 11/08/16 07:36) Hypertension All systems: reviewed and no additional remarkable complaints except as stated ( abd pain and tenderness, generalized weakness, difficulty swallowing, anxiety) Palliative Care-Exam - Constitutional Vitals: Temp Pulse Resp BP Pulse Ox 98.5 F 84 16 137/81 98 11/08/16 11:49 11/08/16 11:49 11/08/16 11:49 11/08/16 11:49 11/08/16 11:49 General appearance: Present: no acute distress - Head Head Exam: Present: normal inspection, normocephalic - Eye Eye exam: Present: normal appearance, PERRL - Respiratory Respiratory exam: Present: decreased breath sounds, CTAB - Cardiovascular Cardiovascular exam: Present: +S1, +S2 - GI/Abdominal Exam GI/Abdominal exam: Present: diminished bowel sounds, soft - Extremities Exam Additional comments: 1+ bilateral lower extremity edema - Neurological Exam Neurological exam: Present: oriented X3, strengths equal and symetr throughout - Skin Skin exam: Present: dry, pallor, warm Internal Medicine - CN: Reslt - Labs CBC & Chem 7: 11/08/16 00:53 11/08/16 00:53 Labs: Short CBC 11/08/16 Range/Units 00:53 WBC 5.7 (4.3-11.1) K/mcL Hgb 12.4 (11.5-15.4) g/dL Hct 37.4 (35.3-44.9) % Plt Count 228 (140-400) K/mcL BMP 11/08/16 00:53 Sodium 133 L Potassium 3.7 Chloride 97 L Carbon Dioxide 29 BUN 13 Creatinine 0.73 Glucose 94 Calcium 8.9 Cardiac Enzymes 11/08/16 11/08/16 Range/Units 00:53 06:02 Troponin I 0.82 H* 0.88 H* (0-0.03) ng/mL - ABG Interpretation ABG results: PT/INR, D-dimer D-Dimer 4087 ng/mLFEU (0-500) H 11/08/16 06:02 Consult Discharge Plan - Plan Referrals: Susan Burris, TRAFFIC RATE COMPUTER [Primary Care Provider] - Palliative Quality Palliative Quality: Screen for Code Status: Yes, Screen for Goals of Care: Yes, Screen for Pain: Yes, If Pain Regimen Started, Initiate Bowel Regimen: NA, Screen for Nausea/Vomitting: Yes Code Status: 11/08/16 01:23 Resuscitation Status: Active [RES] Routine Comment: Resuscitation Status: Full Code
[2016-11-08] MEDS: *HR* HYDROmorphone (PF) 1 MG/ML SYRINGE IVP PRN ×3 (15:11→23:55)
[2016-11-08] MEDS ORDERED: hydrALAZINE 10 MG TABLET PO PRN (20:15)
[2016-11-08] MEDS ORDERED: *HR* Metoprolol 5 MG/5 ML VIAL IVP PRN (20:16)
[2016-11-08 23:19] LABS: Basophils % 0.4 %; Eosinophils # 0.2 K/mcL (0.0-0.6); Eosinophils % 4.5 %; Hematocrit 33.4 % (35.3-44.9); Immature Granulocytes % 0.4 % (0-4); Lymphocytes # 0.7 K/mcL (0.6-4.6); Lymphocytes % 13.4 %; Mean Corpuscular HGB Conc 32.9 g/dL (31.6-35.5); Mean Corpuscular Hemoglobin 29.6 pg (28.0-33.3); Mean Corpuscular Volume 89.8 fL (83.0-100.0); Mean Platelet Volume 9.6 fL (9.4-12.4); Monocytes # 0.4 K/mcL (0.0-1.3); Monocytes % 7.3 %; Neutrophils # 3.6 K/mcL (1.6-8.9); Platelet Count 212 K/mcL (140-400); Red Blood Count 3.72 M/mcL (3.82-4.97); Red Cell Distribution Width 13.9 % (11.5-14.5)
[2016-11-09] MEDS: *HR* Metoprolol 5 MG/5 ML VIAL IVP SCH ×4 (00:19→17:18)
[2016-11-09] MEDS: Ipratropium/Albuterol Neb 3 ML IH PRN ×3 (00:51→22:35)
[2016-11-09] MEDS: 0.9 % Sodium Chloride 1,000 ML IVC SCH ×5 (01:09→22:08)
[2016-11-09] MEDS: *HR* HYDROmorphone (PF) 1 MG/ML SYRINGE IVP PRN ×5 (03:55→21:42)
[2016-11-09 05:29] LABS: Basophils % 0.4 %; Eosinophils # 0.2 K/mcL (0.0-0.6); Eosinophils % 3.2 %; Hematocrit 34.3 % (35.3-44.9); Hemoglobin 11.3 g/dL (11.5-15.4); Immature Granulocytes % 0.2 % (0-4); Lymphocytes # 0.6 K/mcL (0.6-4.6); Lymphocytes % 11.4 %; Mean Corpuscular HGB Conc 32.9 g/dL (31.6-35.5); Mean Corpuscular Hemoglobin 29.2 pg (28.0-33.3); Mean Corpuscular Volume 88.6 fL (83.0-100.0); Mean Platelet Volume 9.2 fL (9.4-12.4); Monocytes # 0.4 K/mcL (0.0-1.3); Monocytes % 7.5 %; Neutrophils # 4.1 K/mcL (1.6-8.9); Platelet Count 221 K/mcL (140-400); Red Blood Count 3.87 M/mcL (3.82-4.97); Red Cell Distribution Width 13.9 % (11.5-14.5); Segmented Neutrophils % 77.3 %
--- NOTE | 2016-11-09 07:14 | ECHO - Doppler Report ---
Echocardiogram Name: Robert Lara Date of Study: 11/08/2016 Date: 1950 Ht: 62.0 in Medical Record#: [id number] Age: 65 Wt: 163.0 lb Gender: Female BSA: 1.75 Order #: [id number] Location: [facility] Room #: [id number] Reading Physician: Sukumar Laura MD, [facility] [employer] Good[employer] Salesperson: Erin Huddleston RDCS Ordering Physician: Martha Barnes DO Primary Physician: Susan Burris CNP Indications: Chest pain, Elevated Troponin Impressions: LVEF 55-60%. There is hypokinesis of the basal inferior wall. Mild concentric left ventricular hypertrophy. Moderate left ventricular diastolic dysfunction. Normal right ventricular size and function. No significant valvular dysfunction. Mild pulmonary hypertension. Estimated RVSP = 38 mmHg. Left Ventricular Wall Motion: Rest Echo Findings The basal inferior wall was hypokinetic. All other wall segments showed normal motion. Findings: Study Quality * Technically adequate exam. ECG Findings * Normal sinus rhythm. Left Ventricle * LVEF 55-60%. There is hypokinesis of the basal inferior wall. * Mild concentric left ventricular hypertrophy. * Moderate left ventricular diastolic dysfunction. Right Ventricle * Normal right ventricular size and function. Left Atrium * Normal left atrial size. Right Atrium * Normal right atrial size. Aorta * Normally sized aortic root. Pericardium * There is a trivial pericardial effusion present. IVC * The IVC is not dilated. Aortic Valve * Trileaflet aortic valve. * No aortic stenosis. * Trace aortic regurgitation. Mitral Valve * Mild mitral annular calcification * No mitral stenosis. * Trace mitral regurgitation. Tricuspid Valve * Normal tricuspid valve structure. * No tricuspid stenosis. * Trace tricuspid regurgitation. * Mild pulmonary hypertension. Estimated RVSP = 38 mmHg. Pulmonic Valve * Pulmonic valve not well visualized. * No pulmonic stenosis. * Trace pulmonic regurgitation. History Hypertension Hypercholesteremia Years 47 Packs 1 Family History of CAD Congestive Heart Failure Measurements: BP: 154/ 94 2D Normal Values RVIDd: 2.22 cm IVSd: 1.21 cm 0.6 - 1.0 cm LVIDd: 4.44 cm 3.7 - 5.6 cm LVPWd: 1.14 cm 0.6 - 1.1 cm LVIDs: 2.46 cm 1.5 - 3.6 cm AO: 2.40 cm < 4.0 cm %FS: 44.60 cm >25 % LA volume: 41 Mitral Valve Peak E:1.03 m/sec Peak A:.95 m/sec E/A Ratio:1.1 Tricuspid Valve TV Regurg Peak Grad: 35.00mmHg TV Regurg Peak Eric: 2.96m/sec Updated by Sukumar Laura MD, [facility] on 11/09/2016 7:08:25 AM electronically signed on 11/09/2016 7:08:58 AM with status of Final Wall Motion [place]: 1=Normal, 2=Hypokinesis, 3=Akinesis, 4=Dyskinesis, 5=Aneurysmal, 6=Hyperkinetic, X=Not Visualized (Blank)=Missing
[2016-11-09] MEDS: Pantoprazole 40 MG VIAL IV SCH ×2 (08:07→21:42)
[2016-11-09] MEDS ORDERED: *HR* Propofol 200 MG/20 ML VIAL IVP ONE (08:48)
[2016-11-09] MEDS ORDERED: *HR* Etomidate 20 MG/10 ML AMPUL IVP ONE (08:48)
[2016-11-09] MEDS ORDERED: Lidocaine -MPF 2% 5 ML VIAL INFILT ONE (08:48)
[2016-11-09] MEDS ORDERED: Ondansetron 4 MG/2 ML VIAL IVP ONE (08:48)
--- NOTE | 2016-11-09 08:57 | Palliative Progress Note ---
Date of Encounter: 11/08/16 Time of Encounter: 08:55 - Assessment and plan (1) Cancer associated pain Current Visit: Yes Status: Acute Assessment and plan: Continue Fentanyl patch at 25mcg - most likely increase tomorrow. Continue IV Hydromorphone as nothing by tube at this time with upcoming procedure. She has utilized Hydromorphone x5 last 24 hours. Had discussion that after procedures, needs to transition to pain regimen that can be managed at home. (2) Counseling regarding advanced care planning and goals of care Current Visit: Yes Status: Acute Assessment and plan: Patient was preparing for transfer to [place], stated Dr. Winter offered to do esophageal stent here. Continues full code desiring aggressive care. Has [facility] health already in place when ready for discharge. (3) Esophageal adenocarcinoma Current Visit: No Status: Chronic - Time Spent With Patient Total time spent is greater than 50% in coordination of care (as documented) at patient's floor/unit and/or counseling patient: 25 - 35 minutes - Subjective Interval history: Patient awake and alert, asking for breathing treatment. States slept "ok" last night. States Dr. Winter to do esophageal stent today or possibly tomorrow if stent doesn't come in. Hgb stable at 11.3. Tube feedings on hold. States tolerated Fentanyl patch ok, but is convinced it will do nothing to help her pain. No family present. - Constitutional Vitals: Abnormal lab results Hgb 11.3 g/dL (11.5-15.4) L 11/09/16 05:07 Hct 34.3 % (35.3-44.9) L 11/09/16 05:07 MPV 9.2 fL (9.4-12.4) L 11/09/16 05:07 D-Dimer 4087 ng/mLFEU (0-500) H 11/08/16 06:02 Sodium 133 mEq/L (136-145) L 11/08/16 00:53 Chloride 97 mEq/L (98-109) L 11/08/16 00:53 Calculated Osmolality 276 (280-300) L 11/08/16 00:53 Troponin I 0.58 ng/mL (0-0.03) H* 11/08/16 13:00 B-Natriuretic Peptide 1357 pg/mL (0-100) H 11/08/16 00:53 General appearance: Present: no acute distress - Respiratory Additional comments: Breath sounds diminished in bases. O2 at 2LPM - Cardiovascular Cardiovascular exam: Present: +S1, +S2 - GI/Abdominal GI/Abdominal exam: Present: normal bowel sounds, soft Additional comments: PEG intact and clamped - Extremities Exam Additional comments: 2+ edema lower extremities - Neurological Exam Neurological exam: Present: alert, oriented X3, strengths equal and symetr throughout - Psychiatric Psychiatric exam: Present: flat affect - Skin Skin exam: Present: dry, pallor, warm Palliative Quality Palliative Quality: Screen for Code Status: Yes, Screen for Goals of Care: Yes, Screen for Pain: Yes, If Pain Regimen Started, Initiate Bowel Regimen: NA, Screen for Nausea/Vomitting: Yes Code Status: 11/08/16 01:23 Resuscitation Status: Active [RES] Routine Comment: Resuscitation Status: Full Code - Labs CBC & Chem 7: 11/09/16 05:07 11/08/16 00:53 Labs: Laboratory Results - last 24 hr 11/08/16 11/08/16 11/08/16 07:51 11:50 13:00 WBC RBC Hgb Hct MCV MCH MCHC RDW Plt Count MPV Immature Gran % Seg Neutrophils % Lymphocytes % Monocytes % Eosinophils % Basophils % Neutrophils # Lymphocytes # Monocytes # Eosinophils # Basophils # POC Glucose 86 101 H Troponin I 0.58 H* 11/08/16 11/08/16 11/08/16 16:23 20:50 22:17 WBC 4.9 RBC 3.72 L Hgb 11.0 L Hct 33.4 L MCV 89.8 MCH 29.6 MCHC 32.9 RDW 13.9 Plt Count 212 MPV 9.6 Immature Gran % 0.4 Seg Neutrophils % 74.0 Lymphocytes % 13.4 Monocytes % 7.3 Eosinophils % 4.5 Basophils % 0.4 Neutrophils # 3.6 Lymphocytes # 0.7 Monocytes # 0.4 Eosinophils # 0.2 Basophils # 0.0 POC Glucose 94 H 81 Troponin I 11/09/16 05:07 WBC 5.4 RBC 3.87 Hgb 11.3 L Hct 34.3 L MCV 88.6 MCH 29.2 MCHC 32.9 RDW 13.9 Plt Count 221 MPV 9.2 L Immature Gran % 0.2 Seg Neutrophils % 77.3 Lymphocytes % 11.4 Monocytes % 7.5 Eosinophils % 3.2 Basophils % 0.4 Neutrophils # 4.1 Lymphocytes # 0.6 Monocytes # 0.4 Eosinophils # 0.2 Basophils # 0.0 POC Glucose Troponin I - ABG Interpretation ABG results: PT/INR, D-dimer D-Dimer 4087 ng/mLFEU (0-500) H 11/08/16 06:02 Consult Discharge Plan - Plan Referrals: Susan Burris, LYE PEEL OPERATOR [Primary Care Provider] - (Web request made 11/08/16)
--- NOTE | 2016-11-09 11:15 | Anesthesia Evaluation PreOp ---
Date of Encounter: 11/08/16 Time of Encounter: 11:24 - Past History Cardiac History: AL (NSTEMI this admission. "Heart strain due to Ca/LUng involvement"), CHF (Acute CHF exacerbation this admission. BNP >1300.), HTN ( maintained w/ Clonidine, Cozaar, Metoprolol) Pulmonary History: Former smoker (Quit 07/2016 after 1ppd x 45 yrs), Other (PE?? ? No anti-coagulation (prophylactic or otherwise re: recurrent GIB), Lung Mass) RETURNER History: Denies Any Significant HX Other Medical History: Renal (Stage 3 kidney dz), Other (Esophageal Ca stage 4 w /mets) Anesthesia History: No Prior Anesthetic Complications, Past Anesthesia (BTL) Alcohol Use: none Drug use: none Medications and Allergies Albuterol Sulfate [Proair Respiclick] 1 - 2 puff IH Q6H PRN 08/26/15 [History] Losartan Potassium [Cozaar] 100 mg PO DAILY 08/26/15 [History] CloNIDine Patch [Catapres-Tts] 0.3 mg TP QWEEK 08/14/16 [History] Lactose-Reduced Food/Fiber [Jevity 1.5 Andrés Liquid] 1 can PO TID #24 can [Rx] Ergocalciferol (VITAMIN D2) [Vitamin D2] 50,000 unit PO QWEEK 11/04/16 [History] Metoprolol Tartrate [Lopressor] 50 mg PO BID 11/04/16 [History] Prochlorperazine Maleate [Compazine] 10 mg PO Q8HR PRN 11/04/16 [History] Sennosides [Senna] 8.6 mg PO BID 11/04/16 [History] OxyCODONE Immed Rel [Roxicodone 5 MG] 10 mg PO Q4H PRN #42 tablet 11/06/16 [Rx] Albuterol Sulfate [Albuterol Inhaler] 2 puff IH Q4H PRN 11/08/16 [History] Polyethylene Glycol 3350 [MiraLAX Powder Bulk 17.9 Oz] 1 scoop PO BID PRN [History] Allergies Amoxicillin [From Augmentin] Adverse Reaction (Verified 11/08/16 07:36) Diarrhea aspirin Adverse Reaction (Verified 11/08/16 07:36) Nausea clavulanic acid [From Augmentin] Adverse Reaction (Verified 11/08/16 07:36) Diarrhea naproxen Adverse Reaction (Verified 11/08/16 07:36) Nausea NSAIDS (Non-Steroidal Anti-Inflamma Adverse Reaction (Verified 11/08/16 07:36) Nausea sulfamethoxazole [From Bactrim] Adverse Reaction (Verified 11/08/16 07:36) Hypertension trimethoprim [From Bactrim] Adverse Reaction (Verified 11/08/16 07:36) Hypertension - Meds/Allergy Pre-op Review Medications Reviewed: Yes Allergies Reviewed: Yes Beta Blockers on Current Med List: Yes (Metoprolol) If Beta Blockers taken, Date/Time (Last Dose taken): @ 0652 Anesthesia Results - Labs 11/09/16 05:07 11/08/16 00:53 Laboratory Tests 11/02/16 11/05/16 11/07/16 02:15 05:02 20:20 PT 12.2 H INR 1.1 D-Dimer Creatinine Est GFR (Non-Af Amer) Troponin I 0.66 H* B-Natriuretic Peptide Stool Occult Blood Positive A 11/08/16 11/08/16 11/08/16 00:53 00:53 00:53 PT INR D-Dimer Creatinine 0.73 Est GFR (Non-Af Amer) > 60 Troponin I 0.82 H* B-Natriuretic Peptide 1357 H Stool Occult Blood 11/08/16 11/08/16 11/08/16 06:02 06:02 13:00 PT INR D-Dimer 4087 H Creatinine Est GFR (Non-Af Amer) Troponin I 0.88 H* 0.58 H* B-Natriuretic Peptide Stool Occult Blood Laboratory Results - Imaging EKG: image reviewed Anesthesia Exam Vital Signs Temp Pulse Resp BP Pulse Ox 11/09/16 09:34 18 96 11/09/16 07:11 98.0 F 93 16 119/71 94 L 11/09/16 04:22 98.3 F 98 18 136/74 96 11/09/16 00:51 18 96 11/08/16 23:19 98.2 F 94 18 159/75 96 11/08/16 18:58 98.1 F 90 18 152/80 97 11/08/16 15:24 98.4 F 89 16 154/94 96 11/08/16 15:14 16 98 11/08/16 11:49 98.5 F 84 16 137/81 98 Intake and Output 11/08/16 11/09/16 11/09/16 23:59 07:59 15:59 Intake Total 1000 / 1000 1000 / 1000 1000 / 1000 Output Total 300 / 300 200 / 200 Balance 700 / 700 800 / 800 1000 / 1000 Intake: IV Fluids 1000 / 1000 1000 / 1000 1000 / 1000 0.9 % Sodium Chloride 1, 1000 / 1000 1000 / 1000 1000 / 1000 000 ML @ 150 mls/hr IVC . Q6H40M MICKEY Rx#:[id number] Oral 0 / 0 0 / 0 Free Water Intake Amount 0 / 0 0 / 0 Output: Urine 300 / 300 200 / 200 Other: Meal Dinner NPO Percent of Meal Consumed 0% 0% Weight 74.2 kg Blood Glucose* 81 81 Patient Weight 11/09/16 23:59 Weight 74.2 kg Height: 5'2" Weight: 163# BMI = 30 NPO (# of Hours): MNoc - HEENT Pupil (Motor): Pupils equal, EOMI Mallampati: III Teeth: Edentulous Oral Opening: Greater than 3 - RETURNER LOC: Oriented RETURNER Motor: Normal RUE (generalized weakness ), Normal LUE, Normal RLE, Normal LLE, Normal Face RETURNER Sensory: Normal: RUE, LUE, RLE, LLE, Face - Cardiac Rhythm: Regular Murmur: Systolic JVD: No - Pulmonary Breath Sounds: bilateral Clear, bilateral Rales Respiratory Effort: Symmetrical Anesthesia Assess/Plan ASA Score: 4 (COPD, Acute CHF exacerbation, HTN, Chol, NSTEMI) Modified [place] Scale for Level of Consciousness: Cooperative, oriented, and tranquil Anesthetic Plan: General, MAC Monitoring Plan: Standard Monitors Recovery Plan: Other Anes Supervising Prov Stmt: Pt seen/evaluated, R&B Discussed, questions answered and consent obtained. Wendy Amanda MD
--- NOTE | 2016-11-09 11:34 | Gastroenterology Consult Note ---
<Sukumar Mccain - Last Filed: 11/09/16 11:31> Date of Encounter: 11/08/16 Time of Encounter: 10:10 - Assessment and plan (1) Esophageal adenocarcinoma Current Visit: No Status: Chronic Assessment and plan: Plan for EGD today with stent placement for palliation. This will likely help compress tumor and help decrease bleeding. Chest pain after stent placement to be expected but should improve within a couple of days. Risks of perforation and migration were discussed with the patient. Patient agreed to proceed with procedure. Keep NPO. (2) GI bleed Current Visit: No Status: Resolved Assessment and plan: Secondary to esophageal cancer. Qualifiers: GI bleed type/associated pathology: unspecified gastrointestinal hemorrhage type Qualified Code(s): K92.2 - Gastrointestinal hemorrhage, unspecified - Time Spent With Patient Total time spent is greater than 50% in coordination of care (as documented) at patient's floor/unit and/or counseling patient: GI History of Present Illness - Data of Consult Patient: known to practice within the last 3 years Consult date: 11/09/16 Requesting Physician: Richi Palacios - Consult Narrative Reason for consult: UGIB History of present illness: Ms. Lara is a 65 year old female with PMHx of stage 4 esophageal cancer, HTN, COPD, reurrent GI bleed, anemia who presented with c/o chest pain that started 1 -2 weeks ago. On admission Hgb 12.4, today Hgb 11.3. She was found to have blood in her PEG tube. She was recently admitted for GI bleed and had an EGD performed by Dr. Boyd at that time. IR was consulted for embolization, but they did not feel they could benefit her. We have been consulted for further evaluation. Procedures: EGD 11/04/2016 Dr. Boyd partially obstructing malignant esophageal tumor in the lower third of the esophagus. 2 ligatures were successfully placed. A slow ooze remaining at the end of the procedure. EGD 10/23/2016 Dr. Gray completely obstructing malignant esophageal tumor at the GE junction, PEG tube placed. EGD 09/21/2016 Dr. Winter partially obstructing malignant esophageal tumor in the lower third of the esophagus with bleeding, treated with APC. EGD 08/16/2016 Dr. Gray partially obstructing likely malignant esophageal tumor in the lower third of the esophagus. NSAIDs: None Anticoagulation: None Past Med Surg Social Fam HX - Past Medical History Medical history: arthritis, cancer, CHF, COPD, hyperlipidemia, hypertension, renal disease Psychiatric history: no psych history - Past Surgical History Surgical History: other - Social History Smoking Status: Former smoker (quit jul 2016) Packs per day: 1ppd x45 yrs Smokeless Tobacco Status: No Alcohol use: none Drug use: none - Family History Father Living Status: Hx Family Cardiac Disorders: Yes (HEART RELATED) Mother Living Status: Still Living Hx Family Cardiac Disorders: Yes (Hypertension) Hx Family Endocrine Disorder: Yes (Diabetes Mellitus) Hx Family Neurologic Disorders: Yes (CVA) Sister Living Status: Still Living Hx Family Cardiac Disorders: No Hx Family Cancer: Yes Hx Family GI Disorders: No Hx Family Endocrine Disorder: No Hx Family Neuromuscular Disorders: No Hx Family Neurologic Disorders: No Hx Family HEENT Disorders: No Hx Family Autoimmune Disorders: No - Gastrointestinal Gastrointestinal: Present: as per HPI - Constitutional Constitutional: as per HPI - EENT Eyes: as per HPI Ears: Present: as per HPI Nose, mouth and throat: Present: as per HPI - Cardiovascular Cardiovascular ROS: Present: as per HPI - Respiratory Respiratory IM: Present: as per HPI - Genitourinary Genitourinary: Absent: change in color, Urinary frequency - Neurological ROS Neurological GI: Present: as per HPI - Hematologic/Lymphatic Hematologic/Lymphatic pediatric: Present: as per HPI - Musculoskeletal Musculoskeletal ROS GI: Present: as per HPI - Integumentary Integumentary GI: Present: as per HPI - Psychiatric ROS Psychiatric GI: Present: as per HPI - Endocrine Endocrine IM: Present: as per HPI - Constitutional Vitals: Temp Pulse Resp BP Pulse Ox 98.0 F 105 22 160/81 95 11/09/16 07:11 11/09/16 11:28 11/09/16 11:28 11/09/16 11:28 11/09/16 11:28 General appearance: Present: cooperative, A&O X 3, no acute distress, answers questions appropriately - Head Head exam: Present: atraumatic, normocephalic - Eye Eye exam: Present: normal appearance, sclera anicteric - ENT ENT exam: Present: mucous membranes dry - Neck Neck exam general surgery: Present: normal inspection, trachea midline - Respiratory Respiratory exam: Present: decreased breath sounds, CTAB - Cardiovascular Cardiovascular exam: Present: RRR, +S1, +S2 - GI/Abdominal GI/Abdominal exam: Present: soft, no peritoneal signs. Absent: distended, firm , guarding, tenderness - Rectal Rectal exam: Present: deferred - Extremities Exam Extremities exam: Present: warm - Neurological Exam Neurological exam: Present: no focal deficits - Psychiatric Psychiatric exam: Present: normal affect, normal mood - Skin Skin exam: Present: dry, intact, normal color, warm Results - Labs CBC & Chem 7: 11/09/16 05:07 11/08/16 00:53 Labs: Last Result Calcium 8.9 mg/dL (8.6-10.8) 11/08/16 00:53 Troponin I 0.58 ng/mL (0-0.03) H* 11/08/16 13:00 Entire Visit Hgb 11.3 g/dL (11.5-15.4) L 11/09/16 05:07 Hct 34.3 % (35.3-44.9) L 11/09/16 05:07 - ABG ABG results: PT/INR, D-dimer D-Dimer 4087 ng/mLFEU (0-500) H 11/08/16 06:02 Consult Discharge Plan - Plan Referrals: Susan Burris, INSECTICIDE SPRAYER [Primary Care Provider] - 11/16/16 1:00 pm (Web request made ) <Marilynn Winter - Last Filed: 11/09/16 13:03> Date of Encounter: 11/08/16 - Time Spent With Patient Total time spent is greater than 50% in coordination of care (as documented) at patient's floor/unit and/or counseling patient: GI History of Present Illness - Data of Consult Requesting Physician: Richi Palacios - Consult Narrative History of present illness: Ms. Lara is a 65 year old female - Constitutional Vitals: Temp Pulse Resp BP Pulse Ox 98.0 F 106 20 145/79 96 11/09/16 07:11 11/09/16 12:25 11/09/16 12:25 11/09/16 12:25 11/09/16 12:25 Results - Labs CBC & Chem 7: 11/09/16 05:07 11/08/16 00:53 Labs: Last Result Calcium 8.9 mg/dL (8.6-10.8) 11/08/16 00:53 Troponin I 0.58 ng/mL (0-0.03) H* 11/08/16 13:00 Entire Visit Hgb 11.3 g/dL (11.5-15.4) L 11/09/16 05:07 Hct 34.3 % (35.3-44.9) L 11/09/16 05:07 - ABG ABG results: PT/INR, D-dimer D-Dimer 4087 ng/mLFEU (0-500) H 11/08/16 06:02 - Attending Attestation I examined this patient and my medical decision-making was reviewed with the INDUSTRIAL DESIGNER/PA/Advanced Practice Nurse/Resident Physician. I agree with the documented findings, disposition and treatment plan as described except to the extent set forth below. A detailed discussion with the patient and family member including many sisters and . Patient with bleeding metastatic esophageal tumor, requiring recurrent admission to the hospital. Patient will need a partially covered esophageal metal stent. Procedure including risks were discussed with the patient/family in detail. Risks included but not limited to take to infection bleeding perforation, stent migration, sepsis, related to the complication of the procedure. PostStent placement patient can have chest pain that .can be debilitating. Patient and family voice understanding and in agreement with the procedure
[2016-11-09] MEDS ORDERED: Tetracaine/Benzocaine/Butamben 200MG/SPRAY (100SPY/BOT) MM ONE (12:16)
--- NOTE | 2016-11-09 12:25 | Anesthesia Evaluation Post Op ---
Date of Encounter: 11/08/16 Time of Encounter: 12:25 - Vital Signs Vital Signs: vss - Lungs Lungs: Clear Ascult./Percussion - Airway Airway: Non-obstructed - Cardiovascular Baseline Rhythm - Mental Status Mental Status: Alert & Oriented, Answers Appropriately - Pain Pain Scale used: Melissa (Faces) - Nausea Vomiting Nausea Vomiting: Not Present - Discharge PostOp Status: Transfer Patient to floor
--- NOTE | 2016-11-09 13:34 | Internal Med Progress Note ---
<Raquel Packer - Last Filed: 11/09/16 13:26> Date of Encounter: 11/08/16 Time of Encounter: 13:26 - Assessment and plan (1) GI bleed Current Visit: No Status: Resolved Assessment and plan: Patient with evidence of blood in PEG tube, drop in hemoglobin and tachycardia Patient recently admitted for upper GI bleed and discharged, stay required multiple units of blood and an endoscopy with placement of [address] Boyd consulted this visit, he did not feel that he had any more to offer patinet. GI consulted, appreciate expertise and assistance. Dr. Winter. EGD with placement of esophageal stent with evidence of recent bleeding on tumor as well as blood in stomach.l Stent placement successful. Continue to monitor CBC q 12 hours. Given tachycardia, will place back on IV fluids at 200 mL/hour Qualifiers: GI bleed type/associated pathology: unspecified gastrointestinal hemorrhage type Qualified Code(s): K92.2 - Gastrointestinal hemorrhage, unspecified (2) Elevated troponin Current Visit: No Status: Acute Assessment and plan: Likely secondary to demand ischemia, concerns for ACS Troponin 0.66 - 0.82 - 0.88 -0.58 Patient is not a candidate for any anticoagulation due to recent GI bleed and high risk for further GI bleeds due to presence of esophageal adenocarcinoma Patient is on metoprolol 50 BID, she is also already on a ARB Will discuss with patient starting of statin (3) Chronic anemia Current Visit: No Status: Acute Assessment and plan: Patient with history of chronic anemia Currently 11.3 this morning, was 12.0 on admission Evidence of blood loss in PEG tube Will monitor CBC q 12 hours Continue to monitor vitals (4) Adenocarcinoma of esophagus, stage 4 Current Visit: No Status: Acute Assessment and plan: Patient with known history of esophageal adenocarcinoma stage 4. Has received 2 chemotherapy infusions, has refused radiation Previously seen by Heme/onc at prior visit. [place] patient had poor prognosis. (5) COPD (chronic obstructive pulmonary disease) Current Visit: No Status: Acute Assessment and plan: Continue home medications continue supplemental O2 to keep saturation above 88% Qualifiers: COPD type: unspecified COPD Qualified Code(s): J44.9 - Chronic obstructive pulmonary disease, unspecified (6) Hypertension Current Visit: No Status: Chronic Assessment and plan: continue clonidine patch Qualifiers: Hypertension type: essential hypertension Qualified Code(s): I10 - Essential (primary) hypertension - Subjective Interval history: Patient seen and examined post procedure. Patient presented 11/08/16 with increasing chest pressure and back pain after having been discharged day prior from hospital for an acute GI bleed secondary to esophageal adenocarcinoma stage 4 requiring numerous units of blood and clipping of vessels endoscopically by Dr. Boyd. She was subsequently was evaluated by Dr. Winter who decided to place an esophageal stent in attempt to help compress tumor and slow down bleeding. Patient has undergone EGD with placement of 10 cm length x 20 mm diameter. The EGD noted the large fungating mass with bleeding stigmata and active oozing, there was also blood note din stomach. The mass was non-obstructing. Patients hemoglobin had dropped to 11.2 this morning. Patient currently deneis any chest pain or pressure. Family in room is again asking about nitroglycerin causing bleeding, it was again discussed with them that bleeding was not a known side effect of nitroglycerin. There are no other concerns or complaints at this time. - Constitutional Vitals: Temp Pulse Resp BP Pulse Ox 98.4 F 98 16 144/83 96 11/09/16 12:55 11/09/16 12:55 11/09/16 12:55 11/09/16 12:55 11/09/16 12:55 General appearance: Present: A&O X 3, no acute distress, answers questions appropriately - Head Head exam: Present: atraumatic, normocephalic - Eye Eye exam: Present: normal appearance. Absent: conjunctival injection - ENT ENT exam: Present: mucous membranes moist, normal external ear exam - Neck Neck exam general surgery: Present: supple, trachea midline - Respiratory Respiratory exam: Present: CTAB. Absent: rales, rhonchi, stridor, wheezes - Cardiovascular Cardiovascular exam: Present: RRR, +S1, +S2. Absent: clicks, diastolic murmur, gallop, rubs, systolic murmur - GI/Abdominal GI/Abdominal exam: Present: normal bowel sounds, soft. Absent: distended, guarding, rebound, tenderness Additional comments: PEG tube in place in upper right quadrant with blood visible in external tube - Extremities Exam Extremities exam: Present: normal capillary refill. Absent: pedal edema Internal Medicine: Result - Labs CBC & Chem 7: 11/09/16 05:07 11/08/16 00:53 Labs: Short CBC 11/08/16 11/09/16 Range/Units 22:17 05:07 WBC 4.9 5.4 (4.3-11.1) K/mcL Hgb 11.0 L 11.3 L (11.5-15.4) g/dL Hct 33.4 L 34.3 L (35.3-44.9) % Plt Count 212 221 (140-400) K/mcL Neutrophils # 3.6 4.1 (1.6-8.9) K/mcL Cardiac Enzymes 11/08/16 Range/Units 13:00 Troponin I 0.58 H* (0-0.03) ng/mL - ABG Interpretation ABG results: PT/INR, D-dimer D-Dimer 4087 ng/mLFEU (0-500) H 11/08/16 06:02 Consult Discharge Plan - Plan Referrals: Susan Burris, [employer]WORK ENGINEER [Primary Care Provider] - 11/16/16 1:00 pm (Web request made ) <Richi Palacios H - Last Filed: 11/09/16 15:11> Date of Encounter: 11/09/16 - Constitutional Vitals: Temp Pulse Resp BP Pulse Ox 98.6 F 86 16 142/83 94 11/09/16 13:34 11/09/16 13:34 11/09/16 13:34 11/09/16 13:34 11/09/16 13:34 Internal Medicine: Result - Labs CBC & Chem 7: 11/09/16 05:07 11/08/16 00:53 Labs: Short CBC 11/08/16 11/09/16 Range/Units 22:17 05:07 WBC 4.9 5.4 (4.3-11.1) K/mcL Hgb 11.0 L 11.3 L (11.5-15.4) g/dL Hct 33.4 L 34.3 L (35.3-44.9) % Plt Count 212 221 (140-400) K/mcL Neutrophils # 3.6 4.1 (1.6-8.9) K/mcL - ABG Interpretation ABG results: PT/INR, D-dimer D-Dimer 4087 ng/mLFEU (0-500) H 11/08/16 06:02 - Attending Attestation acute blood loss anemia secondary to Upper GI bleed from esophageal cancer/ friable mass s/p esophageal stent placed by Dr Winter on 11/09/16 consider Transfusion , monitor CBC Demand ischemia, won't be able to start ASA or anticoagulation if developing NSTEMI. Patient and family are aware of risk and prefer to stay in this hospital at this time. Transfer to [place] was cancelled on 11/08/16 as the patient and the family preferred to have the stent placed by Dr Winter I examined this patient and my medical decision-making was reviewed with the HOT AIR FURNACE INSTALLER REPAIRER/PA/Advanced Practice Nurse/Resident Physician. I agree with the documented findings, disposition and treatment plan as described except to the extent set forth below.
[2016-11-09 18:21] LABS: Basophils % 0.4 %; Eosinophils # 0.2 K/mcL (0.0-0.6); Eosinophils % 2.6 %; Hematocrit 38.4 % (35.3-44.9); Hemoglobin 12.3 g/dL (11.5-15.4); Immature Granulocytes % 0.6 % (0-4); Immature Platelets 1.9 % (1.1-6.1); Lymphocytes # 0.6 K/mcL (0.6-4.6); Lymphocytes % 9.2 %; Mean Corpuscular Hemoglobin 28.9 pg (28.0-33.3); Mean Corpuscular Volume 90.1 fL (83.0-100.0); Mean Platelet Volume 9.1 fL (9.4-12.4); Monocytes # 0.4 K/mcL (0.0-1.3); Monocytes % 5.8 %; Neutrophils # 5.6 K/mcL (1.6-8.9); Platelet Count 327 K/mcL (140-400); Red Blood Count 4.26 M/mcL (3.82-4.97); Red Cell Distribution Width 14.3 % (11.5-14.5); Segmented Neutrophils % 81.4 %
[2016-11-09] MEDS: Ondansetron 4 MG/2 ML VIAL IVP PRN (21:43)
[2016-11-10] MEDS: *HR* Metoprolol 5 MG/5 ML VIAL IVP SCH ×4 (01:44→18:01)
[2016-11-10] MEDS: *HR* HYDROmorphone (PF) 1 MG/ML SYRINGE IVP PRN ×5 (01:44→20:23)
[2016-11-10] MEDS: 0.9 % Sodium Chloride 1,000 ML IVC SCH ×5 (03:55→22:54)
[2016-11-10 06:21] LABS: Basophils % 0.4 %; Eosinophils # 0.2 K/mcL (0.0-0.6); Eosinophils % 2.6 %; Hematocrit 34.6 % (35.3-44.9); Hemoglobin 10.8 g/dL (11.5-15.4); Immature Granulocytes % 0.5 % (0-4); Lymphocytes # 0.6 K/mcL (0.6-4.6); Lymphocytes % 8.6 %; Mean Corpuscular HGB Conc 31.2 g/dL (31.6-35.5); Mean Corpuscular Hemoglobin 28.4 pg (28.0-33.3); Mean Corpuscular Volume 91.1 fL (83.0-100.0); Mean Platelet Volume 9.1 fL (9.4-12.4); Monocytes # 0.6 K/mcL (0.0-1.3); Neutrophils # 5.8 K/mcL (1.6-8.9); Platelet Count 293 K/mcL (140-400); Red Cell Distribution Width 14.6 % (11.5-14.5); Segmented Neutrophils % 79.9 %
[2016-11-10 06:41] LABS: BUN/Creatinine Ratio 17 (6-26); Blood Urea Nitrogen 14 mg/dL (7-20); Calcium 8.6 mg/dL (8.6-10.8); Carbon Dioxide 22 mEq/L (19-29); Chloride 109 mEq/L (98-109); Glucose 136 mg/dL (70-99); Osmolality,Calculated 289 (280-300); Potassium 4.1 mEq/L (3.5-4.5); Sodium 138 mEq/L (136-145); eGFR For African Americans > 60 (> 60); eGFR For Non-African Americans > 60 (> 60)
--- NOTE | 2016-11-10 07:34 | Palliative Progress Note ---
Date of Encounter: 11/10/16 Time of Encounter: 06:50 - Assessment and plan (1) Pain Current Visit: No Status: Acute Assessment and plan: Under good control at this time using IV Dilaudid. We will need to transition to oral medications when it is okay to make full use of her G-tube. Patient is now getting feedings through it. We will increase the fentanyl patch today as the patient did use 5 doses of IV Dilaudid for a total of 100 oral morphine equivalents. (2) Esophageal adenocarcinoma Current Visit: No Status: Chronic (3) Constipation Current Visit: No Status: Acute Assessment and plan: Starting bowel regimen via the G-tube and with rectal suppositories Qualifiers: Constipation type: unspecified constipation type Qualified Code(s): K59.00 - Constipation, unspecified (4) Goals of care, counseling/discussion Current Visit: No Status: Acute Assessment and plan: Patient wishes to remain a full code wishes to have aggressive care will continue the conversation. - Time Spent With Patient Total time spent is greater than 50% in coordination of care (as documented) at patient's floor/unit and/or counseling patient: - Subjective Interval history: Taking clears at this time overall feels pretty good, states the pain medications are working but she has not been cleared for pills yet. No Bowel movement. - Constitutional Vitals: Abnormal lab results RBC 3.80 M/mcL (3.82-4.97) L 11/10/16 05:43 Hgb 10.8 g/dL (11.5-15.4) L D 11/10/16 05:43 Hct 34.6 % (35.3-44.9) L 11/10/16 05:43 MCHC 31.2 g/dL (31.6-35.5) L 11/10/16 05:43 RDW 14.6 % (11.5-14.5) H 11/10/16 05:43 MPV 9.1 fL (9.4-12.4) L 11/10/16 05:43 D-Dimer 4087 ng/mLFEU (0-500) H 11/08/16 06:02 Glucose 136 mg/dL (70-99) H 11/10/16 05:43 POC Glucose 110 (58-89) H 11/09/16 20:30 Troponin I 0.58 ng/mL (0-0.03) H* 11/08/16 13:00 B-Natriuretic Peptide 1357 pg/mL (0-100) H 11/08/16 00:53 General appearance: Present: no acute distress - Head Head exam: Present: atraumatic, normal inspection - Eye Eye exam: Present: normal appearance - ENT ENT exam: Present: mucous membranes moist - Respiratory Respiratory exam: Present: decreased breath sounds - Cardiovascular Cardiovascular exam: Present: RRR - GI/Abdominal GI/Abdominal exam: Present: normal bowel sounds, soft. Absent: tenderness - Extremities Exam Extremities exam: Absent: tenderness - Neurological Exam Neurological exam: Present: alert, oriented X3 - Psychiatric Psychiatric exam: Absent: agitated, anxious - Skin Skin exam: Present: dry, warm Palliative Quality Palliative Quality: Screen for Code Status: Yes, Screen for Goals of Care: Yes, Screen for Pain: Yes, If Pain Regimen Started, Initiate Bowel Regimen: Yes, Screen for Nausea/Vomitting: Yes Code Status: 11/08/16 01:23 Resuscitation Status: Active [RES] Routine Comment: Resuscitation Status: Full Code - Labs CBC & Chem 7: 11/10/16 05:43 11/10/16 05:43 Labs: Laboratory Results - last 24 hr 11/09/16 11/09/16 11/09/16 07:14 13:46 16:12 WBC RBC Hgb Hct MCV MCH MCHC RDW Plt Count MPV Immature Gran % Seg Neutrophils % Lymphocytes % Monocytes % Eosinophils % Basophils % Neutrophils # Lymphocytes # Monocytes # Eosinophils # Basophils # Immature Plt Fraction Sodium Potassium Chloride Carbon Dioxide BUN Creatinine Est GFR ( Amer) Est GFR (Non-Af Amer) BUN/Creatinine Ratio Glucose POC Glucose 81 96 H 88 Calculated Osmolality Calcium 11/09/16 11/09/16 11/10/16 18:04 20:30 05:43 WBC 6.9 7.3 RBC 4.26 3.80 L Hgb 12.3 10.8 L D Hct 38.4 34.6 L MCV 90.1 91.1 MCH 28.9 28.4 MCHC 32.0 31.2 L RDW 14.3 14.6 H Plt Count 327 293 MPV 9.1 L 9.1 L Immature Gran % 0.6 0.5 Seg Neutrophils % 81.4 79.9 Lymphocytes % 9.2 8.6 Monocytes % 5.8 8.0 Eosinophils % 2.6 2.6 Basophils % 0.4 0.4 Neutrophils # 5.6 5.8 Lymphocytes # 0.6 0.6 Monocytes # 0.4 0.6 Eosinophils # 0.2 0.2 Basophils # 0.0 0.0 Immature Plt Fraction 1.9 Sodium Potassium Chloride Carbon Dioxide BUN Creatinine Est GFR ( Amer) Est GFR (Non-Af Amer) BUN/Creatinine Ratio Glucose POC Glucose 110 H Calculated Osmolality Calcium 11/10/16 05:43 WBC RBC Hgb Hct MCV MCH MCHC RDW Plt Count MPV Immature Gran % Seg Neutrophils % Lymphocytes % Monocytes % Eosinophils % Basophils % Neutrophils # Lymphocytes # Monocytes # Eosinophils # Basophils # Immature Plt Fraction Sodium 138 Potassium 4.1 Chloride 109 Carbon Dioxide 22 BUN 14 Creatinine 0.81 Est GFR ( Amer) > 60 Est GFR (Non-Af Amer) > 60 BUN/Creatinine Ratio 17 Glucose 136 H POC Glucose Calculated Osmolality 289 Calcium 8.6 - ABG Interpretation ABG results: PT/INR, D-dimer D-Dimer 4087 ng/mLFEU (0-500) H 11/08/16 06:02 Consult Discharge Plan - Plan Referrals: Susan Burris, NEDA [Primary Care Provider] - 11/16/16 1:00 pm (Web request made )
[2016-11-10] MEDS ORDERED: *HR* FentaNYL PATCH 50 MCG PATCH TD SCH (07:45)
[2016-11-10] MEDS: Pantoprazole 40 MG VIAL IV SCH ×2 (08:32→20:23)
[2016-11-10] MEDS: Bisacodyl 10 MG RECTAL SUPPOSITORY RC SCH (08:32)
--- NOTE | 2016-11-10 09:34 | Internal Med Progress Note ---
Date of Encounter: 11/10/16 Time of Encounter: 09:31 - Assessment and plan (1) GI bleed Current Visit: No Status: Resolved Assessment and plan: acute blood loss anemia secondary to Upper GI bleed from esophageal cancer/ friable mass s/p esophageal stent placed by Dr Winter on 11/09/16 consider Transfusion , monitor CBC Had blood in PEG tube prior to stent placement, drop in hemoglobin and tachycardia Patient recently admitted for upper GI bleed and discharged, stay required multiple units of blood and an endoscopy with placement of [address] Boyd consulted this visit, he did not feel that he had any more to offer patient. Continue to monitor CBC q 12 hours. COntinue IVF , protonix IV and sucralfate High risk for GI bleed Family and patient were made aware of poor prognosis, but unfortunately their expectations might not reflect the reality and severity of her disease High risk for bleeding Qualifiers: GI bleed type/associated pathology: unspecified gastrointestinal hemorrhage type Qualified Code(s): K92.2 - Gastrointestinal hemorrhage, unspecified (2) Accelerated hypertension Current Visit: No Status: Acute Assessment and plan: on hydralazine, clonidine and losartan (3) CKD (chronic kidney disease) Current Visit: No Status: Chronic Assessment and plan: stable Qualifiers: Chronic kidney disease stage: stage 3 (moderate) Qualified Code(s): N18.3 - Chronic kidney disease, stage 3 (moderate) (4) COPD (chronic obstructive pulmonary disease) Current Visit: No Status: Acute Assessment and plan: Continue home medications continue supplemental O2 to keep saturation above 88% Qualifiers: COPD type: unspecified COPD Qualified Code(s): J44.9 - Chronic obstructive pulmonary disease, unspecified (5) Debility Current Visit: No Status: Acute (6) G tube feedings Current Visit: No Status: Acute (7) Adenocarcinoma of esophagus, stage 4 Current Visit: No Status: Acute Assessment and plan: Patient with known history of esophageal adenocarcinoma stage 4. Has received 2 chemotherapy infusions, has refused radiation Previously seen by Heme/onc at prior visit. [place] patient had poor prognosis. (8) Elevated troponin Current Visit: No Status: Acute Assessment and plan: Likely secondary to demand ischemia, concerns for ACS Troponin 0.66 - 0.82 - 0.88 -0.58 Patient is not a candidate for any anticoagulation/antiplatlets due to GI bleed and high risk for further GI bleeds due to presence of esophageal adenocarcinoma Patient is on metoprolol 50 BID, will use IV lopressor if not able to take PO May start lipitor. - Time Spent With Patient Greater than 35 minutes - Subjective Interval history: Slightly anxious, wants to stay to make sure she will not start bleeding, has mild abdominal distention, denies CP or SOB, no dysuria , no fever - Constitutional Vitals: Temp Pulse Resp BP Pulse Ox 99.1 F 113 18 166/93 97 11/10/16 07:08 11/10/16 07:08 11/10/16 07:08 11/10/16 07:08 11/10/16 07:08 General appearance: Present: A&O X 3, no acute distress, answers questions appropriately - Head Head exam: Present: atraumatic, normocephalic - Eye Eye exam: Present: PERRL, conjuntiva pink, sclera anicteric Pupils: Present: PERRL - Neck Neck exam general surgery: Present: supple, trachea midline. Absent: lymphadenopathy - Respiratory Respiratory exam: Present: decreased breath sounds, CTAB. Absent: accessory muscle use, rales, rhonchi, wheezes - Cardiovascular Cardiovascular exam: Present: RRR, +S1, +S2, tachycardia. Absent: diastolic murmur, gallop, rubs, systolic murmur - GI/Abdominal GI/Abdominal exam: Present: distended (peg tube in place , no sigs of bleeding) , normal bowel sounds, soft, no peritoneal signs. Absent: tenderness - Extremities Exam Extremities exam: Present: warm, radial pulses palpable and symetrical. Absent : calf tenderness, cyanotic, pedal edema - Neurological Exam Neurological exam: Present: CN II-XII intact, oriented X3, no focal deficits. Absent: pronater drift, facial droop, speech deficit - Skin Skin exam: Present: dry, intact Internal Medicine: Result - Labs CBC & Chem 7: 11/10/16 05:43 11/10/16 05:43 Labs: Short CBC 11/09/16 11/10/16 Range/Units 18:04 05:43 WBC 6.9 7.3 (4.3-11.1) K/mcL Hgb 12.3 10.8 L D (11.5-15.4) g/dL Hct 38.4 34.6 L (35.3-44.9) % Plt Count 327 293 (140-400) K/mcL Neutrophils # 5.6 5.8 (1.6-8.9) K/mcL BMP 11/10/16 05:43 Sodium 138 Potassium 4.1 Chloride 109 Carbon Dioxide 22 BUN 14 Creatinine 0.81 Glucose 136 H Calcium 8.6 - ABG Interpretation ABG results: PT/INR, D-dimer D-Dimer 4087 ng/mLFEU (0-500) H 11/08/16 06:02 Consult Discharge Plan - Plan Referrals: Susan Burris CNP [Primary Care Provider] - 11/16/16 1:00 pm (Web request made )
[2016-11-10] MEDS: Ipratropium/Albuterol Neb 3 ML IH PRN (10:31)
[2016-11-10 15:16] LABS: Hematocrit 33.6 % (35.3-44.9); Hemoglobin 10.6 g/dL (11.5-15.4)
[2016-11-10] MEDS: *HR* OxyCODONE Immed Rel 5 MG TABLET PO PRN (19:32)
[2016-11-11] MEDS: *HR* HYDROmorphone (PF) 1 MG/ML SYRINGE IVP PRN ×4 (00:11→19:54)
[2016-11-11] MEDS: *HR* Metoprolol 5 MG/5 ML VIAL IVP SCH ×2 (00:12→05:45)
[2016-11-11 03:15] LABS: Basophils # 0.1 K/mcL (0.0-0.2); Basophils % 0.5 %; Eosinophils # 0.2 K/mcL (0.0-0.6); Eosinophils % 1.5 %; Hematocrit 34.2 % (35.3-44.9); Hemoglobin 10.6 g/dL (11.5-15.4); Immature Granulocytes % 0.7 % (0-4); Lymphocytes # 0.7 K/mcL (0.6-4.6); Lymphocytes % 6.6 %; Mean Corpuscular Hemoglobin 28.6 pg (28.0-33.3); Mean Corpuscular Volume 92.2 fL (83.0-100.0); Mean Platelet Volume 8.7 fL (9.4-12.4); Monocytes # 0.6 K/mcL (0.0-1.3); Monocytes % 5.6 %; Platelet Count 376 K/mcL (140-400); Red Blood Count 3.71 M/mcL (3.82-4.97); Red Cell Distribution Width 14.7 % (11.5-14.5); Segmented Neutrophils % 85.1 %
[2016-11-11 03:18] LABS: Neutrophils # 9.4 K/mcL (1.6-8.9)
[2016-11-11 03:31] LABS: BUN/Creatinine Ratio 29 (6-26); Blood Urea Nitrogen 23 mg/dL (7-20); Calcium 8.9 mg/dL (8.6-10.8); Carbon Dioxide 21 mEq/L (19-29); Chloride 109 mEq/L (98-109); Glucose 117 mg/dL (70-99); Osmolality,Calculated 287 (280-300); Potassium 4.4 mEq/L (3.5-4.5); Sodium 136 mEq/L (136-145); eGFR For African Americans > 60 (> 60); eGFR For Non-African Americans > 60 (> 60)
[2016-11-11] MEDS: Ipratropium/Albuterol Neb 3 ML IH PRN ×3 (04:20→20:35)
[2016-11-11] MEDS: 0.9 % Sodium Chloride 1,000 ML IVC SCH (05:13)
[2016-11-11] MEDS ORDERED: Acetaminophen 325 MG TABLET PO PRN (06:46)
[2016-11-11] MEDS ORDERED: Acetaminophen IV 1,000 MG/100 ML INFUS..BTL IVPB STA (06:46)
[2016-11-11] MEDS ORDERED: Acetaminophen 650 MG RECTAL SUPP RC PRN (06:46)
--- NOTE | 2016-11-11 07:55 | Palliative Progress Note ---
Date of Encounter: 11/11/16 Time of Encounter: 07:40 - Assessment and plan (1) Pain Current Visit: No Status: Acute Assessment and plan: Under good control at this time using IV Dilaudid. We will need to transition to oral medications patient can take her medications via her G-tube. Currently tachycardic though her hemoglobin and hematocrit are stable, this may represent a rebleed. He not wish to change the IV Dilaudid out today but when idle signs are stable and would recommend stopping the diaing exclusively to oxycodone via the G-tube.the patient has refused fentanyl I did discussed it with her, and she has refused it. (2) Esophageal adenocarcinoma Current Visit: No Status: Chronic Assessment and plan: Patient still wishes to have aggressive care, where I do not think there is any aggressive care remaining. The patient is still not interested in hospice. (3) Constipation Current Visit: No Status: Acute Assessment and plan: Starting bowel regimen via the G-tube and with rectal suppositories Bowels are starting to move continue to watch Qualifiers: Constipation type: unspecified constipation type Qualified Code(s): K59.00 - Constipation, unspecified (4) Goals of care, counseling/discussion Current Visit: No Status: Acute Assessment and plan: Patient wishes to remain a full code wishes to have aggressive care will continue the conversation. No changes today. - Time Spent With Patient Total time spent is greater than 50% in coordination of care (as documented) at patient's floor/unit and/or counseling patient: - Subjective Interval history: Taking clears at this time she would like to keep her Dilaudid today. She normally takes her pills via her G-tube. - Constitutional Vitals: Abnormal lab results RBC 3.71 M/mcL (3.82-4.97) L 11/11/16 02:48 Hgb 10.6 g/dL (11.5-15.4) L 11/11/16 02:48 Hct 34.2 % (35.3-44.9) L 11/11/16 02:48 MCHC 31.0 g/dL (31.6-35.5) L 11/11/16 02:48 RDW 14.7 % (11.5-14.5) H 11/11/16 02:48 MPV 8.7 fL (9.4-12.4) L 11/11/16 02:48 Neutrophils # 9.4 K/mcL (1.6-8.9) H 11/11/16 02:48 D-Dimer 4087 ng/mLFEU (0-500) H 11/08/16 06:02 BUN 23 mg/dL (7-20) H 11/11/16 02:48 BUN/Creatinine Ratio 29 (6-26) H 11/11/16 02:48 Glucose 117 mg/dL (70-99) H 11/11/16 02:48 POC Glucose 117 (58-89) H 11/11/16 06:20 Troponin I 0.58 ng/mL (0-0.03) H* 11/08/16 13:00 B-Natriuretic Peptide 1357 pg/mL (0-100) H 11/08/16 00:53 General appearance: Present: no acute distress - Head Head exam: Present: atraumatic, normal inspection - Eye Eye exam: Present: normal appearance - ENT ENT exam: Present: mucous membranes moist - Respiratory Respiratory exam: Present: decreased breath sounds - Cardiovascular Cardiovascular exam: Present: tachycardia - GI/Abdominal GI/Abdominal exam: Present: normal bowel sounds, soft. Absent: tenderness - Extremities Exam Extremities exam: Absent: tenderness - Neurological Exam Neurological exam: Present: alert, oriented X3 - Psychiatric Psychiatric exam: Present: normal affect, normal mood. Absent: agitated, anxious - Skin Skin exam: Present: dry, warm Palliative Quality Palliative Quality: Screen for Code Status: Yes, Screen for Goals of Care: Yes, Screen for Pain: Yes, If Pain Regimen Started, Initiate Bowel Regimen: Yes, Screen for Nausea/Vomitting: Yes Code Status: 11/08/16 01:23 Resuscitation Status: Active [RES] Routine Comment: Resuscitation Status: Full Code - Labs CBC & Chem 7: 11/11/16 02:48 11/11/16 02:48 Labs: Laboratory Results - last 24 hr 11/10/16 11/10/16 11/10/16 07:12 11:50 14:54 WBC RBC Hgb 10.6 L Hct 33.6 L MCV MCH MCHC RDW Plt Count MPV Immature Gran % Seg Neutrophils % Lymphocytes % Monocytes % Eosinophils % Basophils % Neutrophils # Lymphocytes # Monocytes # Eosinophils # Basophils # Sodium Potassium Chloride Carbon Dioxide BUN Creatinine Est GFR ( Amer) Est GFR (Non-Af Amer) BUN/Creatinine Ratio Glucose POC Glucose 122 H 125 H Calculated Osmolality Calcium 11/10/16 11/11/16 11/11/16 15:36 02:48 02:48 WBC 11.0 D RBC 3.71 L Hgb 10.6 L Hct 34.2 L MCV 92.2 MCH 28.6 MCHC 31.0 L RDW 14.7 H Plt Count 376 MPV 8.7 L Immature Gran % 0.7 Seg Neutrophils % 85.1 Lymphocytes % 6.6 Monocytes % 5.6 Eosinophils % 1.5 Basophils % 0.5 Neutrophils # 9.4 H Lymphocytes # 0.7 Monocytes # 0.6 Eosinophils # 0.2 Basophils # 0.1 Sodium 136 Potassium 4.4 Chloride 109 Carbon Dioxide 21 BUN 23 H Creatinine 0.78 Est GFR ( Amer) > 60 Est GFR (Non-Af Amer) > 60 BUN/Creatinine Ratio 29 H Glucose 117 H POC Glucose 123 H Calculated Osmolality 287 Calcium 8.9 11/11/16 06:20 WBC RBC Hgb Hct MCV MCH MCHC RDW Plt Count MPV Immature Gran % Seg Neutrophils % Lymphocytes % Monocytes % Eosinophils % Basophils % Neutrophils # Lymphocytes # Monocytes # Eosinophils # Basophils # Sodium Potassium Chloride Carbon Dioxide BUN Creatinine Est GFR ( Amer) Est GFR (Non-Af Amer) BUN/Creatinine Ratio Glucose POC Glucose 117 H Calculated Osmolality Calcium - ABG Interpretation ABG results: PT/INR, D-dimer D-Dimer 4087 ng/mLFEU (0-500) H 11/08/16 06:02 Consult Discharge Plan - Plan Referrals: Susan Burris APPRAISAL MANAGER [Primary Care Provider] - 11/16/16 1:00 pm (Web request made )
[2016-11-11] MEDS: *HR* OxyCODONE Immed Rel 5 MG TABLET PO PRN ×2 (08:12→12:33)
[2016-11-11] MEDS: Pantoprazole 40 MG VIAL IV SCH ×2 (08:14→19:54)
[2016-11-11] MEDS: Bisacodyl 10 MG RECTAL SUPPOSITORY RC SCH (08:14)
[2016-11-11] MEDS: Furosemide 40 MG/4 ML VIAL IVP SCH ×2 (09:34→19:53)
[2016-11-11] MEDS: Piperacillin/Tazobactam 3.375 GM in D5% in Water (Mini-Bag+) 100 ML IVPB SCH ×3 (09:34→23:53)
[2016-11-11] MEDS: Vancomycin 1,000 MG in D5% in Water 250 ML IVPB SCH (11:55)
--- NOTE | 2016-11-11 13:37 | Internal Med Progress Note ---
Date of Encounter: 11/11/16 Time of Encounter: 13:35 - Assessment and plan (1) Esophageal adenocarcinoma Current Visit: No Status: Chronic Assessment and plan: Patient with known history of esophageal adenocarcinoma stage 4. Has received 2 chemotherapy infusions, has refused radiation Previously seen by Heme/onc at prior visit. poor prognosis. (2) CHF (congestive heart failure) Current Visit: Yes Status: Acute Assessment and plan: CXR shows pulmonary edema. will stop IVF and start lasix. ECHO has moderate DD> will repeat CXR tomm. Qualifiers: Qualified Code(s): I50.9 - Heart failure, unspecified (3) CKD (chronic kidney disease) Current Visit: No Status: Chronic Assessment and plan: stable Qualifiers: Chronic kidney disease stage: stage 3 (moderate) Qualified Code(s): N18.3 - Chronic kidney disease, stage 3 (moderate) (4) COPD (chronic obstructive pulmonary disease) Current Visit: No Status: Acute Assessment and plan: Continue home medications continue supplemental O2 to keep saturation above 88% Qualifiers: COPD type: unspecified COPD Qualified Code(s): J44.9 - Chronic obstructive pulmonary disease, unspecified (5) Goals of care, counseling/discussion Current Visit: No Status: Acute Assessment and plan: still wishes to be full code. palliative on board, will follow recommendtaion (6) GI bleed Current Visit: No Status: Resolved Assessment and plan: acute blood loss anemia secondary to Upper GI bleed from esophageal cancer/ friable mass s/p esophageal stent placed by Dr Wolfe on 11/09/16. h/h stable today. Patient recently admitted for upper GI bleed and discharged, stay required multiple units of blood and an endoscopy with placement of [address] Boyd consulted this visit, he did not feel that he had any more to offer patient. Continue to monitor CBC q 12 hours. protonix IV and sucralfate High risk for GI bleed Family and patient were made aware of poor prognosis Qualifiers: GI bleed type/associated pathology: unspecified gastrointestinal hemorrhage type Qualified Code(s): K92.2 - Gastrointestinal hemorrhage, unspecified - Time Spent With Patient 25 - 35 minutes - Subjective Interval history: seen at the bedside, denies any complains at tthis time noted new temp spike of 101 this morning. denies chest pain, sob cough or burning micturition. s/p esophageal stenting by Dr. WOLFE, tube feeding was held last night for concern for bleeding and large residual. - Constitutional Vitals: Temp Pulse Resp BP Pulse Ox 97.6 F 81 16 114/76 98 11/11/16 10:40 11/11/16 10:40 11/11/16 10:40 11/11/16 10:40 11/11/16 10:40 General appearance: Present: A&O X 3, no acute distress, answers questions appropriately Exam: - Head Head exam: Present: atraumatic, normocephalic - Eye Eye exam: Present: PERRL, conjuntiva pink, sclera anicteric Pupils: Present: PERRL - Neck Neck exam general surgery: Present: supple, trachea midline. Absent: lymphadenopathy - Respiratory Respiratory exam: Present: decreased breath sounds, CTAB. Absent: accessory muscle use, rales, rhonchi, wheezes - Cardiovascular Cardiovascular exam: Present: RRR, +S1, +S2, tachycardia. Absent: diastolic murmur, gallop, rubs, systolic murmur - GI/Abdominal GI/Abdominal exam: Present: distended (peg tube in place , no sigs of bleeding) , normal bowel sounds, soft, no peritoneal signs. Absent: tenderness - Extremities Exam Extremities exam: Present: warm, radial pulses palpable and symetrical. Absent : calf tenderness, cyanotic, pedal edema - Neurological Exam Neurological exam: Present: CN II-XII intact, oriented X3, no focal deficits. Absent: pronater drift, facial droop, speech deficit - Skin Skin exam: Present: dry, intact Internal Medicine: Result - Labs CBC & Chem 7: 11/11/16 02:48 11/11/16 02:48 Labs: Short CBC 11/10/16 11/11/16 Range/Units 14:54 02:48 WBC 11.0 D (4.3-11.1) K/mcL Hgb 10.6 L 10.6 L (11.5-15.4) g/dL Hct 33.6 L 34.2 L (35.3-44.9) % Plt Count 376 (140-400) K/mcL Neutrophils # 9.4 H (1.6-8.9) K/mcL BMP 11/11/16 02:48 Sodium 136 Potassium 4.4 Chloride 109 Carbon Dioxide 21 BUN 23 H Creatinine 0.78 Glucose 117 H Calcium 8.9 - ABG Interpretation ABG results: PT/INR, D-dimer D-Dimer 4087 ng/mLFEU (0-500) H 11/08/16 06:02 - Impressions Impressions Chest X-Ray 11/11/16 08:32 IMPRESSION: Shifting or increasing pleural effusions with persistent findings of pulmonary edema and bibasilar atelectasis left greater than right. Esophageal stent placement. D/ / 11/11/2016 08:57:34 Pj Vee MD / rafael Interpreting Provider: Pj Vee MD - VTE Documentation of Mechanical Device: Intermittent pneumatic compression device Consult Discharge Plan - Plan Referrals: Susan Burris, [employer]CH[employer]IC [Primary Care Provider] - 11/16/16 1:00 pm (Web request made )
[2016-11-12] MEDS: Ipratropium/Albuterol Neb 3 ML IH PRN ×4 (01:15→11:57)
[2016-11-12] MEDS: *HR* HYDROmorphone (PF) 1 MG/ML SYRINGE IVP PRN ×3 (02:25→10:17)
[2016-11-12 03:20] LABS: Basophils % 0.5 %; Eosinophils # 0.2 K/mcL (0.0-0.6); Eosinophils % 2.7 %; Hematocrit 31.5 % (35.3-44.9); Hemoglobin 10.1 g/dL (11.5-15.4); Immature Granulocytes % 0.3 % (0-4); Lymphocytes # 0.8 K/mcL (0.6-4.6); Lymphocytes % 8.9 %; Mean Corpuscular HGB Conc 32.1 g/dL (31.6-35.5); Mean Corpuscular Hemoglobin 28.9 pg (28.0-33.3); Monocytes # 0.7 K/mcL (0.0-1.3); Monocytes % 7.6 %; Platelet Count 338 K/mcL (140-400); Red Cell Distribution Width 14.6 % (11.5-14.5)
[2016-11-12] MEDS: *HR* OxyCODONE Immed Rel 5 MG TABLET PO PRN ×3 (08:13→21:20)
[2016-11-12] MEDS: Piperacillin/Tazobactam 3.375 GM in D5% in Water (Mini-Bag+) 100 ML IVPB SCH ×2 (08:14→15:32)
[2016-11-12] MEDS: Pantoprazole 40 MG VIAL IV SCH ×2 (08:17→21:20)
[2016-11-12] MEDS: Furosemide 40 MG/4 ML VIAL IVP SCH ×2 (08:17→21:19)
--- NOTE | 2016-11-12 09:23 | Event Note ---
Date of Encounter: 11/12/16 Time of Encounter: 09:15 Patient awake and alert. States slightly short of breath. Hospitalist just exited room. Getting diuresis for fluid overload. Patient still utilizing IV Hydromorphone and states this helps her discomfort more than Oxycodone. We again discussed that she cannot to IV medication at home and will have to transition to po. Hydromorphone is helping her pain more than Oxycodone - would recommend transitioning to Hydromorphone tablets she can crush and administer via PEG at home. Would recommend 4mg tablet for discharge, as this is fairly equivalent to 1mg IV. Tolerating feeds well. Continues to desire full code and chemotherapy. Palliative will sign off. Please call if questions.
[2016-11-12] MEDS: Bisacodyl 10 MG RECTAL SUPPOSITORY RC SCH (09:51)
[2016-11-12] MEDS ORDERED: hydrALAZINE 10 MG TABLET PO PRN (12:01)
[2016-11-12] MEDS ORDERED: *HR* Metoprolol 5 MG/5 ML VIAL IVP PRN (12:02)
[2016-11-12] MEDS: Vancomycin 1,000 MG in D5% in Water 250 ML IVPB SCH (12:03)
[2016-11-12] MEDS: *HR* HYDROmorphone 4 MG TABLET PO PRN (13:14)
--- NOTE | 2016-11-12 14:40 | Internal Med Progress Note ---
Date of Encounter: 11/12/16 Time of Encounter: 14:38 - Assessment and plan (1) Esophageal adenocarcinoma Current Visit: No Status: Chronic Assessment and plan: Patient with known history of esophageal adenocarcinoma stage 4. Has received 2 chemotherapy infusions, has refused radiation Previously seen by Heme/onc at prior visit. poor prognosis. she wants to continue active chemotherapy once stable. (2) CHF (congestive heart failure) Current Visit: Yes Status: Acute Assessment and plan: CXR shows pulmonary edema. has been started on IV lasix. ECHO has moderate DD> repeat CXR with persistent CHF, continue IV laisx for now. Qualifiers: Congestive heart failure type: unspecified congestive heart failure type Qualified Code(s): I50.9 - Heart failure, unspecified (3) CKD (chronic kidney disease) Current Visit: No Status: Chronic Assessment and plan: stable Qualifiers: Chronic kidney disease stage: stage 3 (moderate) Qualified Code(s): N18.3 - Chronic kidney disease, stage 3 (moderate) (4) COPD (chronic obstructive pulmonary disease) Current Visit: No Status: Acute Assessment and plan: Continue home medications continue supplemental O2 to keep saturation above 88% Qualifiers: COPD type: unspecified COPD Qualified Code(s): J44.9 - Chronic obstructive pulmonary disease, unspecified (5) Goals of care, counseling/discussion Current Visit: No Status: Acute Assessment and plan: still wishes to be full code. palliative has signed out . At this point, once her breathing is better, goal is to switch to oral pain meds and dc to f/u with oncology for resuming chemotherapy which she wishes to do, (6) GI bleed Current Visit: No Status: Resolved Assessment and plan: acute blood loss anemia secondary to Upper GI bleed from esophageal cancer/ friable mass s/p esophageal stent placed by Dr Wolfe on 11/09/16. h/h stable today. no bleeding on the PEG tube after the stent placement. Patient recently admitted for upper GI bleed and discharged, stay required multiple units of blood and an endoscopy with placement of [address] Boyd consulted this visit, he did not feel that he had any more to offer patient. protonix IV and sucralfate High risk for GI bleed Family and patient were made aware of poor prognosis Qualifiers: GI bleed type/associated pathology: unspecified gastrointestinal hemorrhage type Qualified Code(s): K92.2 - Gastrointestinal hemorrhage, unspecified (7) Fever Current Visit: Yes Status: Acute Assessment and plan: one episode of temp spike of 101 with leucocytosis. unclear source as CXR shows no pneumonia, ua is clean. possible from the recent procedure of stenting adn the fungating mass itself could be the source. blood cx is negative Was empirically started on vancomycin and Zosyn. We will continue antibiotics for next 24 hours and if no fever , will de escalate as able. Qualifiers: Fever type: unspecified Qualified Code(s): R50.9 - Fever, unspecified - Time Spent With Patient 25 - 35 minutes - Subjective Interval history: seen at the bedside, reports that she has a hard time breathing and this is not normal for her. no fever spike today denies chest pain, sob cough or burning micturition. s/p esophageal stenting by Dr. WOLFE, no bleeding from PEG tube today, PEG feeding has been continued. - Constitutional Vitals: Temp Pulse Resp BP Pulse Ox 97.5 F L 112 18 135/71 96 11/12/16 11:43 11/12/16 11:43 11/12/16 11:58 11/12/16 11:43 11/12/16 11:58 General appearance: Present: A&O X 3, no acute distress, answers questions appropriately Exam: - Head Head exam: Present: atraumatic, normocephalic - Eye Eye exam: Present: PERRL, conjuntiva pink, sclera anicteric Pupils: Present: PERRL - Neck Neck exam general surgery: Present: supple, trachea midline. Absent: lymphadenopathy - Respiratory Respiratory exam: Present: decreased breath sounds, CTAB. Absent: accessory muscle use, rales, rhonchi, wheezes - Cardiovascular Cardiovascular exam: Present: RRR, +S1, +S2, tachycardia. Absent: diastolic murmur, gallop, rubs, systolic murmur - GI/Abdominal GI/Abdominal exam: Present: distended (peg tube in place , no sigs of bleeding) , normal bowel sounds, soft, no peritoneal signs. Absent: tenderness - Extremities Exam Extremities exam: Present: warm, radial pulses palpable and symetrical. Absent : calf tenderness, cyanotic, pedal edema - Neurological Exam Neurological exam: Present: CN II-XII intact, oriented X3, no focal deficits. Absent: pronater drift, facial droop, speech deficit - Skin Skin exam: Present: dry, intact Internal Medicine: Result - Labs CBC & Chem 7: 11/12/16 02:49 11/11/16 02:48 Labs: Short CBC 11/12/16 Range/Units 02:49 WBC 8.8 (4.3-11.1) K/mcL Hgb 10.1 L (11.5-15.4) g/dL Hct 31.5 L (35.3-44.9) % Plt Count 338 (140-400) K/mcL Neutrophils # 7.0 (1.6-8.9) K/mcL - ABG Interpretation ABG results: PT/INR, D-dimer D-Dimer 4087 ng/mLFEU (0-500) H 11/08/16 06:02 - VTE Documentation of Mechanical Device: Intermittent pneumatic compression device Consult Discharge Plan - Plan Referrals: Susan Burris CNP [Primary Care Provider] - 11/16/16 1:00 pm (Web request made )
[2016-11-12] MEDS ORDERED: *HR* HYDROmorphone (PF) 1 MG/ML SYRINGE IVP ONE (15:22)
[2016-11-12] MEDS: Ipratropium/Albuterol Neb 3 ML IH SCH ×3 (15:48→23:31)
[2016-11-12] MEDS: Ondansetron 4 MG/2 ML VIAL IVP PRN (21:45)
[2016-11-13] MEDS: *HR* OxyCODONE Immed Rel 5 MG TABLET PO PRN ×2 (00:32→20:09)
[2016-11-13] MEDS: Ondansetron 4 MG/2 ML VIAL IVP PRN ×4 (00:32→21:57)
[2016-11-13] MEDS: Piperacillin/Tazobactam 3.375 GM in D5% in Water (Mini-Bag+) 100 ML IVPB SCH ×3 (00:33→15:43)
[2016-11-13] MEDS: Ipratropium/Albuterol Neb 3 ML IH SCH ×6 (04:27→23:39)
[2016-11-13] MEDS: *HR* Promethazine 25 MG/ML VIAL IVP PRN ×2 (05:24→14:54)
[2016-11-13] MEDS: *HR* HYDROmorphone 4 MG TABLET PO PRN ×3 (05:30→15:43)
[2016-11-13 07:35] LABS: Basophils % 0.4 %; Eosinophils # 0.2 K/mcL (0.0-0.6); Eosinophils % 2.2 %; Hematocrit 29.2 % (35.3-44.9); Hemoglobin 9.6 g/dL (11.5-15.4); Immature Granulocytes % 0.3 % (0-4); Lymphocytes # 0.8 K/mcL (0.6-4.6); Lymphocytes % 12.2 %; Mean Corpuscular HGB Conc 32.9 g/dL (31.6-35.5); Mean Corpuscular Hemoglobin 28.6 pg (28.0-33.3); Mean Corpuscular Volume 86.9 fL (83.0-100.0); Mean Platelet Volume 9.2 fL (9.4-12.4); Monocytes # 0.6 K/mcL (0.0-1.3); Monocytes % 8.9 %; Neutrophils # 5.2 K/mcL (1.6-8.9); Platelet Count 354 K/mcL (140-400); Red Blood Count 3.36 M/mcL (3.82-4.97); Red Cell Distribution Width 13.9 % (11.5-14.5)
[2016-11-13] MEDS ORDERED: Aminoglycoside Consult 1 EACH MC ONE (07:38)
[2016-11-13] MEDS ORDERED: *HR* LORazepam 2 MG/ML VIAL IVP ONE (07:50)
[2016-11-13] MEDS: Furosemide 40 MG/4 ML VIAL IVP SCH ×2 (08:10→20:10)
[2016-11-13] MEDS: Pantoprazole 40 MG VIAL IV SCH ×2 (08:10→20:10)
--- NOTE | 2016-11-13 08:22 | Internal Med Progress Note ---
Date of Encounter: 11/13/16 Time of Encounter: 08:00 - Assessment and plan (1) Atrial fibrillation Status: Chronic Assessment and plan: Patient is noted to have a history of atrial fibrillation, not on anticoagulation due to underlying bleeding esophageal cancer. She was noted to be in rapid ventricular response this morning due to anxiety and cancer related pain. Patient gradually calmed down without the use of IV rate control agents or benzodiazepines. Continue to monitor closely. Qualifiers: Atrial fibrillation type: chronic Qualified Code(s): I48.2 - Chronic atrial fibrillation (2) Esophageal adenocarcinoma Status: Chronic Assessment and plan: Patient has history of esophageal adenocarcinoma with a poor prognosis. Presented with dysphagia and underwent a sufficient stent placement after GI evaluation. To follow with oncology as outpatient. Palliative care team has been consulted, however patient and family not interested in hospice care at this time and patient wishes to be full code. Continue supportive care, pain control with when necessary oral Dilaudid and Percocet. Patient continues to request for IV Dilaudid, however explained to the patient that she cannot be discharged on IV pain medications unless she chooses to be on hospice care and she verbalized understanding. (3) Nausea & vomiting Status: Acute Assessment and plan: Reports persistent vomiting with occasional hematemesis per patient. Case discussed with GI, PEG tube has been flushed with clear aspirate. Nausea and vomiting is to be expected after esophageal stent placement due to possible reflux from relief of obstruction. Will start Reglan with meals. Start full liquid diet as tolerated. Continue supportive care with when necessary Zofran. Qualifiers: Vomiting type: unspecified Vomiting Intractability: non-intractable Qualified Code(s): R11.2 - Nausea with vomiting, unspecified (4) COPD (chronic obstructive pulmonary disease) Status: Chronic Assessment and plan: Not in acute exacerbation. Continue when necessary bronchodilators and supplemental oxygen. Qualifiers: COPD type: unspecified COPD Qualified Code(s): J44.9 - Chronic obstructive pulmonary disease, unspecified (5) CKD (chronic kidney disease) stage 4, GFR 15-29 ml/min Status: Chronic (6) Anemia Status: Chronic Qualifiers: Anemia type: unspecified type Qualified Code(s): D64.9 - Anemia, unspecified (7) Severe protein-calorie malnutrition Status: Chronic Assessment and plan: Secondary to underlying malignancy and dysphagia. Continue oral diet as tolerated and long with low-dose tube feeds. (8) Depression Status: Chronic Qualifiers: Depression Type: unspecified Qualified Code(s): F32.9 - Major depressive disorder, single episode, unspecified (9) CHF (congestive heart failure) Status: Chronic Qualifiers: Congestive heart failure type: unspecified congestive heart failure type Congestive heart failure chronicity: chronic Qualified Code(s): I50.9 - Heart failure, unspecified - Subjective Interval history: Reports feeling anxious and jittery. Requests persistently for IV Dilaudid as thats the only medication that helps relieve her cancer pain in chest and mid back; reports bloody vomiting since last evening; - Constitutional Vitals: Temp Pulse Resp BP Pulse Ox 97.5 F L 102 18 103/68 98 11/13/16 08:11 11/13/16 08:11 11/13/16 08:11 11/13/16 08:11 11/13/16 08:11 General appearance: Present: A&O X 3, no acute distress, answers questions appropriately - Respiratory Respiratory exam: Present: rales (faint crackles B/L bases, occasional end- expiratory wheezing). Absent: accessory muscle use, rhonchi, wheezes - Cardiovascular Cardiovascular exam: Present: RRR, +S1, +S2, tachycardia. Absent: diastolic murmur, gallop, rubs, systolic murmur - GI/Abdominal GI/Abdominal exam: Present: normal bowel sounds, soft (PEG in place; tenderness in upper abdomen, no guarding/rigidity), no peritoneal signs. Absent: distended , tenderness - Neurological Exam Neurological exam: Present: CN II-XII intact, oriented X3. Absent: pronater drift, facial droop, speech deficit Internal Medicine: Result - Labs CBC & Chem 7: 11/14/16 05:24 11/14/16 05:24 Labs: Short CBC 11/13/16 Range/Units 07:01 WBC 6.9 (4.3-11.1) K/mcL Hgb 9.6 L (11.5-15.4) g/dL Hct 29.2 L (35.3-44.9) % Plt Count 354 (140-400) K/mcL Neutrophils # 5.2 (1.6-8.9) K/mcL - ABG Interpretation ABG results: PT/INR, D-dimer D-Dimer 4087 ng/mLFEU (0-500) H 11/08/16 06:02 - VTE Documentation of Mechanical Device: Intermittent pneumatic compression device Consult Discharge Plan - Plan Instructions: Heart Failure (DC), Chronic Obstructive Pulmonary Disease (DC) Referrals: Susan Burris CNP [Primary Care Provider] - 11/16/16 1:00 pm (Web request made ) Prescriptions: HYDROmorphone [Dilaudid] 4 mg PO Q4HR PRN #20 tablet PRN Reason: Pain Albuterol Neb [Proventil Neb] 2.5 mg IH Q4H PRN 30 Days PRN Reason: Shortness Of Breath/Wheezing Metoclopramide [Reglan] 5 mg PO TIDAC 30 Days Nebulizer [Aeroeclipse] 1 each MC Q4H PRN #1 each PRN Reason: Shortness Of Breath/Wheezing Nebulizer Accessories [Sootheneb [id number] Adult Mask] 1 each MC Q4H PRN 30 Days PRN Reason: Shortness Of Breath/Wheezing Nebulizer Accessories [Sootheneb [id number] Med Cup] 1 each MC Q4H PRN 30 Days PRN Reason: Shortness Of Breath/Wheezing Omeprazole [PriLOSEC] 20 mg PO BIDAC #30 cap
[2016-11-13] MEDS: Bisacodyl 10 MG RECTAL SUPPOSITORY RC SCH (10:30)
[2016-11-13 11:23] LABS: BUN/Creatinine Ratio 14 (6-26); Carbon Dioxide 34 mEq/L (19-29); Chloride 96 mEq/L (98-109); Glucose 99 mg/dL (70-99); Magnesium 1.1 mg/dL (1.6-2.6); Osmolality,Calculated 290 (280-300); Sodium 140 mEq/L (136-145); eGFR For African Americans > 60 (> 60); eGFR For Non-African Americans > 60 (> 60)
[2016-11-13 11:24] LABS: Blood Urea Nitrogen 12 mg/dL (7-20); Potassium 2.9 mEq/L (3.5-4.5)
--- NOTE | 2016-11-13 12:45 | Gastroenterology Progress Note ---
Date of Encounter: 11/13/16 Time of Encounter: 12:00 - Assessment and plan (1) Esophageal cancer Current Visit: Yes Status: Acute Assessment and plan: Patient with metastatic esophageal cancer status post-stenting for recurrent bleeding from the tumor. Chest x-ray from 2 days shows stent to be in place. The hemoglobin is relatively been stable ,does have some vomiting which is expected especially after placement of the stent that keeps the GE junction open. We will recommend that patient be put on low-dose Reglan and also to continue with the twice a day PPI. G-tube were aspirated at the bedside and the aspirate was clear. Qualifiers: Malignant neoplasm of esophagus location: lower third Qualified Code(s): C15.5 - Malignant neoplasm of lower third of esophagus - Time Spent With Patient Total time spent is greater than 50% in coordination of care (as documented) at patient's floor/unit and/or counseling patient: - Subjective Interval history: Patient seen at the bedside. Complaining that is having recurrent vomiting. Does complain of some central chest discomfort. Also there is concern that the patient had some blood in her vomitus - Constitutional Vitals: Temp Pulse Resp BP Pulse Ox 98.6 F 94 18 129/77 96 11/13/16 12:08 11/13/16 12:08 11/13/16 12:08 11/13/16 12:08 11/13/16 12:08 General appearance: Present: cooperative, A&O X 3, no acute distress, answers questions appropriately - Head Head exam: Present: atraumatic, normocephalic - Eye Eye exam: Present: sclera anicteric - GI/Abdominal Additional comments: Soft mildly distended has some mild tenderness in upper abdomen and PEG tube is in place. Results - Labs CBC & Chem 7: 11/13/16 07:01 11/13/16 10:59 Labs: Last Result Calcium 9.0 mg/dL (8.6-10.8) 11/13/16 10:59 Troponin I 0.58 ng/mL (0-0.03) H* 11/08/16 13:00 Entire Visit Hgb 9.6 g/dL (11.5-15.4) L 11/13/16 07:01 Hct 29.2 % (35.3-44.9) L 11/13/16 07:01 - ABG ABG results: PT/INR, D-dimer D-Dimer 4087 ng/mLFEU (0-500) H 11/08/16 06:02 - VTE Documentation of Mechanical Device: Intermittent pneumatic compression device Consult Discharge Plan - Plan Referrals: Susan Burris CNP [Primary Care Provider] - 11/16/16 1:00 pm (Web request made )
[2016-11-13] MEDS: Metoclopramide 10 MG/10 ML UD.LIQ PO SCH (15:43)
[2016-11-13] MEDS ORDERED: Potassium Chloride Elixir 20 MEQ/15 ML UDC PO ONE (16:57)
[2016-11-13] MEDS: Magnesium Sulfate 2 GM in D5% in Water 100 ML IVPB SCH ×2 (18:17→19:30)
[2016-11-14] MEDS: *HR* OxyCODONE Immed Rel 5 MG TABLET PO PRN ×4 (00:24→13:54)
[2016-11-14] MEDS: Piperacillin/Tazobactam 3.375 GM in D5% in Water (Mini-Bag+) 100 ML IVPB SCH ×3 (00:24→15:37)
[2016-11-14] MEDS: Ipratropium/Albuterol Neb 3 ML IH SCH ×4 (04:07→16:07)
[2016-11-14 05:59] LABS: Basophils % 0.7 %; Eosinophils # 0.2 K/mcL (0.0-0.6); Eosinophils % 3.2 %; Hematocrit 29.2 % (35.3-44.9); Hemoglobin 9.3 g/dL (11.5-15.4); Immature Granulocytes % 0.5 % (0-4); Lymphocytes % 17.8 %; Mean Corpuscular HGB Conc 31.8 g/dL (31.6-35.5); Mean Corpuscular Hemoglobin 27.9 pg (28.0-33.3); Mean Corpuscular Volume 87.7 fL (83.0-100.0); Mean Platelet Volume 8.6 fL (9.4-12.4); Monocytes # 0.6 K/mcL (0.0-1.3); Monocytes % 10.3 %; Neutrophils # 3.8 K/mcL (1.6-8.9); Platelet Count 373 K/mcL (140-400); Red Blood Count 3.33 M/mcL (3.82-4.97); Red Cell Distribution Width 14.1 % (11.5-14.5); Segmented Neutrophils % 67.5 %
[2016-11-14 06:06] LABS: BUN/Creatinine Ratio 10 (6-26); Blood Urea Nitrogen 10 mg/dL (7-20); Calcium 9.2 mg/dL (8.6-10.8); Carbon Dioxide 39 mEq/L (19-29); Chloride 90 mEq/L (98-109); Glucose 87 mg/dL (70-99); Magnesium 2.2 mg/dL (1.6-2.6); Osmolality,Calculated 286 (280-300); Phosphorous 3.3 mg/dL (2.3-4.7); Potassium 3.1 mEq/L (3.5-4.5); Sodium 139 mEq/L (136-145); eGFR For African Americans > 60 (> 60); eGFR For Non-African Americans 59 (> 60)
[2016-11-14] MEDS: Metoclopramide 10 MG/10 ML UD.LIQ PO SCH ×3 (08:37→15:37)
[2016-11-14] MEDS: Furosemide 40 MG/4 ML VIAL IVP SCH (08:38)
[2016-11-14] MEDS: Pantoprazole 40 MG VIAL IV SCH (08:39)
[2016-11-14] MEDS: Bisacodyl 10 MG RECTAL SUPPOSITORY RC SCH (08:41)
[2016-11-14] MEDS: Potassium Chloride Elixir 20 MEQ/15 ML UDC PO SCH ×2 (14:07→15:37)
--- NOTE | 2016-11-14 15:29 | Discharge Summary ---
Date of Encounter: 11/14/16 Time of Encounter: 12:30 - Discharge Diagnosis (1) Nausea & vomiting Priority: Primary Status: Acute Qualifiers: Vomiting type: unspecified Vomiting Intractability: non-intractable Qualified Code(s): R11.2 - Nausea with vomiting, unspecified (2) COPD (chronic obstructive pulmonary disease) Priority: Secondary Status: Chronic Qualifiers: COPD type: unspecified COPD Qualified Code(s): J44.9 - Chronic obstructive pulmonary disease, unspecified (3) Dysphagia Priority: Primary Status: Chronic Qualifiers: Dysphagia type: esophageal phase Qualified Code(s): R13.14 - Dysphagia, pharyngoesophageal phase (4) Hematemesis Priority: Primary Status: Acute Qualifiers: Nausea presence: with nausea Qualified Code(s): K92.0 - Hematemesis; R11.0 - Nausea (5) Esophageal adenocarcinoma Priority: Secondary Status: Inactive (6) Depression Priority: Secondary Status: Chronic Qualifiers: Depression Type: unspecified Qualified Code(s): F32.9 - Major depressive disorder, single episode, unspecified (7) CHF (congestive heart failure) Priority: Secondary Status: Chronic Qualifiers: Congestive heart failure type: unspecified congestive heart failure type Congestive heart failure chronicity: chronic Qualified Code(s): I50.9 - Heart failure, unspecified - Discharge Medications Prescriptions: HYDROmorphone [Dilaudid] 4 mg PO Q4HR PRN #20 tablet PRN Reason: Pain Albuterol Neb [Proventil Neb] 2.5 mg IH Q4H PRN 30 Days PRN Reason: Shortness Of Breath/Wheezing Metoclopramide [Reglan] 5 mg PO TIDAC 30 Days Nebulizer [Aeroeclipse] 1 each MC Q4H PRN #1 each PRN Reason: Shortness Of Breath/Wheezing Nebulizer Accessories [Sootheneb [id number] Adult Mask] 1 each MC Q4H PRN 30 Days PRN Reason: Shortness Of Breath/Wheezing Nebulizer Accessories [Sootheneb [id number] Med Cup] 1 each MC Q4H PRN 30 Days PRN Reason: Shortness Of Breath/Wheezing Omeprazole [PriLOSEC] 20 mg PO BIDAC #30 cap Home Medications: Albuterol Sulfate [Proair Respiclick] 1 - 2 puff IH Q6H PRN 01/15/16 [History] Losartan Potassium [Cozaar] 100 mg PO DAILY 08/26/15 [History] CloNIDine Patch [Catapres-Tts] 0.3 mg TP QWEEK 08/14/16 [History] Lactose-Reduced Food/Fiber [Jevity 1.5 Andrés Liquid] 1 can PO TID #24 can [Rx] Ergocalciferol (VITAMIN D2) [Vitamin D2] 50,000 unit PO QWEEK 11/04/16 [History] Metoprolol Tartrate [Lopressor] 50 mg PO BID 11/04/16 [History] Prochlorperazine Maleate [Compazine] 10 mg PO Q8HR PRN 11/04/16 [History] Sennosides [Senna] 8.6 mg PO BID 11/04/16 [History] Albuterol Sulfate [Albuterol Inhaler] 2 puff IH Q4H PRN 11/08/16 [History] Polyethylene Glycol 3350 [MiraLAX Powder Bulk 17.9 Oz] 1 scoop PO BID PRN [History] Albuterol Neb [Proventil Neb] 2.5 mg IH Q4H PRN 30 Days 11/14/16 [Rx] HYDROmorphone [Dilaudid] 4 mg PO Q4HR PRN #20 tablet 11/14/16 [Rx] Metoclopramide [Reglan] 5 mg PO TIDAC 30 Days 11/14/16 [Rx] Nebulizer Accessories [Sootheneb [id number] Adult Mask] 1 each MC Q4H PRN 30 Days [Rx] Nebulizer Accessories [Sootheneb [id number] Med Cup] 1 each MC Q4H PRN 30 Days 11/14 [Rx] Nebulizer [Aeroeclipse] 1 each MC Q4H PRN #1 each 11/14/16 [Rx] Omeprazole [PriLOSEC] 20 mg PO BIDAC #30 cap 11/14/16 [Rx] Allergies/Adverse Reactions: Allergies Amoxicillin [From Augmentin] Adverse Reaction (Verified 11/08/16 07:36) Diarrhea aspirin Adverse Reaction (Verified 11/08/16 07:36) Nausea clavulanic acid [From Augmentin] Adverse Reaction (Verified 11/08/16 07:36) Diarrhea naproxen Adverse Reaction (Verified 11/08/16 07:36) Nausea NSAIDS (Non-Steroidal Anti-Inflamma Adverse Reaction (Verified 11/08/16 07:36) Nausea sulfamethoxazole [From Bactrim] Adverse Reaction (Verified 11/08/16 07:36) Hypertension trimethoprim [From Bactrim] Adverse Reaction (Verified 11/08/16 07:36) Hypertension Date of admission: 11/08/16 05:22 Primary care physician: Susan Burris CNP Consults: 11/08/16 00:07 Consult to Nutrition [CONS] Routine Comment: Consulting Provider: NUTRITION Reason for Dietary Consult: Other 11/08/16 01:41 Consult to Palliative Care [CONS] Routine Comment: Consulting Provider: Palliative Care Nyla 11/08/16 11:37 Consult to Gastroenterology [CONS] Stat Consulting Provider: [facility] [place] Reason for Consult: UGIB Time Notified: 11:38 Call Completed: Yes 11/13/16 12:23 OT [Consult to Occupational Therapy] [CONS] Routine Comment: Evaluate, develop and implement POC PT [Consult to Physical Therapy] [CONS] Routine Comment: Evaluate, develop and implement POC Discharging clinician: Justine Momin Anticipated date of discharge: 11/14/16 - Patient Status Disposition: Home Health Service Condition: Fair Functional capacity at discharge: uses cane/walker Overall status at discharge: patient is progressing back to baseline - Discharge Instructions Instructions: Heart Failure (DC), Chronic Obstructive Pulmonary Disease (DC) Follow Up With: Susan Burris CNP [Primary Care Provider] - 11/16/16 1:00 pm (Web request made ) - Diet and Activity Activity: as per physical therapy Diet: other (Soft diet as tolerated along with continuous tube feeds) Hospital course: Ms. Lara is a 65 year old female with history of metastatic esophageal adenocarcinoma who was admitted with worsening epigastric pain and dysphagia. She was evaluated by GI and received esophageal stent placement. Patient also had recent hospitalization with acute blood loss anemia due to bleeding from esophageal mass at which time she received several blood transfusions along with clips in the esophagus. Patient was also evaluated by palliative care team and oncology and deemed to have a poor prognosis and only limited palliative therapy can be offered by oncology at this time. However, patient and family chooses to remain full code and are adamant about receiving aggressive case. Patient continued to request IV narcotic pain medications during this hospitalization and she was gradually weaned off them and explained that she cannot be discharged on IV medications unless she chooses to be on hospice care , which she declines at this time. Patient had episodes of atrial fibrillation with rapid ventricular response while in the hospital, secondary to extreme anxiety but she did not require any IV rate control medication drips. Subsequent to stent placement, patient developed episodes of persistent nausea and blood-tinged emesis. Case was discussed with GI, patient was reevaluated, gastric lavage was done via PEG tube which returned clear fluid. She has been started on Reglan with meals along with when necessary Zofran and Phenergan and eventually improved and was able to tolerate soft diet. Due to a high residual , rate of PEG feeds has been decreased to 15 mL per hour while in hospital. She is now medically stable for discharge with outpatient follow-up. Home health services are being arranged. - Time Spent with Patient Total time spent providing and/or coordinating discharge services: Greater than 30 minutes (50 min) - Constitutional Vitals: Temp Pulse Resp BP Pulse Ox 99.2 F 85 15 128/76 98 11/14/16 12:39 11/14/16 12:39 11/14/16 12:39 11/14/16 12:39 11/14/16 12:39 General appearance: Present: A&O X 3 (Slightly drowsy but arousable), answers questions appropriately - Respiratory Respiratory exam: Present: CTAB. Absent: accessory muscle use, rales, rhonchi, wheezes - GI/Abdominal GI/Abdominal exam: Present: normal bowel sounds, soft (PEG tube in place), no peritoneal signs. Absent: distended, tenderness - VTE Documentation of Mechanical Device: Intermittent pneumatic compression device
--- NOTE | 2016-11-14 15:32 | Physician Discharge Referral ---
Home Health/Hosp Referral Info Transfer to: Home Health Attending Provider: Justine Momin Provider in Charge Post Discharge: PCP - Diagnosis (1) Nausea & vomiting Priority: Primary Status: Acute (2) COPD (chronic obstructive pulmonary disease) Priority: Secondary Status: Chronic (3) Dysphagia Priority: Primary Status: Chronic (4) Hematemesis Priority: Primary Status: Acute (5) Esophageal adenocarcinoma Priority: Secondary Status: Chronic (6) Depression Priority: Secondary Status: Chronic (7) CHF (congestive heart failure) Priority: Secondary Status: Chronic - Respiratory Orders Smoking Cessation: Smoking cessation has been advised. For more information, call the [place] Tobacco Quit Line at 5-158-CXBE-NOW. - Diet/Nutrition Diet/Nutrition Orders: Mechanical Soft Diet/Nutrition: List: Continuous tube feeds with Jevity 1.5 at 15 mL per hour, free water via PEG tube 200 mL every 6 hours - Activity Activity Orders: Ambulate - Services Needed Following services are medically necessary services: Nursing, Physical Therapy, Occupational Therapy - Transfer Medications Prescriptions: HYDROmorphone [Dilaudid] 4 mg PO Q4HR PRN #20 tablet PRN Reason: Pain Metoclopramide [Reglan] 5 mg PO TIDAC 30 Days Omeprazole [PriLOSEC] 20 mg PO BIDAC #30 cap Home Medications: Albuterol Sulfate [Proair Respiclick] 1 - 2 puff IH Q6H PRN 08/26/15 [History] Losartan Potassium [Cozaar] 100 mg PO DAILY 08/26/15 [History] CloNIDine Patch [Catapres-Tts] 0.3 mg TP QWEEK 08/14/16 [History] Lactose-Reduced Food/Fiber [Jevity 1.5 Andrés Liquid] 1 can PO TID #24 can [Rx] Ergocalciferol (VITAMIN D2) [Vitamin D2] 50,000 unit PO QWEEK 11/04/16 [History] Metoprolol Tartrate [Lopressor] 50 mg PO BID 11/04/16 [History] Prochlorperazine Maleate [Compazine] 10 mg PO Q8HR PRN 11/04/16 [History] Sennosides [Senna] 8.6 mg PO BID 11/04/16 [History] Albuterol Sulfate [Albuterol Inhaler] 2 puff IH Q4H PRN 11/08/16 [History] Polyethylene Glycol 3350 [MiraLAX Powder Bulk 17.9 Oz] 1 scoop PO BID PRN [History] HYDROmorphone [Dilaudid] 4 mg PO Q4HR PRN #20 tablet 11/14/16 [Rx] Metoclopramide [Reglan] 5 mg PO TIDAC 30 Days 11/14/16 [Rx] Omeprazole [PriLOSEC] 20 mg PO BIDAC #30 cap 11/14/16 [Rx] Allergies/Adverse Reactions: Allergies Amoxicillin [From Augmentin] Adverse Reaction (Verified 11/08/16 07:36) Diarrhea aspirin Adverse Reaction (Verified 11/08/16 07:36) Nausea clavulanic acid [From Augmentin] Adverse Reaction (Verified 11/08/16 07:36) Diarrhea naproxen Adverse Reaction (Verified 11/08/16 07:36) Nausea NSAIDS (Non-Steroidal Anti-Inflamma Adverse Reaction (Verified 11/08/16 07:36) Nausea sulfamethoxazole [From Bactrim] Adverse Reaction (Verified 11/08/16 07:36) Hypertension trimethoprim [From Bactrim] Adverse Reaction (Verified 11/08/16 07:36) Hypertension Certification: Further, I certify that my clinical findings support that this patient is homebound (i.e. absences from home require considerable and taxing effort and are for medical reasons or jew services or infrequently or short duration when for other reasons) because: Homebound Reason: Patient requires assistance of a person or device to safely leave home, Leaving home requires considerable and taxing effort due to condition Attestation: My signature below is to certify that this patient is under my care and that I, or nurse practitioner, or a physician's assistant property manager working with me, has a face-to -face encounter with this patient.
[2016-11-14 16:44] VITALS: BP 126/85
== END 2016-11-14 17:50 | disposition home health service (06) | DRG 240 ==
LOC: 2ANU → SUATTDRO 11-08 05:22
PROVIDERS: ADMIT Hospitalist; ATTEND Internal Medicine

== ENCOUNTER 2016-12-05 16:06 | Inpatient (IN) ==
[2016-12-05] MEDS ORDERED: OXYCODONE HCL 15 MG PO PRN (18:51)
[2016-12-05 18:56] LABS: Basophils # 0.1 K/mcL (0.0-0.2); Basophils % 0.4 %; Eosinophils # 0.7 K/mcL (0.0-0.6); Eosinophils % 6.5 %; Hemoglobin 9.2 g/dL (11.5-15.4); Immature Granulocytes % 0.6 % (0-4); Lymphocytes # 1.3 K/mcL (0.6-4.6); Lymphocytes % 11.6 %; Mean Corpuscular HGB Conc 31.7 g/dL (31.6-35.5); Mean Corpuscular Hemoglobin 26.6 pg (28.0-33.3); Mean Corpuscular Volume 83.8 fL (83.0-100.0); Mean Platelet Volume 8.7 fL (9.4-12.4); Monocytes # 0.8 K/mcL (0.0-1.3); Monocytes % 6.6 %; Neutrophils # 8.5 K/mcL (1.6-8.9); Nucleated Red Blood Cells 0.3 /100 WBC (0); Platelet Count 303 K/mcL (140-400); Red Blood Count 3.46 M/mcL (3.82-4.97); Red Cell Distribution Width 15.6 % (11.5-14.5); Segmented Neutrophils % 74.3 %
[2016-12-05 19:10] LABS: Alanine Aminotransferase 17 Units/L (0-55); Albumin 2.2 g/dL (3.5-5.0); Albumin/Globulin Ratio 0.5 (1.1-2.2); Alkaline Phosphatase 119 Units/L (38-126); Aspartate Amino Transferase 25 Units/L (5-34); BUN/Creatinine Ratio 20 (6-26); Bilirubin,Total 0.5 mg/dL (0.2-1.2); Blood Urea Nitrogen 17 mg/dL (7-20); Calcium 9.3 mg/dL (8.6-10.8); Carbon Dioxide 32 mEq/L (19-29); Chloride 94 mEq/L (98-109); Globulin 4.7 g/dL (2.4-3.5); Glucose 116 mg/dL (70-99); Osmolality,Calculated 275 (280-300); Potassium 5.3 mEq/L (3.5-4.5); Sodium 131 mEq/L (136-145); Total Protein 6.9 g/dL (6.0-8.3); eGFR For African Americans > 60 (> 60); eGFR For Non-African Americans > 60 (> 60)
[2016-12-05] MEDS ORDERED: Metoclopramide 10 MG/10 ML UD.LIQ PO PRN (19:55)
[2016-12-05] MEDS ORDERED: Albuterol 2.5 MG/3 ML NEBULIZER IH PRN (19:55)
[2016-12-05] MEDS ORDERED: Polyethylene Glycol 3350 255 GM POWDER PO PRN (19:55)
--- NOTE | 2016-12-05 20:18 | Internal Med History&Physical ---
<JerryKikoChristina J - Last Filed: 12/05/16 20:35> Date of Encounter: 12/05/16 Time of Encounter: 20:01 Assessment and Plan (1) Acute blood loss anemia Current visit: Yes Status: Acute with hematemeisis for 3 days prior to admission. Hgb 6.2 at OSH, s/p 2 units PRBC. Repeat Hgb 9.2. Monitor H&H, keep NPO, IV fluids, IV PPI. Discussed with Oncology and will consult GI (will need to call consult in on 12/06/2016) (2) Esophageal cancer Current visit: No Status: Chronic per hx. Follows with Dr. Callejas (Oncology). Recently completed systemic tx per chart review. Consult Oncology Qualifiers: Malignant neoplasm of esophagus location: lower third Qualified Code(s): C15.5 - Malignant neoplasm of lower third of esophagus (3) Hypertension Current visit: No Status: Chronic per hx. BP controlled on admission. Cont home BP medications. Monitor BP and titrate PRN Qualifiers: Hypertension type: essential hypertension Qualified Code(s): I10 - Essential (primary) hypertension (4) DVT prophylaxis Current visit: No Status: Acute SCDs Internal Medicine - H&P: HPI Admitted From: Home Plans for Post Hospital Care: Home History of present illness: Ms. Lara is a 65 year old female with PMH esophageal cancer and HTN who presented to OSH and was found to be anemia. She follows with Dr. Callejas and was transferred to [facility] for Oncology consultation. Information obtained from chart review and patient. She tells that she went to have a blood transfusion at [place] and was transferred to [facility] Surg [facility] HX - Past Medical History Medical history: arthritis, cancer, CHF, COPD, hyperlipidemia, hypertension, renal disease Psychiatric history: no psych history - Past Surgical History Surgical History: other - Social History Smoking Status: Former smoker Smokeless Tobacco Status: No Alcohol use: none Drug use: none - Family History Father Living Status: Hx Family Cardiac Disorders: Yes (HEART RELATED) Mother Living Status: Still Living Hx Family Cardiac Disorders: Yes (Hypertension) Hx Family Endocrine Disorder: Yes (Diabetes Mellitus) Hx Family Neurologic Disorders: Yes (CVA) Sister Living Status: Still Living Hx Family Cardiac Disorders: No Hx Family Cancer: Yes Hx Family GI Disorders: No Hx Family Endocrine Disorder: No Hx Family Neuromuscular Disorders: No Hx Family Neurologic Disorders: No Hx Family HEENT Disorders: No Hx Family Autoimmune Disorders: No Internal Medicine - H&P: Meds CloNIDine Patch [Catapres-Tts] 0.3 mg TP QWEEK 08/14/16 [History] Metoprolol Tartrate [Lopressor] 50 mg PO BID 11/04/16 [History] Sennosides [Senna] 8.6 mg PO BID 11/04/16 [History] Albuterol Sulfate [Albuterol Inhaler] 2 puff IH Q4H PRN 11/08/16 [History] Polyethylene Glycol 3350 [MiraLAX Powder Bulk 17.9 Oz] 17 gm PO DAILY PRN [History] Albuterol Neb [Proventil Neb] 2.5 mg IH Q4H PRN 30 Days 11/14/16 [Rx] Omeprazole [PriLOSEC] 20 mg PO BIDAC #30 cap 11/14/16 [Rx] Lactose-Reduced Food/Fiber [Jevity 1.5 Andrés Liquid] 1 can PO QID 12/05/16 [ History] Lactulose 20 gm PO DAILY PRN 12/05/16 [History] Lidocaine/Prilocaine [Emla] 1 appl TP AD 12/05/16 [History] Metoclopramide [Reglan] 5 mg PO TID PRN 12/05/16 [History] Oxycodone HCl 15 mg PO Q4H PRN 12/05/16 [History] Prochlorperazine Maleate [Compazine] 10 mg PO Q8H PRN 12/05/16 [History] Allergies Amoxicillin [From Augmentin] Adverse Reaction (Verified 11/08/16 07:36) Diarrhea aspirin Adverse Reaction (Verified 11/08/16 07:36) Nausea clavulanic acid [From Augmentin] Adverse Reaction (Verified 11/08/16 07:36) Diarrhea naproxen Adverse Reaction (Verified 11/08/16 07:36) Nausea NSAIDS (Non-Steroidal Anti-Inflamma Adverse Reaction (Verified 11/08/16 07:36) Nausea sulfamethoxazole [From Bactrim] Adverse Reaction (Verified 11/08/16 07:36) Hypertension trimethoprim [From Bactrim] Adverse Reaction (Verified 11/08/16 07:36) Hypertension All Systems PM: A 10-system review of systems was performed and is negative for pertinent findings except as documented above in the HPI. - Constitutional Vitals: Temp Pulse Resp BP Pulse Ox 98 F 82 16 132/84 99 12/05/16 18:30 12/05/16 18:30 12/05/16 18:30 12/05/16 18:30 12/05/16 18:30 Internal Med - H&P Results - Labs CBC & Chem 7: 12/05/16 18:49 12/05/16 18:49 Labs: Short CBC 12/05/16 Range/Units 18:49 WBC 11.4 H (4.3-11.1) K/mcL Hgb 9.2 L D (11.5-15.4) g/dL Hct 29.0 L (35.3-44.9) % Plt Count 303 (140-400) K/mcL Neutrophils # 8.5 (1.6-8.9) K/mcL BMP 12/05/16 18:49 Sodium 131 L Potassium 5.3 H D Chloride 94 L Carbon Dioxide 32 H BUN 17 Creatinine 0.85 Glucose 116 H Calcium 9.3 Liver Function 12/05/16 Range/Units 18:49 Total Bilirubin 0.5 (0.2-1.2) mg/dL AST 25 (5-34) Units/L ALT 17 (0-55) Units/L Alkaline Phosphatase 119 (38-126) Units/L Albumin 2.2 L (3.5-5.0) g/dL <Dwayne Tellez - Last Filed: 12/06/16 00:29> Date of Encounter: 12/05/16 Internal Medicine - H&P: HPI History of present illness: Ms. Lara is a 65 year old female All Systems PM: A 10-system review of systems was performed and is negative for pertinent findings except as documented above in the HPI. - Constitutional Vitals: Temp Pulse Resp BP Pulse Ox 99.0 F 63 18 124/75 95 12/05/16 23:33 12/05/16 23:33 12/05/16 23:33 12/05/16 23:33 12/05/16 23:33 Internal Med - H&P Results - Labs CBC & Chem 7: 12/05/16 18:49 12/05/16 18:49 Labs: Short CBC 12/05/16 Range/Units 18:49 WBC 11.4 H (4.3-11.1) K/mcL Hgb 9.2 L D (11.5-15.4) g/dL Hct 29.0 L (35.3-44.9) % Plt Count 303 (140-400) K/mcL Neutrophils # 8.5 (1.6-8.9) K/mcL BMP 12/05/16 18:49 Sodium 131 L Potassium 5.3 H D Chloride 94 L Carbon Dioxide 32 H BUN 17 Creatinine 0.85 Glucose 116 H Calcium 9.3 Liver Function 12/05/16 Range/Units 18:49 Total Bilirubin 0.5 (0.2-1.2) mg/dL AST 25 (5-34) Units/L ALT 17 (0-55) Units/L Alkaline Phosphatase 119 (38-126) Units/L Albumin 2.2 L (3.5-5.0) g/dL - Attending Attestation I personally interviewed and examined this patient and my medical decision- making was reviewed with the Advanced Practice Nurse. I agree with the documented findings, disposition and treatment plan as described.
[2016-12-05] MEDS: 0.9 % Sodium Chloride 1,000 ML IVC SCH (20:51)
[2016-12-05] MEDS: *HR* OxyCODONE Immed Rel 15 MG TABLET PO PRN (21:07)
[2016-12-06] MEDS: *HR* OxyCODONE Immed Rel 15 MG TABLET PO PRN ×4 (02:46→15:57)
[2016-12-06 09:19] LABS: Hematocrit 27.7 % (35.3-44.9); Hemoglobin 8.7 g/dL (11.5-15.4); Immature Platelets 1.7 % (1.1-6.1); Mean Corpuscular HGB Conc 31.4 g/dL (31.6-35.5); Mean Corpuscular Hemoglobin 26.4 pg (28.0-33.3); Mean Corpuscular Volume 83.9 fL (83.0-100.0); Mean Platelet Volume 8.7 fL (9.4-12.4); Red Blood Count 3.3 M/mcL (3.82-4.97); Red Cell Distribution Width 15.4 % (11.5-14.5)
[2016-12-06 09:31] LABS: BUN/Creatinine Ratio 20 (6-26); Blood Urea Nitrogen 15 mg/dL (7-20); Calcium 9.1 mg/dL (8.6-10.8); Carbon Dioxide 29 mEq/L (19-29); Chloride 96 mEq/L (98-109); Glucose 106 mg/dL (70-99); Osmolality,Calculated 279 (280-300); Potassium 4.4 mEq/L (3.5-4.5); Sodium 134 mEq/L (136-145); eGFR For African Americans > 60 (> 60); eGFR For Non-African Americans > 60 (> 60)
[2016-12-06] MEDS: 0.9 % Sodium Chloride 1,000 ML IVC SCH (10:19)
[2016-12-06] MEDS: Pantoprazole 40 MG VIAL IVP SCH ×2 (10:23→18:23)
[2016-12-06] MEDS ORDERED: Ondansetron 4 MG/2 ML VIAL IVP PRN (11:17)
--- NOTE | 2016-12-06 11:31 | Gastroenterology Consult Note ---
<Sukumar Mccain Perla - Last Filed: 12/06/16 11:29> Date of Encounter: 12/06/16 Time of Encounter: 10:30 - Assessment and plan (1) Esophageal cancer Current Visit: No Status: Acute Assessment and plan: EGD with partially covered metal stent placed 11/09/2016. Repeat EGD likely not beneficial. Will hold on any invasive procedures at this time. Will continue to monitor. Qualifiers: Malignant neoplasm of esophagus location: middle third Qualified Code(s): C15.4 - Malignant neoplasm of middle third of esophagus (2) GI bleed Current Visit: No Status: Resolved Assessment and plan: Secondary to esophageal cancer. Qualifiers: GI bleed type/associated pathology: unspecified gastrointestinal hemorrhage type Qualified Code(s): K92.2 - Gastrointestinal hemorrhage, unspecified - Time Spent With Patient Total time spent is greater than 50% in coordination of care (as documented) at patient's floor/unit and/or counseling patient: GI History of Present Illness - Data of Consult Patient: known to practice within the last 3 years Consult date: 12/06/16 Requesting Physician: Mathew Monzon MD - Consult Narrative Reason for consult: hematemesis History of present illness: Ms. Lara is a 65 year old female with PMHx of PMHx of stage 4 esophageal cancer , HTN, COPD, reurrent GI bleed, and anemia who presented to an OSH with hematemesis for the past 3 days. She was found to be anemic with Hgb 6.5 on 12/04 , 6.2 on 12/05 and received 2 units PRBC. On admission here her Hgb 9.2. Denies hematochezia Procedures: EGD 11/09/2016 Dr. Winter: Malignant esophageal tumor in middle third of esophagus, partially covered esophageal stent placed for hemostasis. EGD 11/04/2016 Dr. Boyd partially obstructing malignant esophageal tumor in the lower third of the esophagus. 2 ligatures were successfully placed. A slow ooze remaining at the end of the procedure. EGD 10/23/2016 Dr. Gray completely obstructing malignant esophageal tumor at the GE junction, PEG tube placed. EGD 09/21/2016 Dr. Winter partially obstructing malignant esophageal tumor in the lower third of the esophagus with bleeding, treated with APC. EGD 08/16/2016 Dr. Isaac partially obstructing likely malignant esophageal tumor in the lower third of the esophagus. NSAIDs: None Anticoagulation: None Past Med Surg Social Fam HX - Past Medical History Medical history: arthritis, cancer, CHF, COPD, hyperlipidemia, hypertension, renal disease Psychiatric history: no psych history - Past Surgical History Surgical History: other - Social History Smoking Status: Former smoker Smokeless Tobacco Status: No Alcohol use: none Drug use: none - Family History Father Living Status: Hx Family Cardiac Disorders: Yes (HEART RELATED) Mother Living Status: Still Living Hx Family Cardiac Disorders: Yes (Hypertension) Hx Family Endocrine Disorder: Yes (Diabetes Mellitus) Hx Family Neurologic Disorders: Yes (CVA) Sister Living Status: Still Living Hx Family Cardiac Disorders: No Hx Family Cancer: Yes Hx Family GI Disorders: No Hx Family Endocrine Disorder: No Hx Family Neuromuscular Disorders: No Hx Family Neurologic Disorders: No Hx Family HEENT Disorders: No Hx Family Autoimmune Disorders: No - Gastrointestinal Gastrointestinal: Present: as per HPI - Constitutional Constitutional: as per HPI - EENT Eyes: as per HPI Ears: Present: as per HPI Nose, mouth and throat: Present: as per HPI - Cardiovascular Cardiovascular ROS: Present: as per HPI - Respiratory Respiratory IM: Present: as per HPI - Genitourinary Genitourinary: Absent: change in color, Urinary frequency - Neurological ROS Neurological GI: Present: as per HPI - Hematologic/Lymphatic Hematologic/Lymphatic pediatric: Present: as per HPI - Musculoskeletal Musculoskeletal ROS GI: Present: as per HPI - Integumentary Integumentary GI: Present: as per HPI - Psychiatric ROS Psychiatric GI: Present: as per HPI - Endocrine Endocrine IM: Present: as per HPI - Constitutional Vitals: Temp Pulse Resp BP Pulse Ox 98.7 F 83 16 149/79 99 12/06/16 07:43 12/06/16 07:43 12/06/16 07:43 12/06/16 07:43 12/06/16 07:43 General appearance: Present: cooperative, A&O X 3, no acute distress, answers questions appropriately - Head Head exam: Present: atraumatic, normocephalic - Eye Eye exam: Present: normal appearance, sclera anicteric - ENT ENT exam: Present: mucous membranes dry - Neck Neck exam general surgery: Present: normal inspection, trachea midline - Respiratory Respiratory exam: Present: decreased breath sounds, CTAB. Absent: rales, rhonchi - Cardiovascular Cardiovascular exam: Present: RRR, +S1, +S2 - GI/Abdominal GI/Abdominal exam: Present: normal bowel sounds, soft, no peritoneal signs. Absent: distended, firm, guarding Additional comments: PEG tube in place. - Rectal Rectal exam: Present: deferred - Extremities Exam Extremities exam: Present: warm - Neurological Exam Neurological exam: Present: no focal deficits - Psychiatric Psychiatric exam: Present: normal affect, normal mood - Skin Skin exam: Present: dry, intact, normal color, warm Results - Labs CBC & Chem 7: 12/06/16 09:09 12/06/16 09:09 Labs: Last Result Calcium 9.1 mg/dL (8.6-10.8) 12/06/16 09:09 Entire Visit Hgb 8.7 g/dL (11.5-15.4) L 12/06/16 09:09 Hct 27.7 % (35.3-44.9) L 12/06/16 09:09 Total Bilirubin 0.5 mg/dL (0.2-1.2) 12/05/16 18:49 AST 25 Units/L (5-34) 12/05/16 18:49 ALT 17 Units/L (0-55) 12/05/16 18:49 Consult Discharge Plan - Plan Referrals: Susan Burris CNP [Primary Care Provider] - 12/14/16 1:15 pm <Marilynn Winter - Last Filed: 12/06/16 17:32> Date of Encounter: 12/06/16 Time of Encounter: 13:00 - Time Spent With Patient Total time spent is greater than 50% in coordination of care (as documented) at patient's floor/unit and/or counseling patient: GI History of Present Illness - Data of Consult Requesting Physician: Mathew Monzon MD - Consult Narrative History of present illness: Ms. Lara is a 65 year old female - Constitutional Vitals: Temp Pulse Resp BP Pulse Ox 98.0 F 75 18 134/72 100 12/06/16 15:44 12/06/16 15:44 12/06/16 15:44 12/06/16 15:44 12/06/16 15:44 Results - Labs CBC & Chem 7: 12/06/16 09:09 12/06/16 09:09 Labs: Last Result Calcium 9.1 mg/dL (8.6-10.8) 12/06/16 09:09 Entire Visit Hgb 8.7 g/dL (11.5-15.4) L 12/06/16 09:09 Hct 27.7 % (35.3-44.9) L 12/06/16 09:09 Total Bilirubin 0.5 mg/dL (0.2-1.2) 12/05/16 18:49 AST 25 Units/L (5-34) 12/05/16 18:49 ALT 17 Units/L (0-55) 12/05/16 18:49 - Attending Attestation I examined this patient and my medical decision-making was reviewed with the PHYSICAL THERAPY DIRECTOR/PA/Advanced Practice Nurse/Resident Physician. I agree with the documented findings, disposition and treatment plan as described except to the extent set forth below.
[2016-12-06] MEDS ORDERED: 0.9 % Sodium Chloride Mini Bag 100 ML ONE (15:15)
--- NOTE | 2016-12-06 16:08 | Discharge Summary ---
<Jose Alvarez - Last Filed: 12/06/16 16:59> Date of Encounter: 12/06/16 Time of Encounter: 16:05 - Discharge Diagnosis (1) GI bleed Priority: Primary Status: Acute (2) Esophageal cancer Priority: Secondary Status: Acute Qualifiers: Malignant neoplasm of esophagus location: lower third Qualified Code(s): C15.5 - Malignant neoplasm of lower third of esophagus (3) Acute blood loss anemia Priority: Primary Status: Acute - Discharge Medications Home Medications: CloNIDine Patch [Catapres-Tts] 0.3 mg TP QWEEK 08/14/16 [History] Metoprolol Tartrate [Lopressor] 50 mg PO BID 11/04/16 [History] Sennosides [Senna] 8.6 mg PO BID 11/04/16 [History] Albuterol Sulfate [Albuterol Inhaler] 2 puff IH Q4H PRN 11/08/16 [History] Polyethylene Glycol 3350 [MiraLAX Powder Bulk 17.9 Oz] 17 gm PO DAILY PRN [History] Albuterol Neb [Proventil Neb] 2.5 mg IH Q4H PRN 30 Days 11/14/16 [Rx] Omeprazole [PriLOSEC] 20 mg PO BIDAC #30 cap 11/14/16 [Rx] Lactose-Reduced Food/Fiber [Jevity 1.5 Andrés Liquid] 1 can PO QID 12/05/16 [ History] Lactulose 20 gm PO DAILY PRN 12/05/16 [History] Lidocaine/Prilocaine [Emla] 1 appl TP AD 12/05/16 [History] Oxycodone HCl 15 mg PO Q4H PRN 12/05/16 [History] Prochlorperazine Maleate [Compazine] 10 mg PO Q8H PRN 12/05/16 [History] Omeprazole [PriLOSEC] 40 mg PO DAILY #30 cap 12/06/16 [Rx] Sucralfate [Carafate] 1 gm GTUBE QIDAC 30 Days 12/06/16 [Rx] Allergies/Adverse Reactions: Allergies Amoxicillin [From Augmentin] Adverse Reaction (Verified 11/08/16 07:36) Diarrhea aspirin Adverse Reaction (Verified 11/08/16 07:36) Nausea clavulanic acid [From Augmentin] Adverse Reaction (Verified 11/08/16 07:36) Diarrhea naproxen Adverse Reaction (Verified 11/08/16 07:36) Nausea NSAIDS (Non-Steroidal Anti-Inflamma Adverse Reaction (Verified 11/08/16 07:36) Nausea sulfamethoxazole [From Bactrim] Adverse Reaction (Verified 11/08/16 07:36) Hypertension trimethoprim [From Bactrim] Adverse Reaction (Verified 11/08/16 07:36) Hypertension Date of admission: 12/05/16 17:27 Primary care physician: Susan Burris CNP Consults: 12/05/16 18:01 Consult to Nutrition [CONS] Routine Comment: patient has PEG tube Consulting Provider: NUTRITION Reason for Dietary Consult: Other 12/05/16 20:32 Consult to Oncology [CONS] Routine Consulting Provider: Oncology [facility] Reason for Consult: Follows with Dr. Wilkinson Call Completed: Yes 12/05/16 20:34 Consult to Gastroenterology [CONS] Routine Consulting Provider: Gastroenterology Nyla Reason for Consult: hemataemesis Call Completed: No Discharging clinician: Jose Alvarez Anticipated date of discharge: 12/06/16 - Patient Status Disposition: Home, Self-Care Condition: Fair Functional capacity at discharge: independent ambulation Overall status at discharge: patient is progressing back to baseline - Discharge Instructions Follow Up With: Susan Burris CNP [Primary Care Provider] - - Diet and Activity Activity: increase activity as tolerated Diet: other (tube feeds) Hospital course: Ms. Lara is a 65 year old female whith esophageal cancer. She was transferred to or facility for a GI bleed. Hg was 6.2 she had 2 units of blood at the other facility and Hg daniela appropriately. She has no more bleeding episodes today. I did discuss the case with Dr. Winter. He has placed a stent approximatly a month ago. Most likely endoscopy would not be of any benefit. I also informed oncology of what was going on with the patient. curently she is stable. We will tranfuse her 1 unit of PRBC. If her Hg rises appropriately we will discharge her with follow up to Oncology tomorrow. - Time Spent with Patient Total time spent providing and/or coordinating discharge services: Greater than 30 minutes (I spent approximately 45 minutes discharging thi patient including time to discuss her case with consultants.) - Constitutional Vitals: Temp Pulse Resp BP Pulse Ox 98.0 F 75 18 134/72 100 12/06/16 15:44 12/06/16 15:44 12/06/16 15:44 12/06/16 15:44 12/06/16 15:44 General appearance: Present: A&O X 3, no acute distress - Head Head exam: Present: atraumatic, normocephalic - Eye Eye exam: Present: PERRL, conjuntiva pink, sclera anicteric Pupils: Present: PERRL - Neck Neck exam general surgery: Present: supple, trachea midline. Absent: lymphadenopathy - Respiratory Respiratory exam: Present: CTAB. Absent: accessory muscle use, rales, rhonchi, wheezes - Cardiovascular Cardiovascular exam: Present: RRR, +S1, +S2. Absent: diastolic murmur, gallop, rubs, systolic murmur - GI/Abdominal GI/Abdominal exam: Present: normal bowel sounds, soft, no peritoneal signs. Absent: distended, tenderness - Extremities Exam Extremities exam: Present: warm, radial pulses palpable and symetrical. Absent : calf tenderness, cyanotic, pedal edema - Skin Skin exam: Present: dry, intact <Ducu,Mathew - Last Filed: 12/06/16 17:26> Date of Encounter: 12/06/16 Date of admission: 12/06/16 16:42 Primary care physician: Susan Burris CNP Consults: 12/05/16 18:01 Consult to Nutrition [CONS] Routine Comment: patient has PEG tube Consulting Provider: NUTRITION Reason for Dietary Consult: Other 12/05/16 20:32 Consult to Oncology [CONS] Routine Consulting Provider: Oncology [facility] Reason for Consult: Follows with Dr. Wilkinson Call Completed: Yes 12/05/16 20:34 Consult to Gastroenterology [CONS] Routine Consulting Provider: Gastroenterology Nyla Reason for Consult: hemataemesis Call Completed: No Hospital course: Ms. Lara is a 65 year old female - Time Spent with Patient Total time spent providing and/or coordinating discharge services: - Constitutional Vitals: Temp Pulse Resp BP Pulse Ox 98.0 F 75 18 134/72 100 12/06/16 15:44 12/06/16 15:44 12/06/16 15:44 12/06/16 15:44 12/06/16 15:44 - Attending Attestation I examined this patient and my medical decision-making was reviewed with Dr. Alvarez, Resident Physician. I agree with the documented findings, disposition and treatment plan as described except to the extent set forth below. She required inpatient admission due to severe anemia and need for blood transfusion and close monitoring of her response to transfusion as well as getting gastroenterology and oncology input. I have reviewed her review of systems past medical history family history surgical history and social history from her original H&P dictated yesterday at this facility and found no changes or updates. Patient is pale, ill-appearing . Heart is regular S1 and S2 with no murmurs. Abdomen is soft nontender nondistended. There is a PEG tube present. Plan: Will transfuse 1 unit PRBC, obtain posttransfusion hemoglobin and hematocrit and if the response was appropriate we will discharge her home. She is scheduled to start chemotherapy tomorrow. I have discussed the case with gastroenterology who recommended no further endoscopic evaluation for her upper GI bleed.
--- NOTE | 2016-12-06 16:23 | Physician Discharge Referral ---
<Jose Alvarez - Last Filed: 12/06/16 16:22> Home Health/Hosp Referral Info Transfer to: Home Health Provider in Charge Post Discharge: PCP - Diagnosis (1) GI bleed Status: Acute (2) Esophageal cancer Status: Acute (3) Acute blood loss anemia Status: Acute - Respiratory Orders Oxygen / L per min (3L) Smoking Cessation: Smoking cessation has been advised. For more information, call the [place] Tobacco Quit Line at 7-748-UXCQ-NOW. - Diet/Nutrition Diet/Nutrition: List: Tube feeds and soft foods - Activity Activity Orders: Walker - Services Needed Following services are medically necessary services: Home Health Aide, Physical Therapy, Occupational Therapy - Transfer Medications Home Medications: CloNIDine Patch [Catapres-Tts] 0.3 mg TP QWEEK 08/14/16 [History] Metoprolol Tartrate [Lopressor] 50 mg PO BID 11/04/16 [History] Sennosides [Senna] 8.6 mg PO BID 11/04/16 [History] Albuterol Sulfate [Albuterol Inhaler] 2 puff IH Q4H PRN 11/08/16 [History] Polyethylene Glycol 3350 [MiraLAX Powder Bulk 17.9 Oz] 17 gm PO DAILY PRN [History] Albuterol Neb [Proventil Neb] 2.5 mg IH Q4H PRN 30 Days 11/14/16 [Rx] Omeprazole [PriLOSEC] 20 mg PO BIDAC #30 cap 11/14/16 [Rx] Lactose-Reduced Food/Fiber [Jevity 1.5 Andrés Liquid] 1 can PO QID 12/05/16 [ History] Lactulose 20 gm PO DAILY PRN 12/05/16 [History] Lidocaine/Prilocaine [Emla] 1 appl TP AD 12/05/16 [History] Oxycodone HCl 15 mg PO Q4H PRN 12/05/16 [History] Prochlorperazine Maleate [Compazine] 10 mg PO Q8H PRN 12/05/16 [History] Omeprazole [PriLOSEC] 40 mg PO DAILY #30 cap 12/06/16 [Rx] Sucralfate [Carafate] 1 gm GTUBE QIDAC 30 Days 12/06/16 [Rx] Allergies/Adverse Reactions: Allergies Amoxicillin [From Augmentin] Adverse Reaction (Verified 11/08/16 07:36) Diarrhea aspirin Adverse Reaction (Verified 11/08/16 07:36) Nausea clavulanic acid [From Augmentin] Adverse Reaction (Verified 11/08/16 07:36) Diarrhea naproxen Adverse Reaction (Verified 11/08/16 07:36) Nausea NSAIDS (Non-Steroidal Anti-Inflamma Adverse Reaction (Verified 11/08/16 07:36) Nausea sulfamethoxazole [From Bactrim] Adverse Reaction (Verified 11/08/16 07:36) Hypertension trimethoprim [From Bactrim] Adverse Reaction (Verified 11/08/16 07:36) Hypertension Certification: Further, I certify that my clinical findings support that this patient is homebound (i.e. absences from home require considerable and taxing effort and are for medical reasons or anglican services or infrequently or short duration when for other reasons) because: Homebound Reason: Leaving home requires considerable and taxing effort due to condition, Severity of cardiac or pulmonary status limits activity tolerance Attestation: My signature below is to certify that this patient is under my care and that I, or nurse practitioner, or a physician's patient assistant working with me, has a face-to -face encounter with this patient. <Mathew Monzon - Last Filed: 12/06/16 17:28> - Respiratory Orders Smoking Cessation: Smoking cessation has been advised. For more information, call the [place] Tobacco Quit Line at 1-288-FHGX-NOW. Certification: Further, I certify that my clinical findings support that this patient is homebound (i.e. absences from home require considerable and taxing effort and are for medical reasons or anglican services or infrequently or short duration when for other reasons) because: Attestation: My signature below is to certify that this patient is under my care and that I, or nurse practitioner, or a physician's patient assistant working with me, has a face-to -face encounter with this patient. I examined this patient and my medical decision-making was reviewed with Dr. Alvarez, Resident Physician. I agree with the documented findings, disposition and treatment plan as described except to the extent set forth below. She will receive 1 more unit of PRBC transfusion and if there is appropriate response and no adverse reaction we will discharge her back home. She requires home health services due to advanced stage cancer, nutritional deficiency, generalized weakness, she cannot leave her home except for doctor's visits.
[2016-12-06 18:30] VITALS: BP 138/77
[2016-12-06 18:53] LABS: Hematocrit 30.3 % (35.3-44.9); Hemoglobin 9.5 g/dL (11.5-15.4)
== END 2016-12-06 19:14 | disposition home health service (06) | DRG 663 ==
LOC: 3ANU
PROVIDERS: ADMIT Internal Medicine; ATTEND Internal Medicine

== ENCOUNTER 2016-12-26 15:19 | Inpatient (IN) ==
--- NOTE | 2016-12-26 19:09 | Event Note ---
Date of Encounter: 12/26/16 Time of Encounter: 19:06 Patient seen and examined with nurse practitioner. Patient with speech for esophageal cancer could not tolerate chemotherapy, still adamant about being full code, was been having repeated hospitalization recently for blood transfusion, went to [place] emergency room with hemoglobin of 3.8. Patient is being transfused blood as well as FFP's INR is 1.8. Patient is also behaving septic. She is currently on levofed 8 mcg which was started after she remained hypotensive with Map < 65 after 2 L fluid boluses given at [place] [facility]. She will be started on vancomycin and meropenem. Platonic strip will be started. 2 sets of blood cultures will be performed. We have discussed the code status with the patient and she wants to be full code. Oncology consultation for further discussion of goals of care.
[2016-12-26] MEDS ORDERED: 0.9 % Sodium Chloride 1,000 ML IVC SCH (19:15)
[2016-12-26] MEDS ORDERED: Pantoprazole 80 MG in 0.9 % Sodium Chloride 50 ML IVPB ONE (19:19)
[2016-12-26] MEDS ORDERED: Norepinephrine 4 MG in D5% in Water 250 ML IVC SCH (19:45)
--- NOTE | 2016-12-26 19:52 | Internal Med History&Physical ---
Date of Encounter: 12/26/16 Time of Encounter: 18:00 Assessment and Plan (1) Acute blood loss anemia Current visit: No Status: Acute 1. Transfuse PRBC continue to monitor H&H will give FFP due to INR 1.8 2 consult GI-spoke with Dr. Reyna stated unable to perform any surgical intervention -continue supportive care 3 monitor H&H every 6 hours (2) Pneumonia Current visit: Yes Status: Acute 1 patient has been experiencing vomiting she presented tachycardic she has had history of low-grade fever and elevated white count. Suspect possible aspiration pneumonia chest x-ray with retrocardiac airspace disease with represent pneumonia or atelectasis Blood cultures have been obtained 2 continue with meropenem will add vancomycin 3 monitor CBC 4 bronchodilators 5 oxygen to maintain SPO2 greater than 92% Qualifiers: Pneumonia type: due to unspecified organism Laterality: unspecified laterality Lung location: unspecified part of lung Qualified Code(s): J18.9 - Pneumonia, unspecified organism (3) Adenocarcinoma of esophagus, stage 4 Current visit: No Status: Chronic 1 consult oncology-patient's condition is deteriorating patient has refused hospice care in the past 2 we will continue with pain medication as well as antiemetics (4) COPD (chronic obstructive pulmonary disease) Current visit: No Status: Chronic 1 continue with oxygen maintain SPO2 greater than 92% 2 continue bronchodilators Qualifiers: COPD type: unspecified COPD Qualified Code(s): J44.9 - Chronic obstructive pulmonary disease, unspecified (5) DVT prophylaxis Current visit: No Status: Acute SCDs Internal Medicine - H&P: HPI Chief complaint: Anemia Admitted From: Hospital to Hospital Transfer Plans for Post Hospital Care: Home History of present illness: Ms. Lara is a 65 year old female past medical history of esophageal cancer CHF COPD hyperlipidemia hypertension CK D stage III. 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 She underwent EGD in October which revealed a large nonobstructive ulcerative mass was bleeding with multiple sites that were actively oozing. Clips were placed at that time to help control bleeding. She was seen by oncology and had undergone chemotherapy however she did not tolerate it due to increased bleeding. On chart review December [address] did reveal an enlarging esophageal mass she has had recent hospitalizations as well as several blood transfusions since this time. Hospice has been discussed our patient has declined, no further treatment plan has been ordered. The patient has had PEG tube placed for nourishment. She has not been able to tolerate her tube feeds over the past few days she has had some vomiting however denies any coffee-ground emesis or bright red blood. The also states that patient has had some bleeding around her G-tube site Today the patient was at home and had a large dark black bowel movement was a week somewhat confused. Her states that she has been running a low-grade fever no cough abdominal pain chest pain shortness of breath. She was brought to [facility] for evaluation. According to [facility] notes upon arrival patient was somnolent blood pressure was 73 systolic pulse was 128 temperature was 98 lab work did reveal hemoglobin 3.5 it was 6.8 few days earlier. White count was 24.6 potassium was 5 creatinine was 1.44. Patient was given IV fluids as well as blood transfusion 2 units PRBCs. At that time ER physician did speak with the family and patient concerning CODE STATUS in which the family, patient expressed he would like to be full code. Patient's blood pressure continues to be low he was initiated on norepinephrine Once stabilized patient was transferred to [facility] for further workup evaluation. Upon arrival patient's blood pressure was 100 systolic she was tachycardic and afebrile. Stop lab work was obtained hemoglobin had improved to 6.5 no active bleeding noted Dr. Helm at bedside discussing with family course of care as well as CODE STATUS again both family and patient requests full CODE STATUS and they would like all invasive and diagnostic procedures necessary to keep patient alive. I reviewed this case with Dr. Helm who agreed plan Past Med Surg Social Fam HX - Past Medical History Medical history: arthritis, cancer, CHF, COPD, hyperlipidemia, hypertension, renal disease Psychiatric history: no psych history - Past Surgical History Surgical History: other - Social History Smoking Status: Former smoker Smokeless Tobacco Status: No Alcohol use: none Drug use: none - Family History Father Living Status: Hx Family Cardiac Disorders: Yes (HEART RELATED) Mother Living Status: Still Living Hx Family Cardiac Disorders: Yes (Hypertension) Hx Family Endocrine Disorder: Yes (Diabetes Mellitus) Hx Family Neurologic Disorders: Yes (CVA) Sister Living Status: Still Living Hx Family Cardiac Disorders: No Hx Family Cancer: Yes Hx Family GI Disorders: No Hx Family Endocrine Disorder: No Hx Family Neuromuscular Disorders: No Hx Family Neurologic Disorders: No Hx Family HEENT Disorders: No Hx Family Autoimmune Disorders: No Internal Medicine - H&P: Meds CloNIDine Patch [Catapres-Tts] 0.3 mg TP QWEEK 08/14/16 [History] Metoprolol Tartrate [Lopressor] 50 mg PO BID 11/04/16 [History] Sennosides [Senna] 8.6 mg PO BID 11/04/16 [History] Albuterol Sulfate [Albuterol Inhaler] 2 puff IH Q4H PRN 11/08/16 [History] Polyethylene Glycol 3350 [MiraLAX Powder Bulk 17.9 Oz] 17 gm PO DAILY PRN [History] Albuterol Neb [Proventil Neb] 2.5 mg IH Q4H PRN 30 Days 11/14/16 [Rx] Omeprazole [PriLOSEC] 20 mg PO BIDAC #30 cap 11/14/16 [Rx] Lactose-Reduced Food/Fiber [Jevity 1.5 Andrés Liquid] 1 can PO QID 12/05/16 [ History] Lactulose 20 gm PO DAILY PRN 12/05/16 [History] Oxycodone HCl 15 mg PO Q4H PRN 12/05/16 [History] Prochlorperazine Maleate [Compazine] 10 mg PO Q8H PRN 12/05/16 [History] Omeprazole [PriLOSEC] 40 mg PO DAILY #30 cap 12/06/16 [Rx] Sucralfate [Carafate] 1 gm GTUBE QIDAC 30 Days 12/06/16 [Rx] Lidocaine/Prilocaine [Emla] 1 appl TP AD #1 cream..g. 12/12/16 [Rx] Supplies [SUPPLIES] 1 each .ROUTE DAILY #1 pkg 12/21/16 [Rx] Ondansetron Oral Soln [Zofran Oral Soln] 4 mg PO Q6H PRN #120 solution 12/24/16 [Rx] Allergies Amoxicillin [From Augmentin] Adverse Reaction (Verified 12/24/16 03:46) Diarrhea aspirin Adverse Reaction (Verified 12/24/16 03:46) Nausea clavulanic acid [From Augmentin] Adverse Reaction (Verified 12/24/16 03:46) Diarrhea naproxen Adverse Reaction (Verified 12/24/16 03:46) Nausea NSAIDS (Non-Steroidal Anti-Inflamma Adverse Reaction (Verified 12/24/16 03:46) Nausea sulfamethoxazole [From Bactrim] Adverse Reaction (Verified 12/24/16 03:46) Hypertension trimethoprim [From Bactrim] Adverse Reaction (Verified 12/24/16 03:46) Hypertension All Systems PM: A 10-system review of systems was performed and is negative for pertinent findings except as documented above in the HPI. - Constitutional Constitutional: weakness - Cardiovascular Cardiovascular ROS IM: no chest pain, no diaphoresis, no dyspnea, no lightheadedness, no palpitations, no syncope - Respiratory Respiratory: no cough, no dyspnea, no wheezing, no excessive phlegm production - Gastrointestinal Gastrointestinal: dysphagia, melena, nausea, vomiting, no abdominal pain, no diarrhea, no hematemesis, no hematochezia - Genitourinary Genitourinary: no change in urinary stream, no dysuria, no flank pain, no hematuria - Musculoskeletal Musculoskeletal ROS IM: as per HPI - Integumentary Integumentary IM: no rash, no unusual bruising - Neurological Neurological ROS: no confusion, no convulsions, no focal weakness, no numbness, no tingling, no tremor(s) - Constitutional Vitals: Temp Pulse Resp BP Pulse Ox 98.9 F 109 16 104/65 100 12/26/16 18:00 12/26/16 19:14 12/26/16 19:14 12/26/16 19:14 12/26/16 19:14 General appearance: Present: A&O X 3 - Head Head exam: Present: atraumatic, normocephalic - Eye Eye exam: Present: PERRL, conjuntiva pink, sclera anicteric Pupils: Present: PERRL - Neck Neck exam general surgery: Present: supple, trachea midline. Absent: lymphadenopathy - Respiratory Respiratory exam: Present: CTAB. Absent: accessory muscle use, rales, rhonchi, wheezes - Cardiovascular Cardiovascular exam: Present: RRR, +S1, +S2. Absent: diastolic murmur, gallop, rubs, systolic murmur - GI/Abdominal Additional comments: PEG tube in left upper quadrant - Extremities Exam Extremities exam: Present: warm, radial pulses palpable and symetrical. Absent : calf tenderness, cyanotic, pedal edema - Neurological Exam Neurological exam: Present: CN II-XII intact, oriented X3, no focal deficits. Absent: pronater drift, facial droop, speech deficit - Skin Skin exam: Present: dry, intact Internal Med - H&P Results - Labs CBC & Chem 7: 12/26/16 19:37 12/26/16 19:37
[2016-12-26 19:57] LABS: Basophils % 0.1 %; Eosinophils % 0.1 %; Hematocrit 19.5 % (35.3-44.9); Hematocrit 20.1 % (35.3-44.9); Hemoglobin 6.5 g/dL (11.5-15.4); Hemoglobin 6.6 g/dL (11.5-15.4); Immature Granulocytes % 1.6 % (0-4); Lymphocytes # 1.2 K/mcL (0.6-4.6); Lymphocytes % 5.8 %; Mean Corpuscular HGB Conc 32.8 g/dL (31.6-35.5); Mean Corpuscular Hemoglobin 28.2 pg (28.0-33.3); Mean Corpuscular Volume 85.9 fL (83.0-100.0); Monocytes # 1.1 K/mcL (0.0-1.3); Monocytes % 5.8 %; Neutrophils # 17.1 K/mcL (1.6-8.9); Nucleated Red Blood Cells 0.1 /100 WBC (0); Platelet Count 320 K/mcL (140-400); Red Blood Count 2.34 M/mcL (3.82-4.97); Red Cell Distribution Width 14.7 % (11.5-14.5); Segmented Neutrophils % 86.6 %
[2016-12-26] MEDS ORDERED: Vancomycin (wt based) 1,000 MG VIAL IVPB SCH (20:00)
[2016-12-26 20:01] LABS: INR 1.5; Prothrombin Time 16.3 Seconds (9.4-12.1)
[2016-12-26] MEDS: Pantoprazole 40 MG in 0.9 % Sodium Chloride Mini Bag 100 ML IVC SCH (20:02)
[2016-12-26 20:09] LABS: Albumin/Globulin Ratio 0.4 (1.1-2.2); Bilirubin,Total 0.4 mg/dL (0.2-1.2); Calcium 7.8 mg/dL (8.6-10.8); Globulin 3.3 g/dL (2.4-3.5); Potassium 4.5 mEq/L (3.5-4.5); Total Protein 4.6 g/dL (6.0-8.3)
[2016-12-26] MEDS: Albuterol 2.5 MG/3 ML NEBULIZER IH SCH ×2 (20:14→20:37)
[2016-12-26 20:15] LABS: Albumin 1.3 g/dL (3.5-5.0)
[2016-12-26] MEDS ORDERED: *HR* OxyCODONE Immed Rel 15 MG TABLET PO PRN (20:23)
[2016-12-26] MEDS: *HR* OxyCODONE/APAP 5/325 TABLET PO PRN (21:40)
[2016-12-26] MEDS: Meropenem 1,000 MG in 0.9 % Sodium Chloride Mini Bag 100 ML IVPB SCH (23:04)
[2016-12-27] MEDS: Albuterol 2.5 MG/3 ML NEBULIZER IH SCH ×6 (00:17→19:12)
[2016-12-27] MEDS: Pantoprazole 40 MG in 0.9 % Sodium Chloride Mini Bag 100 ML IVC SCH ×6 (01:48→23:43)
[2016-12-27] MEDS: *HR* OxyCODONE/APAP 5/325 TABLET PO PRN ×3 (02:59→17:12)
[2016-12-27 03:54] LABS: Basophils % 0.1 %; Eosinophils % 0.2 %; Hematocrit 18.2 % (35.3-44.9); Immature Granulocytes % 1.4 % (0-4); Lymphocytes # 0.7 K/mcL (0.6-4.6); Lymphocytes % 5.6 %; Mean Corpuscular Hemoglobin 28.7 pg (28.0-33.3); Mean Corpuscular Volume 87.1 fL (83.0-100.0); Mean Platelet Volume 9.3 fL (9.4-12.4); Monocytes # 0.6 K/mcL (0.0-1.3); Monocytes % 5.5 %; Neutrophils # 10.2 K/mcL (1.6-8.9); Platelet Count 227 K/mcL (140-400); Red Blood Count 2.09 M/mcL (3.82-4.97); Red Cell Distribution Width 14.6 % (11.5-14.5); Segmented Neutrophils % 87.2 %
[2016-12-27] MEDS ORDERED: 0.9 % Sodium Chloride 500 ML ONE (04:13)
[2016-12-27 04:21] LABS: BUN/Creatinine Ratio 71 (6-26); Blood Urea Nitrogen 71 mg/dL (7-20); Carbon Dioxide 22 mEq/L (19-29); Chloride 102 mEq/L (98-109); Glucose 118 mg/dL (70-99); Osmolality,Calculated 300 (280-300); Potassium 3.9 mEq/L (3.5-4.5); Sodium 134 mEq/L (136-145); eGFR For African Americans > 60 (> 60); eGFR For Non-African Americans 56 (> 60)
[2016-12-27 04:55] LABS: INR 1.4; Prothrombin Time 15.6 Seconds (9.4-12.1)
[2016-12-27] MEDS: *HR* LORazepam 2 MG/ML VIAL IVP PRN ×2 (05:20→11:22)
[2016-12-27] MEDS: Meropenem 1,000 MG in 0.9 % Sodium Chloride Mini Bag 100 ML IVPB SCH (07:57)
[2016-12-27] MEDS: Vancomycin 1,000 MG in D5% in Water 250 ML IVPB SCH ×2 (09:17→20:07)
[2016-12-27 11:38] LABS: Basophils % 0.2 %; Eosinophils % 0.1 %; Hematocrit 24.4 % (35.3-44.9); Immature Granulocytes % 1.3 % (0-4); Lymphocytes # 0.5 K/mcL (0.6-4.6); Lymphocytes % 4.4 %; Mean Corpuscular Hemoglobin 29.4 pg (28.0-33.3); Mean Corpuscular Volume 86.5 fL (83.0-100.0); Mean Platelet Volume 8.8 fL (9.4-12.4); Monocytes # 0.7 K/mcL (0.0-1.3); Monocytes % 6.2 %; Nucleated Red Blood Cells 0.3 /100 WBC (0); Platelet Count 181 K/mcL (140-400); Red Blood Count 2.82 M/mcL (3.82-4.97); Red Cell Distribution Width 14.5 % (11.5-14.5); Segmented Neutrophils % 87.8 %
[2016-12-27 11:43] LABS: Hemoglobin 8.3 g/dL (11.5-15.4)
[2016-12-27] MEDS: 0.9 % Sodium Chloride 1,000 ML IVC SCH ×2 (13:23→21:56)
--- NOTE | 2016-12-27 13:54 | Oncology Inp Consult Note ---
<Jose Benson - Last Filed: 12/27/16 13:44> Date of Encounter: 12/27/16 Time of Encounter: 13:44 Assessment and Plan (1) Primary cancer of esophagus with metastasis to other site Status: Acute Assessment and plan: Patient has a history of metastatic adenocarcinoma of esophagus, abdominal CT scan 1 week ago showed progression of the primary distal esophageal mass infiltrating into the GE junction with esophageal stent placement, approximately 50% malignant narrowing of the proximal stent with mild esophageal distention. There were also progressive extensive thoracic and abdominal metastatic disease and trace bilateral pleural effusion which may be malignant in nature. Patient had multiple EGD in the past for bleeding issue, EGD in October this year which revealed a large nonobstructing ulcerative mass that was bleeding with multiple sites and that time clips were placed. GI has been consulted and patient will be going for EGD tomorrow. Patient is status post FOLFOX x2, last one was September this year, due to multiple hospitalization with history of bleeding and acute blood loss anemia, chemotherapy is on hold currently, patient wishes to remain full code, currently there is no definitive chemotherapy/radiation therapy plan for her metastatic esophageal cancer, continue supportive care for now and closely monitor her hemoglobin level. - Data of Consult Patient: known to practice within the last 3 years Consult date: 12/27/16 Requesting Physician: Cordell Helm MD Primary Care Provider: Susan Burris CNP - Consult Narrative Reason for consult: Esophageal cancer History of present illness: Ms. Lara is a 65 year old female with a history of metastatic esophageal cancer , COPD and chronic kidney disease stage III who presented to the ER with chief complaint of not being able to tolerate her tube feeding over the past few days with nausea and vomiting, patient has also noted that she had some bleeding around the G-tube area also patient had some episodes of melena since a week ago. Patient has been following Dr. Wilkinson in [facility] for her esophageal cancer mets to her liver, because of bleeding complication, chemotherapy was recently stopped. Patient had EGD in October this year which revealed a large nonobstructing ulcerative mass that was bleeding with multiple sites and that time clips were placed. This time in the ER labs showed a hemoglobin of 3.5 and it was 6.8 several days ago. Abdominal CT scan 1 week ago showed progression of the primary distal esophageal mass infiltrating into the GE junction with esophageal stent placement, approximately 50% malignant narrowing of the proximal stent with mild esophageal distention. There were also progressive extensive thoracic and abdominal metastatic disease and trace bilateral pleural effusion which may be malignant in nature. During this hospital stay patient received total 3 units of PRBC and 2 units of FFP. Past Med Surg Social Fam HX - Past Medical History Medical history: arthritis, cancer, CHF, COPD, hyperlipidemia, hypertension, renal disease Psychiatric history: no psych history - Past Surgical History Surgical History: other - Social History Smoking Status: Former smoker Smokeless Tobacco Status: No Alcohol use: none Drug use: none - Family History Father Living Status: Hx Family Cardiac Disorders: Yes (HEART RELATED) Mother Living Status: Still Living Hx Family Cardiac Disorders: Yes (Hypertension) Hx Family Endocrine Disorder: Yes (Diabetes Mellitus) Hx Family Neurologic Disorders: Yes (CVA) Sister Living Status: Still Living Hx Family Cardiac Disorders: No Hx Family Cancer: Yes Hx Family GI Disorders: No Hx Family Endocrine Disorder: No Hx Family Neuromuscular Disorders: No Hx Family Neurologic Disorders: No Hx Family HEENT Disorders: No Hx Family Autoimmune Disorders: No Medications and Allergies CloNIDine Patch [Catapres-Tts] 0.3 mg TP QWEEK 08/14/16 [History] Metoprolol Tartrate [Lopressor] 50 mg PO BID 11/04/16 [History] Sennosides [Senna] 8.6 mg PO BID 11/04/16 [History] Albuterol Sulfate [Albuterol Inhaler] 2 puff IH Q4H PRN 11/08/16 [History] Polyethylene Glycol 3350 [MiraLAX Powder Bulk 17.9 Oz] 17 gm PO DAILY PRN [History] Albuterol Neb [Proventil Neb] 2.5 mg IH Q4H PRN 30 Days 11/14/16 [Rx] Omeprazole [PriLOSEC] 20 mg PO BIDAC #30 cap 11/14/16 [Rx] Lactose-Reduced Food/Fiber [Jevity 1.5 Andrés Liquid] 1 can PO QID 12/05/16 [ History] Lactulose 20 gm PO DAILY PRN 12/05/16 [History] Oxycodone HCl 15 mg PO Q4H PRN 12/05/16 [History] Prochlorperazine Maleate [Compazine] 10 mg PO Q8H PRN 12/05/16 [History] Sucralfate [Carafate] 1 gm GTUBE QIDAC 30 Days 12/06/16 [Rx] Lidocaine/Prilocaine [Emla] 1 appl TP AD #1 cream..g. 12/12/16 [Rx] Allergies Amoxicillin [From Augmentin] Adverse Reaction (Verified 12/24/16 03:46) Diarrhea aspirin Adverse Reaction (Verified 12/24/16 03:46) Nausea clavulanic acid [From Augmentin] Adverse Reaction (Verified 12/24/16 03:46) Diarrhea naproxen Adverse Reaction (Verified 12/24/16 03:46) Nausea NSAIDS (Non-Steroidal Anti-Inflamma Adverse Reaction (Verified 12/24/16 03:46) Nausea sulfamethoxazole [From Bactrim] Adverse Reaction (Verified 12/24/16 03:46) Hypertension trimethoprim [From Bactrim] Adverse Reaction (Verified 12/24/16 03:46) Hypertension Review of systems: Patient admits melena, nausea and vomiting and bleeding around the NG tube, but this morning patient denies headache, fever, chill, productive cough, shortness of breath, chest pain, constipation, abdominal pain or dysuria. Oncology - Exam - Constitutional Vitals: Temp Pulse Resp BP Pulse Ox 99.1 F 113 20 90/49 97 12/27/16 12:12 12/27/16 13:00 12/27/16 13:00 12/27/16 13:00 12/27/16 13:00 General appearance: average body habitus, no acute distress - Head Head exam: Present: atraumatic, normal inspection, normocephalic - Eye Eye exam: Present: EOMI, PERRL Pupils: Present: PERRL - ENT ENT exam: Present: mucous membranes dry, normal exam - Neck Neck exam: Present: full ROM, normal inspection. Absent: tenderness - Respiratory Respiratory exam: Present: CTAB. Absent: rales, respiratory distress, wheezes - Cardiovascular Cardiovascular exam: Present: RRR, +S1, +S2. Absent: clicks, rubs, systolic murmur - GI/Abdominal GI/Abdominal exam: Present: soft. Absent: firm, guarding, rebound, rigid, tenderness Additional comments: PEG tube in place - Extremities Exam Extremities exam: Present: normal inspection. Absent: calf tenderness, pedal edema, tenderness - Neurological Exam Neurological exam: Present: alert, CN II-XII intact, oriented X3, no focal deficits. Absent: altered Oncology - Results - Labs Labs: Short CBC 12/26/16 12/26/16 12/27/16 Range/Units 19:37 19:37 03:00 WBC 19.7 H 11.7 H (4.3-11.1) K/mcL Hgb 6.6 L D 6.5 L 6.0 L* (11.5-15.4) g/dL Hct 20.1 L 19.5 L 18.2 L (35.3-44.9) % Plt Count 320 227 (140-400) K/mcL Neutrophils # 17.1 H 10.2 H (1.6-8.9) K/mcL 12/27/16 Range/Units 11:30 WBC 11.4 H (4.3-11.1) K/mcL Hgb 8.3 L D (11.5-15.4) g/dL Hct 24.4 L (35.3-44.9) % Plt Count 181 (140-400) K/mcL Neutrophils # 10.0 H (1.6-8.9) K/mcL BMP 12/26/16 12/27/16 19:37 03:49 Sodium 132 L 134 L Potassium 4.5 3.9 Chloride 100 102 Carbon Dioxide 23 22 BUN 84 H 71 H Creatinine 1.18 H 1.00 Glucose 129 H 118 H Calcium 7.8 L 8.0 L Cardiac Enzymes 12/26/16 12/27/16 Range/Units 19:37 03:00 Troponin I 0.12 H* 0.10 H* (0-0.03) ng/mL Liver Function 12/26/16 Range/Units 19:37 Total Bilirubin 0.4 (0.2-1.2) mg/dL AST 81 H (5-34) Units/L ALT 71 H (0-55) Units/L Alkaline Phosphatase 90 (38-126) Units/L Albumin 1.3 L (3.5-5.0) g/dL Consult Discharge Plan - Plan Referrals: Susan Burris, INDUSTRIAL ORGANIZATION MANAGER [Primary Care Provider] - <Marcus Caceres - Last Filed: 12/28/16 09:11> Date of Encounter: 12/28/16 - Data of Consult Requesting Physician: Massiel Aguilar Primary Care Provider: Susan Burris CNP - Consult Narrative History of present illness: Ms. Lara is a 65 year old female Oncology - Exam - Constitutional Vitals: Temp Pulse Resp BP Pulse Ox 98.6 F 128 20 153/80 97 12/28/16 07:28 12/28/16 07:28 12/28/16 07:28 12/28/16 07:28 12/28/16 07:28 Oncology - Results - Labs Labs: Short CBC 12/27/16 12/27/16 12/27/16 Range/Units 11:30 14:55 20:15 WBC 11.4 H 10.6 9.7 (4.3-11.1) K/mcL Hgb 8.3 L D 8.1 L 7.7 L (11.5-15.4) g/dL Hct 24.4 L 24.2 L 23.0 L (35.3-44.9) % Plt Count 181 190 180 (140-400) K/mcL Neutrophils # 10.0 H 9.1 H 8.3 (1.6-8.9) K/mcL 12/28/16 Range/Units 03:00 WBC 10.9 (4.3-11.1) K/mcL Hgb 8.1 L (11.5-15.4) g/dL Hct 24.2 L (35.3-44.9) % Plt Count 207 (140-400) K/mcL Neutrophils # 9.4 H (1.6-8.9) K/mcL BMP 12/28/16 03:00 Sodium 132 L Potassium 3.7 Chloride 104 Carbon Dioxide 22 BUN 32 H D Creatinine 0.79 Glucose 86 Calcium 7.1 L - Attending Attestation I examined this patient and my medical decision-making was reviewed with the AUTOMATIC SERGING MACHINE OPERATOR/PA/Advanced Practice Nurse/Resident Physician. I agree with the documented findings, disposition and treatment plan as described except to the extent set forth below. Patient underwent oncology for ongoing management of metastatic esophageal cancer. She is currently as well as acute blood loss anemia with well-documented history of bleeding from her esophageal mass. There is additional concern about bleeding ulcer. She is comfortable and he managed supportively with transfusion. She is scheduled for EGD by Dr. Winter shortly. I informed her today that depending on EGD findings, if her bleeding is felt to be coming from her esophageal mass, palliative radiotherapy may be helpful with bleeding control. She is willing to reconsider radiotherapy for recommended. I will discuss the case with Dr. Edmondson radiation oncology who she was previously seen regarding radiotherapy. Appreciate ongoing supportive measures by hospital team and will follow along while patient in-house.
--- NOTE | 2016-12-27 14:34 | Gastroenterology Consult Note ---
<Sukumar Mccain - Last Filed: 12/27/16 14:41> Date of Encounter: 12/27/16 Time of Encounter: 11:20 - Assessment and plan (1) Esophageal cancer Current Visit: No Status: Chronic Assessment and plan: EGD with partially covered metal stent placed 11/09/2016. Consider repeat EGD tomorrow. Keep NPO at midnight. Qualifiers: Malignant neoplasm of esophagus location: lower third Qualified Code(s): C15.5 - Malignant neoplasm of lower third of esophagus (2) Anemia Current Visit: No Status: Chronic Assessment and plan: Hgb 3.5 at [facility] and transfused. On arrival here, Hgb 6.6 and received 3 units PRBC and 2 FFP. Hgb 6 this AM. Continue to monitor CBC and transfuse as needed. Plan for EGD tomorrow. Keep NPO at midnight. Qualifiers: Anemia type: other cause Other causes of anemia: acute posthemorrhagic Qualified Code(s): D62 - Acute posthemorrhagic anemia (3) GI bleed Current Visit: No Status: Resolved Assessment and plan: Secondary to esophageal cancer. Qualifiers: GI bleed type/associated pathology: unspecified gastrointestinal hemorrhage type Qualified Code(s): K92.2 - Gastrointestinal hemorrhage, unspecified - Time Spent With Patient Total time spent is greater than 50% in coordination of care (as documented) at patient's floor/unit and/or counseling patient: GI History of Present Illness - Data of Consult Patient: known to practice within the last 3 years Consult date: 12/27/16 Requesting Physician: Cordell Helm MD - Consult Narrative Reason for consult: GI Bleed History of present illness: Ms. Lara is a 65 year old female with PMHx of stage 4 esophageal cancer, HTN, COPD, reurrent GI bleed, and anemia who presented to [facility] with Hgb 3.5 and was transfuse 2 units PRBC. On admission here, Hgb 6.6 and has received 3 units PRBC and 2 FFP. Hgb this AM was 6. She has not been able to tolerate her tube feeds over the past few days she has had some vomiting however denies any coffee-ground emesis or bright red blood. She has had some bleeding around her PEG tube, and a large dark black BM. Procedures: EGD 11/09/2016 Dr. Winter: Malignant esophageal tumor in middle third of esophagus, partially covered esophageal stent placed for hemostasis. EGD 11/04/2016 Dr. Boyd partially obstructing malignant esophageal tumor in the lower third of the esophagus. 2 ligatures were successfully placed. A slow ooze remaining at the end of the procedure. EGD 10/23/2016 Dr. Gray completely obstructing malignant esophageal tumor at the GE junction, PEG tube placed. EGD 09/21/2016 Dr. Winter partially obstructing malignant esophageal tumor in the lower third of the esophagus with bleeding, treated with APC. EGD 08/16/2016 Dr. Gray partially obstructing likely malignant esophageal tumor in the lower third of the esophagus. NSAIDs: None Anticoagulation: None Past Med Surg Social Fam HX - Past Medical History Medical history: arthritis, cancer, CHF, COPD, hyperlipidemia, hypertension, renal disease Psychiatric history: no psych history - Past Surgical History Surgical History: other - Social History Smoking Status: Former smoker Smokeless Tobacco Status: No Alcohol use: none Drug use: none - Family History Father Living Status: Hx Family Cardiac Disorders: Yes (HEART RELATED) Mother Living Status: Still Living Hx Family Cardiac Disorders: Yes (Hypertension) Hx Family Endocrine Disorder: Yes (Diabetes Mellitus) Hx Family Neurologic Disorders: Yes (CVA) Sister Living Status: Still Living Hx Family Cardiac Disorders: No Hx Family Cancer: Yes Hx Family GI Disorders: No Hx Family Endocrine Disorder: No Hx Family Neuromuscular Disorders: No Hx Family Neurologic Disorders: No Hx Family HEENT Disorders: No Hx Family Autoimmune Disorders: No - Gastrointestinal Gastrointestinal: Present: as per HPI - Constitutional Constitutional: as per HPI - EENT Eyes: as per HPI Ears: Present: as per HPI Nose, mouth and throat: Present: as per HPI - Cardiovascular Cardiovascular ROS: Present: as per HPI - Respiratory Respiratory IM: Present: as per HPI - Genitourinary Genitourinary: Absent: change in color, Urinary frequency - Neurological ROS Neurological GI: Present: as per HPI - Hematologic/Lymphatic Hematologic/Lymphatic pediatric: Present: as per HPI - Musculoskeletal Musculoskeletal ROS GI: Present: as per HPI - Integumentary Integumentary GI: Present: as per HPI - Psychiatric ROS Psychiatric GI: Present: as per HPI - Endocrine Endocrine IM: Present: as per HPI - Constitutional Vitals: Temp Pulse Resp BP Pulse Ox 99.1 F 115 22 93/52 97 12/27/16 12:12 12/27/16 14:00 12/27/16 14:00 12/27/16 14:00 12/27/16 14:00 General appearance: Present: cooperative, A&O X 3, no acute distress, answers questions appropriately - Head Head exam: Present: atraumatic, normocephalic - Eye Eye exam: Present: normal appearance, sclera anicteric - ENT ENT exam: Present: mucous membranes dry - Neck Neck exam general surgery: Present: normal inspection, trachea midline - Respiratory Respiratory exam: Present: decreased breath sounds, CTAB. Absent: rales, rhonchi - Cardiovascular Cardiovascular exam: Present: RRR, +S1, +S2 - GI/Abdominal GI/Abdominal exam: Present: soft, no peritoneal signs. Absent: distended, firm , guarding, tenderness - Rectal Rectal exam: Present: deferred - Extremities Exam Extremities exam: Present: warm - Neurological Exam Neurological exam: Present: no focal deficits - Psychiatric Psychiatric exam: Present: normal affect, normal mood - Skin Skin exam: Present: dry, intact, normal color, warm Results - Labs CBC & Chem 7: 12/27/16 11:30 12/27/16 03:49 Labs: Last Result Calcium 8.0 mg/dL (8.6-10.8) L 12/27/16 03:49 Troponin I 0.10 ng/mL (0-0.03) H* 12/27/16 03:00 Entire Visit Hgb 8.3 g/dL (11.5-15.4) L D 12/27/16 11:30 Hct 24.4 % (35.3-44.9) L 12/27/16 11:30 PT 15.6 Seconds (9.4-12.1) H 12/27/16 04:35 Total Bilirubin 0.4 mg/dL (0.2-1.2) 12/26/16 19:37 AST 81 Units/L (5-34) H 12/26/16 19:37 ALT 71 Units/L (0-55) H 12/26/16 19:37 - ABG ABG results: PT/INR, D-dimer PT 15.6 Seconds (9.4-12.1) H 12/27/16 04:35 Consult Discharge Plan - Plan Referrals: Susan Burris, WINDOW CLEANER [Primary Care Provider] - <Marilynn Winter - Last Filed: 12/27/16 17:44> Date of Encounter: 12/27/16 Time of Encounter: 17:30 - Time Spent With Patient Total time spent is greater than 50% in coordination of care (as documented) at patient's floor/unit and/or counseling patient: GI History of Present Illness - Data of Consult Requesting Physician: Cordell Helm MD - Consult Narrative History of present illness: Ms. Lara is a 65 year old female - Constitutional Vitals: Temp Pulse Resp BP Pulse Ox 99.6 F 121 24 103/51 99 12/27/16 16:00 12/27/16 17:00 12/27/16 17:00 12/27/16 17:00 12/27/16 17:00 Results - Labs CBC & Chem 7: 12/27/16 14:55 12/27/16 03:49 Labs: Last Result Calcium 8.0 mg/dL (8.6-10.8) L 12/27/16 03:49 Troponin I 0.10 ng/mL (0-0.03) H* 12/27/16 03:00 Entire Visit Hgb 8.1 g/dL (11.5-15.4) L 12/27/16 14:55 Hct 24.2 % (35.3-44.9) L 12/27/16 14:55 PT 15.6 Seconds (9.4-12.1) H 12/27/16 04:35 Total Bilirubin 0.4 mg/dL (0.2-1.2) 12/26/16 19:37 AST 81 Units/L (5-34) H 12/26/16 19:37 ALT 71 Units/L (0-55) H 12/26/16 19:37 - ABG ABG results: PT/INR, D-dimer PT 15.6 Seconds (9.4-12.1) H 12/27/16 04:35 - Attending Attestation I examined this patient and my medical decision-making was reviewed with the STORE PRODUCT DEMONSTRATOR/PA/Advanced Practice Nurse/Resident Physician. I agree with the documented findings, disposition and treatment plan as described except to the extent set forth below. Rodriguez with the progressive esophageal cancer with bleeding. Status post metal stent placement now admitted with a GI bleed on rectal examination does has black stool , on G-tube aspiration with fluid no return blood was seen. Rec: EGD to see that whether she is bleeding from her tumor or some other site if no obvious source then she may end up needing a colonoscopy.
[2016-12-27 15:14] LABS: Basophils % 0.1 %; Eosinophils % 0.1 %; Hematocrit 24.2 % (35.3-44.9); Hemoglobin 8.1 g/dL (11.5-15.4); Immature Granulocytes % 1.3 % (0-4); Lymphocytes # 0.5 K/mcL (0.6-4.6); Lymphocytes % 4.9 %; Mean Corpuscular HGB Conc 33.5 g/dL (31.6-35.5); Mean Corpuscular Volume 86.7 fL (83.0-100.0); Mean Platelet Volume 8.9 fL (9.4-12.4); Monocytes # 0.8 K/mcL (0.0-1.3); Monocytes % 7.8 %; Neutrophils # 9.1 K/mcL (1.6-8.9); Nucleated Red Blood Cells 0.3 /100 WBC (0); Platelet Count 190 K/mcL (140-400); Red Blood Count 2.79 M/mcL (3.82-4.97); Red Cell Distribution Width 14.5 % (11.5-14.5); Segmented Neutrophils % 85.8 %
[2016-12-27] MEDS: Piperacillin/Tazobactam 3.375 GM in D5% in Water (Mini-Bag+) 100 ML IVPB SCH ×2 (16:14→23:06)
--- NOTE | 2016-12-27 18:11 | Internal Med Progress Note ---
Date of Encounter: 12/27/16 Time of Encounter: 18:08 - Assessment and plan (1) GI bleed Current Visit: No Status: Resolved Assessment and plan: Secondary to esophageal cancer. Patient does not have any further episodes of hematemesis or hematochezia after admission. H&H stable at this time. Monitor for GI bleed, transfusion when necessary Qualifiers: GI bleed type/associated pathology: unspecified gastrointestinal hemorrhage type Qualified Code(s): K92.2 - Gastrointestinal hemorrhage, unspecified (2) Goals of care, counseling/discussion Current Visit: No Status: Acute Assessment and plan: Patient along with the family members wishes to be full code. There has been detailed discussion with the palliative as well as oncology in the past admissions. However patient remains full code at this time (3) Anemia due to acute blood loss Current Visit: No Status: Acute Assessment and plan: Hgb 3.5 at [place] ED and transfused. On arrival here, Hgb 6.6 and received 3 units PRBC and 2 FFP. Hgb 8.1 now.. Continue to monitor CBC and transfuse as needed. Plan for EGD tomorrow. Keep NPO at midnight. sinus tachycardia possible 2/2 amount of blood loss and being NPO. started on maintenance IVF. (4) Adenocarcinoma of esophagus, stage 4 Current Visit: No Status: Chronic Assessment and plan: Follows with Dr. Soto at the [facility] , she will be following the patient here. abdominal CT scan 1 week ago showed progression of the primary distal esophageal mass infiltrating into the GE junction with esophageal stent placement, approximately 50% malignant narrowing of the proximal stent with mild esophageal distention. There were also progressive extensive thoracic and abdominal metastatic disease and trace bilateral pleural effusion which may be malignant in nature. - Time Spent With Patient 25 - 35 minutes - Subjective Interval history: Patient seen at the bedside, admitted for GI bleed. Hemoglobin 3.5, status post 3 units of PRBC and 2 units of plasma, hemoglobin stable now. Was on pressors overnight which has been stopped, blood pressure borderline stable at this time. Appears drowsy at the bedside, was reported by the nurse that she had just received Ativan. - Constitutional Vitals: Temp Pulse Resp BP Pulse Ox 99.6 F 121 24 103/51 99 12/27/16 16:00 12/27/16 17:00 12/27/16 17:00 12/27/16 17:00 12/27/16 17:00 General appearance: Present: A&O X 3 Exam: - Head Head exam: Present: atraumatic, normocephalic - Eye Eye exam: Present: normal appearance, sclera anicteric - ENT ENT exam: Present: mucous membranes dry - Neck Neck exam general surgery: Present: normal inspection, trachea midline - Respiratory Respiratory exam: Present: decreased breath sounds, CTAB. Absent: rales, rhonchi - Cardiovascular Cardiovascular exam: Present: RRR, +S1, +S2 - GI/Abdominal GI/Abdominal exam: Present: soft, no peritoneal signs. Absent: distended, firm , guarding, tenderness - Rectal Rectal exam: Present: deferred - Extremities Exam Extremities exam: Present: warm - Neurological Exam Neurological exam: Present: no focal deficits - Psychiatric Psychiatric exam: Present: normal affect, normal mood - Skin Skin exam: Present: dry, intact, normal color, warm Internal Medicine: Result - Labs CBC & Chem 7: 12/27/16 14:55 12/27/16 03:49 Labs: Short CBC 12/26/16 12/26/16 12/27/16 Range/Units 19:37 19:37 03:00 WBC 19.7 H 11.7 H (4.3-11.1) K/mcL Hgb 6.6 L D 6.5 L 6.0 L* (11.5-15.4) g/dL Hct 20.1 L 19.5 L 18.2 L (35.3-44.9) % Plt Count 320 227 (140-400) K/mcL Neutrophils # 17.1 H 10.2 H (1.6-8.9) K/mcL 12/27/16 12/27/16 Range/Units 11:30 14:55 WBC 11.4 H 10.6 (4.3-11.1) K/mcL Hgb 8.3 L D 8.1 L (11.5-15.4) g/dL Hct 24.4 L 24.2 L (35.3-44.9) % Plt Count 181 190 (140-400) K/mcL Neutrophils # 10.0 H 9.1 H (1.6-8.9) K/mcL BMP 05/17/17 05/18/17 19:37 03:49 Sodium 132 L 134 L Potassium 4.5 3.9 Chloride 100 102 Carbon Dioxide 23 22 BUN 84 H 71 H Creatinine 1.18 H 1.00 Glucose 129 H 118 H Calcium 7.8 L 8.0 L Cardiac Enzymes 12/26/16 12/27/16 Range/Units 19:37 03:00 Troponin I 0.12 H* 0.10 H* (0-0.03) ng/mL Liver Function 12/26/16 Range/Units 19:37 Total Bilirubin 0.4 (0.2-1.2) mg/dL AST 81 H (5-34) Units/L ALT 71 H (0-55) Units/L Alkaline Phosphatase 90 (38-126) Units/L Albumin 1.3 L (3.5-5.0) g/dL - ABG Interpretation ABG results: PT/INR, D-dimer PT 15.6 Seconds (9.4-12.1) H 12/27/16 04:35 - VTE Documentation of Mechanical Device: Intermittent pneumatic compression device Consult Discharge Plan - Plan Referrals: Susan Burris, EYEGLASS INSPECTOR [Primary Care Provider] -
[2016-12-27] MEDS ORDERED: Albuterol 2.5 MG/3 ML NEBULIZER IH PRN (19:25)
[2016-12-27 20:23] LABS: Basophils % 0.1 %; Eosinophils % 0.3 %; Hemoglobin 7.7 g/dL (11.5-15.4); Immature Granulocytes % 1.4 % (0-4); Lymphocytes # 0.6 K/mcL (0.6-4.6); Mean Corpuscular HGB Conc 33.5 g/dL (31.6-35.5); Mean Corpuscular Hemoglobin 29.1 pg (28.0-33.3); Mean Corpuscular Volume 86.8 fL (83.0-100.0); Mean Platelet Volume 8.8 fL (9.4-12.4); Monocytes # 0.7 K/mcL (0.0-1.3); Monocytes % 7.1 %; Neutrophils # 8.3 K/mcL (1.6-8.9); Nucleated Red Blood Cells 0.2 /100 WBC (0); Platelet Count 180 K/mcL (140-400); Red Blood Count 2.65 M/mcL (3.82-4.97); Red Cell Distribution Width 14.6 % (11.5-14.5); Segmented Neutrophils % 85.1 %
[2016-12-27] MEDS ORDERED: Vancomycin 1,000 MG in D5% in Water 250 ML IVPB SCH (21:00)
[2016-12-28] MEDS: *HR* OxyCODONE/APAP 5/325 TABLET PO PRN ×3 (03:07→18:42)
[2016-12-28 03:10] LABS: Basophils % 0.2 %; Eosinophils # 0.1 K/mcL (0.0-0.6); Eosinophils % 0.5 %; Hematocrit 24.2 % (35.3-44.9); Hemoglobin 8.1 g/dL (11.5-15.4); Immature Granulocytes % 0.9 % (0-4); Lymphocytes # 0.6 K/mcL (0.6-4.6); Lymphocytes % 5.1 %; Mean Corpuscular HGB Conc 33.5 g/dL (31.6-35.5); Mean Corpuscular Hemoglobin 29.2 pg (28.0-33.3); Mean Corpuscular Volume 87.4 fL (83.0-100.0); Mean Platelet Volume 9.2 fL (9.4-12.4); Monocytes # 0.8 K/mcL (0.0-1.3); Neutrophils # 9.4 K/mcL (1.6-8.9); Platelet Count 207 K/mcL (140-400); Red Blood Count 2.77 M/mcL (3.82-4.97); Red Cell Distribution Width 14.7 % (11.5-14.5); Segmented Neutrophils % 86.3 %
[2016-12-28 03:15] LABS: INR 1.5; Prothrombin Time 16.7 Seconds (9.4-12.1)
[2016-12-28 03:24] LABS: BUN/Creatinine Ratio 41 (6-26); Calcium 7.1 mg/dL (8.6-10.8); Carbon Dioxide 22 mEq/L (19-29); Chloride 104 mEq/L (98-109); Glucose 86 mg/dL (70-99); Osmolality,Calculated 280 (280-300); Potassium 3.7 mEq/L (3.5-4.5); Sodium 132 mEq/L (136-145); eGFR For African Americans > 60 (> 60); eGFR For Non-African Americans > 60 (> 60)
[2016-12-28] MEDS: Pantoprazole 40 MG in 0.9 % Sodium Chloride Mini Bag 100 ML IVC SCH ×3 (03:27→20:39)
[2016-12-28 03:28] LABS: Blood Urea Nitrogen 32 mg/dL (7-20)
[2016-12-28] MEDS: Piperacillin/Tazobactam 3.375 GM in D5% in Water (Mini-Bag+) 100 ML IVPB SCH ×2 (08:17→15:07)
[2016-12-28] MEDS: Vancomycin 1,000 MG in D5% in Water 250 ML IVPB SCH (08:21)
[2016-12-28] MEDS ORDERED: D5% in Water 250 ML ONE (08:26)
[2016-12-28] MEDS: *HR* LORazepam 2 MG/ML VIAL IVP PRN (09:02)
--- NOTE | 2016-12-28 13:34 | Anesthesia Evaluation PreOp ---
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 Other Medical History: Renal (ckd), Bleeding (GI bleed - received 3U PRBC's and 2U FFP for hgb around 6), GERD, Other (esophageal CA stage 4; G-tube in place) Anesthesia History: No Prior Anesthetic Complications Alcohol Use: none Drug use: none Medications and Allergies CloNIDine Patch [Catapres-Tts] 0.3 mg TP QWEEK 08/14/16 [History] Metoprolol Tartrate [Lopressor] 50 mg PO BID 11/04/16 [History] Sennosides [Senna] 8.6 mg PO BID 11/04/16 [History] Albuterol Sulfate [Albuterol Inhaler] 2 puff IH Q4H PRN 11/08/16 [History] Polyethylene Glycol 3350 [MiraLAX Powder Bulk 17.9 Oz] 17 gm PO DAILY PRN [History] Albuterol Neb [Proventil Neb] 2.5 mg IH Q4H PRN 30 Days 11/14/16 [Rx] Omeprazole [PriLOSEC] 20 mg PO BIDAC #30 cap 11/14/16 [Rx] Lactose-Reduced Food/Fiber [Jevity 1.5 Andrés Liquid] 1 can PO QID 12/05/16 [ History] Lactulose 20 gm PO DAILY PRN 12/05/16 [History] Oxycodone HCl 15 mg PO Q4H PRN 12/05/16 [History] Prochlorperazine Maleate [Compazine] 10 mg PO Q8H PRN 12/05/16 [History] Sucralfate [Carafate] 1 gm GTUBE QIDAC 30 Days 12/06/16 [Rx] Lidocaine/Prilocaine [Emla] 1 appl TP AD #1 cream..g. 12/12/16 [Rx] Allergies Amoxicillin [From Augmentin] Adverse Reaction (Verified 12/24/16 03:46) Diarrhea aspirin Adverse Reaction (Verified 12/24/16 03:46) Nausea clavulanic acid [From Augmentin] Adverse Reaction (Verified 12/24/16 03:46) Diarrhea naproxen Adverse Reaction (Verified 12/24/16 03:46) Nausea NSAIDS (Non-Steroidal Anti-Inflamma Adverse Reaction (Verified 12/24/16 03:46) Nausea sulfamethoxazole [From Bactrim] Adverse Reaction (Verified 12/24/16 03:46) Hypertension trimethoprim [From Bactrim] Adverse Reaction (Verified 12/24/16 03:46) Hypertension - Meds/Allergy Pre-op Review Medications Reviewed: Yes Allergies Reviewed: Yes Beta Blockers on Current Med List: Yes Anesthesia Results - Labs 12/28/16 03:00 12/28/16 03:00 - Imaging EKG: report reviewed, image reviewed (ST) Additional studies: TTE: LVEF 55-60% inferior basal wall hypokinesis LVH mod LV diastolic dysfunction normal RV mild pulm htn Anesthesia Exam Last Vital Signs Temp 98.4 F 12/28/16 11:58 Pulse 107 12/28/16 11:58 Resp 22 12/28/16 11:58 BP 138/70 12/28/16 11:58 Pulse Ox 100 12/28/16 11:58 Weight: 77 kg NPO (# of Hours): >> 8 hrs - HEENT Pupil (Motor): Pupils equal, EOMI Mallampati: III Teeth: Edentulous Oral Opening: Less than or equal to 3 - 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
--- NOTE | 2016-12-28 14:51 | Anesthesia Evaluation Post Op ---
Date of Encounter: 12/28/16 Time of Encounter: 14:51 - Vital Signs Vital Signs: Last Vital Signs Temp 98.4 F 12/28/16 11:58 Pulse 107 12/28/16 11:58 Resp 22 12/28/16 11:58 BP 138/70 12/28/16 11:58 Pulse Ox 100 12/28/16 11:58 - Lungs Lungs: Clear Ascult./Percussion - Airway Airway: Non-obstructed - Cardiovascular Regular Rate - Mental Status Mental Status: Alert & Oriented, Answers Appropriately - Pain Pain Scale: 4 - Nausea Vomiting Nausea Vomiting: Not Present - Hydration Hydration: Ice chips - Discharge PostOp Status: Transfer Patient to floor
[2016-12-28] MEDS: 0.9 % Sodium Chloride 1,000 ML IVC SCH ×2 (14:57→20:53)
[2016-12-28] MEDS ORDERED: 0.9 % Sodium Chloride 250 ML ONE (17:04)
--- NOTE | 2016-12-28 19:29 | Discharge Summary ---
Date of Encounter: 12/28/16 Time of Encounter: 16:00 - Discharge Diagnosis (1) Hypotension due to blood loss Priority: Primary Status: Acute (2) Acute blood loss anemia Priority: Primary Status: Acute (3) Adenocarcinoma of esophagus, stage 4 Priority: Secondary Status: Chronic - Discharge Medications Home Medications: CloNIDine Patch [Catapres-Tts] 0.3 mg TP QWEEK 08/14/16 [History] Metoprolol Tartrate [Lopressor] 50 mg PO BID 11/04/16 [History] Sennosides [Senna] 8.6 mg PO BID 11/04/16 [History] Albuterol Sulfate [Albuterol Inhaler] 2 puff IH Q4H PRN 11/08/16 [History] Polyethylene Glycol 3350 [MiraLAX Powder Bulk 17.9 Oz] 17 gm PO DAILY PRN [History] Albuterol Neb [Proventil Neb] 2.5 mg IH Q4H PRN 30 Days 11/14/16 [Rx] Omeprazole [PriLOSEC] 20 mg PO BIDAC #30 cap 11/14/16 [Rx] Lactose-Reduced Food/Fiber [Jevity 1.5 Andrés Liquid] 1 can PO QID 12/05/16 [ History] Lactulose 20 gm PO DAILY PRN 12/05/16 [History] Oxycodone HCl 15 mg PO Q4H PRN 12/05/16 [History] Prochlorperazine Maleate [Compazine] 10 mg PO Q8H PRN 12/05/16 [History] Sucralfate [Carafate] 1 gm GTUBE QIDAC 30 Days 12/06/16 [Rx] Lidocaine/Prilocaine [Emla] 1 appl TP AD #1 cream..g. 12/12/16 [Rx] Allergies/Adverse Reactions: Allergies Amoxicillin [From Augmentin] Adverse Reaction (Verified 12/24/16 03:46) Diarrhea aspirin Adverse Reaction (Verified 12/24/16 03:46) Nausea clavulanic acid [From Augmentin] Adverse Reaction (Verified 12/24/16 03:46) Diarrhea naproxen Adverse Reaction (Verified 12/24/16 03:46) Nausea NSAIDS (Non-Steroidal Anti-Inflamma Adverse Reaction (Verified 12/24/16 03:46) Nausea sulfamethoxazole [From Bactrim] Adverse Reaction (Verified 12/24/16 03:46) Hypertension trimethoprim [From Bactrim] Adverse Reaction (Verified 12/24/16 03:46) Hypertension Date of admission: 12/26/16 17:25 Primary care physician: Susan Burris CNP Consults: 12/26/16 19:43 Consult to Gastroenterology [CONS] Routine Consulting Provider: [facility] Reason for Consult: GI bleed Time Notified: 19:43 Call Completed: Yes Consult to Oncology [CONS] Routine Consulting Provider: [facility] Reason for Consult: esophageal cancer Time Notified: 19:44 Call Completed: No - Patient Status Disposition: Transfer Critical Access Hosp Condition: Fair Functional capacity at discharge: bed bound Overall status at discharge: patient is not back to baseline - Discharge Instructions Follow Up With: Susan Burris CNP [Primary Care Provider] - 01/01/17 1:20 pm - Diet and Activity Activity: other (bedrest) Diet: other (tube feedings) Interval History: Patient would like to have some fluids. Hospital course: Ms. 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 She underwent EGD in October which revealed a large nonobstructive ulcerative mass was bleeding with multiple sites that were actively oozing. Clips were placed at that time to help control bleeding. She was seen by oncology and had undergone chemotherapy however she did not tolerate it due to increased bleeding. On chart review December [address] did reveal an enlarging esophageal mass she has had recent hospitalizations as well as several blood transfusions since this time. Hospice has been discussed our patient has declined, no further treatment plan has been ordered. The patient has had PEG tube placed for nourishment. She has not been able to tolerate her tube feeds over the past few days she has had some vomiting however denies any coffee-ground emesis or bright red blood. The also states that patient has had some bleeding around her G-tube site. Patient was brought because of a large dark black bowel movement and changes in her mental status. Her hemoglobin was 3.5 in ED. She was transfused 3 units packed red blood cell and 2 FFP's with improvement of her hemoglobin to 8.1. Patient underwent EGD today and it showed a large ulcerated esophagus tomorrow with active oozing in multiple spots. A stent that was placed in the past is in place. Given persistent bleeding from esophageal adenocarcinoma, I will transfuse 2 units packed red blood cells and patient will be transferred to [facility]. PLAN: [facility] transfer. - Time Spent with Patient Total time spent providing and/or coordinating discharge services: - Constitutional Vitals: Temp Pulse Resp BP Pulse Ox 98.1 F 123 20 136/70 98 12/28/16 17:25 12/28/16 17:25 12/28/16 17:25 12/28/16 17:10 12/28/16 17:25 General appearance: Present: cooperative, A&O X 3, pleasant, no acute distress, answers questions appropriately - Neck Neck exam general surgery: Present: supple, trachea midline. Absent: lymphadenopathy - Respiratory Respiratory exam: Present: CTAB - Cardiovascular Cardiovascular exam: Present: tachycardia - GI/Abdominal GI/Abdominal exam: Present: normal bowel sounds. Absent: distended, tenderness - Extremities Exam Extremities exam: Absent: pedal edema - Back Exam Back exam: Absent: CVA tenderness (L), CVA tenderness (R) - Neurological Exam Neurological exam: Present: alert, oriented X3, no focal deficits, strengths equal and symetr throughout. Absent: facial droop, speech deficit - Skin Skin exam: Present: pallor - VTE Documentation of Mechanical Device: Intermittent pneumatic compression device
[2016-12-28 19:39] VITALS: BP 166/85
[2016-12-28] MEDS ORDERED: Aminoglycoside Consult 1 EACH MC ONE (23:09)
[2016-12-28] MEDS ORDERED: *HR* Propofol 200 MG/20 ML VIAL IVP ONE (23:09)
== END 2016-12-28 23:10 | disposition critical access hospital (66) | DRG 720 ==
LOC: SUATTDRO 17:25 → ICNU 17:25 → 2NNU 12-28 07:33
PROVIDERS: ADMIT Hospitalist; ATTEND Internal Medicine